=== PATIENT | female | born 1960 | race Caucasian/White ===

== ENCOUNTER 2019-01-21 06:00 | Outpatient (RCR) | payer OTHER, MEDICARE, SELFPAY | END 2019-02-20 00:01 | LOC: SPT 06:00 | PROVIDERS: Family Provider Family Medicine; Visit Provider General Practice | DX: G89.4 Chronic pain syndrome (principal); M54.5 Low back pain; R26.9 Unspecified abnormalities of gait and mobility; M79.18 Myalgia, other site; Z79.899 Other long term (current) drug therapy | CPT/HCPCS: 97110 ×4 ==

== ENCOUNTER 2019-02-21 13:16 | Outpatient (RCR) | payer OTHER, MEDICARE, SELFPAY | END 2019-03-23 23:59 | disposition home or self-care (01) | LOC: SPT 13:16 | PROVIDERS: Family Provider Family Medicine; PCP Family Medicine; Visit Provider General Practice | DX: G89.4 Chronic pain syndrome (principal); R26.9 Unspecified abnormalities of gait and mobility; M54.5 Low back pain; M79.18 Myalgia, other site | CPT/HCPCS: 97110 ==

== ENCOUNTER 2019-12-19 12:49 | Outpatient (CLI) | payer MEDICARE, SELFPAY ==
--- NOTE | 2019-12-19 13:08 | MM_ITS ---
WS: [id number] BILATERAL SCREENING DIGITAL MAMMOGRAM WITH CAD HISTORY: Screening exam. COMPARISON: 10/06/2018, 09/15/2018, 05/04/2017. Bilateral CC and MLO views submitted. Computer aided detection analyzed. Breast composition: There are scattered areas of fibroglandular density. No suspicious masses, microc alcifications or architectural distortion. Benign calcifications RIGHT breast. Anterior LEFT breast a symmetry is stable. MM/[id number] IMPRESSION: BI-RADS: 2-Benign FOLLOW UP: 1 Year Follow-up
== END 2019-12-19 12:50 | disposition home or self-care (01) ==
LOC: RADSHAW 12:58
PROVIDERS: PCP Family Medicine; Visit Provider Family Medicine
DX: Z12.31 Encounter for screening mammogram for malignant neoplasm of breast (principal)
CPT/HCPCS: 77067

== ENCOUNTER → 2020-12-14 14:48 | Outpatient (BNVA) | payer MEDICARE, SELFPAY | PROVIDERS: PCP Family Medicine; Visit Provider Nurse Practitioner | DX: Z20.822 Contact with and (suspected) exposure to COVID-19 (principal) | CPT/HCPCS: 87426 ==

== ENCOUNTER 2021-05-07 13:45 | Outpatient (CLI) | payer MEDICARE, SELFPAY ==
--- NOTE | 2021-05-07 13:52 | MM_ITS ---
WS: [id number] BILATERAL 3D TOMOSYNTHESIS DIGITAL SCREENING MAMMOGRAPHY WITH CAD CLINICAL INFORMATION: SCREENING HISTORY: Screening mammogram. No current complaints. COMPARISON: December 19, 2019 TECHNIQUE: Bilateral CC and MLO views. FINDINGS: Scattered fibroglandular densities bilaterally. Stable intramammary lymph nodes LEFT breast. A few in cidental punctate calcifications RIGHT breast. Stable clustered calcifications RIGHT breast. No suspi cious focal mass, asymmetry, calcifications, or architectural distortion. No evidence of malignancy. MM/[id number] IMPRESSION: BI-RADS: 2-Benign FOLLOW UP: 1 Year Follow-up Recommend return to annual screening mammography.
== END 2021-05-07 13:46 | disposition home or self-care (01) ==
LOC: RADSHAW 13:50
PROVIDERS: PCP Family Medicine; Visit Provider Family Medicine
DX: Z12.31 Encounter for screening mammogram for malignant neoplasm of breast (principal)
CPT/HCPCS: 77063; 77067

== ENCOUNTER 2021-11-26 13:12 | Outpatient (CLI) | payer MEDICARE, SELFPAY ==
--- NOTE | 2021-11-26 13:27 | XR_ITS ---
WS: [id number] DEXA (DUAL ENERGY X-RAY ABSORPTIOMETRY) Bone mineral density was performed using a Twist machine. HISTORY: POSTMENOPAUSAL COMPARISON: None available. Lumbar spine BMD (L1-L4): 1.353 g/cm2 T score: 1.4 Z score: 2.8 Total hip BMD: Left: 0.931 g/cm2. T score: -0.6 Z score: 0.4 Right: 0.903 g/cm2. T score: -0.8 Z score: 0.2 10 year probability of a major osteoporotic fracture is 10.6%. XR/XR DEXA axial skeleton* [id number] IMPRESSION: NORMAL BONE MINERAL DENSITY based upon the WHO classification for females.
== END 2021-11-26 13:13 | disposition home or self-care (01) ==
LOC: RAD 13:16
PROVIDERS: PCP Family Medicine; Visit Provider Nurse Practitioner Family
DX: Z78.0 Asymptomatic menopausal state (principal)
CPT/HCPCS: 77080

== ENCOUNTER 2022-04-12 15:21 | Outpatient (CLI) | payer MEDICARE, SELFPAY ==
--- NOTE | 2022-04-12 | MR_ITS ---
WS: [id number] MRI LUMBAR SPINE NONCONTRAST HISTORY: LUMBOSACRAL SPONDYLOSIS COMPARISON: 08/12/2016 TECHNIQUE: Sagittal and axial multisequence imaging is submitted. Thoracolumbar scoliosis. Cervical stenosis at C5-6. No central cord compression. Mild progression of the L3 anterolisthesis since the prior study. L3 anterolisthesis by 6.3 mm. Unroo fing of the L3-4 disc. Moderate to severe disc space narrowing at L3-4, L4-5 and L5-S1. No acute frac tures or marrow edema. Conus terminates normally at L1. L1-L2: Mild annular disc bulging and facet disease. No significant stenosis. Mild progression of face t disease. L2-L3: Mild annular disc bulging with ligamentum flavum hypertrophy and facet disease, LEFT greater t estevez RIGHT. Very mild central, bilateral subarticular recess and foraminal stenosis. Similar to the pr ior study. L3-L4: Severe ligamentum flavum and facet disease encroaching into the central canal. Unroofing of th e disc and facet disease. These findings are resulting in severe central, bilateral subarticular rece ss and moderate RIGHT foraminal stenosis. Mild LEFT foraminal stenosis. Stenosis has increased since the prior study. L4-L5: Diffuse asymmetric disc bulging with a central disc protrusion. Marked ligamentum flavum and f acet arthritis. Disc encroaches into the subarticular recesses with significant contact on the riley sing L5 nerve roots. Difficult progression since the prior study. Severe central, bilateral subarticu lar recess and moderate foraminal stenosis. L5-S1: Diffuse annular disc bulging with facet and ligamentum flavum hypertrophy. Central disc protru marina has decreased in size but overall the disc has progressed. Severe central, bilateral subarticula r recess and foraminal stenosis with mild progression. MR/MR lumbar spine wo con* [id number] IMPRESSION: 1. Overall significant progression of degenerative disc disease and spondyliti c changes throughout the lumbar spine since 2017. 2. Severe central, bilateral subarticular recess and moderate RIGHT foraminal stenosis at L3-4. 3. Severe central, bilateral subarticular recess and moderate foraminal stenos is at L4-5. Significant contact on the traversing L5 nerve roots secondary to a central disc protrusion. 4. Severe central, bilateral subarticular recess and foraminal stenosis at L5- S1. Mild progression since the prior study. The central disc protrusion has res olved. 5. Mild central, bilateral subarticular recess and foraminal stenosis at L2-3. 6. Progression of L3 anterolisthesis now measuring 6.3 mm.
== END 2022-04-12 15:22 | disposition home or self-care (01) ==
PROVIDERS: PCP Family Medicine; Visit Provider Physician Assistant
DX: M47.817 Spondylosis without myelopathy or radiculopathy, lumbosacral region (principal); M48.061 Spinal stenosis, lumbar region without neurogenic claudication; M48.07 Spinal stenosis, lumbosacral region; M51.36 Other intervertebral disc degeneration, lumbar region
CPT/HCPCS: 72148

== ENCOUNTER 2022-04-25 15:09 | Emergency (ER) | payer MEDICARE, SELFPAY ==
[2022-04-25 15:26] VITALS: BP 116/76; PULSE 93; RESP 14; TEMP 36.9; O2SAT 100; BMI 28.3
--- NOTE | 2022-04-25 15:45 | ED_ITS ---
HPI - Extremity Problem General: Chief complaint: Extremity Problem,Nontraumatic Stated complaint: back/left hip/right knee pain Time Seen by Provider: 04/25/22 15:38 Source: patient Mode of arrival: ambulatory Limitations: no limitations History of Present Illness: 61-year-old female presents to the ER today for low back pain and right knee pain. Patient reports this is a chronic issue. She recently had an MRI of the low back and was told that it appears worse than it did several years ago. Patient has been referred to a specialist in [place]. Patient reports the pain in her low back radiates down into both buttocks and hips. Patient takes Celebrex and Tylenol for the pain with minimal improvement. Patient reports she has trouble sleeping at night due to being in pain. Patient reports she also has right knee pain. In the past she has had steroid injections and was told that she could keep getting those until she needs a knee replacement. Patient would like to hold off on that as long as possible. She denies any known injury however just reports it feels achy and she has pain with ambulation. Patient reports occasional swelling in it also. Denies that it is worse right now than in the past however is just constantly noticeable anymore. Patient denies any loss of bowel or bladder control. Denies any neurological deficits at this time. Review of Systems General: Reports: 10 or more systems reviewed and unremarkable except in HPI and below PFSH ED PFSH: Medical History BOOP (bronchiolitis obliterans with organizing pneumonia) Depression Dyslipidemia Fibromyalgia GERD (gastroesophageal reflux disease) Hypersomnia Hypothyroidism JAMES (obstructive sleep apnea) Osteoarthritis RLS (restless legs syndrome) Surgical History H/O knee surgery Right - lap. H/O: hysterectomy Partial Family History Other CAD (coronary artery disease) Diabetes Social History Smoking and tobacco status: current every day smoker cigarettes Packs smoked per day: 0.25 [ Other cigarette details: vapes as well ] Alcohol intake: current Alcohol intake frequency: holidays/special occasions only Physical Exam Const: COMMON NORMALS: no acute distress, average body habitus, patient oriented x3, no limitations, healthy appearing, alert and well nourished Resp: COMMON NORMALS: normal respiratory effort and No retractions EFFORT & INSPECTION: Yes able to speak in complete sentences Cardio: COMMON NORMALS: regular rate and regular rhythm RATE: regular rate RHYTHM: regular rhythm Back/Pelvis: OTHER: Patient has tenderness in bilateral SI joints. No midline tenderness is noted in the L-spine. No obvious deformities. No obvious muscle spasms noted. Extremity: NARRATIVE EXTREMITY EXAM: Patient has minimal swelling noted in the right knee. Patient's gait is normal. No obvious deformities of extremities noted. Right knee appears stable on exam. Neuro: COMMON NORMALS: patient oriented x3 SENSORIUM/ORIENTATION: Yes alert Psych: COMMON NORMALS: mental status grossly normal, Normal thought process present and cooperative THOUGHT PROCESS: Normal thought process present Skin: COMMON NORMALS: no rashes or lesions noted and no wounds GENERAL SKIN EXAM: no rashes or lesions noted Course ED course: Patient presents the ER today for back pain and right knee pain that have continued to worsen. Patient has seen her PCP at [facility] and recently had an MRI. The MRI did show changes and she has been referred to [place]. Patient here today because she is having difficulty sleeping due to the constant pain at night. Patient is only taking Tylenol and Celebrex at this time. Patient denies any new neurological deficits or loss of bowel or bladder control. Vital Signs: Vital signs: Vital Signs Temperature 98.4 F 04/25/22 15:26 Pulse Rate 93 04/25/22 15:26 Respiratory Rate 14 04/25/22 15:26 Blood Pressure 116/76 04/25/22 15:26 Pulse Oximetry 100 04/25/22 15:26 Oxygen Delivery Me thod 04/25/22 15:26 MDM - Extremity (Nontraumatic) Medical Decision Making Nothing has changed as far as patient's symptoms go since last imaging was done. We are unable to do a steroid shot in the knee in the ER today but we will try an oral steroid which may help with the low back and the knee. I will send patient home with cyclobenzaprine that she can take at night and as needed throughout the day up to 3 times daily for the back pain. This might allow her to rest some at night. Patient should continue all other medications at home as previously prescribed. I recommend she follow-up with her PCP in several days for an ER follow-up. I also recommended she contact an orthopedic doctor regarding the right knee pain to discuss possible injections in the knee. For any new or worsening symptoms return to the ER. Patient verbalized understand ing and was in agreement with the treatment plan. Critical Care Time Critical Care Time: Critical Care Time: No Discharge Plan Discharge Patient Disposition: Home Clinical Impression: Chronic back pain Qualifiers: Back pain location: low back pain Back pain laterality: bilateral Sciatica presence: with sciatica Sciatica laterality: bilateral sciatica Qualified Code(s): M54.42 - Lumbago with sciatica, left side Osteoarthritis of right knee Qualifiers: Osteoarthritis type: unspecified Qualified Code(s): M17.11 - Unilateral primary osteoarthritis, right knee Condition: Stable Prescriptions: New Medrol (Louie) 4 mg tablets,dose pack See Rx Instructions .ROUTE .COMPLEX Qty: 21 0RF Rx Instructions: orally per package directions cyclobenzaprine 10 mg tablet 10 mg PO TID PRN (Reason: muscle spasm) Qty: 20 0RF No Action gabapentin 300 mg capsule 300 mg PO QID levothyroxine 25 mcg tablet 25 mcg PO .Q AM amitriptyline 50 mg tablet 50 mg PO DAILY topiramate [Topamax] 200 mg tablet 200 mg PO BID celecoxib [Celebrex] 200 mg capsule 200 mg PO DAILY potassium chloride 20 mEq tablet extended release 20 meq PO DAILY modafinil 200 mg tablet 200 mg PO QAM atorvastatin 40 mg tablet 40 mg PO DAILY omeprazole 40 mg capsule,delayed release(DR/EC) 40 mg PO DAILY montelukast [Singulair] 10 mg tablet 10 mg PO DAILY escitalopram oxalate 20 mg tablet 20 mg PO DAILY trazodone 150 mg tablet 150 mg PO DAILY ropinirole 2 mg tablet 2 mg PO DAILY ondansetron HCl [Zofran] 4 mg tablet 4 mg PO Q6H PRN mecobalamin (vitamin B12) 5,000 mcg lozenge 5,000 mcg PO DAILY Rx Instructions: allow to dissolve in mouth OR may chew lightly before swallowing cholecalciferol (vitamin D3) 50 mcg (2,000 unit) capsule 50 mcg PO DAILY glucosamine HCl 1,500 mg tablet 1,500 mg PO DAILY Rx Instructions: administer with a meal omega-3 acid ethyl esters PO Discharge Orders: Discharge ED (Routine); Ordered 04/25/22 Ordered By: Lennie Wilson Referrals: Kaden Plasencia MD [Primary Care Provider] - Discharge Diet: Usual diet Discharge Activity: Increase activity as tolerated Patient Instructions: Opioid Safety, Pain Management Activity Restrictions/Additional Instructions: Take Medrol Dosepak and cyclobenzaprine as prescribed. Continue all other home medications at this time. Warm, moist heat recommended on the low back. Topical muscle rub also recommended such as Bengay or IcyHot. May also try Voltaren [id number]. Recommended glucosamine/chondroitin vitamin. Follow-up with PCP in 3 to 5 days. Return to the ER with new or worsening symptoms. Coding Level of Care Code ED Supplier Quality Engineer for Elroy Yanez
== END 2022-04-25 16:06 | disposition home or self-care (01) ==
PROVIDERS: Emergency Provider Physician Assistant; PCP Family Medicine
DX: M54.42 Lumbago with sciatica, left side (principal); M17.11 Unilateral primary osteoarthritis, right knee
CPT/HCPCS: 99283

== ENCOUNTER → 2022-04-29 09:46 | Outpatient (BNVA) | payer MEDICARE, SELFPAY | PROVIDERS: PCP Family Medicine; Referring Provider Dermatology; Visit Provider Physician Assistant | DX: M54.41 Lumbago with sciatica, right side (principal); M54.42 Lumbago with sciatica, left side; G89.29 Other chronic pain; M17.11 Unilateral primary osteoarthritis, right knee; F17.219 Nicotine dependence, cigarettes, with unspecified nicotine-induced disorders; M48.061 Spinal stenosis, lumbar region without neurogenic claudication | CPT/HCPCS: 72100; 73560; 73565; 99205 ==

== ENCOUNTER → 2022-05-26 10:56 | Outpatient (BNVA) | payer MEDICARE, SELFPAY | PROVIDERS: PCP Family Medicine; Referring Provider Physician Assistant; Visit Provider Anesthesiology Pain Medicine | DX: M48.061 Spinal stenosis, lumbar region without neurogenic claudication (principal); M43.16 Spondylolisthesis, lumbar region; M47.816 Spondylosis without myelopathy or radiculopathy, lumbar region | CPT/HCPCS: 99204 ==

== ENCOUNTER 2022-06-15 15:27 | Outpatient (CLI) | payer MEDICARE, SELFPAY ==
--- NOTE | 2022-06-15 16:15 | MM_ITS ---
WS: [id number] BILATERAL SCREENING DIGITAL TOMOSYNTHESIS MAMMOGRAM WITH CAD HISTORY: SCREEN COMPARISON: 05/07/2021 and 12/19/2019 Bilateral CC and MLO views with tomosynthesis and synthetic mammography submitted. Computer aided det ection analyzed. Breast composition: There are scattered areas of fibroglandular density. No suspicious masses, microc alcifications or architectural distortion. Scattered bilateral calcifications. Benign lymph node uppe r outer quadrant LEFT breast. MM/[id number] IMPRESSION: BI-RADS: 2-Benign FOLLOW UP: 1 Year Follow-up
== END 2022-06-15 15:28 | disposition home or self-care (01) ==
LOC: RAD 15:33
PROVIDERS: PCP Family Medicine; Visit Provider Family Medicine
DX: Z12.31 Encounter for screening mammogram for malignant neoplasm of breast (principal)
CPT/HCPCS: 77063; 77067

== ENCOUNTER → 2022-07-06 15:55 | Outpatient (BNVA) | payer MEDICARE, SELFPAY | PROVIDERS: PCP Family Medicine; Visit Provider Physician Assistant | DX: M43.16 Spondylolisthesis, lumbar region (principal); M48.061 Spinal stenosis, lumbar region without neurogenic claudication; M47.816 Spondylosis without myelopathy or radiculopathy, lumbar region | CPT/HCPCS: 99214 ==

== ENCOUNTER → 2022-10-19 09:14 | Outpatient (BNVA) | payer MEDICARE, SELFPAY | PROVIDERS: PCP Family Medicine; Visit Provider Anesthesiology Pain Medicine | DX: M48.061 Spinal stenosis, lumbar region without neurogenic claudication; M43.16 Spondylolisthesis, lumbar region; M47.816 Spondylosis without myelopathy or radiculopathy, lumbar region | CPT/HCPCS: 99214 ==

== ENCOUNTER 2023-04-08 21:08 | Emergency (ER) | payer MEDICARE, SELFPAY ==
[2023-04-08 21:09] VITALS: BP 150/65; PULSE 103; RESP 16; TEMP 36.6; O2SAT 98
[2023-04-08] MEDS: oxyCODONE-APAP 5-325 mg Tablet 1 TAB PO (22:37)
[2023-04-08] MEDS: tizanidine 4 mg Tablet PO (22:37)
[2023-04-08] MEDS: ketorolac 60 mg/2 mL INJ IM (22:37)
[2023-04-08] MEDS: dexamethasone 10 mg/mL INJ IM (22:37)
--- NOTE | 2023-04-08 23:32 | W.ED.EXTPRO ---
HPI - Extremity Problem General: Chief complaint: Extremity Problem,Nontraumatic Stated complaint: back and bilateral hip pain Time Seen by Provider: 04/08/23 21:17 Source: patient Mode of arrival: ambulatory Limitations: no limitations History of Present Illness: Patient presents emergency department today for evaluation treatment of bilateral inferior buttock pain with radiation down the legs causing pain and numbness. Chart review shows patient has a long history of chronic issues with lumbar radicular symptoms having seen both orthopedics and pain management in the past. Patient has also had various imaging including an MRI which does show chronic degenerative changes, facet arthropathy and ligamentous issues. Patient had done physical therapy which she stated helped some but, due to cost and recurrence of visits, was unable to continue. It does appear that her last pain management visit in September of last year they had discussed injections but, patient states that she had several people tell her they turned out badly for them and she was worried-so she did not get them done. Patient has used steroids, muscle relaxers, gabapentin in the past. Patient states she still has a prescription for gabapentin but often times does not take it. She is denying bowel or bladder dysfunction. She denies any recent injuries or falls. She admits to taking a [place] today without improvement of her pain. Review of Systems General: Reports: 10 or more systems reviewed and unremarkable except in HPI and below PFSH ED PFSH: Medical History JAMES (obstructive sleep apnea) Hypersomnia Hypothyroidism Osteoarthritis Dyslipidemia Depression RLS (restless legs syndrome) GERD (gastroesophageal reflux disease) BOOP (bronchiolitis obliterans with organizing pneumonia) Fibromyalgia Surgical History H/O knee surgery Right - lap. H/O: hysterectomy Partial Family History Other CAD (coronary artery disease) Diabetes Social History Smoking and tobacco/nicotine status: current every day tobacco/nicotine user cigarettes Packs smoked per day: 0.25 [ Other cigarette details: vapes as well ] Alcohol intake: current Alcohol intake frequency: holidays/special occasions only Substance/Drug Use: never Physical Exam Const: COMMON NORMALS: no acute distress, patient oriented x3 and alert HENMT: COMMON NORMALS: normocephalic, atraumatic and hearing grossly normal bilaterally HEAD & SCALP: normocephalic and atraumatic Eye: COMMON NORMALS: Equal, round and reactive pupils present, EOMs intact bilaterally and conjunctivae normal CONJUNCTIVA: Yes conjunctivae normal PUPIL: Yes Equal, round and reactive pupils present Neck/C-Spine: COMMON NORMALS: full ROM and no JVD Lymph: LYMPHATIC: no lymphadenopathy noted Resp: COMMON NORMALS: normal respiratory effort, No retractions and No use of accessory muscles Cardio: COMMON NORMALS: no JVD and regular rate RATE: regular rate Back/Pelvis: OTHER: Patient demonstrates flexion extension capabilities of the back. She has no specific tenderness along the lumbar vertebrae at this time. Extremity: OTHER: Patient is independently ambulatory and weightbearing here in the emergency department. She is able to rise and sit unassisted. Full flexion extension capabilities of the hips bilaterally and knees noted. Patient with reproducible tenderness on palpation of the inferior portion of the buttocks at the adjoining upper, posterior thigh region. EXTREMITY IMAGE (BACK): 1. 2. Neuro: COMMON NORMALS: patient oriented x3 SENSORIUM/ORIENTATION: Yes alert Psych: COMMON NORMALS: mental status grossly normal, Normal thought process present, cooperative and normal affect THOUGHT PROCESS: Normal thought process present Skin: COMMON NORMALS: no rashes or lesions noted and turgor normal GENERAL SKIN EXAM: no rashes or lesions noted and turgor normal Course Vital Signs: Vital signs: Vital Signs Temperature 97.9 F 04/08/23 21:09 Pulse Rate 103 H 04/08/23 21:09 Respiratory Rate 16 04/08/23 21:09 Blood Pressure 150/65 04/08/23 21:09 Pulse Oximetry 98 04/08/23 21:09 Oxygen Delivery Me thod Room Air 04/08/23 21:09 MDM - Extremity (Nontraumatic) Medical Decision Making Patient's physical examination reveals no signs of any acute neurological deficit as she is fully weightbearing and ambulatory. No signs or reports of cauda equina. Patient has well-documented, chronic back pain with imaging to support chronic degenerative changes and radicular symptoms in the past. She has been seen and evaluated by orthopedics, primary care, and pain management in the past. She does not currently see pain management or orthopedics at this time. We discussed getting back in with pain management or orthopedics to discuss as I do think this is still a progression of her chronic lumbar radicular issues. We treated acutely with a one-time dose of narcotic pain medication and prescriptions for muscle relaxer, anti-inflammatory medications. She was given return precautions for neurological including inability to stand or walk, saddle paresthesia, or loss of bowel or bladder function. Patient verbalized understanding and agreement to treatment plan. Differential Diagnosis Unlikely herpes zoster, gout, cellulitis, superficial thrombophlebitis, lower extremity edema or deep vein thrombosis of lower extremity No radiology studies performed this visit Discharge Plan Discharge Patient Disposition: Home Clinical Impression: Facet arthritis, degenerative, lumbar spine, Chronic lumbar radiculopathy Condition: Stable Prescriptions: New tizanidine 4 mg tablet 4 mg PO Q8H Qty: 21 0RF methylprednisolone 4 mg tablets,dose pack See Rx Instructions PO .COMPLEX Qty: 21 0RF Rx Instructions: orally per package directions No Action gabapentin 300 mg capsule 300 mg PO QID levothyroxine 25 mcg tablet 25 mcg PO .Q AM amitriptyline 50 mg tablet 50 mg PO DAILY topiramate [Topamax] 200 mg tablet 200 mg PO BID celecoxib [Celebrex] 200 mg capsule 200 mg PO DAILY potassium chloride 20 mEq tablet extended release 20 meq PO DAILY modafinil 200 mg tablet 200 mg PO QAM atorvastatin 40 mg tablet 40 mg PO DAILY omeprazole 40 mg capsule,delayed release(DR/EC) 40 mg PO DAILY montelukast [Singulair] 10 mg tablet 10 mg PO DAILY escitalopram oxalate 20 mg tablet 20 mg PO DAILY trazodone 150 mg tablet 150 mg PO DAILY ropinirole 2 mg tablet 2 mg PO DAILY ondansetron HCl [Zofran] 4 mg tablet 4 mg PO Q6H PRN mecobalamin (vitamin B12) 5,000 mcg lozenge 5,000 mcg PO DAILY Rx Instructions: allow to dissolve in mouth OR may chew lightly before swallowing cholecalciferol (vitamin D3) 50 mcg (2,000 unit) capsule 50 mcg PO DAILY glucosamine HCl 1,500 mg tablet 1,500 mg PO DAILY Rx Instructions: administer with a meal omega-3 acid ethyl esters PO tramadol 50 mg tablet 50 mg PO .q4-6hrs PRN (Reason: pain) 7 Days Qty: 40 0RF cyclobenzaprine 10 mg tablet 10 mg PO TID PRN (Reason: muscle spasm) Qty: 20 0RF Discharge Orders: Discharge ED (Routine); Ordered 04/08/23 Ordered By: Yanet Lopez Referrals: Kaden Plasencia MD [Primary Care Provider] - Discharge Diet: Usual diet Discharge Activity: Increase activity as tolerated Patient Instructions: Lumbar Radiculopathy (ED) Activity Restrictions/Additional Instructions: Based on the location and description of your pain I do think this is a continued progression of your low back issues including chronic degenerative changes around the nerve roots causing nerve root impingement. I highly encourage you to begin taking your gabapentin again. We are also going to provide you medication to take over the next week to see if we can help improve your overall pain and discomfort. I think is a good idea to get back in with either Dr. Hayes or pain management to discuss better control of your pain. It may be worth getting back into physical therapy or, to discuss the next step in treatment-as they had previously discussed injections. If you are unable to control your bowel or bladder or have complete numbness in your upper inner thighs you need to be seen and reevaluated back here in the emergency department. Coding Level of Care Code ED Cutting Machine Offbearer for Elroy Yanez
== END 2023-04-08 22:46 | disposition home or self-care (01) ==
PROVIDERS: Emergency Provider Physician Assistant; PCP Family Medicine
DX: M47.26 Other spondylosis with radiculopathy, lumbar region (principal); F17.210 Nicotine dependence, cigarettes, uncomplicated; E78.5 Hyperlipidemia, unspecified
CPT/HCPCS: 96372; 99284; J1100; J1885

== ENCOUNTER → 2023-04-15 14:21 | Outpatient (BNVA) | payer MEDICARE, SELFPAY | PROVIDERS: PCP Family Medicine; Visit Provider Orthopaedic Surgery | DX: M48.062 Spinal stenosis, lumbar region with neurogenic claudication | CPT/HCPCS: 72100; 99214 ==

== ENCOUNTER → 2023-04-21 10:53 | Outpatient (BNVA) | payer MEDICARE, SELFPAY | PROVIDERS: PCP Family Medicine; Visit Provider Anesthesiology Pain Medicine | DX: M48.062 Spinal stenosis, lumbar region with neurogenic claudication (principal); M48.061 Spinal stenosis, lumbar region without neurogenic claudication; M43.16 Spondylolisthesis, lumbar region; M47.816 Spondylosis without myelopathy or radiculopathy, lumbar region; Z12.11 Encounter for screening for malignant neoplasm of colon; K21.9 Gastro-esophageal reflux disease without esophagitis | CPT/HCPCS: 99204; 99214 ==

== ENCOUNTER → 2023-05-11 13:51 | Outpatient (BNVA) | payer MEDICARE, SELFPAY | PROVIDERS: PCP Family Medicine; Visit Provider Anesthesiology Pain Medicine | DX: M54.16 Radiculopathy, lumbar region (principal); M48.062 Spinal stenosis, lumbar region with neurogenic claudication | CPT/HCPCS: 64483; 64484; J1100; J3490 ==

== ENCOUNTER 2023-06-01 09:53 | Day surgery (SDC) | payer MEDICARE, SELFPAY ==
[2023-06-01 10:07] VITALS: BP 118/78; PULSE 105; RESP 18; TEMP 36.3; O2SAT 98; BMI 28.3
[2023-06-01] MEDS: sodium chloride 0.9% 1,000 ML 30 ML IV (10:25)
--- NOTE | 2023-06-01 11:13 | ANES.PREANE2 ---
Pre-Anesthetic Assessment Height/Weight: Height 1.55 m Weight 68.039 kg Temp Pulse Resp BP Pulse Ox O2 Del Method 97.4 F L 105 H 18 118/78 98 Room Air 06/01/23 10:07 06/01/23 10:07 06/01/23 10:07 06/01/23 10:07 06/01/23 10:07 06/01/23 10:07 Preop Diagnosis: GERD, screening Operation Date: 06/01/23 11:00 Proposed Procedures p [id number] egd [id number] screen colon a risk K21.9,Z12.11(Not Applicable) - Sina Solomon DO s Colonoscopy(Not Applicable) - Sina Solomon DO Familial anesthetic complications: none Was Beta Marquise taken within 24 hours: N/A Was Clonidine taken within 24 hours: N/A Last intake: Intake Last Liquid Date 06/01/23 Last Liquid Time 08:00 Last Solid Date 05/30/23 Last Solid Time 22:00 Social Tobacco (vapes) and No alcohol Exam alert, oriented x 3 and regular rate & rhythm Airway Submandibular: within normal limits Mallampati: Class III Dentition: false History/ROS No significant history except as noted Pulmonary Exertional Dyspnea and Sleep Apnea (does not wear CPAP- wears o2 2L at night) CV/HEM None reported None reported Hepatic None reported GI Gastroesophageal Reflux Disease Metabolic Hyperlipidemia and Thyroid Disease Musc/skel Lower Back Pain Neuropsych None reported Anesthetic Plan ASA status: 3 Anesthesia: Anesthesia Evaluation and MAC Risk of > 500 ml blood loss (7ml/kg in children): No Medications/Allergies Home Medications Medication Instructions Recorded Confirmed Last Taken Type amitriptyline 50 mg tablet 50 mg PO DAILY 06/17/20 06/01/23 06/01/23 History atorvastatin 40 mg tablet 40 mg PO DAILY 06/17/20 06/01/23 05/31/23 History celecoxib 200 mg capsule (Celebrex) 200 mg PO DAILY 06/17/20 06/01/23 06/01/23 History escitalopram oxalate 20 mg tablet 20 mg PO DAILY 06/17/20 06/01/23 06/01/23 History gabapentin 300 mg capsule 300 mg PO QID 06/17/20 06/01/23 06/01/23 History levothyroxine 25 mcg tablet 25 mcg PO .Q AM 06/17/20 06/01/23 06/01/23 History modafinil 200 mg tablet (Provigil) 200 mg PO QAM 06/17/20 06/01/23 06/01/23 History montelukast 10 mg tablet 10 mg PO DAILY 06/17/20 06/01/23 1 Month Ago History (Singulair) ~05/01/23 omega-3 acid ethyl esters 1 tab PO DAILY 06/17/20 06/01/23 06/01/23 History potassium chloride 20 mEq 20 meq PO DAILY 06/17/20 05/31/23 06/01/23 History tablet,extended release ropinirole 2 mg tablet 2 mg PO DAILY 06/17/20 06/01/23 05/31/23 History topiramate 200 mg tablet (Topamax) 200 mg PO BID 06/17/20 05/31/23 06/01/23 History trazodone 150 mg tablet 150 mg PO DAILY 06/17/20 06/01/23 1 Month Ago History ~05/01/23 cyclobenzaprine 10 mg tablet 10 mg PO TID PRN muscle spasm #20 04/25/22 06/01/23 1 Week Ago Rx tabs ~05/25/23 pantoprazole 40 mg tablet,delayed 40 mg PO BID 6 weeks #84 tabs 04/21/23 06/01/23 06/01/23 Rx release (Protonix) Allergies Allergy/AdvReac Type Severity Reaction Status Date / Time morphine Allergy Mild ADR-Itching Verified 06/01/23 10:12 Current Medications Generic Name Dose Route Start Last Admin Trade Name Freq PRN Reason Stop Dose Admin Sodium Chloride 1,000 mls @ 30 mls/hr 06/01/23 10:15 06/01/23 10:25 Sodium Chloride 0.9% IV 06/02/23 10:14 30 mls/hr .Q24H MOOSE Administration PFSH Anesthesia Medical History JAMES (obstructive sleep apnea) Hypersomnia Hypothyroidism Osteoarthritis Dyslipidemia Depression RLS (restless legs syndrome) GERD (gastroesophageal reflux disease) BOOP (bronchiolitis obliterans with organizing pneumonia) Fibromyalgia Surgical History H/O knee surgery Right - lap. H/O: hysterectomy Partial Family History Other CAD (coronary artery disease) Diabetes Social History Smoking and tobacco/nicotine status: current every day tobacco/nicotine user cigarettes Packs smoked per day: 0.25 [ Other cigarette details: vapes as well ] Alcohol intake: current Alcohol intake frequency: holidays/special occasions only Substance/Drug Use: never Data Anesthesia Cardiac Studies: No Data to Display
--- NOTE | 2023-06-01 11:50 | PM.HP ---
Providers/Chief Complaint Primary Care Provider: Kaden Plasencia MD Chief Complaint: K21.9, Z12.11 History of Present Illness Edna Shukla is a 62 year old female Review of Systems General: Reports: 10 or more systems reviewed and unremarkable except in HPI and below Medications/Allergies Home Medications Medication Instructions Recorded Confirmed Last Taken Type amitriptyline 50 mg tablet 50 mg PO DAILY 06/17/20 06/01/23 06/01/23 History atorvastatin 40 mg tablet 40 mg PO DAILY 06/17/20 06/01/23 05/31/23 History celecoxib 200 mg capsule (Celebrex) 200 mg PO DAILY 06/17/20 06/01/23 06/01/23 History escitalopram oxalate 20 mg tablet 20 mg PO DAILY 06/17/20 06/01/23 06/01/23 History gabapentin 300 mg capsule 300 mg PO QID 06/17/20 06/01/23 06/01/23 History levothyroxine 25 mcg tablet 25 mcg PO .Q AM 06/17/20 06/01/23 06/01/23 History modafinil 200 mg tablet (Provigil) 200 mg PO QAM 06/17/20 06/01/23 06/01/23 History montelukast 10 mg tablet 10 mg PO DAILY 06/17/20 06/01/23 1 Month Ago History (Singulair) ~05/01/23 omega-3 acid ethyl esters 1 tab PO DAILY 06/17/20 06/01/23 06/01/23 History potassium chloride 20 mEq 20 meq PO DAILY 06/17/20 05/31/23 06/01/23 History tablet,extended release ropinirole 2 mg tablet 2 mg PO DAILY 06/17/20 06/01/23 05/31/23 History topiramate 200 mg tablet (Topamax) 200 mg PO BID 06/17/20 05/31/23 06/01/23 History trazodone 150 mg tablet 150 mg PO DAILY 06/17/20 06/01/23 1 Month Ago History ~05/01/23 cyclobenzaprine 10 mg tablet 10 mg PO TID PRN muscle spasm #20 04/25/22 06/01/23 1 Week Ago Rx tabs ~05/25/23 pantoprazole 40 mg tablet,delayed 40 mg PO BID 6 weeks #84 tabs 04/21/23 06/01/23 06/01/23 Rx release (Protonix) Allergies Allergy/AdvReac Type Severity Reaction Status Date / Time morphine Allergy Mild ADR-Itching Verified 06/01/23 10:12 PFSH Acute PFSH: Medical History JAMES (obstructive sleep apnea) Hypersomnia Hypothyroidism Osteoarthritis Dyslipidemia Depression RLS (restless legs syndrome) GERD (gastroesophageal reflux disease) BOOP (bronchiolitis obliterans with organizing pneumonia) Fibromyalgia Surgical History H/O knee surgery Right - lap. H/O: hysterectomy Partial Family History Other CAD (coronary artery disease) Diabetes Social History Smoking and tobacco/nicotine status: current every day tobacco/nicotine user cigarettes Packs smoked per day: 0.25 [ Other cigarette details: vapes as well ] Alcohol intake: current Alcohol intake frequency: holidays/special occasions only Substance/Drug Use: never Vitals/I&O/Wt Last Vital Signs Temp 97.4 F L 06/01/23 10:07 Pulse 105 H 06/01/23 10:07 Resp 18 06/01/23 10:07 BP 118/78 06/01/23 10:07 Pulse Ox 98 06/01/23 10:07 O2 Del Method Room Air 06/01/23 10:07 Weight last 48 hrs Weight 150 lb A&P Assessment and plan (1) GERD (gastroesophageal reflux disease): (2) Colon cancer screening: Plan EGD and colonoscopy Attestations Medical Necessity Statement*: Home Coding Level of Care Code Acute Code for Chg Fwd Diagnoses GERD (gastroesophageal reflux disease) K21.9 Colon cancer screening Z12.11
[2023-06-01] MEDS: EPINEPHrine 1 mg/mL INJ XX (12:18)
[2023-06-01 12:43] VITALS: BP 107/62; PULSE 102; RESP 16; TEMP 36.1; O2SAT 98
[2023-06-01 13:02] VITALS: BP 129/72; PULSE 100; RESP 18; O2SAT 100
--- NOTE | 2023-06-01 15:28 | ANE.PACU2 ---
Inpatient post-anesthesia follow up: Airway intact: Yes Vital signs: Temperature 97 F Pulse Rate 100 Respiratory Rate 18 Blood Pressure 129/72 Pulse Oximetry 100 Oxygen Delivery Me thod Room Air Oxygen Flow Rate Fraction of Inspir ed Oxygen Hydration adequate: Yes Nausea and vomiting: No Pain level: 2 Mental status: Baseline
== END 2023-06-01 13:17 | disposition home or self-care (01) ==
PROVIDERS: PCP Family Medicine; Visit Provider Surgery
PROC: 0DJ08ZZ Inspection of Upper Intestinal Tract, Via Natural or Artificial Opening Endoscopic (ICD-10-PCS; CPT 43235; principal; 2023-06-01 11:00)
PROC: 0DJD8ZZ Inspection of Lower Intestinal Tract, Via Natural or Artificial Opening Endoscopic (ICD-10-PCS; CPT 45378; 2023-06-01 11:00)
DX: Z12.11 Encounter for screening for malignant neoplasm of colon (principal); K44.9 Diaphragmatic hernia without obstruction or gangrene; K20.90 Esophagitis, unspecified without bleeding; D12.2 Benign neoplasm of ascending colon; K21.9 Gastro-esophageal reflux disease without esophagitis; G47.33 Obstructive sleep apnea (adult) (pediatric); E03.9 Hypothyroidism, unspecified; M19.90 Unspecified osteoarthritis, unspecified site; E78.5 Hyperlipidemia, unspecified; F32.A Depression, unspecified; M79.7 Fibromyalgia; F17.210 Nicotine dependence, cigarettes, uncomplicated
CPT/HCPCS: 43239; 45385; 88305; 88342; J0171; J2704; J7030

== ENCOUNTER → 2023-06-06 08:58 | Outpatient (BNVA) | payer MEDICARE, SELFPAY | PROVIDERS: PCP Family Medicine; Visit Provider Anesthesiology Pain Medicine | DX: M48.062 Spinal stenosis, lumbar region with neurogenic claudication (principal); M47.816 Spondylosis without myelopathy or radiculopathy, lumbar region; M43.16 Spondylolisthesis, lumbar region; M48.061 Spinal stenosis, lumbar region without neurogenic claudication | CPT/HCPCS: 99214 ==

== ENCOUNTER → 2023-06-16 15:07 | Outpatient (BNVA) | payer MEDICARE, SELFPAY | PROVIDERS: PCP Family Medicine; Visit Provider Surgery | DX: Z09 Encounter for follow-up examination after completed treatment for conditions other than malignant neoplasm (principal); K21.00 Gastro-esophageal reflux disease with esophagitis, without bleeding; D37.4 Neoplasm of uncertain behavior of colon | CPT/HCPCS: 99214 ==

== ENCOUNTER 2023-06-28 11:50 | Outpatient (CLI) | payer MEDICARE, SELFPAY ==
--- NOTE | 2023-06-28 11:57 | CT_ITS ---
WS: [id number] CT LUMBAR SPINE, noncontrast. HISTORY: SPONDYLOSIS W/O MYELOPATHY OR RADICULOPATHY TECHNIQUE: Contiguous 2.0 mm axial imaging are performed. Sagittal and coronal reformats are submitte d and reviewed. All CT scans at [facility] use at least one of these dose optimization techni ques: automated exposure control; mA and/or kV adjustment per patient size (includes targeted exams w here dose is matched to clinical indication); or iterative reconstruction. IV contrast: None DLP: 466.33 mGy.cm COMPARISON: Radiograph 06/28/2023 L3 anterolisthesis by 6.1 mm. Vacuum disc phenomenon and moderate narrowing of the disc at L3-4, L4-5 and L5-S1. Endplate cystic changes at L3, L4 and L5 with osteophytes. No fracture. L1-2: Mild disc bulging and mild bilateral foraminal narrowing. L2-3: Diffuse annular disc bulging with ligamentum flavum and facet arthritis. Disc encroachment upon the ventral thecal sac and subarticular recesses. Moderate central and bilateral subarticular recess stenosis and mild foraminal stenosis. Disc contacts the traversing L3 nerve roots. L3-4: Diffuse annular disc bulging with osteophytic ridging. Significant narrowing of the subarticula r recesses and encroachment upon the traversing L4 nerve roots. Ligamentum flavum and marked facet ar thritis. Moderate central with subarticular recess and foraminal stenosis. L4-5: Diffuse annular disc bulging with osteophytic ridging, ligamentum flavum and facet arthritis. M oderate to severe central, bilateral subarticular recess and moderate foraminal stenosis. L5-S1: Mild annular disc bulging with osteophytic ridging. Marked ligamentum flavum and facet arthrit is. Moderate to severe central, bilateral subarticular recess and foraminal stenosis. Significant con tact upon the L5 and S1 nerve roots. Heavy calcification abdominal aorta. Air in the SI joints. CT/CT lumbar spine wo con* [id number] IMPRESSION: 1. L3 anterolisthesis by 6.1 mm. 2. Multilevel lumbar spine stenosis due to combination of disc, osteophytosis, ligamentum flavum and facet arthritis. 3. L5-S1: Moderate to severe central, bilateral subarticular recess and forami nal stenosis. 4. L4-5: Moderate to severe central with bilateral subarticular recess and mod erate foraminal stenosis. 5. L3-4: Moderate central with subarticular recess and foraminal stenosis. 6. L2-3: Moderate central with bilateral subarticular recess and mild foramina l stenosis.
--- NOTE | 2023-06-28 11:57 | XRR_ITS ---
PROCEDURE INFORMATION: Exam: XR Lumbosacral Spine Exam date and time: 06/28/2023 12:18 PM Age: 62 years old Clinical indication: Condition or disease; Spondylosis, lumbosacral; Lumbar region; Without myelopathy or radiculopathy; Additional info: Spondylosis w/o myelopathy or radiculopathy TECHNIQUE: Imaging protocol: Radiologic exam of the lumbosacral spine. Views: 2 or 3 views. COMPARISON: CT lumbar spine wo con* [id number] 06/28/2023 12:10 PM FINDINGS: Bones/joints: Neutral lateral flexion and lateral flexion/extension views of the lumbar spine were obtained. There is approximately 8 mm anterolisthesis of L3 on L4. Alignment is otherwise normal with no instability. There is moderate L3-L5 disc space narrowing . Small marginal osteophytes are seen diffusely. Soft tissues: Unremarkable. Vasculature: Aortic calcifications are seen. XR/XR lumbar spine f/e only [id number] IMPRESSION: Spondylolisthesis of L3 on L4. No instability. Degenerative findings.
--- NOTE | 2023-06-28 12:02 | MM_ITS ---
WS: [id number] BILATERAL SCREENING DIGITAL TOMOSYNTHESIS MAMMOGRAM WITH CAD HISTORY: SCREENING COMPARISON: 06/15/2022, 12/19/2019 and 09/15/2018 Bilateral CC and MLO views with tomosynthesis and synthetic mammography submitted. Computer aided det ection analyzed. Breast composition: There are scattered areas of fibroglandular density. No suspicious masses, microc alcifications or architectural distortion. The asymmetries and intramammary lymph nodes in the LEFT b reast are stable. Benign calcifications in each breast. MM/[place] [id number] IMPRESSION: BI-RADS: 2-Benign FOLLOW UP: 1 Year Follow-up
== END 2023-06-28 11:51 | disposition home or self-care (01) ==
PROVIDERS: PCP Family Medicine; Visit Provider Family Medicine
DX: M47.816 Spondylosis without myelopathy or radiculopathy, lumbar region (principal); M48.061 Spinal stenosis, lumbar region without neurogenic claudication; Z12.31 Encounter for screening mammogram for malignant neoplasm of breast; R92.323 Mammographic fibroglandular density, bilateral breasts
CPT/HCPCS: 72120; 72131; 77063; 77067

== ENCOUNTER → 2023-06-30 09:51 | Outpatient (BNVA) | payer MEDICARE, SELFPAY | PROVIDERS: PCP Family Medicine; Visit Provider Family Medicine Adult Medicine | DX: F17.219 Nicotine dependence, cigarettes, with unspecified nicotine-induced disorders (principal); E03.9 Hypothyroidism, unspecified; F32.9 Major depressive disorder, single episode, unspecified; E78.5 Hyperlipidemia, unspecified | CPT/HCPCS: 80053; 80061; 84443; 85025 ==

== ENCOUNTER → 2023-07-06 09:55 | Outpatient (BNVA) | payer MEDICARE, SELFPAY | PROVIDERS: PCP Family Medicine; Visit Provider Anesthesiology Pain Medicine | DX: M48.062 Spinal stenosis, lumbar region with neurogenic claudication (principal); M48.061 Spinal stenosis, lumbar region without neurogenic claudication; M43.16 Spondylolisthesis, lumbar region; M47.816 Spondylosis without myelopathy or radiculopathy, lumbar region | CPT/HCPCS: 99214 ==

== ENCOUNTER 2023-07-27 09:02 | Outpatient (CLI) | payer MEDICARE, SELFPAY ==
--- NOTE | 2023-07-27 09:00 | CT_ITS ---
WS: [id number] LDCT LUNG CANCER SCREENING HISTORY: smoker TECHNIQUE: Axial imaging performed from the apices to 1 cm below the costophrenic angles. Coronal and sagittal reformats are submitted with axial MIP series. All CT scans at [facility] use at least one of these dose optimization techniques: automated exposure control; mA and/or kV adjustment per patient size (includes targeted exams where dose is matched to clinical indication); or iterativ e reconstruction. DLP: 71.21 mGy.cm DIvol: Mean CTDIvol: 1.60 (mGy) COMPARISON: 04/29/2007 Diagnostic quality: Satisfactory Lungs: Centrilobular emphysema. RIGHT lower lobe subpleural nodule measures 3 mm. No additional pulmo nary nodule or mass. No pneumonia. Heart: Normal size heart with no pericardial effusion.. Other findings: Mild atherosclerosis aorta. Normal size pulmonary artery. No mediastinal or hilar vipul nopathy. No adrenal mass. Increase in thoracic kyphosis. Benign-appearing soft tissue calcification i n the posterior RIGHT chest wall. CT/CT lung screening [id number] IMPRESSION: LUNG-RADS: 2-Benign Appearance or Behavior FOLLOW UP: 12 Month: Continue annual screening with LDCT OTHER FINDINGS (S MODIFIER): None.
== END 2023-07-27 09:03 | disposition home or self-care (01) ==
LOC: RAD 09:02
PROVIDERS: PCP Family Medicine; Visit Provider Family Medicine Adult Medicine
DX: Z12.2 Encounter for screening for malignant neoplasm of respiratory organs (principal); F17.219 Nicotine dependence, cigarettes, with unspecified nicotine-induced disorders
CPT/HCPCS: 71271

== ENCOUNTER → 2023-08-08 10:20 | Outpatient (BNVA) | payer MEDICARE, SELFPAY | PROVIDERS: PCP Family Medicine; Visit Provider Anesthesiology Pain Medicine | DX: M48.062 Spinal stenosis, lumbar region with neurogenic claudication; M48.061 Spinal stenosis, lumbar region without neurogenic claudication; M43.16 Spondylolisthesis, lumbar region; M47.816 Spondylosis without myelopathy or radiculopathy, lumbar region | CPT/HCPCS: 99214 ==

== ENCOUNTER → 2023-10-10 13:55 | Outpatient (BNVA) | payer MEDICARE, SELFPAY | PROVIDERS: PCP Family Medicine; Visit Provider Surgery | DX: K21.9 Gastro-esophageal reflux disease without esophagitis (principal); K59.04 Chronic idiopathic constipation; R10.11 Right upper quadrant pain; R11.0 Nausea | CPT/HCPCS: 99214 ==

== ENCOUNTER → 2023-10-13 14:15 | Outpatient (BNVA) | payer MEDICARE, SELFPAY | PROVIDERS: PCP Family Medicine; Visit Provider Orthopaedic Surgery | DX: M48.061 Spinal stenosis, lumbar region without neurogenic claudication (principal); M43.16 Spondylolisthesis, lumbar region; Z01.818 Encounter for other preprocedural examination | CPT/HCPCS: 36415; 72110; 80053; 81003; 81015; 85025; 99214 ==

== ENCOUNTER → 2023-11-02 09:53 | Outpatient (BNVA) | payer MEDICARE, SELFPAY | PROVIDERS: PCP Family Medicine; Visit Provider Family Medicine | DX: Z01.818 Encounter for other preprocedural examination (principal) | CPT/HCPCS: 81003; 87086 ==

== ENCOUNTER 2023-11-11 05:53 | Day surgery (SDC) | payer MEDICARE, SELFPAY ==
[2023-11-11] VITALS (11 sets, daily range): BP systolic 108–145; BP diastolic 60–94; PULSE 70–90; RESP 14–20; TEMP 36.3–36.9; O2SAT 96–100; BMI 29.2
--- NOTE | 2023-11-11 06:17 | P.ANESASSM_ITS ---
Pre-Anesthetic Assessment Height/Weight: Height 5 ft 1 in Preop Diagnosis: Lumbar stenosis with neurogenic claudication Operation Date: 11/11/23 07:00 Proposed Procedures p Lumbar Spine Decompression Lumbar Decompression(Not Applicable) - Robin Hayes DO Was Beta Marquise taken within 24 hours: N/A Was Clonidine taken within 24 hours: N/A Social Tobacco and No alcohol Exam alert, oriented x 3 and regular rate & rhythm Decreased breath sounds bilaterally Airway Submandibular: within normal limits Cervical ROM: within normal limits Mallampati: Class IV Dentition: false Anesthetic Plan ASA status: 3 Anesthesia: General Other: No prior issues with anesthesia NPO since midnight History of CKD stage III GERD JAMES, no CPAP Hypothyroidism on Synthroid Chronic pain, fibromyalgia-daily tramadol use Patient denies any cardiac issues Labs reviewed 11/02/2023. UTI noted, patient completed round of antibiotics Plan for GETA Medications/Allergies Home Medications Medication Instructions Recorded Confirmed Last Taken Type amitriptyline 50 mg tablet 50 mg PO DAILY 06/17/20 11/11/23 11/09/23 History modafinil 200 mg tablet (Provigil) 200 mg PO QAM 06/17/20 11/11/23 11/11/23 05:15 History montelukast 10 mg tablet 10 mg PO DAILY 06/17/20 11/11/23 11/11/23 05:15 History (Singulair) ropinirole 2 mg tablet 2 mg PO DAILY 06/17/20 11/11/23 11/09/23 History trazodone 150 mg tablet 150 mg PO DAILY 06/17/20 11/11/23 10/13/23 History atorvastatin 40 mg tablet 40 mg PO .q hs PRN 07/12/23 11/11/23 11/11/23 05:15 Rx cholesterol/fats #90 tabs levothyroxine 25 mcg tablet 25 mcg PO .Q AM thyroid 07/12/23 11/11/23 11/11/23 05:15 Rx replacement #90 tabs bupropion HCl 300 mg 24 hr tablet, 300 mg PO QAM #90 tabs 08/04/23 11/11/23 11/10/23 Rx extended release celecoxib 200 mg capsule (Celebrex) 200 mg PO BID PRN pain #60 caps 08/04/23 11/11/23 11/11/23 05:15 Rx escitalopram oxalate 20 mg tablet See Rx Instructions .Route 08/10/23 11/11/23 11/11/23 05:15 Rx .COMPLEX #90 tabs potassium chloride 20 mEq See Rx Instructions .Route 08/10/23 11/11/23 11/11/23 05:15 Rx tablet,extended release .COMPLEX #90 tabs topiramate 200 mg tablet See Rx Instructions .Route 08/10/23 11/11/23 11/11/23 05:15 Rx .COMPLEX #180 tabs pantoprazole 40 mg tablet,delayed 40 mg PO BID 30 days #60 tabs 10/10/23 11/11/23 11/11/23 05:15 Rx release (Protonix) gabapentin 300 mg capsule 300 mg PO QID nerve pain #360 caps 11/02/23 11/11/23 11/11/23 05:15 Rx omega 9-zwt-njj-fish oil 1,000 mg 1 cap PO DAILY 11/02/23 11/11/23 11/09/23 History (120 mg-180 mg) capsule (Fish Oil) ondansetron 4 mg disintegrating 4 mg PO Q8H PRN nausea and 11/07/23 11/11/23 11/10/23 Rx tablet vomiting #10 tabs polyethylene glycol 3350 17 85 g PO DAILY 5 days #510 grams 11/07/23 11/11/23 11/09/23 Rx gram/dose oral powder (Miralax) Allergies Allergy/AdvReac Type Severity Reaction Status Date / Time morphine Allergy Mild ADR-Itching Verified 11/07/23 16:32 [facility] Anesthesia Medical History GERD with esophagitis CKD stage 3a, GFR 45-59 ml/min Adult BMI 30+ JAMES (obstructive sleep apnea) Hypothyroidism Osteoarthritis Dyslipidemia Depression RLS (restless legs syndrome) Fibromyalgia Surgical History H/O knee surgery Right - lap. H/O: hysterectomy Partial Family History Father Diabetes Stroke Mother Heart disease Other CAD (coronary artery disease) Social History Smoking and tobacco/nicotine status: current every day tobacco/nicotine user cigarettes Packs smoked per day: 0.25 [ Other cigarette details: vapes as well ] Alcohol intake: current Alcohol intake frequency: holidays/special occasions only Substance/Drug Use: never Data Anesthesia Cardiac Studies: No Data to Display
[2023-11-11] MEDS: sodium chloride 0.9% 1,000 ML 30 ML IV (06:28)
--- NOTE | 2023-11-11 06:42 | W.PM.OPSUD ---
Surgery/Procedure H&P Update DATE OF PROCEDURE: November 11, 2023 DATE H&P PERFORMED: 11/02/23 H&P UPDATE INFORMATION: I have reviewed H&P completed within last 30 days, I have examined patient prior to procedure and No changes to prior documentation PREOP DIAGNOSIS: Lumbar stenosis with neurogenic claudication PLANNED PROCEDURE: Operation Date: 11/11/23 07:00 Proposed Procedures p Lumbar Spine Decompression Lumbar Decompression(Not Applicable) - Robin Hayes DO
[2023-11-11] MEDS: ceFAZolin 2,000 mg SDV 2000 MG IVP (07:04)
[2023-11-11] MEDS: lidocaine-epi 1% 20 mL INJ INJECTION (07:43)
--- NOTE | 2023-11-11 08:55 | XR_ITS ---
WS: [id number] Lumbar spine, C-arm fluoroscopy views, 11/11/2023 Clinical Data: OR PICS Comparison: None. Findings: Dr. Hayes performed a lumbar decompression. XR/XR lumbar spine 2-3V* [id number] Impression: Lumbar decompression
--- NOTE | 2023-11-11 09:06 | PM.OP ---
Operative Report Date of procedure: November 11, 2023 Pre-op diagnosis: Lumbar stenosis with neurogenic claudication Post-op diagnosis: same Procedure done: 1. L3-4 laminectomy with partial facetectomy 2. L4-5 laminectomy partial facetectomy 3. L5-S1 laminectomy with partial facetectomy Surgeon: Robin Hayes DO Estimated blood loss (mL): 20 Procedure: 1. L3-4 laminectomy with partial facetectomy 2. L4-5 laminectomy partial facetectomy 3. L5-S1 laminectomy with partial facetectomy Patient is brought to the operative suite. After undergoing anesthesia they are placed in the prone position. All areas of impingement are well padded. Patient is then prepped and draped in the normal sterile fashion. A skin incision is made over the L3/4 level. This is confirmed under c-arm guidance. A series of dilators are passed and the tubular retractor is docked on the L3 lamina. A bovie is used to clear the soft tissue off the lamina and the L 3/4 facet joint. A high speed lizzeth is then used to perform the laminectomy and take down the medial aspect of the L 3/4 facet joint. A kerrison rongeure was then used to take down the remaining lamina and smooth the edge of the laminectomy up to the point where the ligamentum flavum attaches. Attention was then brought to the medial aspect of the facet joint. The remaining medial aspect of the superior and inferior aspect of the facet joint were taken down with the kerrison from the pedicle of L3 to L 4. The facet joint had significant hypertrophy. Attention was then brought to the Ligamentum Flavum. The ligament was taken down from the lamina of L3 to L4 and out medially to the remaining facet joint. The ligament was thick. The dura was then exposed. The dura was in good repair. The L3 nerve was then traced with a curette out the L3/4 foramen and found to be adequately decompressed. The L4 nerve was traced with a curette around the L4 pedicle. The lateral recess was opened with a kerrison helping to further decompress the L4 nerve. Wound is then irrigated copiously with saline and surgiflo is used to stop any bleeding. The tubular retractor is removed A skin incision is made over the L4-5 level. This is confirmed under c-arm guidance. A series of dilators are passed and the tubular retractor is docked on the L4 lamina. A bovie is used to clear the soft tissue off the lamina and the L 4/5 facet joint. A high speed lizzeth is then used to perform the laminectomy and take down the medial aspect of the L 4/5 facet joint. A kerrison rongeure was then used to take down the remaining lamina and smooth the edge of the laminectomy up to the point where the ligamentum flavum attaches. Attention was then brought to the medial aspect of the facet joint. The remaining medial aspect of the superior and inferior aspect of the facet joint were taken down with the kerrison from the pedicle of L4 to L 5. The facet joint had significant hypertrophy. Attention was then brought to the Ligamentum Flavum. The ligament was taken down from the lamina of L4 to L5 and out medially to the remaining facet joint. The ligament was thick. The dura was then exposed. There was an incidental durotomy that occurred while going towards the left L4-5 facet joint distally. It was scar down and small tear occurred. A DuraGen patch and DuraSeal were placed and sealed off leak. The L4 nerve was then traced with a curette out the L4/5 foramen and found to be adequately decompressed. The L4 nerve was traced with a curette around the L4 pedicle. The lateral recess was opened with a kerrison helping to further decompress the L4 nerve. Wound is then irrigated copiously with saline and surgiflo is used to stop any bleeding. The tubular retractor is removed A skin incision is made over the L5/S1 level. This is confirmed under c-arm guidance. A series of dilators are passed and the tubular retractor is docked on the L5 lamina. A bovie is used to clear the soft tissue off the lamina and the L 5/S1 facet joint. A high speed lizzeth is then used to perform the laminectomy and take down the medial aspect of the L 5/S1 facet joint. A kerrison rongeure was then used to take down the remaining lamina and smooth the edge of the laminectomy up to the point where the ligamentum flavum attaches. Attention was then brought to the medial aspect of the facet joint. The remaining medial aspect of the superior and inferior aspect of the facet joint were taken down with the kerrison from the pedicle of L5 to S1. The facet joint had significant hypertrophy. Attention was then brought to the Ligamentum Flavum. The ligament was taken down from the lamina of L5 to s1 and out medially to the remaining facet joint. The ligament was thick. The dura was then exposed. The dura was in good repair. The L5 nerve was then traced with a curette out the L5/S1 foramen and found to be adequately decompressed. The S1 nerve was traced with a curette around the S1 pedicle. The lateral recess was opened with a kerrison helping to further decompress the S1 nerve. Wound is then irrigated copiously with saline and surgiflo is used to stop any bleeding. The tubular retractor is removed and the wound is closed with vicryl and monocryl suture. Glue is then used to protect the wound. A sterile dressing is then placed. Patient was then placed in the supine position and transferred to the PACU in stable condition.
--- NOTE | 2023-11-11 10:25 | ANE.PACU2 ---
Inpatient post-anesthesia follow up: Airway intact: Yes Vital signs: Temperature 97.4 F Pulse Rate 77 Respiratory Rate 18 Blood Pressure 127/69 Pulse Oximetry 97 Oxygen Delivery Me thod Room Air Oxygen Flow Rate 6 Fraction of Inspir ed Oxygen Hydration adequate: Yes Nausea and vomiting: No Pain level: 1 Mental status: Baseline
== END 2023-11-11 10:25 | disposition home or self-care (01) ==
PROVIDERS: PCP Family Medicine Adult Medicine; Visit Provider Orthopaedic Surgery
PROC: (CPT 63005; principal; 2023-11-11 07:00)
DX: M48.062 Spinal stenosis, lumbar region with neurogenic claudication (principal); N18.30 Chronic kidney disease, stage 3 unspecified; K21.9 Gastro-esophageal reflux disease without esophagitis; G47.33 Obstructive sleep apnea (adult) (pediatric); E03.9 Hypothyroidism, unspecified; G89.29 Other chronic pain; M79.7 Fibromyalgia; E78.5 Hyperlipidemia, unspecified; F32.A Depression, unspecified; F17.210 Nicotine dependence, cigarettes, uncomplicated
CPT/HCPCS: 63047; 63048 ×2; 72100; 76000; 86850; 86900; J0690; J1100; J2250; J2371; J2405; J2704; J2710; J3010; J3490; J7030

== ENCOUNTER → 2023-12-06 15:09 | Outpatient (BNVA) | payer MEDICARE, SELFPAY | PROVIDERS: PCP Family Medicine Adult Medicine; Visit Provider Orthopaedic Surgery | DX: M48.061 Spinal stenosis, lumbar region without neurogenic claudication (principal) | CPT/HCPCS: 99214 ==

== ENCOUNTER → 2024-01-12 14:30 | Outpatient (BNVA) | payer MEDICARE, SELFPAY | PROVIDERS: PCP Family Medicine Adult Medicine; Visit Provider Orthopaedic Surgery | DX: Z98.890 Other specified postprocedural states (principal) | CPT/HCPCS: 99024 ==

== ENCOUNTER → 2024-02-28 14:00 | Outpatient (BNVA) | payer MEDICARE, SELFPAY | PROVIDERS: PCP Family Medicine Adult Medicine; Visit Provider Orthopaedic Surgery | DX: Z98.890 Other specified postprocedural states (principal) | CPT/HCPCS: 99024 ==

== ENCOUNTER 2024-07-20 13:51 | Outpatient (CLI) | payer MEDICARE, SELFPAY ==
--- NOTE | 2024-07-20 | MM_ITS ---
WS: [id number] BILATERAL 3D TOMOSYNTHESIS DIGITAL SCREENING MAMMOGRAPHY WITH CAD CLINICAL INFORMATION: ANNUAL SCREENING HISTORY: Screening mammogram. No current complaints. COMPARISON: 2023 TECHNIQUE: Bilateral CC and MLO views. FINDINGS: Scattered fibroglandular densities bilaterally. No suspicious focal mass, asymmetry, calcifications, or architectural distortion. No evidence of malignancy. Stable intramammary lymph nodes LEFT breast. A few incidental punctate calcifications. MM/MM scr BI tomosynthesis [id number] IMPRESSION: DENSITY: There are scattered areas of fibroglandular density. BI-RADS: 2 - Benign. FOLLOW UP: 1 Year Follow-up Recommend return to annual screening mammography.
== END 2024-07-20 13:52 | disposition home or self-care (01) ==
PROVIDERS: PCP Family Medicine; Visit Provider Family Medicine
DX: Z12.31 Encounter for screening mammogram for malignant neoplasm of breast (principal); R92.323 Mammographic fibroglandular density, bilateral breasts; R59.0 Localized enlarged lymph nodes; R92.1 Mammographic calcification found on diagnostic imaging of breast
CPT/HCPCS: 77063; 77067

== ENCOUNTER 2024-09-03 01:49 | Emergency (ER) | payer MEDICARE, SELFPAY ==
--- OUTSIDE RECORDS SUMMARY | 2023-12-17 04:00 | XMS_ITS ---
Author Organization [facility] Address [address] [place] [address] Care Team Providers Care Nuisance Wildlife Specialist Name Role Phone Roman Taylor MD Primary Care Provider Unavailab Nacho Cota Unavailable [phone] Migration, Provider Unavailable Unavailable REASON FOR VISIT [...] ANDRÉS BADILLO VDOB:[birth year] (63 yo F)Acc No.[id number]:12/17/2023 Patient: Melissa WELLS ANDRÉS Louisa :1960 A ge:62 Y S ex:Female Address:[address], [place], [address] * Refills Stop Amitriptyline HCl Tablet, 50 MG, Oral, 1 Every Night Stop Cyclobenzaprine HCl Tablet, 10 MG, Oral, 1 Tablet Once a Day Subjective: * Chief Complaints: * E MR-Maynor * * Date:
--- OUTSIDE RECORDS SUMMARY | 2023-12-18 04:00 | XMS_ITS ---
Author Organization [facility] Address [address] [place] [address] Care Team Providers Care Assembling Fabricator Name Role Phone Roman Taylor MD Primary Care Provider Unavailab Nacho Cota Unavailable [phone] Migration, Provider Unavailable Unavailable Allergies Allergen (clinical [...] for eRX* Active Requip XL *Reorder from [place] dispan for eRx and Interaction Alerts* Active CeleBREX *Pick strength-f orm from Medis[facility] for eRX* Active trazodone *Reorder from [place] dispan for eRx and Interaction Alerts* Active [...] ANDRÉS BADILLO VDOB:[birth year] (63 yo F)Acc No.[id number]:12/18/2023 Patient: ANDRÉS BHATT V :1960 A ge:62 Y S ex:Female Address:[facility] [address], [place], [address] Subjective: * Chief Complaints: * E MR-Maynor [...]
--- OUTSIDE RECORDS SUMMARY | 2024-09-03 01:56 | XMS_ITS | Encounter Summary ---
Author Organization [facility] Address [address] [place] [address] Care Team Providers Care Nitric Acid Plant Operator Name Role Phone Unavailable Primary Care Provider Unavailabl e Encounter Details Date Type Department Care Team (Latest Contact Info) Description 02/04/2006 Outpatient Historical [facility] OBGYN-[address] [place] [phone] Jun Whitehead MD NO ADDRESS ON FILE Follow-Up Examination, Following Unspecified Surgery (Primary Dx); Unspecified Prolapse of Vaginal Ordonez; Endometriosis of Uterus; Excessive Menstruation Social History Tobacco Use Types Packs/Day Years Used Date Smoking Tobacco: Never Assessed Comments Unknown Sex and Gender Information Value Date Recorded Sex Assigned at Not on file Legal Sex 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
--- OUTSIDE RECORDS SUMMARY | 2024-09-03 01:57 | XMS_ITS | Encounter Summary ---
Author Organization [facility] Address [address] [place] [address] Care Team Providers Care Sound Mixer Name Role Phone Unavailable Primary Care Provider Unavailabl e Encounter Details Date Type Department Care Team (Latest Contact Info) Description 12/08/2005 Outpatient Historical [facility] [address] 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
--- OUTSIDE RECORDS SUMMARY | 2024-09-03 01:57 | XMS_ITS | Patient Health Record ---
Author Organization [facility] Address [address] [place] [address] Care Team Providers Care Wood Miller Name Role Phone Roman Taylor MD Primary Care Provider Unavailab Nacho Cota Unavailable [phone] Migration, Provider Unavailable Unavailable Allergies Allergen (clinical drug ingredient) Drug/Non Drug Allergy documented on EMR Reaction Allergy Type Onset Date Status morphine Morphine rash Drug Allergy Active Reason For Referral No Information Medications Medication SIG (Take, Route, Frequency, Duration) Notes Start Date End Date Status Gabapentin *Pick strength-f orm from [facility] for eRX* Active rOPINIRole HCl 2 MG Tablet Oral; Duration: 90 Active Synthroid *Pick strength-f orm from [facility] for eRX* Active Requip XL *Reorder from [facility] for eRx and Interaction Alerts* Active Fluticasone Propionate 50 MCG/ACT Suspension Nasal; Duration: 30 Active Ultram 50 MG Tablet 1 tab Orally q 4 hours prn severe pain; Duration: 30 days 07/07/2021 Active Singulair *Pick strength-f orm from [facility] for eRX* Active tiZANidine HCl 4 MG Capsule 1 cap Orally Three times a day prn muscle spasms; Duration: 30 days Active LORazepam 0.5 MG Tablet 1/2 to 1 tab Orally twice a day prn anxiety; Duration: 30 days 07/07/2021 Active Atorvastatin Calcium 40 MG Tablet Oral; Duration: 90 Active Potassium Chloride Opal ER 20 MEQ Tablet Extended Release Oral; Duration: 90 Activ e Escitalopram Oxalate 20 MG Tablet Oral; Duration: 90 Active PriLOSEC *Pick strength-f orm from [facility] for eRX* Active CeleBREX *Pick strength-f orm from [facility] for eRX* Active Cymbalta *Pick strength-f orm from [facility] for eRX* Active trazodone *Reorder from [facility] for eRx and Interaction Alerts* Active Gabapentin 300 MG Capsule Oral; Duration: 30 Active Levothyroxine Sodium 25 MCG Tablet Oral; Duration: 30 Active Montelukast Sodium 10 MG Tablet Oral; Duration: 30 Active Omeprazole 40 MG Capsule Delayed Release Oral; Duration: 30 Active Topiramate 200 MG Tablet Oral; Duration: 30 Active hydrOXYzine HCl 25 MG Tablet Oral; Duration: 30 Active Modafinil 200 MG Tablet Oral; Duration: 30 Active Amitriptyline HCl 50 MG Tablet Oral; Duration: 30 Active Celecoxib 200 MG Capsule Oral; Duration: 30 Active Lipitor *Pick strength-f orm from [facility] for eRX* Active Topamax *Pick strength-f orm from [facility] for eRX* Active Social History Tobacco Use: Social History Observation Description Date Details (start date - stop date) Current Smoker NA - NA Social History Depression Screening Social Info Question Answer Notes PHQ-9 Little interest or p clay in doing things Nearly every day Feeling down, depressed, or hopeless Nearly ever y day Trouble falling or staying a sleep, or sleeping too much Nearly every day Feeling tired or having little energy Nearly zoe ry day Poor appetite or overeating Nearly every day Feeling bad about yourself, or that you are a failure, or have let yourself or your family down Nearly every day Trouble concentrating on thi ngs, such as reading the newspaper or watching television Nearly every day Moving or speaking so slowly that other people could have noticed. Or the opposite ? being so fidgety or restless that you have been moving around a lot more than usual Nearly every day Thoughts that you would be b victorino off , or of hurting yourself in some way Nearly every day (Consider Suicide Assessment Risk) Total Score 27 Interpretation Severe Depression Drugs/Alcohol: Social Info Question Answer Notes Drugs Have you used drugs other than those for medical reasons in the past 12 months? No Tobacco Use: Social Info Question Answer Notes xTobacco Use/Smoking Are you a current smoker How often do you smoke cigarettes? every day How many cigarettes a day do you smoke? 5 or less Additional Details Category Social Info Options Details Drugs/Alcohol: Do you drink alcohol? Yes, wine occassionally Migrated Social History Migrated Social History Alcoholic beverages? - No, Currently on disability? - Yes, Drug or substance abuse? - No, exposure to toxins/poisonous substances at work - No, Involved in any legal proceedings or lawsuits? - No, Marital Status - , Nonprescription drug use? - No, Participation in detoxification or rehabilitation - No, Smoking - 02/24 PPD, Smoking status (MU) - Current every day smoker, Working currently? - No Section Notes: Patient filled out form on entered in chart on 07/16 Patient filled out form on entered in chart on 07/16 Problems Problem Type SNOMED Code ICD Code Onset Dates Problem Status W/U Status Risk Notes Problem Anxiety (20462994) Anxiety (F41.9) Active confi rmed Problem Facet arthropath y, lumbosacral (M46.97) Active confirmed Problem Acquired spondylolisthesis (320100089) Spondylolisthesis at L3-L4 level (M43.16) Active confirmed Vital Signs Heart Rate 95 /min 09/06/2023 Temperature 96.4 degrees Fahrenheit 09/06/2023 Respiratory Rate 19 /min 09/06/2023 Height-cm 154.94 cm 09/06/2023 Oximetry 97 % 09/06/2023 Blood pressure diastolic 78 mm Hg 09/06/2023 Weight-kg 71.21 kg 09/06/2023 Height 61 in 09/06/2023 Blood pressure systolic 132 mm Hg 09/06/2023 Weight 157 lbs 09/06/2023 BMI 29.66 kg/m2 09/06/2023 Encounters Encounter Location Date Provider Diagnosis Migrated_Facility 0 0 12/17/2023 Provider Migration Migrated_Facility 0 0 12/18/2023 Provider Migration [facility] [place] [address] [place] [address] 09/06/2023 Nacho Zendejas Lumbar radiculopathy M54.16 ; Lumbar stenosis M48.061 ; Spondylolisthesis at L3-L4 level M43.16 and Facet arthropathy, lumbosacral M46.97 Assessments Encounter Date Diagnosis (ICD Code) Assessment Notes Treatment Notes Treatment Clinical Notes Section Notes 09/06/2023 Lumbar radiculopathy (ICD-10 - M54.16) 09/06/2023 Lumbar stenosis (ICD-10 - M48.061) 09/06/2023 Spondylolisthesis at L3-L4 level (ICD-10 - M43.16) 09/06/2023 Facet arthropathy, lumbosacral (ICD-10 - M46.97) 09/06/2023 Other The patient's symptoms and clinical findings were reviewed. The lumbar CT imaging was reviewed and discussed with the patient. The patient has a spondylolisthesis at L3-4, stenosis and arthropathy at the same level, there is arthritis and disc degeneration at L4-5 and L5-S1. She has tried and failed both physical therapy and a lumbar epidural steroid injection. We discussed surgery of an L3-S1 TLIF. The surgery procedure was described to the patient and the recovery expectations were discussed. Questions were asked and answered to the patient's satisfaction. SHe states her understanding and wishes to pursue the surgery, however she needs a couple of months to take care of some things at home. I will send her in a Medrol dosepak to help with inflammation. She will call and return for another visit when she is ready to schedule surgery. The patient is in agreement. ROS reviewed I Oliva Del Real LPN am scribing for, and in the presence of Nacho Zendejas MD. I, Nacho Zendejas, personally performed the services described in this documentation, as scribed by Oliva Del Real LPN in my presence, and it is both accurate and complete. Plan Of Treatment Pending Test Test Name Order Date XR Outside CD 04/15/2023 XR Outside CD 06/28/2023 zzzCT Outside CD 06/28/2023 Insurance Providers Payer Name Payer Address Payer Phone Subscriber Number Group Number Insured Name Patient Relationship to Insured Coverage Start Date Coverage End Date [employer] [place] [address] [place] [address] [id number] JUSTINO ANDRÉS Self - patient is the insured [place] [address] [place] [address] [phone] [id number] JUSTINO ANDRÉS Self - patient is the insured Medications Administered Medication Instructions Date of Administration Dosage Notes DEPO-Medrol 07/07/2021 40 mg [address]-80 Patient tolerated well, advised to wait 20 min at clinic dexAMETHasone 07/07/2021 4 mg 18992-470-41 Patient tolerated well, advised to wait 20 min at clinic Medical (General) History Medical History History ICD Code Pneumonia Back Trouble measles mumps chicken pox Surgical History Surgery Date(Month/Year) hysterectomy knee meniscus Knee Scope Lung biopsy Hospitalization History Reason Date(Month/Year) childbirth 1981 pneumonia 2007
--- OUTSIDE RECORDS SUMMARY | 2024-09-03 01:57 | XMS_ITS | Encounter Summary ---
Author Organization [facility] Address [address] [place] [address] Care Team Providers Care Washhouse Hand Name Role Phone Unavailable Primary Care Provider Unavailabl e Encounter Details Date Type Department Care Team (Latest Contact Info) Description 12/08/2005 Outpatient Historical [facility] OBGYN-[address] [place] [phone] Jun Whitehead MD NO ADDRESS ON FILE Excessive Menstruation (Primary Dx); Irregular Menstruation; Examination or Test, Negative Result Social History Tobacco Use Types Packs/Day Years Used Date Smoking Tobacco: Never Assessed Comments Unknown Sex and Gender Information Value Date Recorded Sex Assigned at Not on file 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
--- OUTSIDE RECORDS SUMMARY | 2024-09-03 01:57 | XMS_ITS | Clinical Summary ---
Author Organization [facility] Address [address] [place] [address] Phone Care Team Providers Care Agriculture Teacher Name Role Phone Unavailable Primary Care Provider Unavailabl e Allergies Active Allergy Reactions Criticality Noted Date Comments Morphine Itching Low 06/15/2018 Medications topiramate (TROKENDI XR) 200 mg Extended Release 24 hour capsule Take 200 mg by mouth daily. 30 Capsule 6 06/26/2018 6:15 PM CDT 02/27/2018 Active montelukast (SINGULAIR) 10 mg tablet Take 1 Tablet (10 mg) by mouth daily. 30 Tablet 3 06/26/2018 6:15 PM CDT 04/25/2018 Active omeprazole (PriLOSEC) 40 mg Capsule, Delayed Release(E.C.) Take 1 Capsule (40 mg) by mouth daily. 30 Capsule 11 09/29/2017 Active gabapentin (NEURONTIN) 300 mg capsule Take 300 mg by mouth 3 times daily. Active traZODone (DESYREL) 150 mg tablet Take 150 mg by mouth daily at bedtime. 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 Active atorvastatin (LIPITOR) 40 mg tablet Take 40 mg by mouth daily with supper. Active potassium (POTASSIMIN ORAL) Take by mouth. Active rOPINIRole (REQUIP) 2 mg Tablet Take 2 mg by mouth. Active vortioxetine (Trintellix) 10 mg tablet Take 5 mg by mouth daily. Active Active Problems Problem Noted Date Diagnosed Date Arthritis of right knee 04/03/2019 Social History Tobacco Use Types Packs/Day Years Used Date Smoking Tobacco: Every Day Cigarettes Smokeless Tobacco: Never Comments No Sex and Gender Information Value Date Recorded Sex Assigned at Not on file Legal Sex Female 6:06 AM READING ASSISTANT Gender Identity Not on file Sexual Orientation Not on file Last Filed Vital Signs Vital Sign Reading Time Taken Comments Blood Pressure 124/72 04/03/2019 8:13 AM READING ASSISTANT Pulse 101 04/03/2019 8:13 AM READING ASSISTANT Temperature 36.8 C (98.3 F) 06/15/2018 1:05 PM CDT Respiratory Rate 17 06/15/2018 2:22 PM CDT Oxygen Saturation 100% 06/15/2018 2:22 PM CDT Inhaled Oxygen Concentration - - Weight 76.2 kg (168 lb) 04/03/2019 8:13 AM READING ASSISTANT Height 154.9 cm (5' 1 ) 04/03/2019 8:13 AM READING ASSISTANT Body Mass Index 31.74 04/03/2019 8:13 AM READING ASSISTANT Plan of Treatment Health Maintenance Due Date Last Done Comments DTAP/TDAP/TD VACCINES (1 - Tdap) 1977 PNEUMOCOCCAL VACCINE 50+ YEARS (1 of 2 - PCV) 12/31/18 78 BREAST CANCER SCREENING 1998 COLORECTAL SCREENING 01/01/2004 Colorectal Cancer Screening 01/01/2004 FIT-DNA Q 3 years 01/01/2004 FIT/FOBT Q 1 year 01/01/2004 Flex Sig/CT Colonography Q 5 years 01/01/2004 ZOSTER VACCINE (1 of 2) 2008 OSTEOPOROSIS SCREENING 01/01/2024 INFLUENZA VACCINE (#1) 2024 RSV VACCINE (60+ or ) (1 - 1-dose 75+ series) 2033 Insurance [facility] RX [facility] [employer] (INTERNAL) [facility]
--- OUTSIDE RECORDS SUMMARY | 2024-09-03 01:57 | XMS_ITS | Encounter Summary ---
Author Organization [facility] Address [address] [place] [address] Care Team Providers Care Waiter/Waitress Bar Name Role Phone Unavailable Primary Care Provider Unavailabl e Encounter Details Date Type Department Care Team (Latest Contact Info) Description 2005 Outpatient Historical [facility] [address] [place] [id number] Jnu Whitehead MD NO ADDRESS ON FILE Other Specified Pre-Operative Examination (Primary Dx) Social History Tobacco Use Types Packs/Day Years Used Date Smoking Tobacco: Never Assessed Comments Unknown Sex and Gender Information Value Date Recorded Sex Assigned at Not on file Legal Sex Female 6:06 AM WEAVER TIRE CORD Gender Identity Not on file Sexual Orientation Not on file documented as of this encounter Plan of Treatment Not on file documented as of this encounter Procedures Procedure Name Priority Date/Time Associated Diagnosis Comments CBC WITH DIFFERENTIAL Routine 2005 2:05 PM WEAVER TIRE CORD HCG QUANTITATIVE, BLOOD Routine 2005 2:05 PM WEAVER TIRE CORD documented in this encounter Results * HCG QUANTITATIVE, BLOOD (2005 2:05 PM WEAVER TIRE CORD) CHORIONIC GONADOTROPIN, TOTAL <2.0 0.0 - 10.0 mlU/ML INTERFACE SYSTEM Comment: As of 04 at 12:00 p.m. [facility] has changed the methodology for ThCG, and with this change the reference range has changed from 0-5.0 mIU/ml to 0-10.0 mIU/ml. ----- ----- Total HCG levels between 10 mIU/mL and 25 mIU/mL may be indicative of early but need to be correlated with other clinical findings. HCG ranges during normal , as reported by the pedicurist, are summarized as follows: Gestational Age Expected hCG Values(mIU/ml) 0.2-1 Weeks 5 - 50 1-2 Weeks 50 - 500 2-3 Weeks 100 - 5,000 3-4 Weeks 1,000 - 50,000 5-6 Weeks 10,000 - 100,000 6-8 Weeks 15,000 - 200,000 2-3 Months 10,000 - 100,000 2005 2:05 PM WEAVER TIRE CORD W Michelet Whitehead MD CHEMISTRY ORDERABLES Final R esult INTERFACE SYSTEM Refer to clinic/hospital department * CBC WITH DIFFERENTIAL (2005 2:05 PM WEAVER TIRE CORD) WBC 8.9 4.5 - 11.0 K/ul INTERFACE SYSTEM RBC 4.56 4.20 - 5.40 Mil/ul INTERFACE SYSTEM HEMOGLOBIN 14.0 12.0 - 16.0 g/dL INTERFACE SYSTEM HEMATOCRIT 43.2 36.0 - 46.0 % INTERFACE SYSTEM MCV 94.7 84.0 - 103.0 Fl INTERFACE SYSTEM MCH 30.7 27.0 - 34.0 pg INTERFACE SYSTEM MCHC 32.4 30.0 - 35.0 g/dL INTERFACE SYSTEM RDW 13.1 11.0 - 14.5 % INTERFACE SYSTEM PLATELETS 332 140 - 440 K/ul INTERFACE SYSTEM MPV 10.7 8.9 - 12.8 Fl INTERFACE SYSTEM NEUTROPHILS 56.9 42.2 - 75.2 % INTERFACE SYSTEM LYMPHOCYTES 33.3 24.0 - 44.0 % INTERFACE SYSTEM MONOCYTES 7.2 2.0 - 10.0 % INTERFACE SYSTEM EOSINOPHILS 1.9 0.0 - 7.0 % INTERFACE SYSTEM BASOPHILS 0.7 0.0 - 1.0 % INTERFACE SYSTEM NEUTROPHIL ABSOLUTE 5.1 2.0 - 8.0 K/uL INTERFACE SYSTEM LYMPHOCYTE ABSOLUTE 3.0 1.2 - 4.0 K/ul INTERFACE SYSTEM MONOCYTE ABSOLUTE 0.6 0.1 - 0.6 K/ul INTERFACE SYSTEM EOSINOPHIL ABSOLUTE 0.2 0.0 - 0.7 K/ul INTERFACE SYSTEM BASOPHILS ABSOLUTE 0.1 0.0 - 0.2 K/ul INTERFACE SYSTEM 2005 2:05 PM WEAVER TIRE CORD W Michelet Whitehead MD HEMATOLOGY ORDERABLES Final Result INTERFACE SYSTEM Refer to clinic/hospital department documented in this encounter Visit Diagnoses Diagnosis Other specified pre-operative examination- Primary documented in this encounter
--- OUTSIDE RECORDS SUMMARY | 2024-09-03 01:57 | XMS_ITS | Encounter Summary ---
Author Organization [facility] Address [address] [place] [address] Care Team Providers Care Bag End Sewer Name Role Phone Unavailable Primary Care Provider Unavailabl e Encounter Details Date Type Department Care Team (Late st Contact Info) Description 01/04/2006 Inpatient Historical [facility] IN BED Jun Whitehead MD NO ADDRESS ON FILE Uterovaginal Prolapse, Complete (Primary Dx) Social History Tobacco Use Types Packs/Day Years Used Date Smoking Tobacco: Never Assessed Comments Unknown Sex and Gender Information Value Date Recorded Sex Assigned at Not on file Legal Sex Female 6:06 AM RAISIN 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 Gender Identity Not on file Sexual Orientation Not on file documented as of this encounter Plan of Treatment Not on file documented as of this encounter Procedures Procedure Name Priority Date/Time Associated Diagnosis Comments CBC WITHOUT DIFFERENTIAL Routine 01/05/2006 6:30 AM RAISIN 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 documented in this encounter Results * (ABNORMAL) CBC WITHOUT DIFFERENTIAL (01/05/2006 6:30 AM RAISIN 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) WBC 21.2(H) 4.5 - 11.0 K/ul INTERFACE SYSTEM RBC 4.13(L) 4.20 - 5.40 Mil/ul INTERFACE SYSTEM HEMOGLOBIN 12.6 12.0 - 16.0 g/dL INTERFACE SYSTEM HEMATOCRIT 39.2 36.0 - 46.0 % INTERFACE SYSTEM MCV 94.9 84.0 - 103.0 Fl INTERFACE SYSTEM MCH 30.5 27.0 - 34.0 pg INTERFACE SYSTEM MCHC 32.1 30.0 - 35.0 g/dL INTERFACE SYSTEM RDW 13.1 11.0 - 14.5 % INTERFACE SYSTEM PLATELETS 276 140 - 440 K/ul INTERFACE SYSTEM MPV 10.9 8.9 - 12.8 Fl INTERFACE SYSTEM NEUTROPHILS 75.0 42.2 - 75.2 % INTERFACE SYSTEM LYMPHOCYTES 17.2(L) 24.0 - 44.0 % INTERFACE SYSTEM MONOCYTES 7.6 2.0 - 10.0 % INTERFACE SYSTEM EOSINOPHILS 0.1 0.0 - 7.0 % INTERFACE SYSTEM BASOPHILS 0.1 0.0 - 1.0 % INTERFACE SYSTEM NEUTROPHIL ABSOLUTE 15.9(H) 2.0 - 8.0 K/uL INTERFACE SYSTEM LYMPHOCYTE ABSOLUTE 3.6 1.2 - 4.0 K/ul INTERFACE SYSTEM MONOCYTE ABSOLUTE 1.6(H) 0.1 - 0.6 K/ul INTERFACE SYSTEM EOSINOPHIL ABSOLUTE 0.0 0.0 - 0.7 K/ul INTERFACE SYSTEM BASOPHILS ABSOLUTE 0.0 0.0 - 0.2 K/ul INTERFACE SYSTEM 01/05/2006 6:30 AM RAISIN 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 W Michelet Whitehead MD HEMATOLOGY ORDERABLES Final Result INTERFACE SYSTEM Refer to clinic/hospital department documented in this encounter Visit Diagnoses Diagnosis Uterovaginal prolapse, complete- Primary documented in this encounter
--- OUTSIDE RECORDS SUMMARY | 2024-09-03 01:57 | XMS_ITS | Encounter Summary ---
Author Organization [facility] Address [address] [place] [address] Care Team Providers Care Box Tender Name Role Phone Unavailable Primary Care Provider Unavailabl e Encounter Details Date Type Department Care Team (Latest Contact Info) Description 03/08/[address] [facility] [place] [phone] Michael Gutierrez, DDS NO ADDRESS ON FILE UNSPEC DENTAL CARIES (Primary Dx) Social History Tobacco Use Types Packs/Day Years Used Date Smoking Tobacco: Never Assessed Comments Unknown Sex and Gender Information Value Date Recorded Sex Assigned at Not on file Legal Sex Female 6:06 AM PERSONNEL ARBITRATOR Gender Identity Not on file Sexual Orientation Not on file documented as of this encounter Plan of Treatment Not on file documented as of this encounter Visit Diagnoses Diagnosis Unspecified dental caries- Primary documented in this encounter
--- OUTSIDE RECORDS SUMMARY | 2024-09-03 01:58 | XMS_ITS | Data Portability ---
Author Organization [facility] Nikolai Setphens [facility], [facility], [facility] Address [address] [address] [place] [address] Care Team Providers Care Panel Maker Name Role Phone YAHAIRA BLISS Primary Care Provider [phone] Assessment Encounter Date Assessment Date Assessment LastModified by Organization Details LastModified Time 05/01/2024 05/01/2024 Patient scheduled f/u appt with PCP for her chronic knee pain. [email or web address] Not available 05/01/2024 18:34:42 Plan of Treatment Reminders Order Date Submit Date Provider Last Modified By Organization Details Last Modified Time Details Appointments None recorded. Lab None recorded. Referral None recorded. Procedures None recorded. Surgeries None recorded. Imaging XR, knee 2024 025 [email or web address] 2 [facility] ([facility]), [address] [place], [address], 11:23:57 Medication Orders ropinirole 3 mg tablet 2024 025 [facility] [address], [address], 18:51:00 hydrocodone 5 mg-acetamin ophen 325 mg tablet 2024 025 [facility] [address], [address], 18:57:45 buspirone 10 mg tablet 2024 025 [facility] [place], [facility] [place], [address], 18:41:19 ondansetron 4 mg disintegrat ing tablet 2024 [address] [address] [place], [address], 07:32:19 diclofenac 1 % topical gel [address] [address] [place], [address], 18:49:38 Patient TargetsNo targets recorded. Patient Instructions Encounter Date Encounter Id Patient Instructions Last Modified By Organization Details Last Modified Time 08/20/2024 [id number] smoking cessatio n counseling, greater than 3 minutes up to 10 minutes [email or web address] Not available 08/22/2024 10:32:12 Reason for Referral None Reported. Results Created Date Observation Date Name Description Value Unit Range Abnormal Flag Note LastModifiedBy Organization Detail LastModifiedTime 03/26/1903/26/2024 polys omnog spenser No observ ation record ed. [facility] [address] [facility] [address], [place], [address], 03/27/2024 12:05:42 05/11/19 25 05/09/2024 XR, knee No observ ation record ed. [facility] [address] [place], [address], 05/11/2024 09:21:34 07/21/1907/20/2024 MAMMO , scree nisreen, digit al, bilat eral No observ ation record ed. [facility] [address] [place], [address], 07/23/2024 12:20:37 Result Notes None recorded. Problems Name Problem SNOMED Code Status Onset Date Resolution Date Notes Provider Name and Address Organization Details Recorded Time Hypothyr oidism 62772950 Active [address] [facility] 17:34:38 Nausea 088246618 Completed 202205/08/[address] [facility] 17:35:24 Hypergly cemia 50829490 Active [address] [facility] 17:34:16 Pain of left shoulder joint 65351763933 350227 Completed 202205/08/[address] [facility] 17:35:53 Neuropat hy 055699647 Active [address] [facility] 5 17:35:33 Obstruct arina sleep apnea syndrome 94428888 Active [address] [facility] 17:35:39 Iliotibi al band friction syndrome of right knee 32446429597 9104 Active [address] [facility] 17:35:05 Acute gastroen teritis 08939269 Completed 202407/02/[address] [facility] 14:31:28 Degenera tive rupture of medial meniscus of right knee 13673876169 729142 Active [address] [facility] 14:31:43 Derangem ent of medial meniscus 545284662 Active [address] [facility] 14:31:51 Arthriti s of right knee 92796238421 10130 Active 2024 Yahaira Bliss MD [address] [place] [address], [phone], [facility] 16:44:04 Moderate major depressi on 314754 Active 2024 Yahaira Blsis MD [address] [place] [address], [address] [place] [address] 5, [facility] 16:44:20 Anemia 698926355 Active 2024 Yahaira Bliss MD [address] [place] [address], [address] [place] [address] 5, [facility], [facility] 10:30:12 Restless legs 94186912 Active 2024 Yahaira Bliss MD [address] [place] [address], [phone], [facility] 10:31:05 Nicotine dependen ce 97520803 Active 2024 Yahaira Bliss MD [address] [place] [address], [phone], [facility] 10:31:21 Heartbur n 22337538 Active [address] [facility] 5 17:34:10 Hyperlip idemia 96682156 Active [address] [facility] 17:34:26 Insomnia 879447754 Active [address] [facility] 17:35:14 Spinal stenosis 96389798 Active [address] [facility] 17:36:26 Anxiety 40589014 Active 2022 Yahaira Bliss MD [address] [place] [address], [phone], [facility] 5 16:45:07 Sleep pattern disturba mie 46785562 Completed 202205/08/2024 Removal Reason: duplicat e Yahaira gee, [facility] 5 17:36:20 Depressi ve disorder 18790659 Active [address] [facility] 17:33:28 Fibromya lgia 314091852 Active [address] [facility] 5 17:33:51 Hypokale yun 49245540 Completed 202205/08/2024 Yahaira gee, [facility] 17:34:52 Problem Notes None recorded. Procedures Surgical History Date Name Laterality Status Provider Name and Address Organization Details Recorded Time 01/30 Joint Inj Kenalog- Shoulder, Hip, Knee completed Kaden Plasencia MD [address] [place] [address], [phone], [facility] 4 12:49:01 11/10 Back Surgery completed MATEO JEFFERSON [facility] 4 11:35:24 05/31 Colonoscopy completed ALEXANDRIA NELSON [facility] 4 18:28:17 05/31 esophagogastroduodenosco py completed ALEXANDRIA NELSON [facility] 4 18:29:50 01/03 Joint Inj Kenalog- Shoulder, Hip, Knee completed Kaden Plasencia MD [address] [place] [address], [phone], [facility] 3 16:02:36 06/15 Most Recent Mammogram completed ALEXANDRIA NELSON [facility] 3 13:35:08 arthroscopy of right knee joint completed Adelso Diegoell [facility] 5 17:19:08 Imaging Results None recorded. Procedure Notes None recorded. Medical Equipment None Reported. Allergies Allergen ID Allergen Name Allergen Category Reaction Reaction Severity Criticality Documentation Date Start Date Code Code System Note Provider Name and Address Organization Details Recorded Time 1162 morphine medicatio n itching Not available Not available 05/28/[address] [facility] 3 17:33:03 [address] propoxyph ivan hydrochlo ride medicatio n nausea Not available Not available 09/18/2022 69233 RxNorm React ion: Nause a, Vomit ing; Comme nt: Recor ded 04/16 12:05 PM by Scotty Epstein , Offic e Visit ; Promo gabby; Signi ficbrenton ce: *; ; Not Available [facility] 3 02:28:20 59649 morphine sulfate medicatio n rash Not available Not available 09/18/2022 50789 RxNorm React ion: Pruri tus, Rash; Comme nt: Recor ded 04/16 12:05 PM by Scotty Epstein , Offic e Visit ; Promo gabby; Signi ficbrenton ce: *; ; Not Available [facility] 3 02:28:21 Medications Name Sig Start Date Stop Date Status Note LastModified by Organization Details LastModified Time celecoxib 200 mg capsule take 1 capsule BY MOUTH TWICE DAILY NEEDED FOR PAIN active Not Available Not Available No t Available cyclobenz aprine 10 mg tablet TAKE 1 TABLET BY MOUTH THREE TIMES DAILY NEEDED FOR MUSCLE SPASM 01/28 completed Not Available Not Available Not Available atorvasta tin 40 mg tablet TAKE 1 TABLET BY MOUTH AT BEDTIME NEEDED FOR choleste rol/fats active Not Available Not Available No t Available buspirone 5 mg tablet Take 1 tablet twice a day by oral route for 30 days. 01/30 completed Not Available Not Available Not Available bupropion HCl SR 150 mg tablet,12 hr sustained -release TAKE 1 TABLET BY MOUTH EVERY MORNING FOR DEPRESSI ON 01/30 completed pt taking 300mg Not Available Not Available Not Available promethaz ine-DM 6.25 mg-15 mg/5 mL oral syrup take 5-10ml BY MOUTH EVERY 6 HOURS NEEDED 08/03 completed Not Available Not Available Not Available doxycycli ne hyclate 100 mg capsule Take 1 capsule twice a day by oral route for 10 days. 03/29 completed Not Available Not Available Not Available tizanidin e 4 mg tablet TAKE ONE TABLET BY MOUTH EVERY 8 HOURS 01/30 completed Not Available Not Available Not Available chlorzoxa zone 500 mg tablet take 1/2 tablet BY MOUTH THREE TIMES DAILY NEEDED for 10 days 01/28 completed Not Available Not Available Not Available hydrocodo ne 5 mg-acetam inophen 325 mg tablet TAKE 1 TABLET BY MOUTH EVERY TWELVE HOURS NEEDED active Not Available Not Available No t Available meloxicam 15 mg tablet TAKE 1 TABLET BY MOUTH EVERY DAY 01/03 completed Not Available Not Available Not Available promethaz ine 12.5 mg tablet TAKE ONE TABLET BY MOUTH TWICE DAILY NEEDED * must last 30 DAYS * 06/22 completed Not Available Not Available Not Available prednison e 20 mg tablet TAKE 3 TABLETS BY MOUTH EVERY DAY FOR THREE DAYS, THEN TWO DAILY FOR TWO DAYS, THEN ONE EVERY DAY FOR TWO DAYS 05/01 completed Not Available Not Available Not Available ropinirol e 3 mg tablet TAKE 1 TABLET BY MOUTH EVERY DAY AT BEDTIME active Not Available Not Available No t Available potassium chloride ER 10 mEq tablet,ex tended release 1 po QD 01/03 completed Not Available Not Available Not Available ciproflox acin 500 mg tablet TAKE 1 TABLET BY MOUTH TWICE DAILY FOR FOUR DAYS 03/19 completed Not Available Not Available Not Available sulfameth oxazole 800 mg-trimet hoprim 160 mg tablet TAKE 1 TABLET BY MOUTH TWICE DAILY for 5 days 01/30 completed Not Available Not Available Not Available omeprazol e 40 mg capsule,d elayed release 1 PO QD 05/15 completed med change Not Available Not Available Not Available tramadol 50 mg tablet TAKE 1 TABLET BY MOUTH TWICE DAILY NEEDED FOR PAIN 01/30 completed Not Available Not Available Not Available amitripty line 50 mg tablet TAKE 1 TABLET BY MOUTH AT BEDTIME 03/19 completed Not Available Not Available Not Available levothyro xine 25 mcg tablet TAKE 1 TABLET BY MOUTH EVERY MORNING FOR thyroid replacem ent active Not Available Not Available No t Available Zofran 4 mg tablet Q 6 hours prn 01/03 completed vo JR/tn; 173; Recorded 04/09/19 22 1:30PM by Kay Molina LPN (Authori marco a through Kaden Plasencia MD), Office Visit; Refill Quantity : 0; Not Available Not Available Not Available modafinil 200 mg tablet TAKE 1 TABLET BY MOUTH EVERY DAY active Not Available Not Available No t Available lorazepam 0.5 mg tablet TAKE 1/2 TO 1 TABLET BY MOUTH TWICE DAILY NEEDED FOR ANXIETY FOR 30 DAYS 01/03 completed Not Available Not Available Not Available ropinirol e 2 mg tablet TAKE 1 TABLET BY MOUTH EVERY DAY AT BEDTIME 08/20 completed Not Available Not Available Not Available pantopraz ole 40 mg tablet,de layed release TAKE 1 TABLET BY MOUTH TWICE DAILY active Not Available Not Available No t Available trazodone 150 mg tablet TAKE 1 TABLET DAILY AT BEDTIME 01/30 completed Not Available Not Available Not Available buspirone 10 mg tablet TAKE 1 TABLET BY MOUTH TWICE DAILY NEEDED active Not Available Not Available No t Available promethaz ine 25 mg tablet TAKE ONE TABLET BY MOUTH EVERY 6 HOURS as needed for nausea or vomiting active Not Available Not Available No t Available gabapenti n 300 mg capsule TAKE 3 CAPSULES BY MOUTH THREE TIMES DAILY active Not Available Not Available No t Available triamcino lone acetonide 0.5 % topical ointment QD prn to affected fingers. 06/22 completed Not Available Not Available Not Available monteluka st 10 mg tablet TAKE 1 TABLET BY MOUTH EVERY DAY NEEDED active Not Available Not Available No t Available hydroxyzi ne HCl 25 mg tablet TAKE 1 TABLET 3 TIMES DAILYAS NEEDED active Not Available Not Available No t Available topiramat e 200 mg tablet TAKE ONE TABLET BY MOUTH TWICE DAILY active Not Available Not Available No t Available diclofena c sodium 50 mg tablet,de layed release TAKE 1 TABLET BY MOUTH TWICE DAILY NEEDED active Not Available Not Available No t Available methylpre dnisolone 4 mg tablets in a dose pack Take as directed on package for 6 days 01/30 completed Not Available Not Available Not Available albuterol sulfate HFA 90 mcg/actua tion aerosol inhaler INHALE TWO PUFFS EVERY 4 HOURS NEEDED 01/30 completed Not Available Not Available Not Available ondansetr on 4 mg disintegr ating tablet place ONE tablet ON TONGUE EVERY 6 HOURS NEEDED active Not Available Not Available No t Available dexametha sone sodium phosphate 10 mg/mL injection solution Take 1 mL by injectio n route. 01/30 completed Not Available Not Available Not Available fluticaso ne propionat e 50 mcg/actua tion nasal spray,miley pension USE 1 SPRAY NASALLY TWICE DAILY NEEDED active Not Available Not Available No t Available amoxicill in 875 mg-potass ium clavulana te 125 mg tablet TAKE 1 TABLET BY MOUTH EVERY TWELVE HOURS for 10 days 08/03 completed Not Available Not Available Not Available Antacid with Simethico ne 200 mg-200 mg-20 mg/5 mL oral suspensio n QD 01/28 completed Recorded 02/25/19 23 8:11AM by Kaden Plasencia MD, Refill Request; Refill Quantity : 30; Tablet; Not Available Not Available Not Available escitalop spenser 20 mg tablet TAKE 1 TABLET BY MOUTH EVERY DAY active Not Available Not Available No t Available cyclobenz aprine 5 mg tablet TAKE 1 TABLET BY MOUTH EVERY 8 HOURS NEEDED 08/03 completed Not Available Not Available Not Available Klor-Con M20 mEq tablet,ex tended release TAKE 1 TABLET DAILY active Not Available Not Available No t Available bupropion HCl XL 300 mg 24 hr tablet, extended release TAKE 1 TABLET BY MOUTH EVERY MORNING active Not Available Not Available No t Available Constulos e 10 gram/15 mL oral solution TAKE 15ML (10G) BY MOUTH TWICE DAILY NEEDED FOR CONSTIPA TION active Not Available Not Available No t Available [place]-3 01/30 completed Not Available Not Available Not Available Mobic QD 01/03 completed Recorded 04/04/19 23 2:55PM by Tahir Epstein, Office Visit; Refill Quantity : 0; Not Available Not Available Not Available diclofena c 1 % topical gel apply TWO grams topicall y FOUR TIMES DAILY NEEDED active Not Available Not Available No t Available ClearLax 17 gram/dose oral powder TAKE 85 GRAMS BY MOUTH EVERY DAY for 5 days active Not Available Not Available No t Available potassium chloride ER 20 mEq tablet,ex tended release TAKE 1 TABLET BY MOUTH EVERY DAY active Not Available Not Available No t Available oxygen QSH active at night only Not Available Not Available Not Available Glucosami ne Chondroit in BID 01/30 completed Not Available Not Available Not Available Paxlovid 300 mg (150 mg x 2)-100 mg tablets in a dose pack take all 3 morning tabs (yellow side) by mouth at the same time & all 3 evening tabs (blue side) at the same time for 5 days as directed 06/22 completed Not Available Not Available Not Available Vitals Date Recorded Body height Body mass index (BMI) Body weight Oxygen saturation Oxygen saturation in Arterial blood by Pulse oximetry Heart rate Body temperature Systolic And Diastolic Provider Name and Address Organization Details Last Updated DateTime 5 154.94 cm 30.2 kg/m2 70215.7 8 g 99 % 99 % 82 /min 98.4 [degF] 132/74 mm[Hg] Felicita [facility], [facility] 5 19:00:02 Date Recorded Body height Body mass index (BMI) Body weight Oxygen saturation Oxygen saturation in Arterial blood by Pulse oximetry Heart rate Body temperature Systolic And Diastolic Provider Name and Address Organization Details Last Updated DateTime 5 154.94 cm 30.4 kg/m2 81059.0 7 g 98 % 98 % 66 /min 98.6 [degF] 126/64 mm[Hg] Felicita Kline [facility] 5 18:26:29 Date Recorded Body height Body mass index (BMI) Body weight Body temperature Respiratory rate Heart rate Oxygen saturation Oxygen saturation in Arterial blood by Pulse oximetry Systolic And Diastolic Provider Name and Address Organization Details Last Updated DateTime 5 154.94 cm 29.9 kg/m2 15225.5 9 g 97 [degF] 18 /min 76 /min 97 % 97 % 114/72 mm[Hg] Adelso Cannon [facility] 5 17:18:50 Date Recorded Body height Body mass index (BMI) Body weight Oxygen saturation Oxygen saturation in Arterial blood by Pulse oximetry Heart rate Respiratory rate Body temperature Systolic And Diastolic Provider Name and Address Organization Details Last Updated DateTime 5 154.94 cm 29.9 kg/m2 69277.5 9 g 98 % 98 % 96 /min 18 /min 97.2 [degF] 122/82 mm[Hg] Yahaira Baca [facility] 5 16:26:42 Date Recorded Body height Body mass index (BMI) Body weight Body temperature Heart rate Oxygen saturation Oxygen saturation in Arterial blood by Pulse oximetry Systolic And Diastolic Provider Name and Address Organization Details Last Updated DateTime 5 154.94 cm 31 kg/m2 07485.1 5 g 98.8 [degF] 86 /min 97 % 97 % 160/86 mm[Hg] Yuliana Escobar [facility] 5 17:16:45 Social History Question Answer Notes LastModified by Organizat ion Details LastModified Time Tobacco Smoking Status Current Every Day Smoker pt also andree gee [facility] 05/16/2023 11:49:39 Are You Blind Or Do You Have Difficulty Seeing? No Information not available 08/03/2022 What Is Your Level Of Caffeine Consumption? Moderate [email or web address] Information not available 05/09/2024 Are You Deaf Or Do You Have Serious Difficulty Hearing? No Information not available 08/03/2022 Which Illicit Or Recreational Drugs Have You Used? THC Gummy Information not available 08/20/2024 What Was The Date Of Your Most Recent Tobacco Screening? 08/20/2024 [email or web address] Information not available 08/20/2024 What Is Your Current Pack Years? 30ormorepack years [email or web address] Information not available 03/19/2024 What Is Your Relationship Status? Information not available 08/03/2022 At What Age Did You Start Smoking Tobacco? 16 Information not available 08/03/2022 Sex: Unknown Functional Status Question Answer Note LastModified by Organizat ion Details LastModified Time Do you use any illicit or recreational drugs? Yes Information not available 08/20/2024 What is your level of alcohol consumption? Occasional Information not available 01/31/2024 Are you able to care for yourself? Yes Information n ot available 08/03/2022 Mental Status None recorded. Family History Nothing Reported Notes:Diabetes Mellitus, Mot her; In good health: Denied, Father; In good health: Denied Mother: Completed Stroke, Hypertension Medical History Condition Response Coronary Artery Disease N Other N Gout N Kidney Stones N Blood Diseases N Hyperthyroidism N Breast Cancer N Blood Transfusion N Depression N Hypothyroidism N Lung Disease N COPD N Developmental or Behavioral Disorders N Defects or Inherited Disease N Breast Problem N Difficulty Swallowing N Anesthesia Complications N Anxiety Disorder N Meniere's disease N Muscle, Joint, or Bone Problems N Vision or Eye Problems N Arthritis N Infertility N Polyps N Cancer N Stroke N Varicosities N Endometriosis N Bladder or Kidney Problems N High Cholesterol Y Liver Disease N Fibromyalgia Y Headaches N Kidney Disease N Allergies/Hayfever Y Heart Problems N Ear or Hearing Problems N Hospitalizations N Thyroid Problems N GI Problems N ADD/ADHD N Skin Problems N Eating Disorder N Anemia N Constipation N Mental Illness N Ovarian Cancer N Diabetes N Bedwetting N Seizures/Epilepsy N Tuberculosis N Eczema N Diverticulitis N Abuse/Domestic Violence N Asthma N Reflux/GERD N Hepatitis N Heart Disease N Pulmonary Embolism N Pre-Eclampsia N Hypertension N Chronic Ear Infections N Osteoporosis N Chicken Pox N Autism Spectrum Disorder (ASD) N Thrombophilias N Gynecological History Statement/Question Response Most Recent Mammogram 06/15/2022 Obstetrics History GPAL:G 0 P 0 0 0 0 Immunizations Vaccine Type Date Status Note Provider Nam e and Address Organization Details Recorded Time pneumococcal, unspecified formulation 3 [facility] 02/02/2023 15:53:06 Influenza, split virus, trivalent, preservative [address] [facility] 02/02/2023 15:53:06 Influenza, split virus, trivalent, preservative [address] [facility] 02/02/2023 15:53:06 pneumococcal polysaccharide PPV23 8 [facility] 02/02/2023 15:53:06 Influenza, split virus, trivalent, preservative [address] [facility] 02/02/2023 15:53:06 Influenza, split virus, trivalent, preservative [address] [facility] 02/02/2023 15:53:06 Influenza, split virus, trivalent, preservative [address] [facility] 02/02/2023 15:53:06 Influenza, split virus, trivalent, preservative [address] [facility] 02/02/2023 15:53:06 Influenza, split virus, trivalent, preservative [address] [facility] 02/02/2023 15:53:06 COVID-19, mRNA, LNP-S, PF, 50 mcg/0.5 mL 3 completed EMELY PERRIN, [address], [address], [facility] 01/28/2023 14:52:30 RSV, recombinant, protein subunit RSVpreF, adjuvant reconstituted, 0.5 mL, PF 3 [facility] 02/02/2023 15:53:06 Influenza, high-dose, trivalent, PF 4 completed Not Available [facility] 08/20/2024 17:11:48 Influenza, split virus, quadrivalent, PF 3 completed EMELY PERRIN, [address], [address], [facility] 02/03/2023 14:14:02 COVID-19, mRNA, LNP-S, PF, 100 mcg/0.5mL dose or 50 mcg/0.25mL dose 1 completed EMELY PERRIN, [address], [address], [facility] 01/28/2023 14:52:30 COVID-19, mRNA, LNP-S, PF, 100 mcg/0.5mL dose or 50 mcg/0.25mL dose 1 completed EMELY PERRIN, [address], [address], [facility] 01/28/2023 14:52:30 COVID-19, mRNA, LNP-S, PF, 100 mcg/0.5mL dose or 50 mcg/0.25mL dose 2 completed EMELY PERRIN, [address], [address], [facility] 01/28/2023 14:52:30 COVID-19, mRNA, LNP-S, PF, 100 mcg/0.5mL dose or 50 mcg/0.25mL dose 1 completed EMELY PERRIN, [address], [address], [facility] 01/28/2023 14:52:30 COVID-19, mRNA, LNP-S, bivalent, PF, 50 mcg/0.5 mL or 25mcg/0.25 mL dose 2 completed EMELY PERRIN, [address], [address] [place] [address], [facility] 01/28/2023 14:52:30 Tdap 3 completed EMELY PERRIN, [address], [address] [place] [address], [facility] 01/28/2023 14:52:30 Influenza, split virus, quadrivalent, PF 1 completed EMELY PERRIN, [address], [address], [facility] 01/28/2023 14:52:30 Influenza, split virus, quadrivalent, PF 2 completed EMELY PERRIN, [address], [address] [place] [address], [facility] 01/28/2023 14:52:30 Past Encounters Encounter ID Performer Location Encounter Start Date Encounter Closed Date Diagnosis/Indication Diagnosis SNOMED-CT Code Diagnosis ICD10 Code Diagnosis Note [id number] SRUTHI PEREIRA PA-C [facility] ([facility]) [address] [place] [address] 05/28/2022 17:00:25 05/28/2022 18:32:08 Cough 08542704 R05.9 covid negative. Likely viral or allergy in nature. [id number] PUSHPA KLEIN [facility] ([facility]) [address] [place] [address] [id number] 5 06/02/2022 17:09:16 06/14/2022 08:41:17 Acute bacterial sinusitis [id number] J01.90 Acute bron chitis with bronchospasm 94806015 J20.9 [id number] PUSHPA KLEIN [facility] ([facility]) [address] [place] [address] [id number] 5 06/08/2022 16:43:09 06/14/2022 10:38:41 Acute bronchitis with bronchospasm 25804314 J20.9 significan tly improving. Congestion of nasal sinus 53137245 R09.81 [id number] PUSHPA KLEIN [facility] ([facility]) [address] [place] [address] [id number] 5 07/05/2022 19:29:37 07/18/2022 08:22:51 Not up to date with immunizations [id number] Z28.39 Will go to [facility] for booster this week. Cat bite - wound 7647017 04 W55.01XA Infection of skin and/or subcutaneous tissue 57653958 L08.9 [id number] Kaden Plasencia MD [facility] ([facility]) [address] [place] [address] [id number] 5 08/03/2022 13:52:58 08/11/2022 09:14:26 Fibromyalgia 705197509 M79.7 Adult heal th examination 471278036 Z00.01 Screening for cardiovascular system disease 741470219 Z13.6 Screening for malignant neoplasm of colon 057180496 Z12.11 We discussed. She wants to consider it next appt. Screening for osteoporosis 682372864 Z13.820 Screening mammography 24 565444 Z12.31 Acute bron chitis with bronchospasm 29103533 J20.9 Depressive disorder 3548 9007 F32.A Chronic low back pain 27 6332670 M54.50 Hypothyroidism 62531034 E03.9 Hyperlipidemia 12855666 E78.5 Nicotine-f illed electronic cigarette user 004804773 Z72.89 [id number] ANGELY MARTINEZ [facility] ([facility]) [address] [place] [address] [id number] 5 08/19/2022 17:18:44 08/19/2022 18:07:27 Chronic back pain 725581898 G89.29 Patient had an appointmen t with a surgeon and was unable to follow through with surgery due to surgeon being in [place]. Patient would like to be referred to [facility] in [place] for re-evaluat ed. Will send ortho referral today. Pain of ri ght knee joint 9718040695 14465 M25.561 Discussed with patient that the knee pain is chronic. Patient has seen ortho in the past who recommende d a knee replacemen t. At the time, patient was not interested in surgery. Reports she would like to be re-evaluat ed by ortho to re-discuss surgery options. Will send a referral to ortho. Recommend ice and continuing exercises. Continue to take Celebrex as needed for pain. Will call with ortho appointmen t. [id number] PUSHPA KLEIN [facility] ([facility]) [address] [place] [address] [id number] 5 08/27/2022 15:59:50 09/07/2022 16:26:28 Pain of right knee joint 9976415186 17362 M25.561 Osteoarthr itis of right knee joint 2134276828 01238 M17.11 Low back p ain co-occurrent with neuralgia of right sciatic nerve 2946965076 28516 M54.41 Patient had an appointmen t with Dr. Hayes and Dr. Nash at [facility]. Was supposed to have injections , but cancelled appt. Will call and reschedule injection. [id number] Kaden Plasencia MD [facility] ([facility]) [address] [place] [address] [id number] 5 01/03/2023 14:40:36 01/03/2023 19:34:05 Hypothyroidism 53601664 E03.9 Hyperglycemia 91829242 R 73.9 Depressive disorder 7638 9007 F32.A Pain of le ft shoulder joint 0173305026 8374248 M25.512 Immunizati on education 551001789 Z71.85 [id number] PUSHPA MUNOZ [facility] ([facility]) [address] [place] [address] [id number] 5 01/28/2023 14:02:23 01/31/2023 14:10:11 Adult health examination 833671132 Z00.00 Screening for malignant neoplasm of colon 018634487 Z12.11 Depressive disorder 3548 9007 F32.A Administra tion of influenza vaccine 09912131 Z23 [id number] Kaden Plasencia MD [facility] ([facility]) [address] [place] [address] [id number] 5 02/02/2023 15:04:00 02/02/2023 17:56:25 Burning sensation of skin 640181816 R20.8 Chronic low back pain 27 1152097 M54.50 [id number] EMELY PERRIN [employer] [facility] ([facility]) [address] [place] [address] [id number] 5 02/22/2023 18:23:51 03/08/2023 10:54:24 Pain of right hip joint 1239954131 03900 M25.679 [id number] RYAN CONTEH [employer] [facility] ([facility]) [address] [place] [address] [id number] 5 04/22/2023 16:48:22 04/22/2023 18:00:10 COVID-19 [id number] U07.1 Positive covid today. Discussed quarantine next 5 days, use of paxlovid, tylenol for fever control, rest, and push oral fluids. Stop the atorvastat in while on the paxlovid.I f you develop sob or are feeling worse, return for re-eval. [id number] ANGELY MARTINEZ [facility] ([facility]) [address] [place] [address] [id number] 5 05/02/2023 17:13:48 05/02/2023 18:04:32 Exposure to SARS-CoV-2 352039283 Z20.822 COVID negative. Dyspnea 397565385 R06.00 Will start albuterol MDI today PRN. Encouraged patient to continue Sudafed or Mucinex as needed. Recommend a 2 week follow up with PCP for re-check. If any chest pain or severe SOB occurs, should go to ED. Patient verbalizes understand ing. [id number] Kaden Plasencia MD [facility] ([facility]) [address] [place] [address] [id number] 5 05/16/2023 11:02:37 05/16/2023 17:32:50 Fibromyalgia 289665634 M79.7 Depressive disorder 3548 9007 F33.2 Hypothyroidism 97700054 E03.9 Hyperlipidemia 02609580 E78.5 Anxiety 34598362 F41.9 Low back pain 973582689 M54.50 Malaise and fatigue 2717 64219 R53.83 [id number] SRUTHI PEREIRA PA-C [facility] ([facility]) [address] [place] [address] [id number] 5 06/23/2023 18:25:16 06/24/2023 22:57:32 Neurogenic claudication 827515210 M48.062 Pt is stable today. no evidence of neuro compromise today. She has appt in <[address] and with neurosurge on next week. I reassured her we are on the right track and nothing different can be done today for her interminta nt numbness that she has had >1 yr. [id number] PUSHPA CARLIN [facility] ([facility]) [address] [place] [address] [id number] 5 08/17/2023 18:20:50 08/17/2023 18:56:57 Acute back pain with sciatica 824220385 M54.40 Apply a heating pad for 10 minutes every 2 hours while awake. Perform slow stretches 2 times a day.F/u with PCP in 4-5 days if symptoms persist or worsen. [id number] Kaden Plasencia MD [facility] ([facility]) [address] [place] [address] [id number] 5 01/31/2024 10:59:32 01/31/2024 12:49:05 Fibromyalgia 288742327 M79.7 Heartburn 04722169 R12 Hypothyroidism 43690619 E03.9 Hyperlipidemia 97873975 E78.5 Anxiety 42996655 F41.9 Hyperglycemia 52503266 R 73.9 Depressive disorder 3548 9007 F33.2 Restless legs 11712788 G 25.81 Pain of ri ght knee joint 2351012334 07108 M25.561 Pain of le ft shoulder joint 2670871577 0998953 M25.292 [id number] Yahaira Bliss MD [facility] ([facility]) [address] [place] [address] [id number] 5 03/19/2024 15:07:45 03/19/2024 16:30:27 Neuropathy 732701191 G62.9 Discussed neuropathy and the potential concerns for mets. This is most likely diagnosis for the patient's symptoms. Obstructiv e sleep apnea syndrome 31189933 G47.33 Patient does have sleep apnea but of unknown severity. We will likely need to cut a copy of her sleep study or do another to attempt to get her approved for inspire device. The patient has tried and failed CPAP with multiple masks and she is over the 16 and depending on the severity of her sleep apnea she most likely will meet the criteria for the inspire device. The patient would like to proceed with that if possible. Anxiety 49336999 F41.9 Depressive disorder 3548 9007 F33.2 Fibromyalgia 151544034 M 79.7 Hyperlipidemia 75852385 E78.5 Hypothyroidism 54192558 E03.9 Insomnia 676407785 G47.0 0 Acute maxi llary sinusitis 46183942 J01.00 Likely bacterial sinusitis based on exam and history. discussed supportive care including OTC meds and sinus rinses. we will start abx. [id number] Yahaira Bliss MD [facility] ([facility]) [address] [place] [address] [phone] 5 03/29/2024 18:53:46 04/04/2024 06:48:32 Iliotibial band friction syndrome of right knee 9412028920 11332 M76.31 Started at the patient does have a IT band syndrome. Discussed stretches and exercises with the patient and handout was provided. Will use diclofenac gel to help with discomfort . [id number] PUSHPA CARLIN [facility] ([facility]) [address] [place] [address] [id number] 5 05/01/2024 18:18:11 05/02/2024 08:17:37 [id number] Yahaira Bliss MD [facility] ([facility]) [address] [place] [address] [id number] 5 05/09/2024 17:01:01 05/09/2024 18:01:26 Acute gastroenteritis 91699679 K52.9 Will provide Zofran to control her nausea. This will likely continue to improve without further interventi on. Degenerati ve rupture of medial meniscus of right knee 0296742379 8848122 M23.303 The patient had been doing home exercises and the pain up by the hip has improved and now she is having persistent medial knee pain. Concerned about a degenerati ve rupture meniscus. Will obtain x-rays and if no fracture or other findings are noted then we will proceed with MRI. [id number] Yahaira Bliss MD [facility] ([facility]) [address] [place] [address] [id number] 5 07/04/2024 16:15:54 07/04/2024 16:56:00 Arthritis of right knee 8174607386 042568 M17.11 Will continue with pain management . Encouraged patient to proceed with surgery. Patient states that she has options to help with transporta tion. Depressive disorder 3548 9007 F33.2 Continue current medication s. Anxiety 65253074 F41.9 We will add buspirone and see how she does with her anxiety with this medication . [id number] Yahaira Bliss MD [facility] ([facility]) [address] [place] [address] [id number] 5 08/20/2024 17:11:17 08/22/2024 11:21:23 Restless legs 60840958 G25.81 Will increase her ropinirole to 3 mg at bedtime. Degenerati ve rupture of medial meniscus of right knee 5950493911 3029754 M23.303 Patient intends to proceed with surgery. Anemia 121631833 D64.9 The patient does have mild anemia and this is a known issue for her and has been chronic in nature. Nicotine dependence 5629 4008 F17.200 Discussed smoking cessation with the patient and advice given. The patient is going to stop cigarettes completely and start weaning herself off of vaping. Health Concerns Section Related Observation LastModified by Organization Detai ls LastModified Time None Recorded Concern Status LastModified by Organization Details LastModified Time None Recorded Advance Directives Directive None Recorded Payers Insurance Date Sequence Insurance Name Policy Number Policy Workman Covered Member ID Workman Member ID Guarantor Name 12/14/2022 1 [place] [id number] Edna V Vazquez [id number] Edna V Vazquez 08/27/2024 1 [place]/A DVANTAGE - PPO) [id number] Edna V Vazquez [id number] Edna V Vazquez Notes Date Note Type Note Provider Name and Address Organization Details Recorded Time 03/29/2024 text/html walk inx 2 weeks worsening pain to right leg around knee area. the patient denies any injury. The patient reports that she has been having some hip pain as well on the same side. Yahaira Bliss MD [address] [place] [address], [phone], [facility] 04/03/2024 17:44:56 05/01/2024 text/html walk inx 1 month ago here for same, reports pain location different PUSHPA CARLIN [address] [place] [address], [phone], [facility] 05/01/2024 18:34:48 05/09/2024 text/html Musculoskeletal PainReported bypatient.Location:[facility] Quality:sharp and throbbing pain Severity:no driving impairment; no change Duration:present for 1-6 months Timing:intermittent; pain at night Alleviating Factors:rest Aggravating factors:twisting ADLs Affected:walking Patient here today for f/up Right knee pain. Patient was seen in the walk-in clinic, and is here for follow-up of that pain. She says that she fell last Tuesday when her knee gave away, and bumped her head in the process. She has been c/o a headache since then. She wants to discuss N&V that she has had since Tuesday night. She ate Setsw[employer], and started throwing up soon after returning home. She says that she has been trying to stay hydrated, but seems like she has been having difficulty controlling her nausea. It has improved some since Tuesday. Yahaira Bliss MD [address] [place] [address], [phone], [facility] 05/13/2024 07:34:57 07/04/2024 text/html This is a 63-yea r-old female who comes in today for follow-up. The patient continues to have significant pain in her right knee. The patient was scheduled to have surgery but was unable to proceed due to the lack of transportation. The patient intends to proceed with this. Patient is requesting pain medication in the meantime until this can be performed. Patient also feels like her anxiety is not well controlled. She reports that she does better with bupropion but still has issues. Yahaira Bliss MD [address] [place] [address], [phone], [facility] 07/08/2024 08:41:57 08/20/2024 text/html Pt states she arenas d labs done on the at [facility] for pre-op, she states several labs are abnormal. The doctor told her to check with her PCP about these labs. She does not recall specifically what the labs were but 1 was about anemia.The patient wanted to discuss smoking sensation. Dr. Greer had asked her to quit smoking. The patient states that she only smokes approximately 2 cigarettes a day and has been doing vaping instead.The patient also reports that she has been having increasing issues with restless leg. Yahaira Bliss MD [address] [place] [address], [phone], [facility] 08/23/2024 08:55:05 OBGyn Episode No OBEpisode recorded.
--- OUTSIDE RECORDS SUMMARY | 2024-09-03 01:58 | XMS_ITS | Clinical Summary ---
[facility] Organization [facility] Address [address] Attn: Epic Prelude ADT [place] [address] Care Team Providers Care Contract Analyst Name Role Phone Unavailable Primary Care Provider Unavailabl e Allergies Active Allergy Reactions Criticality Noted Date Comments Morphine Itching Low 06/15/2018 Medications topiramate (TROKENDI XR) 200 mg Extended Release 24 hour capsule Take 200 mg by mouth daily. 30 Capsule 6 9 Active Additional Information Patient not taking.Reported on 08/09/2024 omeprazole (PriLOSEC) 40 mg Capsule, Delayed Release(E.C.) Take 1 Capsule (40 mg) by mouth daily. 30 Capsule 11 8 Active Additional Information Patient not taking.Reported on 08/09/2024 montelukast (SINGULAIR) 10 mg tablet Take 1 Tablet (10 mg) by mouth daily. 30 Tablet 3 9 Active traZODone (DESYREL) 150 mg tablet Take 150 mg by mouth daily at bedtime. 0 Active Additional Information Patient taking differently:150 mg OralNIGHTLY PRN, Reported on 08/09/2024 potassium (POTASSIMIN ORAL) Take by mouth. 0 Active Additional Information Patient taking differently: 20 mEqOralDAILY, Reported on 08/09/2024 rOPINIRole (REQUIP) 2 mg Tablet Take 2 mg by mouth. 0 Active Additional Information Patient taking differently:2 mg OralDAILY AT BEDTIME, Reported on 08/09/2024 atorvastatin (LIPITOR) 40 mg tablet Take 40 mg by mouth daily with supper. 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 0 Active amitriptyline (ELAVIL) 50 mg tablet Take 50 mg by mouth daily at bedtime. Active escitalopram oxalate (LEXAPRO) 20 mg tablet Take 20 mg by mouth daily. Active potassium chloride (KLOR-CON) 20 mEq Extended Release tablet Take 20 mEq by mouth daily. Active celecoxib (CeleBREX) 200 mg capsule Take 200 mg by mouth 2 times daily. Active buPROPion HCL (WELLBUTRIN XL) 300 mg Extended Release 24 hour tablet Take 300 mg by mouth daily in the morning. Active hydrOXYzine HCL (ATARAX) 25 mg tablet 3 times daily as needed. Active pantoprazole (PROTONIX) 40 mg Tablet, Delayed Release (E.C.) Take 1 Tablet by mouth 2 times daily. Active modafiniL (PROVIGIL) 200 mg Tablet Take 1 Tablet by mouth daily. Active diclofenac sodium (VOLTAREN) 1 % gel Apply to affected area 4 times daily as needed. Active fluticasone propionate (FLONASE) 50 mcg/spray Continental, Suspension nasal inhaler Administer 2 Sprays in each nostril 1 time daily as needed. Active lactulose (Constulose) 10 gram/15 mL oral solution 10 Grams 2 times daily as needed for Constipation. Active HYDROcodone-bryan taminophen (NORCO) 5-325 mg tablet Take 1 Tablet by mouth every 12 hours as needed. Active ondansetron (ZOFRAN ODT) 4 mg Tablet, Rapid Dissolve Place 4 mg under tongue every 6 hours as needed. Active Active Problems Problem Noted Date Diagnosed Date Current smoker 08/09/2024 Primary osteoarthritis of right knee 06/04/2024 Preoperative general physical examination 2024 Obstructive sleep apnea 06/04/2024 Stage 3a chronic kidney disease 06/04/2024 Anemia 06/04/2024 Dyslipidemia 06/04/2024 GERD without esophagitis 06/04/2024 Acquired hypothyroidism 06/04/2024 Bronchiolitis obliterans organizing pneumonia History of tobacco use 06/04/2024 Anxiety and depression 06/04/2024 Restless leg syndrome 06/04/2024 Encounters Date Type Department Care Team Description 08/27/2024 Orders Only [facility] [address] [place] [address] Shantanu Strickland MD Tobacco use (Primary Dx) 08/21/2024 External Device Data ST[facility] ABSTRACTION Provider, Abstract 08/14/2024 External Device Data [facility] ABSTRACTION Provider, Abstract 08/14/2024 Telephone [facility] [address] [place] [address] Shantanu Strickland MD General 08/09/2024 1:04 PM CDT - 08/09/2024 11:59 PM CDT Hospital Encounter [facility] Pre Admission [facility] Orthopedic [facility] [address] [place] [address] Shantanu Strickland MD Discharge Disposition: Home or Self Care 08/09/2024 Travel 08/09/2024 External Device Data Initial Department [address] [place] [address] Dr JARRELL: [place] [address] Yves Gasca Md 08/07/2024 External Device Data ST[facility] ABSTRACTION Provider, Abstract 07/26/2024 Orders Only [facility] [address] [place] [address] Shantanu Strickland MD 07/25/2024 Telephone [facility] [address] [place] [address] Shantanu Strickland MD Question 06/25/2024 Travel 06/18/2024 Orders Only [facility] [id number] [place] [address] Danie Malik MD Preoperative general physical examination (Primary Dx) 06/11/2024 External Device Data Initial Department [address] [place] [address] Dr JARRELL: [place] [address] Yves Gasca Md 06/05/2024 External Device Data STL ABSTRACTION Provider, Abstract 06/05/2024 External Device Data ST[facility] ABSTRACTION Provider, Abstract 06/05/2024 External Device Data STL ABSTRACTION Provider, Abstract from Last 3 Months Social History Tobacco Use Types Packs/Day Years Used Date Smoking Tobacco: Every Day Cigarettes 0.5 48.5 Started: 1978 Smokeless Tobacco: Never Tobacco Cessation:Ready to Q uit: Not Asked; Counseling Given: Not Answered Comments:Down to 2 or 3 cigs per day as of 06/25/24 Alcohol Use Standard Drinks/Week Comments Not Currently 0 (1 standard drink = 0.6 oz pur e alcohol) not weekly Feeling Safe Answer Date Recorded Are you in a relationship wi th someone who hurts you emotionally and/or physically? 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 Gender Identity Not on file Sexual Orientation Not on file Last Filed Vital Signs Vital Sign Reading Time Taken Comments Blood Pressure 150/74 08/09/2024 1:44 PM CDT Pulse 103 08/09/2024 1:44 PM CDT Temperature 36.7 C (98.1 F) 08/09/2024 1:44 PM CDT Respiratory Rate 17 06/15/2018 2:22 PM CDT Oxygen Saturation 97% 08/09/2024 1:44 PM CDT Inhaled Oxygen Concentration - - Weight 72.6 kg (160 lb) 08/09/2024 1:44 PM CDT Height 154.9 cm (5' 1 ) 08/09/2024 1:44 PM CDT Body Mass Index 30.23 08/09/2024 1:44 PM CDT Plan of Treatment Health Maintenance Due Date Last Done Comments BREAST CANCER SCREENING 1998 FIT-DNA Q 3 years 01/01/2004 FIT/FOBT Q 1 year 01/01/2004 Flex Sig/CT Colonography Q 5 years 01/01/2004 Lung Cancer Screening 2008 ZOSTER VACCINE (1 of 2) 2008 RSV VACCINE (60+ or ) (1 - Risk 60-74 years 1-dose series) 2018 PNEUMOCOCCAL VACCINE 50+ YEA RS (2 of 2 - PCV) 04/16/2023 04/16/2022, 12/21/2007 COVID-19 Vaccine (7 - 4-2 5 season) 2023 12/14/2022, 01/19/2022, 08/04/2021, Additional history exists OSTEOPOROSIS SCREENING 01/01/2024 Medicare Advantage ([place]) Preventative Visit/Annual Wellness Visit 02/22/2024 INFLUENZA VACCINE (#1) 2024 , 01/28/2023, 04/16/2022, Additional history exists Pre-Diabetes and Diabetes Screening 06/02/2027 06/01/2024 DTAP/TDAP/TD VACCINES (2 - T d or Tdap) 07/06/2032 07/06/2022 COLORECTAL SCREENING 05/31/2033 06/01/2023 Colorectal Cancer Screening 05/31/2033 Procedures Procedure Name Priority Date/Time Associated Diagnosis Comments COMPREHENSIVE METABOLIC PANEL Routine 08/09/2024 2:27 PM CDT CBC WITH DIFFERENTIAL Routine 08/09/2024 2:27 PM CDT HEMOGLOBIN A1C Routine 06/01/2024 2:28 PM CDT from Last 3 Months or Most Recently Relevant to Health Maintenance Results * (ABNORMAL) CBC WITH DIFFERENTIAL (08/09/2024 2:27 PM CDT) Pathologist [facility] WBC 8.0 4.8 - 10.8 K/uL 08/09/2024 2:36 PM CDT [facility] RBC 3.54(L) 4.20 - 5.40 M/uL 08/09/2024 2:36 PM CDT [facility] HEMOGLOBIN 10.7(L) 12.0 - 16.0 g/dL 08/09/2024 2:36 PM CDT [facility] HEMATOCRIT 33.5(L) 36.0 - 46.0 % 08/09/2024 2:36 PM CDT [facility] MCV 94.6 84.0 - 103.0 fL 08/09/2024 2:36 PM CDT [facility] MCH 30.2(L) 31.0 - 37.0 pg 08/09/2024 2:36 PM CDT [facility] MCHC 31.9 30.0 - 35.0 g/dL 08/09/2024 2:36 PM CDT [facility] RDW 14.1 11.0 - 14.5 % 08/09/2024 2:36 PM CDT [facility] RDW-STDEV 49.0 37.0 - 54.0 fL 08/09/2024 2:36 PM CDT [facility] PLATELETS 281 140 - 440 K/uL 08/09/2024 2:36 PM CDT [facility] MPV 10.3 8.9 - 12.8 fL 08/09/2024 2:36 PM CDT [facility] NEUTROPHILS 60 42 - 75 % 08/09/2024 2:36 PM CDT [facility] LYMPHOCYTES 31 24 - 44 % 08/09/2024 2:36 PM CDT [facility] MONOCYTES 7 2 - 10 % 08/09/2024 2:36 PM CDT [facility] EOSINOPHILS 1 0 - 7 % 08/09/2024 2:36 PM CDT [facility] BASOPHILS 1 0 - 1 % 08/09/2024 2:36 PM CDT [facility] IMMATURE GRANULOCYTES 0 0 - 2 % 08/09/2024 2:36 PM CDT [facility] NEUTROPHIL ABSOLUTE 4.78 2.00 - 8.00 K/uL 08/09/2024 2:36 PM CDT [facility] LYMPHOCYTE ABSOLUTE 2.49 1.20 - 4.00 K/uL 08/09/2024 2:36 PM CDT [facility] MONOCYTE ABSOLUTE 0.59 0.10 - 0.60 K/uL 08/09/2024 2:36 PM CDT [facility] EOSINOPHIL ABSOLUTE 0.10 0.00 - 0.70 K/uL 08/09/2024 2:36 PM CDT [facility] BASOPHILS ABSOLUTE 0.07 0.00 - 0.20 K/uL 08/09/2024 2:36 PM CDT [facility] IMMATURE GRANULOCYTES ABSOLUTE 0.01 0.00 - 0.10 K/uL 08/09/2024 2:36 PM CDT [facility] Blood Venipuncture / Unknown 08/09/2024 2:27 PM CDT 08/09/2024 2:31 PM CDT us Danie Malik MD HEMATOLOGY ORDERABLES Final Res ult [facility] CLIA #[id number] [address] [place] [address] * (ABNORMAL) COMPREHENSIVE METABOLIC PANEL (08/09/2024 2:27 PM CDT) SODIUM 136 136 - 145 mmol/L 08/09/2024 2:58 PM CDT [facility] POTASSIUM 4.5 3.4 - 4.5 mmol/L 08/09/2024 2:58 PM CDT [facility] CHLORIDE 103 98 - 107 mmol/L 08/09/2024 2:58 PM CDT [facility] CO2 21(L) 22 - 29 mmol/L 08/09/2024 2:58 PM CDT [facility] CALCIUM 8.8 8.6 - 10.0 mg/dL 08/09/2024 2:58 PM CDT [facility] BUN 9 8 - 23 mg/dL 08/09/2024 2:58 PM CDT [facility] CREATININE 1.00(H) 0.51 - 0.95 mg/dL 08/09/2024 2:58 PM CDT [facility] GLUCOSE 141(H) 74 - 99 mg/dL 08/09/2024 2:58 PM [facility] Comment:Reference range appl ies to fasting patients only. TOTAL PROTEIN 6.7 6.6 - 8.7 g/dL 08/09/2024 2:58 PM T [facility] ALBUMIN 4.1 4.0 - 4.9 g/dL 08/09/2024 2:58 PM [facility] BILIRUBIN TOTAL <0.2 0.0 - 1.0 mg/dL 08/09/2024 2:58 PM [facility] ALKALINE PHOSPHATASE 86 35 - 104 U/L 08/09/2024 2:58 PM [facility] AST 21 5 - 32 U/L 08/09/2024 2:58 PM [facility] ALT 12 5 - 33 U/L 08/09/2024 2:58 PM [facility] GFR >60 >=60 mL/min/1.7 3 sq meter 08/09/2024 2:58 PM T [facility] Comment:eGFR calculated with 2020 CKD-EPI equation. Vegetarian diet, extremely high or low muscle mass, and may affect results. Cystatin C with Glomerular Filtration Rate is a suitable alternative for these patients. ANION GAP 12 9 - 20 mmol/L 08/09/2024 2:58 PM T [facility] Blood Venipuncture / Unknown 08/09/2024 2:27 PM CDT 08/09/2024 2:31 PM CDT us Danie Malik MD CHEMISTRY ORDERABLES Final Resu lt [facility] CLIA #[id number] [address] [place] [address] * HEMOGLOBIN A1C (06/01/2024 2:28 PM CDT) HEMOGLOBIN A1C 4.8 <=5.6 % 06/01/2024 2:59 PM CDT [facility] EST. AVG GLUCOSE, A1C 91 mg/dL 06/01/2024 2:59 PM CDT [facility] Blood Venipuncture / Unknown 06/01/2024 2:28 PM CDT 06/01/2024 2:30 PM CDT Narrative [facility] - 06/01/2024 2:59 PM CDT HGB A1C INTERPRETATION NORMAL: <5.7% PRE-DIABETES: 5.7 - 6.4% DIABETES: 6.5% OR GREATER us Danie Malik MD CHEMISTRY ORDERABLES Final Resu lt [facility] CLIA #[id number] [address] [place] [address] from Last 3 Months or Most Recently Relevant to Health Maintenance Insurance [facility] MEDICARE HMO * Guarantor: EDNA BADILLO V Account Type Relation to Patient Date of Phone Billing Address Personal/Family [id number] [address] [address] [facility] [employer] (INTERNAL) [facility]
--- OUTSIDE RECORDS SUMMARY | 2024-09-03 01:58 | XMS_ITS | Encounter Summary ---
Author Organization [facility] Address 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 Unavailable Primary Care Provider Unavailabl e Encounter Details Date Type Department Care Team (Late st Contact Info) Description 08/27/2024 Orders Only [facility] Orthopedics - Orthopedic [facility] [address] [place] [phone] Shantanu Strickland MD [address] [place] [address] Tobacco use (Primary Dx) Social History Tobacco Use Types Packs/Day Years Used Date Smoking Tobacco: Every Day Cigarettes 0.5 48.5 Started: 1978 Smokeless Tobacco: Never Comments:Down to 2 or 3 cigs per [...] on file 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
[2024-09-03 02:12] VITALS: BP 190/92; PULSE 89; RESP 18; TEMP 36.9; O2SAT 99; BMI 30.2
[2024-09-03 02:37] VITALS: BP 167/108; PULSE 80; O2SAT 99
--- NOTE | 2024-09-03 02:51 | XRR_ITS ---
PROCEDURE INFORMATION: Exam: XR Right Knee Exam date and time: 09/03/2024 3:17 AM Age: 63 years old Clinical indication: Injury or trauma; Blunt trauma; Right; Patient sustained a fall striking knee directly onto concrete. Diffuse contusion to anterior aspect of knee. ; Additional info: Fall knee pain TECHNIQUE: Imaging protocol: Radiologic exam of the right knee. Views: 3 views. COMPARISON: CR XR knee RT 3V* [id number] 05/09/2024 4:46 PM FINDINGS: Bones/joints: Acute transverse mildly distracted fracture through the mid patella. Moderate tricompartmental marginal osteophyte formation. Joint is normally aligned. Small to moderate joint effusion. Soft tissues: Anterior soft tissue swelling. XR/XR knee RT 3V* [id number] IMPRESSION: 1. Acute transverse mildly distracted fracture through the mid patella. 2. Moderate tricompartmental osteoarthritis.
[2024-09-03] MEDS: HYDROmorphone 0.5 MG/0.5 ML INJ 1 MG IM (03:17)
--- NOTE | 2024-09-03 03:36 | W.ED.EXTPRO ---
HPI - Extremity Problem General: Chief complaint: Extremity Injury, Lower Stated complaint: Rt Knee Pain Time Seen by Provider: 09/03/24 02:46 History of Present Illness: 63-year-old female who was at the [employer] earlier. She slipped and fell directly onto her right knee, injuring it. She is unable to bear weight. She says she is unable to straighten it. She is having pain and swelling with bruising to that anterior knee. She states that it is arthritic and she is supposed to get it replaced soon . Related Data Home Medications ?Medication ?Instructions ?Recorded ?Confirmed modafinil 200 mg tablet (Provigil) 200 mg PO QAM 06/17/20 02/28/24 montelukast 10 mg tablet 10 mg PO DAILY 06/17/20 02/28/24 (Singulair) ropinirole 2 mg tablet 2 mg PO DAILY 06/17/20 02/28/24 trazodone 150 mg tablet 150 mg PO DAILY 06/17/20 02/28/24 omega 3-ljt-mjy-fish oil 1,000 mg 1 cap PO DAILY 11/02/23 02/28/24 (120 mg-180 mg) capsule (Fish Oil) Previous Rx's ?Medication ?Instructions ?Recorded atorvastatin 40 mg tablet 40 mg PO .q hs PRN 07/12/23 cholesterol/fats #90 tabs levothyroxine 25 mcg tablet 25 mcg PO .Q AM thyroid 07/12/23 replacement #90 tabs celecoxib 200 mg capsule (Celebrex) 200 mg PO BID PRN pain #60 caps 08/04/23 potassium chloride 20 mEq See Rx Instructions .Route 08/10/23 tablet,extended release .COMPLEX #90 tabs topiramate 200 mg tablet See Rx Instructions .Route 08/10/23 .COMPLEX #180 tabs pantoprazole 40 mg tablet,delayed 40 mg PO BID 30 days #60 tabs 10/10/23 release (Protonix) polyethylene glycol 3350 17 85 g PO DAILY 5 days #510 grams 11/07/23 gram/dose oral powder (Miralax) amitriptyline 50 mg tablet 50 mg PO DAILY #14 tabs 12/19/23 promethazine 25 mg tablet 25 mg PO Q6H PRN nausea and 12/19/23 vomiting #30 tabs gabapentin 300 mg capsule 300 mg PO QID nerve pain #360 caps 01/03/24 bupropion HCl 300 mg 24 hr tablet, 300 mg PO QAM #90 tabs 01/27/24 extended release escitalopram oxalate 20 mg tablet See Rx Instructions .Route 03/08/24 .COMPLEX #60 tabs hydrocodone 5 mg-acetaminophen 325 1 - 2 tab PO .Q4-6H PRN pain 7 09/03/24 mg tablet days #10 tabs Allergies Allergy/AdvReac Type Severity Reaction Status Date / Time morphine Allergy Mild ADR-Itching Verified 01/16/24 18:51 PFSH ED PFSH: Medical History GERD with esophagitis CKD stage 3a, GFR 45-59 ml/min Adult BMI 30+ JAMES (obstructive sleep apnea) Hypothyroidism Osteoarthritis Dyslipidemia Depression RLS (restless legs syndrome) Fibromyalgia Surgical History (Updated 01/12/24 @ 15:25 by Robin Hayes DO) H/O knee surgery Right - lap. H/O: hysterectomy Partial Family History Father Diabetes Stroke Mother Heart disease Other CAD (coronary artery disease) Social History Smoking and tobacco/nicotine status: unknown if used tobacco/nicotine Alcohol intake: current Alcohol intake frequency: holidays/special occasions only Substance/Drug Use: never Physical Exam Const: COMMON NORMALS: no acute distress and alert GENERAL APPEARANCE: cooperative; not ill appearing ORIENTATION/CONSCIOUSNESS: Yes oriented to person and Yes oriented to time HENMT: COMMON NORMALS: normocephalic and atraumatic HEAD & SCALP: normocephalic and atraumatic Eye: COMMON NORMALS: Equal, round and reactive pupils present and EOMs intact bilaterally PUPIL: Yes Equal, round and reactive pupils present Resp: COMMON NORMALS: normal respiratory effort, No use of accessory muscles and clear to auscultation bilaterally AUSCULTATION: clear to auscultation bilaterally Extremity: NARRATIVE EXTREMITY EXAM: And examination of the right lower extremity reveals tenderness to the anterior knee along the patella and inferior to the patella. There is ecchymosis present. There are some swelling present. There is knee effusion present. Minimal joint line tenderness. Range of motion is guarded. Pulses and sensation are intact distally. Neuro: SENSORIUM/ORIENTATION: Yes alert, Yes oriented to person and Yes oriented to time Course Vital Signs: Vital signs: Vital Signs Temperature 98.4 F 09/03/24 02:12 Pulse Rate 80 09/03/24 02:37 Respiratory Rate 18 09/03/24 02:12 Blood Pressure 167/108 09/03/24 02:37 Pulse Oximetry 99 09/03/24 02:37 Oxygen Delivery Me thod Room Air 09/03/24 02:12 MDM - Extremity (Nontraumatic) Medical Decision Making X-ray shows patellar fracture with associated suprapatellar joint effusion and soft tissue swelling. She is placed in a knee immobilizer. She is given crutches. Orthopedic follow-up. Lab Data Radiology Impressions Knee X-Ray 09/03/24 02:51 IMPRESSION: 1. Acute transverse mildly distracted fracture through the mid patella. 2. Moderate tricompartmental osteoarthritis. All radiology interpretation(s) finalized by discharge Discharge Plan Discharge Patient Disposition: Home Clinical Impression: Closed fracture of right patella Qualifiers: Encounter type: initial encounter Fracture morphology: transverse Fracture alignment: nondisplaced Qualified Code(s): S82.034A - Nondisplaced transverse fracture of right patella, initial encounter for closed fracture Condition: Stable Prescriptions: Continued hydrocodone-acetaminophen 5-325 mg tablet 1 - 2 tab PO .Q4-6H PRN (Reason: pain) 7 Days Qty: 10 0RF No Action modafinil [Provigil] 200 mg tablet 200 mg PO QAM montelukast [Singulair] 10 mg tablet 10 mg PO DAILY trazodone 150 mg tablet 150 mg PO DAILY ropinirole 2 mg tablet 2 mg PO DAILY celecoxib [Celebrex] 200 mg capsule 200 mg PO BID PRN (Reason: pain) Qty: 60 5RF pantoprazole [Protonix] 40 mg tablet,delayed release (DR/EC) 40 mg PO BID 30 Days Qty: 60 11RF polyethylene glycol 3350 [Miralax] 17 gram/dose powder 85 g PO DAILY 5 Days Qty: 510 1RF promethazine 25 mg tablet 25 mg PO Q6H PRN (Reason: nausea and vomiting) Qty: 30 0RF amitriptyline 50 mg tablet 50 mg PO DAILY Qty: 14 0RF omega 9-hhp-huo-fish oil [Fish Oil] 1,000 mg (120 mg-180 mg) capsule 1 cap PO DAILY atorvastatin 40 mg tablet 40 mg PO .q hs PRN (Reason: cholesterol/fats) Qty: 90 3RF levothyroxine 25 mcg tablet 25 mcg PO .Q AM Qty: 90 3RF topiramate 200 mg tablet See Rx Instructions .ROUTE .COMPLEX Qty: 180 1RF Dose Instruction: TAKE ONE TABLET BY MOUTH TWICE DAILY Rx Instructions: TAKE ONE TABLET BY MOUTH TWICE DAILY potassium chloride 20 mEq tablet extended release See Rx Instructions .ROUTE .COMPLEX Qty: 90 1RF Dose Instruction: TAKE 1 TABLET BY MOUTH EVERY DAY Rx Instructions: TAKE 1 TABLET BY MOUTH EVERY DAY gabapentin 300 mg capsule 300 mg PO QID Qty: 360 0RF bupropion HCl 300 mg tablet extended release 24 hr 300 mg PO QAM Qty: 90 1RF escitalopram oxalate 20 mg tablet See Rx Instructions .ROUTE .COMPLEX Qty: 60 0RF Dose Instruction: TAKE 1 TABLET BY MOUTH EVERY DAY Rx Instructions: TAKE 1 TABLET BY MOUTH EVERY DAY Discharge Orders: Discharge ED (Routine); Ordered 09/03/24 Ordered By: Elliott White Referrals: Robin Hayes DO [Physician, Orthopedics] - 4-7 days Imtiaz Bliss MD [Primary Care Provider, Family Practice] Patient Instructions: Patellar Fracture (ED), Opioid Safety, Pain Management, Patient Portal & Yoko Instructions Activity Restrictions/Additional Instructions: Stay in your knee immobilizer. Use crutches for toe-touch weightbearing. Ice for pain and swelling. You may use pain medication for significant pain. Call the orthopedic clinic later this morning for a follow-up appointment within the next week. Return for problems. Print Language: Kiswahili Coding Level of Care Code ED Exploration Driller for Elroy Yanez
[2024-09-03] MEDS: oxyCODONE-APAP 5-325 mg Tablet 2 TAB PO (03:54)
[2024-09-03 04:59] VITALS: BP 144/71; PULSE 80; O2SAT 99
== END 2024-09-03 04:30 | disposition home or self-care (01) ==
PROVIDERS: Emergency Provider Emergency Medicine; PCP Family Medicine
DX: S82.034A Nondisplaced transverse fracture of right patella, initial encounter for closed fracture (principal); W01.0XXA Fall on same level from slipping, tripping and stumbling without subsequent striking against object, initial encounter; E78.5 Hyperlipidemia, unspecified; N18.31 Chronic kidney disease, stage 3a
CPT/HCPCS: 73562; 96372; 99284; J1171; J9999; L1830; Q0162

== ENCOUNTER → 2024-09-06 09:06 | Outpatient (BNVA) | payer MEDICARE, SELFPAY | PROVIDERS: PCP Family Medicine; Visit Provider Orthopaedic Surgery | DX: S82.031A Displaced transverse fracture of right patella, initial encounter for closed fracture (principal); X58.XXXA Exposure to other specified factors, initial encounter | CPT/HCPCS: 73562; 99204 ==

== ENCOUNTER 2024-09-06 09:39 | Outpatient (CLI) | payer MEDICARE, SELFPAY ==
[2024-09-06 12:19] LABS: Hematocrit 32.8 % (36-47); Hemoglobin 10.70 g/dL (11.27-16.99); Mean Corpuscular HGB Conc 32.6 g/dL (30-55); Mean Corpuscular Hemoglobin 29.9 pg (27-33); Mean Corpuscular Volume 91.6 fl (85-98); Nucleated Red Blood Cells % 0 %; Platelet Count 293 10^3/cmm (157-399); Red Blood Count 3.58 10^6/uL (3.85-5.65); White Blood Count 12.08 10^3/uL (3.29-11.43)
[2024-09-06 12:20] LABS: Glucose Urine UA Negative (Normal); Nitrate Urine Positive (Negative); Specific Gravity, Urine 1.015 (1.005-1.030)
[2024-09-06 12:25] LABS: Add Urine Microscopic? YES
[2024-09-06 12:27] LABS: UA Slide Review UA Slide Review Perf
[2024-09-06 12:40] LABS: Alanine Aminotransferase 18 U/L (0-33); Albumin Level 4.1 g/dL (3.5-5.2); Alkaline Phosphatase 90 U/L (35-105); Anion Gap 16.7 (5-19); Aspartate Amino Transferase 25 U/L (0-32); Blood Urea Nitrogen 8 mg/dL (8-23); Calcium 9.0 mg/dL (8.5-10.5); Carbon Dioxide 24 mmol/L (22-29); Chloride 90 mmol/L (98-107); Globulin 3.4 g/dL (1.3-4.6); Glucose 100 mg/dL (65-115); Osmolality Calculated 262 mOsm/kg (285-295); Potassium 3.7 mmol/L (3.5-5.1); Sodium 127 mmol/L (136-145); Total Protein 7.5 g/dL (6.6-8.7)
== END 2024-09-06 09:40 | disposition home or self-care (01) ==
LOC: RAD 09:40
PROVIDERS: PCP Family Medicine; Visit Provider Orthopaedic Surgery
DX: Z01.818 Encounter for other preprocedural examination (principal)
CPT/HCPCS: 36415; 80053; 81001; 85025; 87086

== ENCOUNTER → 2024-09-10 11:57 | Day surgery (SDC) | payer MEDICARE, SELFPAY ==
[2024-09-10 12:20] VITALS: BP 142/68; PULSE 92; RESP 17; TEMP 36.4; O2SAT 95
[2024-09-10 12:21] VITALS: BMI 30.2
--- NOTE | 2024-09-10 13:51 | SUR.PREOP ---
Patient and family are both worried about needing someone to take care of patient after surgery at her home. Dr Hayes was not aware patient wanted to go to SNF after surgery for rehab. Dr Monteiro was notified of patient concern prior to administering a nerve block. Waiting on Dr Hayes to come out of surgery to talk with patient.
[2024-09-10 14:11] VITALS: RESP 17; O2SAT 95
[2024-09-10] MEDS: fentaNYL 50 mcg/mL INJ 2mL IVP (14:11)
--- NOTE | 2024-09-10 15:22 | SUR.PREOP ---
Due to patient not haviing help at home after surgery, procedure was postponed until later in the week to allow after care to be arranged.
[2024-09-10] MEDS: HYDROcodone-acetaminophen 5-325 mg Tablet 1 TAB PO (15:31)
== END ==
PROVIDERS: PCP Family Medicine; Visit Provider Orthopaedic Surgery
PROC: (CPT 27524; principal; 2024-09-10 13:25)
DX: Z53.8 Procedure and treatment not carried out for other reasons (principal)
CPT/HCPCS: J1100; J2795; J3010; J7030; J9999

== ENCOUNTER 2024-09-12 08:56 | Day surgery (SDC) | payer MEDICARE, SELFPAY ==
[2024-09-12] VITALS (17 sets, daily range): BP systolic 105–184; BP diastolic 50–112; PULSE 78–107; RESP 16–18; TEMP 36.2–36.6; O2SAT 92–100; BMI 30.2
--- NOTE | 2024-09-12 | XR_ITS ---
WS: [id number] Right knee, C-arm fluoroscopy views, 09/12 Clinical Data: SURGERY Comparison: Right knee, 09/06/2024 Findings: Dr. Hayes repaired the transverse patellar fracture with orthopedic screws. XR/XR knee RT 3V* [id number] Impression: Internal fixation of right patellar fracture.
--- NOTE | 2024-09-12 09:43 | PC.NURSE ---
Shirley injected Ropivacaine 30mls and Decadron 4 mg into the Right never abdcutor block. Pt tolerated well.
[2024-09-12] MEDS: ondansetron 2 mg/ML SDV 2 mL 4 MG IVP ×3 (09:46→12:45)
--- NOTE | 2024-09-12 09:46 | ANES.PREANE2 ---
Pre-Anesthetic Assessment Height/Weight: Height 1.55 m Weight 72.575 kg Temp Pulse Resp BP Pulse Ox O2 Del Method 97.5 F L 88 18 140/78 100 Room Air 09/12/24 09:08 09/12/24 09:08 09/12/24 09:08 09/12/24 09:08 09/12/24 09:08 09/12/24 09:08 Preop Diagnosis: Right patella fracture Operation Date: 09/12/24 10:35 Proposed Procedures p ORIF Patella(Right) - Robin Hayes, DO Familial anesthetic complications: None Was Beta Marquise taken within 24 hours: N/A Was Clonidine taken within 24 hours: N/A Last intake: Intake Last Liquid Date 09/11/24 Last Liquid Time 16:00 Last Solid Date 09/11/24 Last Solid Time 16:00 Social Tobacco and No alcohol Exam alert, oriented x 3, clear to auscultation bilaterally and regular rate & rhythm Airway Mallampati: Class II Pulmonary Sleep Apnea Chronic Renal Insufficiency GI Gastroesophageal Reflux Disease Metabolic Hyperlipidemia Anesthetic Plan ASA status: 3 Anesthesia: General and Regional (specify below) Risk of > 500 ml blood loss (7ml/kg in children): No Medications/Allergies Home Medications ?Medication ?Instructions ?Recorded ?Confirmed ?Last Taken ?Type modafinil 200 mg tablet (Provigil) 200 mg PO QAM 06/17/20 09/12/24 09/11/24 10:00 History montelukast 10 mg tablet 10 mg PO DAILY 06/17/20 09/12/24 09/11/24 10:00 History (Singulair) ropinirole 2 mg tablet 2 mg PO DAILY 06/17/20 09/12/24 09/11/24 10:00 History trazodone 150 mg tablet 150 mg PO DAILY PRN Insomnia 06/17/20 09/12/24 10/13/23 History celecoxib 200 mg capsule (Celebrex) 200 mg PO BID PRN pain #60 caps 08/04/23 09/12/24 09/07/24 Rx pantoprazole 40 mg tablet,delayed 40 mg PO BID 30 days #60 tabs 10/10/23 09/12/24 09/11/24 10:00 Rx release (Protonix) promethazine 25 mg tablet 25 mg PO Q6H PRN nausea and 12/19/23 09/12/24 Unknown Rx vomiting #30 tabs gabapentin 300 mg capsule 300 mg PO QID nerve pain #360 caps 01/03/24 09/12/24 09/07/24 Rx atorvastatin 40 mg tablet 40 mg PO DAILY 09/07/24 09/12/24 09/11/24 10:00 History bupropion HCl 300 mg 24 hr tablet, 300 mg PO QAM 09/07/24 09/12/24 09/07/24 History extended release (Wellbutrin XL) escitalopram oxalate 20 mg tablet 20 mg PO DAILY 09/07/24 09/12/24 09/07/24 History (Lexapro) levothyroxine 25 mcg tablet 25 mcg PO DAILY thyroid replacement 09/07/24 09/12/24 09/07/24 History polyethylene glycol 3350 17 85 g PO DAILY PRN Constipation 09/07/24 09/12/24 Unknown History gram/dose oral powder (Miralax) potassium chloride 20 mEq 20 meq PO DAILY 09/07/24 09/12/24 09/11/24 10:00 History tablet,extended release hydrocodone 5 mg-acetaminophen 325 1 - 2 tab PO .Q4-6H PRN pain 7 09/10/24 09/12/24 Unknown Rx mg tablet days #40 tabs Allergies Allergy/AdvReac Type Severity Reaction Status Date / Time morphine Allergy Mild ADR-Itching Verified 09/12/24 09:21 Current Medications Generic Name Dose Route Start Last Admin Trade Name Freq PRN Reason Stop Dose Admin Sodium Chloride 1,000 mls @ 30 mls/hr 09/12/24 09:00 09/12/24 09:29 Sodium Chloride 0.9% IV 09/13/24 08:59 30 mls/hr .Q24H MOOSE Administration PFSH Anesthesia Medical History (Updated 09/11/24 @ 00:00 by SHYLA Villalba) GERD with esophagitis CKD stage 3a, GFR 45-59 ml/min Adult BMI 30+ JAMES (obstructive sleep apnea) Hypothyroidism Osteoarthritis Dyslipidemia Depression RLS (restless legs syndrome) Fibromyalgia Surgical History (Updated 01/12/24 @ 15:25 by Robin Hayes DO) H/O knee surgery Right - lap. H/O: hysterectomy Partial Family History Father Diabetes Stroke Mother Heart disease Other CAD (coronary artery disease) Social History Smoking and tobacco/nicotine status: former use of tobacco/nicotine Alcohol intake: current Alcohol intake frequency: holidays/special occasions only Substance/Drug Use: never Anesthesia Procedures Nerve Block Nerve Block 1: Main Anesthesia: general anesthesia Time Out Performed: Yes Consent: requested by attending/covering physician, from patient, from other, risks and benefits reviewed and patient agrees to proceed Nerve block location: adductor canal (R) Anesthesia monitors applied: pulse oximetry, EKG, BP cuff and oxygen Nerve block position: supine Anesthetic Used: ropivicaine 0.5% (30 ml) and with decadron (4 mg) Ultrasound used to: recognize landmarks and visualize and ID femerol nerve Interscalene/Femoral BLK: 4 stimuplex 21 g needle used for position and inplane approach, visualize local anesthetic spread and no vascular puncture identified Injection: neg aspiration of heme Patient Tolerated Procedure: well Complications: none
[2024-09-12] MEDS: fentaNYL 50 mcg/mL INJ 2mL IVP ×3 (09:47→13:01)
--- NOTE | 2024-09-12 10:19 | W.PM.OPSUD ---
Surgery/Procedure H&P Update DATE OF PROCEDURE: September 12, 2024 DATE H&P PERFORMED: 09/06/24 H&P UPDATE INFORMATION: I have reviewed H&P completed within last 30 days, I have examined patient prior to procedure and No changes to prior documentation PREOP DIAGNOSIS: Right patella fracture PLANNED PROCEDURE: Operation Date: 09/12/24 10:35 Proposed Procedures p ORIF Patella(Right) - Robin Hayes DO
[2024-09-12] MEDS: ceFAZolin 2,000 mg SDV 2000 MG IVP (11:03)
[2024-09-12] MEDS: lidocaine-epi 1% 20 mL INJ INJECTION (11:34)
--- NOTE | 2024-09-12 12:39 | P.OP_ITS ---
Operative Report Date of procedure: September 12, 2024 Pre-op diagnosis: Right patella fracture Post-op diagnosis: same Procedure done: Open reduction internal fixation of the right patella fracture Surgeon: Robin Hayes DO Estimated blood loss (mL): 5 Findings: I did take cultures during the case patient had a history of a urinary tract infection and the question of some tissue Procedure: Open reduction internal fixation of right patella fracture Patient is brought to the operative suite after undergoing anesthesia was placed in the supine position. All areas of impingement were well-padded. Patient's prepped and draped in a sterile fashion. Skin incisions made over the midline of the patella. The fracture was identified and cleaned. Using curved curettes to find the edges of the fracture. Once fracture identified it was reduced with [id number] clamps. A 2 wires were passed from inferior to superior. The wires were measured for the cannulated screws. The wires were then overdrilled cannulated screws were passed. And then FiberWire tape was passed through the screws. And tied into a tension band technique. Once the hardware was placed the C arm confirmed that fracture and hardware in good position. Wounds i rrigated and then closed in a layered fashion with #1 Vicryl 2-0 Vicryl and nylon suture. Sterile dressings were applied and patient was transferred to the PACU in stable condition.
[2024-09-12] MEDS: HYDROcodone-acetaminophen 5-325 mg Tablet 1 TAB PO (13:48)
--- NOTE | 2024-09-12 14:10 | ANE.PACU2 ---
Inpatient post-anesthesia follow up: Airway intact: Yes Vital signs: Temperature 97.2 F Pulse Rate 85 Respiratory Rate 18 Blood Pressure 144/74 Pulse Oximetry 100 Oxygen Delivery Me thod Room Air Oxygen Flow Rate 1 Fraction of Inspir ed Oxygen Hydration adequate: Yes Nausea and vomiting: No Pain level: 3 Mental status: Baseline
--- NOTE | 2024-09-20 12:25 | PC.SOCIAL ---
Faxed [facility] Pt called & said she has not received HH. She said she had a patella surgery with Dr Hayes on 09/12. She said she had called [facility] & they do not have availability. She said she called Dr Hayes office & he said to call CM. Pt said she does not have a HH preference. [employer] faxed pt's referral to [facility] & called & notified Lisbeth. She said she will let CM know if they can accept.
== END 2024-09-12 14:10 | disposition home or self-care (01) ==
PROVIDERS: PCP Family Medicine; Visit Provider Orthopaedic Surgery
PROC: (CPT 27524; principal; 2024-09-12 10:25)
DX: S82.001A Unspecified fracture of right patella, initial encounter for closed fracture (principal); X58.XXXA Exposure to other specified factors, initial encounter; G47.33 Obstructive sleep apnea (adult) (pediatric); N18.31 Chronic kidney disease, stage 3a; E03.9 Hypothyroidism, unspecified; E78.5 Hyperlipidemia, unspecified; F32.A Depression, unspecified; M79.7 Fibromyalgia; K21.00 Gastro-esophageal reflux disease with esophagitis, without bleeding; Z87.891 Personal history of nicotine dependence
CPT/HCPCS: 27524; 73562; 76000; 87070; 87075; 87205; C1713; J0690; J1100; J2250; J2405; J2704; J2795; J3010; J3373; J3490; J7030; J9999

== ENCOUNTER → 2024-09-25 13:45 | Outpatient (BNVA) | payer MEDICARE, SELFPAY | PROVIDERS: PCP Family Medicine; Visit Provider Orthopaedic Surgery | DX: Z98.890 Other specified postprocedural states (principal) | CPT/HCPCS: 73562; 99024 ==

== ENCOUNTER 2024-09-29 05:44 | Emergency (ER) | payer MEDICARE, SELFPAY ==
--- OUTSIDE RECORDS SUMMARY | 2023-12-17 04:00 | XMS_ITS ---
Author Organization [facility] Address [address] [place] [address] Care Team Providers Care Compounder Sterile Products Name Role Phone Roman Taylor MD Primary Care Provider Unavailab Nacho Cota Unavailable [phone] Migration, Provider Unavailable Unavailable REASON FOR VISIT [...] ANDRÉS BADILLO VDOB:[birth year] (63 yo F)Acc No.[id number]:12/17/2023 Patient: Melissa WELLS ANDRÉS Louisa :1960 A ge:62 Y S ex:Female Address:[address], [place], [address] * Refills Stop Amitriptyline HCl Tablet, 50 MG, Oral, 1 Every Night Stop Cyclobenzaprine HCl Tablet, 10 MG, Oral, 1 Tablet Once a Day Subjective: * Chief Complaints: * E MR-Maynor * * Date:
--- OUTSIDE RECORDS SUMMARY | 2023-12-18 04:00 | XMS_ITS ---
Author Organization [facility] Address [address] [place] [address] Care Team Providers Care Trauma Program Manager Name Role Phone Roman Taylor MD Primary Care Provider Unavailab Nacho Cota Unavailable [phone] Migration, Provider Unavailable Unavailable Allergies Allergen (clinical [...] for eRX* Active Requip XL *Reorder from Al dispan for eRx and Interaction Alerts* Active CeleBREX *Pick strength-f orm from Medis[facility] for eRX* Active trazodone *Reorder from Al dispan for eRx and Interaction Alerts* Active [...] ANDRÉS BADILLO VDOB:[birth year] (63 yo F)Acc No.[id number]:12/18/2023 Patient: ANDRÉS BHATT V :1960 A ge:62 Y S ex:Female Address:[facility] [address], [place], [address] Subjective: * Chief Complaints: * E MR-Maynor [...]
[2024-09-29 05:45] VITALS: BP 116/65; PULSE 64; RESP 16; TEMP 36.4; O2SAT 100; BMI 30.2
--- OUTSIDE RECORDS SUMMARY | 2024-09-29 05:50 | XMS_ITS | Encounter Summary ---
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 Gender Identity Not on file Sexual Orientation Not on file documented as of this encounter Plan of Treatment Not on file documented as of this encounter Procedures Procedure Name Priority Date/Time Associated Diagnosis Comments CBC WITHOUT DIFFERENTIAL Routine 01/05/2006 6:30 AM GRAFFITI CLEANER documented in this encounter Results * (ABNORMAL) CBC WITHOUT DIFFERENTIAL (01/05/2006 6:30 AM GRAFFITI CLEANER) WBC 21.2(H) 4.5 - 11.0 K/ul INTERFACE [...] 0.2 K/ul INTERFACE SYSTEM 01/05/2006 6:30 AM GRAFFITI CLEANER W Michelet Whitehead MD HEMATOLOGY ORDERABLES Final Result INTERFACE SYSTEM Refer to clinic/hospital department documented in this encounter Visit Diagnoses Diagnosis Uterovaginal prolapse, complete- Primary documented in this encounter
--- OUTSIDE RECORDS SUMMARY | 2024-09-29 05:50 | XMS_ITS | Encounter Summary ---
Author Organization [facility] Address [address] [place] [address] Care Team Providers Care Trains Service Conductor Name Role Phone Unavailable Primary Care Provider Unavailabl e Encounter Details Date Type Department Care Team (Latest Contact Info) Description 03/08/2003 Outpatient Historical [facility] [place] [phone] Michael Gutierrez, DDS NO ADDRESS ON FILE UNSPEC DENTAL CARIES (Primary Dx) Social History Tobacco Use Types Packs/Day Years Used Date Smoking Tobacco: Never Assessed Comments Unknown Sex and Gender Information Value Date Recorded Sex Assigned at Not on file 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
--- OUTSIDE RECORDS SUMMARY | 2024-09-29 05:50 | XMS_ITS | Encounter Summary ---
Author Organization [facility] Address [address] [place] [address] Care Team Providers Care Senior Administrative Associate Name Role Phone Unavailable Primary Care Provider Unavailabl e Encounter Details Date Type Department Care Team (Latest Contact Info) Description 02/04/2006 Outpatient Historical [facility] OBGYN-[address] [place] [phone] Jun Whitehead MD NO ADDRESS ON FILE Follow-Up Examination, Following Unspecified Surgery (Primary Dx); Unspecified Prolapse of Vaginal Ordonez; Endometriosis of Uterus; Excessive Menstruation Social History Tobacco Use Types Packs/Day Years Used Date Smoking Tobacco: Never Assessed Comments Unknown Sex and Gender Information Value Date Recorded Sex Assigned at Not on file 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
--- OUTSIDE RECORDS SUMMARY | 2024-09-29 05:50 | XMS_ITS | Clinical Summary ---
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 Gender Identity Not on file Sexual Orientation Not on file Last Filed Vital Signs Vital Sign Reading Time Taken Comments Blood Pressure 124/72 04/03/2019 8:13 AM NUMERICAL CONTROL PROGRAMMER Pulse 101 04/03/2019 8:13 AM NUMERICAL CONTROL PROGRAMMER Temperature 36.8 C (98.3 F) 06/15/2018 1:05 PM CDT Respiratory Rate 17 06/15/2018 2:22 PM CDT Oxygen Saturation 100% 06/15/2018 2:22 PM CDT Inhaled Oxygen Concentration - - Weight 76.2 kg (168 lb) 04/03/2019 8:13 AM NUMERICAL CONTROL PROGRAMMER Height 154.9 cm (5' 1 ) 04/03/2019 8:13 AM NUMERICAL CONTROL PROGRAMMER Body Mass Index 31.74 04/03/2019 8:13 AM NUMERICAL 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
--- OUTSIDE RECORDS SUMMARY | 2024-09-29 05:50 | XMS_ITS | Patient Health Record ---
Author Organization [facility] Address [address] [place] [address] Care Team Providers Care Stripper Shovel Operator Name Role Phone Roman Taylor MD Primary Care Provider Unavailab Nacho Cota Unavailable [phone] Migration, Provider Unavailable Unavailable Allergies Allergen (clinical drug ingredient) Drug/Non Drug Allergy documented on EMR Reaction Allergy Type Onset Date Status morphine Morphine rash Drug Allergy Active Reason For Referral No Information Medications Medication SIG (Take, Route, Frequency, Duration) Notes Start Date End Date Status Gabapentin *Pick strength-f orm from [facility] for eRX* Active rOPINIRole HCl 2 MG Tablet Oral; Duration: 90 Active Synthroid *Pick strength-f orm from [facility] for eRX* Active Requip XL *Reorder from [facility] for eRx and Interaction Alerts* Active Fluticasone Propionate 50 MCG/ACT Suspension Nasal; Duration: 30 Active Ultram 50 MG Tablet 1 tab Orally q 4 hours prn severe pain; Duration: 30 days 07/07/2021 Active Singulair *Pick strength-f orm from [facility] for eRX* Active tiZANidine HCl 4 MG [...] 90 Active PriLOSEC *Pick strength-f orm from [facility] for eRX* Active CeleBREX *Pick strength-f orm from [facility] for eRX* Active Cymbalta *Pick strength-f orm from [facility] for eRX* Active trazodone *Reorder from [facility] for eRx and Interaction Alerts* Active Gabapentin [...] 30 Active Lipitor *Pick strength-f orm from [facility] for eRX* Active Topamax *Pick strength-f orm from [facility] for eRX* Active Social History Tobacco Use: [...] Status W/U Status Risk Notes Problem Anxiety (08051575) Anxiety (F41.9) Active confi rmed Problem Facet arthropath y, lumbosacral (M46.97) Active confirmed Problem Acquired spondylolisthesis (243741731) Spondylolisthesis at L3-L4 level (M43.16) Active confirmed Encounters Encounter Location Date Provider Diagnosis Migrated_Facility 0 0 12/18/2023 Provider Migration Migrated_Facility 0 0 12/17/2023 Provider Migration Plan Of Treatment Pending Test Test Name Order Date XR Outside CD 04/15/2023 XR Outside CD 06/28/2023 zzzCT Outside CD 06/28/2023 Insurance Providers Payer Name Payer Address Payer Phone Subscriber Number Group Number Insured Name Patient Relationship to Insured Coverage Start Date Coverage End Date [employer] [place] [address] [place] [address] [id number] JUSTINOAKTHIANDRÉS Self - patient is the insured [place] [address] [place] [address] [phone] [id number] JUSTINOKATHIANDRÉS Self - patient is the insured Medications Administered Medication Instructions Date of Administration Dosage Notes DEPO-Medrol 07/07/2021 40 mg [address]-12 Patient tolerated well, advised to wait 20 min at clinic dexAMETHasone 07/07/2021 4 mg 91466-357-39 Patient tolerated well, advised to wait 20 min at clinic Medical (General) History Medical History History ICD Code Pneumonia Back Trouble measles mumps chicken pox Surgical History Surgery Date(Month/Year) hysterectomy knee meniscus Knee Scope Lung biopsy Hospitalization History Reason Date(Month/Year) childbirth 1982 pneumonia 2008
--- OUTSIDE RECORDS SUMMARY | 2024-09-29 05:50 | XMS_ITS | Encounter Summary ---
Author Organization [facility] Address [address] [place] [address] Care Team Providers Care Clinical Support Specialist Name Role Phone Unavailable Primary Care Provider Unavailabl e Encounter Details Date Type Department Care Team (Latest Contact Info) Description 2005 Outpatient Historical [facility] [address] [place] [phone] Jun Whitehead MD NO ADDRESS ON FILE Other Specified Pre-Operative Examination (Primary Dx) Social History Tobacco Use Types Packs/Day Years Used Date Smoking Tobacco: Never Assessed Comments Unknown Sex and Gender Information Value Date Recorded Sex Assigned at Not on file Legal Sex Female 6:06 AM 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 [facility] has changed the methodology for ThCG, and with this change the reference range has changed from 0-5.0 mIU/ml to 0-10.0 mIU/ml. ----- ----- Total HCG levels between 10 mIU/mL and 25 mIU/mL may be indicative of early but need to be correlated with other clinical findings. HCG ranges during normal , as reported by the corporate general manager, are summarized as follows: Gestational Age Expected hCG Values(mIU/ml) 0.2-1 Weeks 5 - 50 1-2 Weeks 50 - 500 2-3 Weeks 100 - 5,000 3-4 Weeks 1,000 - 50,000 5-6 Weeks 10,000 - 100,000 6-8 Weeks 15,000 - 200,000 2-3 Months 10,000 - 100,000 2005 2:05 PM SPORTS MEDICINE TRAINER W Michelet Whitehead MD CHEMISTRY ORDERABLES Final R esult INTERFACE SYSTEM Refer to clinic/hospital department * CBC WITH DIFFERENTIAL (2005 2:05 PM SPORTS MEDICINE TRAINER) WBC 8.9 4.5 - 11.0 K/ul INTERFACE [...] 0.2 K/ul INTERFACE SYSTEM 2005 2:05 PM SPORTS MEDICINE TRAINER W Michelet Whitehead MD HEMATOLOGY ORDERABLES Final Result INTERFACE SYSTEM Refer to clinic/hospital department documented in this encounter Visit Diagnoses Diagnosis Other specified pre-operative examination- Primary documented in this encounter
--- OUTSIDE RECORDS SUMMARY | 2024-09-29 05:50 | XMS_ITS | Encounter Summary ---
Author Organization [facility] Address [address] [place] [address] Care Team Providers Care Fitness Coordinator Name Role Phone Unavailable Primary Care Provider Unavailabl e Encounter Details Date Type Department Care Team (Latest Contact Info) Description 12/08/2005 Outpatient Historical [facility] OBGYN-[address] [place] [phone] Jun Whitehead MD NO ADDRESS ON FILE Excessive Menstruation (Primary Dx); Irregular Menstruation; Examination or Test, Negative Result Social History Tobacco Use Types Packs/Day Years Used Date Smoking Tobacco: Never Assessed Comments Unknown Sex and Gender Information Value Date Recorded Sex Assigned at Not on file Legal Sex Female 6:06 AM MIXER 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
--- OUTSIDE RECORDS SUMMARY | 2024-09-29 05:50 | XMS_ITS | Encounter Summary ---
Author Organization [facility] Address [address] [place] [address] Care Team Providers Care Kitchen Work Supervisor Name Role Phone Unavailable Primary Care Provider Unavailabl e Encounter Details Date Type Department Care Team (Latest Contact Info) Description 12/08/2005 Outpatient Historical [facility] [address] [place] [phone] Jun Whitehead MD NO ADDRESS ON FILE Excessive or Frequent Menstruation (Primary Dx) Social History Tobacco Use Types Packs/Day Years Used Date Smoking Tobacco: Never Assessed Comments Unknown Sex and Gender Information Value Date Recorded Sex Assigned at Not on file Legal Sex Female 6:06 AM DIRECTOR MICROBIOLOGY Gender Identity Not on file Sexual Orientation Not on file documented as of this encounter Plan of Treatment Not on file documented as of this encounter Visit Diagnoses Diagnosis Excessive or frequent menstruation- Primary documented in this encounter
--- OUTSIDE RECORDS SUMMARY | 2024-09-29 05:51 | XMS_ITS | Clinical Summary ---
Author Organization [facility] Address [address] [facility] Attn: Epic Prelude ADT [place] [address] Care Team Providers Care Service Now Developer Name Role Phone Unavailable Primary Care Provider [...] tablet Take 25 mcg by mouth daily biosolids management technician. 0 Active gabapentin (NEURONTIN) 300 mg capsule [...] needed. Active fluticasone propionate (FLONASE) 50 mcg/spray Cherry, Suspension nasal inhaler Administer 2 Sprays in [...] tongue every 6 hours as needed. Active oxyCODONE-aceta minophen (PERCOCET) 5-325 mg tabletIndicatio ns:Postoperativ e pain of right knee Take 1-2 Tablets by mouth every 6 hours as needed for Pain, Moderate. Max Daily Amount: 8 Tablets 40 Tablet 5 Active tiZANidine (ZANAFLEX) 2 mg Tablet Take 1 Tablet (2 mg) by mouth every 8 hours as needed for Spasm. 30 Tablet 5 Active cephALEXin (KEFLEX) 500 mg capsuleIndicati ons:Postoperati ve pain of right knee Take 1 Capsule (500 mg) by mouth 4 times daily for 10 days. 40 Capsule 07/09/26/19 Active Problems Problem Noted Date Diagnosed Date Postoperative pain of right knee 09/15/2024 Current smoker 08/09/2024 Primary osteoarthritis of right knee 06/04/2024 Preoperative general physical examination 2024 Obstructive sleep apnea 06/04/2024 Stage 3a chronic kidney disease 06/04/2024 Anemia 06/04/2024 Dyslipidemia 06/04/2024 GERD without esophagitis 06/04/2024 Acquired hypothyroidism 06/04/2024 Bronchiolitis obliterans organizing pneumonia History of tobacco use 06/04/2024 Anxiety and depression 06/04/2024 Restless leg syndrome 06/04/2024 Encounters Date Type Department Care Team Description 09/18/2024 External Device Data [facility] Provider, Abstract 09/18/2024 External Device Data [facility] Provider, Abstract 09/18/2024 External Device Data [facility] Provider, Abstract 09/18/2024 [place] [id number] [phone] Lj Woodruff MD Medication Review (Pharmacist Nadya called to make us aware of recent med fills thru various pharmacies. Pt was seen on 08/15/24 and received med for 30 Admire, 09/07/24 10 Admire, 09/11/24 40 Admire , 09/14/24 30 Admire and 09/15/24 40 percocets at various places. Went to ED on 09/16 and received one oxycodone there only. Nadya made us aware , spoke with Dr Woodruff here and made aware. Please be aware of RHEOLOGIST and list of meds as per pharmacist. Thank you! ) 09/16/2024 10:55 PM CDT - 09/17/2024 12:24 AM CDT Emergency [facility] Emergency Department [address] [place] [phone] Dahlia Chan MD Muscle strain (Primary Dx); Right arm pain Discharge Disposition: Home or Self Care 09/16/2024 10:15 AM CDT - 09/16/2024 11:59 PM CDT Hospital Encounter [facility] [place] [address] [place] [address] Ambulance, [facility] Discharge Disposition: Home or Self Care 09/16/2024 Travel 09/15/2024 6:42 PM CDT - 09/15/2024 11:59 PM CDT Hospital Encounter [facility] [address] [place] [address] Lj Woodruff MD Discharge Disposition: Home or Self Care 09/06/2024 Telephone [facility] [address] [place] [address] Shantanu Strickland MD General 09/05/2024 External Device Data [facility] Provider, Abstract 09/05/2024 External Device Data [facility] Provider, Abstract 09/05/2024 External Device Data [facility] Provider, Abstract 09/04/2024 External Device Data [facility] Provider, Abstract 08/27/2024 Orders Only [place] [address] [place] [place] [address] Shantanu Strickland MD Tobacco use (Primary Dx) 08/21/2024 External Device Data [facility] Provider, Abstract 08/14/2024 External Device Data [facility] Provider, Abstract 08/14/2024 Telephone [place] [address] [place] [address] Shantanu Strickland MD General 08/09/2024 1:04 PM CDT - 08/09/2024 11:59 PM CDT Hospital Encounter [facility] Pre Admission [facility] [address] [place] [address] Shantanu Strickland MD Discharge Disposition: Home or Self Care 08/09/2024 Travel 08/09/2024 External Device Data Initial Department [address] [place] [address] Dr JARRELL: [place] [address] Yves Gasca Md 08/07/2024 External Device Data [facility] Provider, Abstract 07/26/2024 Orders Only [place] [id number] [place] [phone] Shantanu Strickland MD 07/25/2024 Telephone [facility] [address] [phone] Shantanu Strickland MD Question from Last 3 Months Social History Tobacco Use Types Packs/Day Years Used Date Smoking Tobacco: Every Day Cigarettes 0.5 48.6 Started: 1978 Smokeless Tobacco: Never Tobacco Cessation:Ready to Q uit: Not Asked; Counseling Given: Not Answered Comments:Down to 2 or 3 cigs per day as of 06/25/24 Alcohol Use Standard Drinks/Week Comments Not Currently 0 (1 standard drink = 0.6 oz pur e alcohol) not weekly Comments No Sex and Gender Information Value Date Recorded Sex Assigned at Not on file Legal 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:55 AM [employer]ALKER Gender Identity Not on file Sexual Orientation Not on file Last Filed Vital Signs Vital Sign Reading Time Taken Comments Blood Pressure 156/60 09/16/2024 9:55 PM CDT Pulse 86 09/16/2024 9:55 PM CDT Temperature 37.6 C (99.7 F) 09/16/2024 9:55 PM CDT Respiratory Rate 19 09/16/2024 9:55 PM CDT Oxygen Saturation 93% 09/16/2024 9:55 PM CDT Inhaled Oxygen Concentration - - Weight 68 kg (150 lb) 09/16/2024 9:55 PM CDT Height 154.9 cm (5' 1 ) 09/16/2024 9:55 PM CDT Body Mass Index 28.34 09/16/2024 9:55 PM CDT Plan of Treatment Health Maintenance [...] - PCV) 04/16/2023 04/16/2022, 12/21/2007 COVID-19 Vaccine (2023-2 5 season) 2023 12/14/2022, 01/19/2022, 08/04/2021, Additional history exists OSTEOPOROSIS SCREENING 01/01/2024 Medicare Advantage (DC) Preventative Visit/Annual Wellness Visit 02/22/2024 INFLUENZA VACCINE (#1) 2024 , 01/28/2023, 04/16/2022, Additional history exists Pre-Diabetes and Diabetes Screening 06/02/2027 06/01/2024 DTAP/TDAP/TD VACCINES (2 - T d or Tdap) 07/06/2032 07/06/2022 COLORECTAL SCREENING 05/31/2033 06/01/2023 Colorectal Cancer Screening 05/31/2033 Procedures Procedure Name Priority Date/Time Associated Diagnosis Comments XR SHOULDER 2+ VW RIGHT Stat 09/16/2024 11:15 PM CDT COMPREHENSIVE METABOLIC PANEL Routine 08/09/2024 2:27 PM CDT CBC WITH DIFFERENTIAL Routine 08/09/2024 2:27 PM CDT HEMOGLOBIN A1C Routine 06/01/2024 2:28 PM CDT from Last 3 Months or Most Recently Relevant to Health Maintenance Results * XR SHOULDER 2+ VW RIGHT (09/16/2024 11:15 PM CDT) Anatomical Region Laterality Modality Upper Extremity Computed Radiogr aphy 09/16/2024 11:1 5 PM CDT Impressions 09/17/2024 11:14 AM CDT IMPRESSION: Please see below. Exam: XR SHOULDER 2+ VW RIGHT Date/Time of Exam: 09/16/2024 11:15 PM Reason For Exam: Injury. Diagnosis: See Reason for Exam. Comparison: None Findings: No acute fracture or dislocation. Mild degenerative changes at the acromioclavicular joint. The glenohumeral joint space is well-maintained. IMPRESSION:. Nothing acute. Narrative Procedure Note Be Hurst MD - 09/17/2024 IMPRESSION: Please see below. Exam: XR SHOULDER 2+ VW RIGHT Date/Time of Exam: 09/16/2024 11:15 PM Reason For Exam: Injury. Diagnosis: See Reason for Exam. Comparison: None Findings: No acute fracture or dislocation. Mild degenerative changes at the acromioclavicular joint. The glenohumeral joint space is well-maintained. IMPRESSION:. Nothing acute. Linda Verma NP DIAGNOSTIC IMAGING ORDERABLES Final Result * (ABNORMAL) CBC WITH DIFFERENTIAL (08/09/2024 2:27 PM CDT) WBC 8.0 4.8 - 10.8 K/uL 08/09/2024 2:36 PM CDT [facility] RBC 3.54(L) 4.20 - 5.40 M/uL 08/09/2024 2:36 PM CDT [facility] HEMOGLOBIN 10.7(L) 12.0 - 16.0 g/dL 08/09/2024 2:36 PM CDT [facility] HEMATOCRIT 33.5(L) 36.0 - 46.0 % 08/09/2024 2:36 PM CDT [facility] MCV 94.6 84.0 - 103.0 fL 08/09/2024 2:36 PM CDT [facility] MCH 30.2(L) 31.0 - 37.0 pg 08/09/2024 2:36 PM CDT [facility] MCHC 31.9 30.0 - 35.0 g/dL 08/09/2024 2:36 PM CDT [facility] RDW 14.1 11.0 - 14.5 % 08/09/2024 2:36 PM CDT [facility] RDW-STDEV 49.0 37.0 - 54.0 fL 08/09/2024 2:36 PM CDT [facility] PLATELETS 281 140 - 440 K/uL 08/09/2024 2:36 PM CDT [facility] MPV 10.3 8.9 - 12.8 fL 08/09/2024 2:36 PM CDT [facility] NEUTROPHILS 60 42 - 75 % 08/09/2024 2:36 PM CDT [facility] LYMPHOCYTES 31 24 - 44 % 08/09/2024 2:36 PM CDT [facility] MONOCYTES 7 2 - 10 % 08/09/2024 2:36 PM CDT [facility] EOSINOPHILS 1 0 - 7 % 08/09/2024 2:36 PM CDT [facility] BASOPHILS 1 0 - 1 % 08/09/2024 2:36 PM CDT [facility] IMMATURE GRANULOCYTES 0 0 - 2 % 08/09/2024 2:36 PM CDT [facility] NEUTROPHIL ABSOLUTE 4.78 2.00 - 8.00 K/uL 08/09/2024 2:36 PM CDT [facility] LYMPHOCYTE ABSOLUTE 2.49 1.20 - 4.00 K/uL 08/09/2024 2:36 PM CDT [facility] MONOCYTE ABSOLUTE 0.59 0.10 - 0.60 K/uL 08/09/2024 2:36 PM CDT [facility] EOSINOPHIL ABSOLUTE 0.10 0.00 - 0.70 K/uL 08/09/2024 2:36 PM CDT [facility] BASOPHILS ABSOLUTE 0.07 0.00 - 0.20 K/uL 08/09/2024 2:36 PM CDT [facility] IMMATURE GRANULOCYTES ABSOLUTE 0.01 0.00 - 0.10 K/uL 08/09/2024 2:36 PM CDT [facility] Blood Venipuncture / Unknown 08/09/2024 2:27 PM CDT 08/09/2024 2:31 PM CDT us Danie Malik MD HEMATOLOGY ORDERABLES Final Res ult [facility] CLIA #[id number] [address] [place] [address] * (ABNORMAL) COMPREHENSIVE METABOLIC PANEL (08/09/2024 2:27 PM CDT) SODIUM 136 136 - 145 mmol/L 08/09/2024 2:58 PM CDT [facility] POTASSIUM 4.5 3.4 - 4.5 mmol/L 08/09/2024 2:58 PM CDT [facility] CHLORIDE 103 98 - 107 mmol/L 08/09/2024 2:58 PM T [facility] CO2 21(L) 22 - 29 mmol/L 08/09/2024 2:58 PM T [facility] CALCIUM 8.8 8.6 - 10.0 mg/dL 08/09/2024 2:58 PM [facility] BUN 9 8 - 23 mg/dL 08/09/2024 2:58 PM T [facility] CREATININE 1.00(H) 0.51 - 0.95 mg/dL 08/09/2024 2:58 PM [facility] GLUCOSE 141(H) 74 - 99 mg/dL 08/09/2024 2:58 PM [facility] Comment:Reference range appl ies to fasting patients only. TOTAL PROTEIN 6.7 6.6 - 8.7 g/dL 08/09/2024 2:58 PM T [facility] ALBUMIN 4.1 4.0 - 4.9 g/dL 08/09/2024 2:58 PM [facility] BILIRUBIN TOTAL <0.2 0.0 - 1.0 mg/dL 08/09/2024 2:58 PM [facility] ALKALINE PHOSPHATASE 86 35 - 104 U/L 08/09/2024 2:58 PM [facility] AST 21 5 - 32 U/L 08/09/2024 2:58 PM T [facility] ALT 12 5 - 33 U/L 08/09/2024 2:58 PM CDT [facility] GFR >60 >=60 mL/min/1.7 3 sq meter 08/09/2024 2:58 PM CDT [facility] Comment:eGFR calculated with 2020 CKD-EPI equation. Vegetarian diet, extremely high or low muscle mass, and may affect results. Cystatin C with Glomerular Filtration Rate is a suitable alternative for these patients. ANION GAP 12 9 - 20 mmol/L 08/09/2024 2:58 PM CDT [facility] Blood Venipuncture / Unknown 08/09/2024 2:27 PM CDT 08/09/2024 2:31 PM CDT Danie Malik MD CHEMISTRY ORDERABLES Final Resu lt Performing Organization Address [facility] Co de Phone Number [facility] CLIA #[id number] [address] [place] [address] * HEMOGLOBIN A1C (06/01/2024 2:28 PM CDT) HEMOGLOBIN A1C 4.8 <=5.6 % 06/01/2024 2:59 PM CDT [facility] EST. AVG GLUCOSE, A1C 91 mg/dL 06/01/2024 2:59 PM CDT [facility] Blood Venipuncture / Unknown 06/01/2024 2:28 PM CDT 06/01/2024 2:30 PM CDT Narrative [facility] - 06/01/2024 2:59 PM CDT HGB A1C INTERPRETATION NORMAL: <5.7% PRE-DIABETES: 5.7 - 6.4% DIABETES: 6.5% OR GREATER Danie Malik MD CHEMISTRY ORDERABLES Final Resu lt Performing Organization Address City/[facility]/ZIP Co de Phone Number [facility] CLIA #[id number] [address] [place] [address] from Last 3 Months or Most Recently Relevant to Health Maintenance Insurance [facility] MEDICARE HMO * Guarantor: EDNA BADILLO V Account Type Relation to Patient Date of Phone Billing Address Personal/Family [phone] [id number] [address] [facility] [employer] ([employer]) [facility]
[2024-09-29 06:30] VITALS: RESP 22; O2SAT 99
[2024-09-29] MEDS: oxyCODONE-APAP 5-325 mg Tablet 1 TAB PO (06:30)
[2024-09-29 06:34] VITALS: BP 101/58; PULSE 69; O2SAT 100
[2024-09-29 06:45] LABS: Hematocrit 29.5 % (36-47); Hemoglobin 9.60 g/dL (11.27-16.99); Mean Corpuscular HGB Conc 32.5 g/dL (30-55); Mean Corpuscular Hemoglobin 30.0 pg (27-33); Mean Corpuscular Volume 92.2 fl (85-98); Nucleated Red Blood Cells % 0 %; Platelet Count 301 10^3/cmm (157-399); Red Blood Count 3.20 10^6/uL (3.85-5.65); White Blood Count 7.03 10^3/uL (3.29-11.43)
[2024-09-29 07:03] LABS: Anion Gap 15.5 (5-19); Blood Urea Nitrogen 11 mg/dL (8-23); Calcium 8.6 mg/dL (8.5-10.5); Carbon Dioxide 25 mmol/L (22-29); Chloride 94 mmol/L (98-107); Creatinine Clr Calc Pharmacy 63.8717; Glucose 86 mg/dL (65-115); Osmolality Calculated 269 mOsm/kg (285-295); Potassium 4.5 mmol/L (3.5-5.1); Sodium 130 mmol/L (136-145)
--- NOTE | 2024-09-29 07:18 | W.ED.EXTPRO ---
HPI - Extremity Problem General: Chief complaint: Extremity Injury, Lower Stated complaint: KNEE PAIN Time Seen by Provider: 09/29/24 06:18 History of Present Illness: HPI: Patient postop knee surgery after patellar fracture. States that the knee has been tender. Has not taken her home medications because they make her dizzy. She is requesting pain relief. No fevers, sweats, chills. Patient states that the pain has been persistent since surgery with no marked increase. Presents today because she cannot give any relief. No numbness or tingling. Tenderness is in the anterior portion of the joint at the posterior or lateral/medial aspects. REVIEW OF SYSTEMS: 10 systems reviewed and otherwise unremarkable except for those noted in HPI. PHYSCIAL EXAM: Triage vital signs reviewed Gen: A&O NAD HEENT: NCAT, EOMI, not icteric. External ears normal. No rhinorrhea. Moist mucous membranes. Neck: Supple, full range of motion, no observable masses, No meningeal sign. Lungs: No Respiratory distress. CV: RRR, no edema. Abdomen: Soft, nondistended, No rebound tenderness. MSK: No joint swelling, no redness. Postoperative changes to right knee. Patient has intact dressing and is wearing a brace and appropriate placement. Patient has intact dorsiflexion, plantarflexion, and great toe flexion. Sensation intact L4-S1. No swelling of the calf, tenderness of the calf, or palpable cords. Skin: No rashes, petechiae, lesions. Normal color per patient. Neuro: Normal Gait, Grossly intact. Psych: Appropriate for situation. PROCEDURES: N/A Related Data Home Medications ?Medication ?Instructions ?Recorded ?Confirmed modafinil 200 mg tablet (Provigil) 200 mg PO QAM 06/17/20 09/25/24 montelukast 10 mg tablet 10 mg PO DAILY 06/17/20 09/25/24 (Singulair) ropinirole 2 mg tablet 2 mg PO DAILY 06/17/20 09/25/24 trazodone 150 mg tablet 150 mg PO DAILY PRN Insomnia 06/17/20 09/25/24 atorvastatin 40 mg tablet 40 mg PO DAILY 09/07/24 09/25/24 bupropion HCl 300 mg 24 hr tablet, 300 mg PO QAM 09/07/24 09/25/24 extended release (Wellbutrin XL) escitalopram oxalate 20 mg tablet 20 mg PO DAILY 09/07/24 09/25/24 (Lexapro) polyethylene glycol 3350 17 85 g PO DAILY PRN Constipation 09/07/24 09/25/24 gram/dose oral powder (Miralax) potassium chloride 20 mEq 20 meq PO DAILY 09/07/24 09/25/24 tablet,extended release Previous Rx's ?Medication ?Instructions ?Recorded celecoxib 200 mg capsule (Celebrex) 200 mg PO BID PRN pain #60 caps 08/04/23 pantoprazole 40 mg tablet,delayed 40 mg PO BID 30 days #60 tabs 10/10/23 release (Protonix) promethazine 25 mg tablet 25 mg PO Q6H PRN nausea and 12/19/23 vomiting #30 tabs gabapentin 300 mg capsule 300 mg PO QID nerve pain #360 caps 01/03/24 hydrocodone 5 mg-acetaminophen 325 1 - 2 tab PO .Q4-6H PRN pain 7 09/10/24 mg tablet days #40 tabs aspirin 81 mg tablet 81 mg PO DAILY 30 days #30 tabs 09/12/24 levothyroxine 25 mcg tablet 25 mcg PO DAILY thyroid 09/14/24 replacement #90 tabs Knee Immobilizer #1 ea 09/20/24 sulfamethoxazole 800 1 tab PO BID 7 days #14 tabs 09/20/24 mg-trimethoprim 160 mg tablet (Bactrim DS) hydrocodone 10 mg-acetaminophen 1 tab PO Q8H pain 10 days #30 tabs 09/21/24 325 mg tablet Allergies Allergy/AdvReac Type Severity Reaction Status Date / Time morphine Allergy Mild ADR-Itching Verified 09/12/24 09:21 [facility] PFS: Medical History (Updated 09/29/24 @ 07:17 by Benjamin Benoit MD) GERD with esophagitis CKD stage 3a, GFR 45-59 ml/min Adult BMI 30+ JAMES (obstructive sleep apnea) Hypothyroidism Osteoarthritis Dyslipidemia Depression RLS (restless legs syndrome) Fibromyalgia Surgical History (Updated 01/12/24 @ 15:25 by Robin Hayes DO) H/O knee surgery Right - lap. H/O: hysterectomy Partial Family History Father Diabetes Stroke Mother Heart disease Other CAD (coronary artery disease) Social History (Reviewed 09/03/24 @ 03:54 by ROM Parekh Smoking and tobacco/nicotine status: former use of tobacco/nicotine Alcohol intake: current Alcohol intake frequency: holidays/special occasions only Substance/Drug Use: never Course Vital Signs: Vital signs: Vital Signs Temperature 97.6 F 09/29/24 05:45 Pulse Rate 69 09/29/24 06:34 Respiratory Rate 22 H 09/29/24 06:30 Blood Pressure 101/58 09/29/24 06:34 Pulse Oximetry 100 09/29/24 06:34 Oxygen Delivery Me thod Room Air 09/29/24 05:45 MDM - Extremity (Nontraumatic) Medical Decision Making MEDICAL DECISION MAKING: Differential diagnoses considered but not limited to: Postoperative infection, septic arthritis, postoperative pain, neurovascular injury, DVT, skin or soft tissue infection. Vitals nonactionable. Given history, examination, and pretest risk factors, feel most consistent postoperative pain without complication at this time. Patient's labs nonemergent nonactionable. Physical examination not suggesting acute infection. Patient provided pain control in the emergency department intramuscular and oral pain medications. Advise follow-up with PCM and continue to take [id number] pain medications. DISPO: KANCHAN Benoit MD Staff physician, [facility] [phone] Lab Data 09/29/24 06:39 09/29/24 06:39 Laboratory Results WBC 7.03 10^3/uL (3.29-11.43) 09/29/24 06:39 RBC 3.20 10^6/uL (3.85-5.65) L 09/29/24 06:39 Hgb 9.60 g/dL (11.27-16.99) L 09/29/24 06:39 Hct 29.5 % (36-47) L 09/29/24 06:39 MCV 92.2 fl (85-98) 09/29/24 06:39 MCH 30.0 pg (27-33) 09/29/24 06:39 MCHC 32.5 g/dL (30-55) 09/29/24 06:39 RDW 15.1 % (12.1-15.1) 09/29/24 06:39 Plt Count 301 10^3/cmm (157-399) 09/29/24 06:39 MPV 9.5 fL (7.4-10.4) 09/29/24 06:39 Neut % (Auto) 50.7 % 09/29/24 06:39 Lymph % (Auto) 36.0 % 09/29/24 06:39 [place] % (Auto) 9.4 % 09/29/24 06:39 Eos % (Auto) 2.6 % 09/29/24 06:39 Baso % (Auto) 1.0 % 09/29/24 06:39 Neut # (Auto) 3.57 10^3/uL (1.8-7.7) 09/29/24 06:39 Lymph # (Auto) 2.5 10^3/uL (0.8-4.8) 09/29/24 06:39 [place] # (Auto) 0.7 10^3/uL (0.2-0.9) 09/29/24 06:39 Eos # (Auto) 0.2 10^3/uL (0.0-0.8) 09/29/24 06:39 Baso # (Auto) 0.1 10^3/uL (0.0-0.1) 09/29/24 06:39 Nucleated RBC % (auto) 0 % 09/29/24 06:39 Nucleated RBCs # 0.0 /100WBC 09/29/24 06:39 Sodium 130 mmol/L (136-145) L 09/29/24 06:39 Potassium 4.5 mmol/L (3.5-5.1) 09/29/24 06:39 Chloride 94 mmol/L (98-107) L 09/29/24 06:39 Carbon Dioxide 25 mmol/L (22-29) 09/29/24 06:39 Anion Gap 15.5 (5-19) 09/29/24 06:39 BUN 11 mg/dL (8-23) 09/29/24 06:39 Creatinine 0.8 mg/dL (0.5-0.9) 09/29/24 06:39 GFR Calculation 72.0 mL/min (90-130) L 09/29/24 06:39 Glucose 86 mg/dL (65-115) 09/29/24 06:39 Calculated Osmolality 269 mOsm/kg (285-295) L 09/29/24 06:39 Calcium 8.6 mg/dL (8.5-10.5) 09/29/24 06:39 C-Reactive Protein 3.0 mg/L (0.0-4.9) 09/29/24 06:39 No radiology studies performed this visit Discharge Plan Discharge Patient Disposition: Home Clinical Impression: Knee pain Qualifiers: Chronicity: acute Laterality: right Qualified Code(s): M25.561 - Pain in right knee Condition: Stable Prescriptions: No Action modafinil [Provigil] 200 mg tablet 200 mg PO QAM montelukast [Singulair] 10 mg tablet 10 mg PO DAILY trazodone 150 mg tablet 150 mg PO DAILY PRN (Reason: Insomnia) ropinirole 2 mg tablet 2 mg PO DAILY celecoxib [Celebrex] 200 mg capsule 200 mg PO BID PRN (Reason: pain) Qty: 60 5RF pantoprazole [Protonix] 40 mg tablet,delayed release (DR/EC) 40 mg PO BID 30 Days Qty: 60 11RF promethazine 25 mg tablet 25 mg PO Q6H PRN (Reason: nausea and vomiting) Qty: 30 0RF hydrocodone-acetaminophen 5-325 mg tablet 1 - 2 tab PO .Q4-6H PRN (Reason: pain) 7 Days Qty: 40 0RF sulfamethoxazole-trimethoprim [Bactrim DS] 800-160 mg tablet 1 tab PO BID 7 Days Qty: 14 0RF (DME) Knee Immobilizer See Rx Instructions .Route .MEDSUPPLY Qty: 1 0RF Rx Instructions: As directed gabapentin 300 mg capsule 300 mg PO QID Qty: 360 0RF levothyroxine 25 mcg tablet 25 mcg PO DAILY Qty: 90 0RF hydrocodone-acetaminophen 10-325 mg tablet 1 tab PO Q8H 10 Days Qty: 30 0RF atorvastatin 40 mg tablet 40 mg PO DAILY Rx Instructions: TAKE 1 TABLET BY MOUTH AT BEDTIME NEEDED FOR cholesterol/fats polyethylene glycol 3350 [Miralax] 17 gram/dose powder 85 g PO DAILY PRN (Reason: Constipation) escitalopram oxalate [Lexapro] 20 mg tablet 20 mg PO DAILY Rx Instructions: TAKE 1 TABLET BY MOUTH EVERY DAY bupropion HCl [Wellbutrin XL] 300 mg tablet extended release 24 hr 300 mg PO QAM potassium chloride 20 mEq tablet extended release 20 meq PO DAILY Rx Instructions: TAKE 1 TABLET BY MOUTH EVERY DAY aspirin 81 mg tablet 81 mg PO DAILY 30 Days Qty: 30 0RF Discharge Orders: Discharge ED (Routine); Ordered 09/29/24 Ordered By: Benjamin Benoit Referrals: Imtiaz Bliss MD [Primary Care Provider, [facility]] Discharge Diet: Usual diet Discharge Activity: Resume usual activity Patient Instructions: Opioid Safety, Pain Management, Patient Portal & Yoko Instructions Activity Restrictions/Additional Instructions: It has been a pleasure caring for you in the emergency department. Please ensure that you follow-up with your primary care physician for review of all data obtained during this encounter including any incidental findings and laboratory values. Keep in mind that if your condition worsens in any way, I strongly recommend that you return to the emergency department for repeat evaluation immediately. Take 1000 mg of Tylenol and 400 mg of Motrin at breakfast lunch and dinner. Print Language: German Coding Level of Care Code ED Retail Solar Advisor for Elroy Yanez
[2024-09-29 07:24] VITALS: BP 101/58; PULSE 65; RESP 20; TEMP 36.6; O2SAT 99
== END 2024-09-29 08:13 | disposition home or self-care (01) ==
PROVIDERS: Emergency Provider General Practice; PCP Family Medicine
DX: M25.561 Pain in right knee (principal); Z79.82 Long term (current) use of aspirin; Z87.891 Personal history of nicotine dependence; E78.5 Hyperlipidemia, unspecified; N18.31 Chronic kidney disease, stage 3a; Z98.890 Other specified postprocedural states
CPT/HCPCS: 80048; 85025; 85651; 86140; 96372; 99284; J1885; J9999

== ENCOUNTER → 2024-10-04 13:52 | Outpatient (BNVA) | payer MEDICARE, SELFPAY | PROVIDERS: PCP Family Medicine; Visit Provider Orthopaedic Surgery | DX: Z98.890 Other specified postprocedural states (principal) | CPT/HCPCS: 73562; 99024 ==

== ENCOUNTER → 2024-10-23 13:44 | Outpatient (BNVA) | payer MEDICARE, SELFPAY | PROVIDERS: PCP Family Medicine; Visit Provider Orthopaedic Surgery | DX: Z98.890 Other specified postprocedural states (principal) | CPT/HCPCS: 73562; 99024 ==

== ENCOUNTER → 2024-11-08 15:27 | Outpatient (BNVA) | payer MEDICARE, SELFPAY | PROVIDERS: PCP Family Medicine; Visit Provider Orthopaedic Surgery | DX: S82.031D Displaced transverse fracture of right patella, subsequent encounter for closed fracture with routine healing (principal); X58.XXXD Exposure to other specified factors, subsequent encounter | CPT/HCPCS: 73562; 99024 ==

== ENCOUNTER 2024-11-13 09:57 | Outpatient (CLI) | payer MEDICARE, SELFPAY ==
--- NOTE | 2024-11-13 10:00 | CT_ITS ---
WS: [id number] CT RIGHT KNEE, NONCONTRAST HISTORY: ORIF patella FX Technique: All CT scans at [facility] use at least one of these dose optimization techniques: automated exposure control; mA and/or kV adjustment per patient size (includes targeted exams where dose is matched to clinical indication); or iterative reconstruction. DLP: 429.93 mGy.cm COMPARISON: Radiograph 11/08/2024 Patient has a known comminuted patellar fracture. Prior screw fixation. Patient is status post screw fixation patellar fracture noted on 09/03/2024. There is no callus formation across the fracture line. Increased separation between the fracture segments since the screw fixation. Fracture by 15 mm. There is mild lucency surrounding the screws. The amount of separation of the fracture as progressed since 09/25/2024. Moderate size suprapatellar joint effusion. Mild soft tissue edema surrounding the patella. Lateral patellar screw has retracted 4.8 mm. Severe medial compartment joint space narrowing. Large marginal osteophytes. No additional fractures. CT/CT knee RT wo con* [id number] IMPRESSION: 1. Progression of separation of the mid patellar fracture since 09/25/2024. No c allus formation or healing. 2. Patellar screw fixation hardware is identified. There is mild lucency surro unding the screws. The lateral most screw has retracted.
[2024-11-13 11:38] LABS: Glucose Urine UA Negative (Normal); Nitrate Urine Negative (Negative); Specific Gravity, Urine 1.015 (1.005-1.030)
[2024-11-13 11:38] LABS: Hematocrit 34.0 % (36-47); Hemoglobin 10.80 g/dL (11.27-16.99); Mean Corpuscular HGB Conc 31.8 g/dL (30-55); Mean Corpuscular Hemoglobin 29.9 pg (27-33); Mean Corpuscular Volume 94.2 fl (85-98); Nucleated Red Blood Cells % 0 %; Platelet Count 306 10^3/cmm (157-399); Red Blood Count 3.61 10^6/uL (3.85-5.65); White Blood Count 7.45 10^3/uL (3.29-11.43)
[2024-11-13 11:43] LABS: Add Urine Microscopic? YES
[2024-11-13 12:05] LABS: Alanine Aminotransferase 13 U/L (0-33); Albumin Level 3.9 g/dL (3.5-5.2); Alkaline Phosphatase 108 U/L (35-105); Anion Gap 13.7 (5-19); Aspartate Amino Transferase 24 U/L (0-32); Blood Urea Nitrogen 12 mg/dL (8-23); Calcium 8.8 mg/dL (8.5-10.5); Carbon Dioxide 27 mmol/L (22-29); Chloride 99 mmol/L (98-107); Globulin 2.8 g/dL (1.3-4.6); Glucose 116 mg/dL (65-115); Osmolality Calculated 281 mOsm/kg (285-295); Potassium 4.7 mmol/L (3.5-5.1); Sodium 135 mmol/L (136-145); Total Protein 6.7 g/dL (6.6-8.7)
== END 2024-11-13 09:58 | disposition home or self-care (01) ==
PROVIDERS: PCP Family Medicine; Visit Provider Orthopaedic Surgery
DX: S82.031D Displaced transverse fracture of right patella, subsequent encounter for closed fracture with routine healing (principal); Z01.818 Encounter for other preprocedural examination; X58.XXXD Exposure to other specified factors, subsequent encounter
CPT/HCPCS: 36415; 73700; 80053; 81001; 85025

== ENCOUNTER 2024-11-14 18:05 | Observation (INO) | payer MEDICARE, SELFPAY ==
--- OUTSIDE RECORDS SUMMARY | 2023-12-17 04:00 | XMS_ITS ---
Author Organization [facility] Address [address] [place] [address] Care Team Providers Care Enterprise Data Architect Name Role Phone Roman Taylor MD Primary Care Provider Unavailab Nacho Cota Unavailable [phone] Migration, Provider Unavailable Unavailable REASON FOR VISIT [...] Progress Notes * ANDRÉS BADILLO VDOB:[birth year] (63 yo F)Acc No.[id number]:12/17/2023 Patient: Melissa WELLS ANDRÉS Louisa :1960 A ge:62 Y S ex:Female Address:[address], [place], [address] * Refills Stop Amitriptyline HCl Tablet, 50 MG, Oral, 1 Every Night Stop Cyclobenzaprine HCl Tablet, 10 MG, Oral, 1 Tablet Once a Day Subjective: * Chief Complaints: * E MR-Maynor * * Date:
--- OUTSIDE RECORDS SUMMARY | 2023-12-18 04:00 | XMS_ITS ---
Author Organization [facility] Address [address] [place] [address] Care Team Providers Care Planning Technician Name Role Phone Roman Taylor MD Primary Care Provider Unavailab Nacho Cota Unavailable [phone] Migration, Provider Unavailable Unavailable Allergies Allergen (clinical [...] for eRX* Active Requip XL *Reorder from [place] dispan for eRx and Interaction Alerts* Active CeleBREX *Pick strength-f orm from Medis[facility] for eRX* Active trazodone *Reorder from [place] dispan for eRx and Interaction Alerts* Active [...] detoxification or rehabilitation - No, Smoking - 1/4 PPD, Smoking status (MU) - Current every day smoker, Working currently? - No Encounters Encounter Location Date Provider Diagnosis Migrated_Facility 0 0 12/18/2023 Provider Migration Plan Of Treatment No Information Progress Notes * ANDRÉS BADILLO VDOB:[birth year] (63 yo F)Acc No.[id number]:12/18/2023 Patient: ANDRÉS BHATT V :1960 A ge:62 Y S ex:Female Address:[facility] [address], [place], [address] Subjective: * Chief Complaints: * E MR-Maynor [...]
[2024-11-14] VITALS (17 sets, daily range): BP systolic 115–166; BP diastolic 62–95; PULSE 82–103; RESP 15–18; TEMP 36.6–37.3; O2SAT 93–100; BMI 28.3
--- NOTE | 2024-11-14 06:32 | XR_ITS ---
WS: [id number] Exam: XR knee RT 1-2V [id number] Date/Time of Exam: 11/14/2024 6:32 AM Reason For Exam: or pic, patella revision Comparison 11/08/2024. There has been revision of the previously described fracture of the patella. There is now anterior plate and screw fixation of the fracture. Alignment appears to be satisfactory for healing. Postop changes in the soft tissues IMPRESSION1. Revision of the patella fracture with anterior plate and screw fixation.
--- NOTE | 2024-11-14 14:24 | W.PM.OPSUD ---
Surgery/Procedure H&P Update DATE OF PROCEDURE: November 14, 2024 DATE H&P PERFORMED: 11/08/24 H&P UPDATE INFORMATION: I have reviewed H&P completed within last 30 days, I have examined patient prior to procedure and No changes to prior documentation PREOP DIAGNOSIS: Patella fracture on the right PLANNED PROCEDURE: Operation Date: 11/14/24 15:45 Proposed Procedures p ORIF Patella(Right) - Robin Hayes DO
--- NOTE | 2024-11-14 14:39 | SUR.PREOP ---
14:25 RIGHT FEMORAL ADDUCTER NERVE BLOCK PERFORMED BY DOCTOR Saldaña USING 30ML OF ROPIVACAINE AND 4mg OF DECADRON. PT ON CURRICULUM DESIGNER SHOWING NSR. TOLERATED PROCEDURE WELL.
[2024-11-14] MEDS: ondansetron 2 mg/ML SDV 2 mL 4 MG IVP (14:51)
[2024-11-14] MEDS: fentaNYL 50 mcg/mL INJ 2mL IVP ×3 (14:51→17:13)
[2024-11-14] MEDS: ceFAZolin 2,000 mg SDV 2000 MG IVP (15:33)
--- NOTE | 2024-11-14 16:47 | PM.OP ---
Operative Report Date of procedure: November 14, 2024 Pre-op diagnosis: Patella fracture Post-op diagnosis: same Procedure done: Revision ORIF patella fracture Surgeon: Robin Hayes DO Estimated blood loss (mL): 25 Procedure: Revision ORIF patella fracture Patient brought to the op suite after undergoing anesthesia patient was placed in the supine position. Tourniquet was put up. At this point patient was prepped and draped normal sterile fashion. Skin incision made using previous skin incision. The fracture was dissected out as well as the screws. The FiberWire was removed and the screw was removed. Fracture was identified fracture fragments were cleaned with rongeur taken out fibrous tissue. Fracture was then reduced and held with K wires. And then the Arthrex patella plate was placed. 4 screws were placed into the proximal fragment 4 screws in the distal fragment. AP lateral fluoroscopy showed the fracture and hardware in good position. Wounds were irrigated and wounds closed with Vicryl and Monocryl suture. Sterile dressings were applied and patient transferred to the PACU in stable condition.
--- NOTE | 2024-11-14 18:15 | ANE.PACU2 ---
Inpatient post-anesthesia follow up: Airway intact: Yes Vital signs: Temperature 97.8 F Pulse Rate 88 Respiratory Rate 18 Blood Pressure 127/70 Pulse Oximetry 98 Oxygen Delivery Me thod Room Air Oxygen Flow Rate 2 Fraction of Inspir ed Oxygen Hydration adequate: Yes Nausea and vomiting: No Pain level: 1 Mental status: Baseline
[2024-11-14] MEDS: ondansetron hcl ODT 4 mg Tab PO (18:21)
[2024-11-14] MEDS: oxyCODONE-APAP 10-325 mg Tablet PO (18:29)
[2024-11-14] MEDS: HYDROmorphone 0.5 MG/0.5 ML INJ IVP (19:38)
[2024-11-15] VITALS (7 sets, daily range): BP systolic 127–162; BP diastolic 66–72; PULSE 88–92; RESP 14–18; TEMP 36.4–36.8; O2SAT 95–99
[2024-11-15] MEDS: ondansetron hcl ODT 4 mg Tab PO ×2 (00:26→07:40)
[2024-11-15] MEDS: ceFAZolin 2,000 mg SDV 2000 MG IVP ×3 (00:27→11:29)
[2024-11-15] MEDS: oxyCODONE-APAP 10-325 mg Tablet PO ×2 (00:47→07:40)
--- NOTE | 2024-11-15 08:28 | PC.PHAR ---
Med Rec rechecked. Pt no longer takes Ropinirole-removed from chart. Added Buspirone 10mg which was not on her current med list.
--- OUTSIDE RECORDS SUMMARY | 2024-11-15 09:31 | XMS_ITS | Encounter Summary ---
Author Organization [facility] Address [address] [place] [address] Care Team Providers Care Assistant Men'S Soccer Coach Name Role Phone Unavailable Primary Care Provider Unavailabl e Encounter Details Date Type Department Care Team (Latest Contact Info) Description 03/08/2003 Outpatient Historical [facility] Oral and Maxillo Surgery[address] [place] [phone] Michael Gutierrez, DDS NO ADDRESS ON FILE UNSPEC DENTAL CARIES (Primary Dx) Social History Tobacco Use Types Packs/Day Years Used Date Smoking Tobacco: Never Assessed Comments Unknown Sex and Gender Information Value Date Recorded Sex Assigned at Not on file 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
--- OUTSIDE RECORDS SUMMARY | 2024-11-15 09:31 | XMS_ITS | Patient Health Record ---
Author Organization [facility] Address [address] [place] [address] Care Team Providers Care Baseboard Heating Installer Name Role Phone Roman Taylor MD Primary Care Provider Unavailab Nacho Cota Unavailable [phone] Migration, Provider Unavailable Unavailable Allergies Allergen (clinical drug ingredient) Drug/Non Drug Allergy documented on EMR Reaction Allergy Type Onset Date Status morphine Morphine rash Drug Allergy Active Reason For Referral No Information Medications Medication SIG (Take, Route, Frequency, Duration) Notes Start Date End Date Status Gabapentin *Pick strength-f orm from [facility] for eRX* Active rOPINIRole HCl 2 MG Tablet Oral; Duration: 90 Active Synthroid *Pick strength-f orm from [facility] for eRX* Active Requip XL *Reorder from [facility] for eRx and Interaction Alerts* Active Fluticasone Propionate 50 MCG/ACT Suspension Nasal; Duration: 30 Active Ultram 50 MG Tablet 1 tab Orally q 4 hours prn severe pain; Duration: 30 days 07/07/2021 Active Singulair *Pick strength-f orm from [facility] for eRX* Active tiZANidine HCl 4 MG [...] 90 Active PriLOSEC *Pick strength-f orm from [facility] for eRX* Active CeleBREX *Pick strength-f orm from [facility] for eRX* Active Cymbalta *Pick strength-f orm from [facility] for eRX* Active trazodone *Reorder from [facility] for eRx and Interaction Alerts* Active Gabapentin [...] 30 Active Lipitor *Pick strength-f orm from [facility] for eRX* Active Topamax *Pick strength-f orm from [facility] for eRX* Active Social History Tobacco Use: [...] Status W/U Status Risk Notes Problem Anxiety (86850955) Anxiety (F41.9) Active confi rmed Problem Facet arthropath y, lumbosacral (M46.97) Active confirmed Problem Acquired spondylolisthesis (470884791) Spondylolisthesis at L3-L4 level (M43.16) Active confirmed Encounters Encounter Location Date Provider Diagnosis Migrated_Facility 0 0 12/17/2023 Provider Migration Migrated_Facility 0 0 12/18/2023 Provider Migration Plan Of Treatment Pending Test Test Name Order Date XR Outside CD 04/15/2023 XR Outside CD 06/28/2023 zzzCT Outside CD 06/28/2023 Insurance Providers Payer Name Payer Address Payer Phone Subscriber Number Group Number Insured Name Patient Relationship to Insured Coverage Start Date Coverage End Date [employer] [place] [address] [place] [address] [phone] [id number] 4 JUSTINOKATHIANDRÉS Self - patient is the insured [place] [address] [place] [address] [id number] 4 JUSTINOKATHIANDRÉS Self - patient is the insured Medications Administered Medication Instructions Date of Administration Dosage Notes DEPO-Medrol 07/07/2021 40 mg [address]-09 Patient tolerated well, advised to wait 20 min at clinic dexAMETHasone 07/07/2021 4 mg [id number] Patient tolerated well, advised to wait 20 min at clinic Medical (General) History Medical History History ICD Code Pneumonia Back Trouble measles mumps chicken pox Surgical History Surgery Date(Month/Year) hysterectomy knee meniscus Knee Scope Lung biopsy Hospitalization History Reason Date(Month/Year) childbirth 1982 pneumonia 2008
--- OUTSIDE RECORDS SUMMARY | 2024-11-15 09:31 | XMS_ITS | Encounter Summary ---
Author Organization [facility] Address [address] [place] [address] Care Team Providers Care Beeswax Bleacher Name Role Phone Unavailable Primary Care Provider Unavailabl e Encounter Details Date Type Department Care Team (Latest Contact Info) Description 12/08/2005 Outpatient Historical [facility] OBGYN-[address] [place] [phone] Jun Whitehead MD NO ADDRESS ON FILE Excessive Menstruation (Primary Dx); Irregular Menstruation; Examination or Test, Negative Result Social History Tobacco Use Types Packs/Day Years Used Date Smoking Tobacco: Never Assessed Comments Unknown Sex and Gender Information Value Date Recorded Sex Assigned at Not on file 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
--- OUTSIDE RECORDS SUMMARY | 2024-11-15 09:31 | XMS_ITS | Encounter Summary ---
Author Organization [facility] Address [address] [place] [address] Care Team Providers Care Ticket Agent Name Role Phone Unavailable Primary Care Provider Unavailabl e Encounter Details Date Type Department Care Team (Late st Contact Info) Description 11/13/2024 External Device Data [facility] ABSTRACTION Provider, Abstract NO ADDRESS ON FILE Social History Tobacco Use Types Packs/Day Years Used Date Smoking Tobacco: Every Day Cigarettes 0.5 48.7 Started: 1978 Smokeless Tobacco: Never Comments:Down to 2 or 3 cigs per day as of 06/25/24 Alcohol Use Standard Drinks/Week Comments Not Currently 0 (1 standard drink = 0.6 oz pur e alcohol) not weekly Feeling Safe Answer Date Recorded Are you in a relationship wi th someone who hurts you emotionally and/or physically? No 09/16/2024 Food Insecurity Answer Date Recorded Patient needs follow up regardin 06/13/2024 Transportation Needs Answer Date Record ed Patient needs follow up regardin 06/13/2024 Housing Stability Answer Date Recorded Social/Environmental Concerns No concerns Utility Needs Answer Date Recorded Patient needs follow up regardin 06/13/2024 Comments No Sex and Gender Information Value Date Recorded Sex Assigned at Not on file Legal 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:55 AM MANAGER PORT Gender Identity Not on file Sexual Orientation Not on file documented as of this encounter Plan of Treatment Not on file documented as of this encounter Visit Diagnoses Not on filedocumented in this encounter
--- OUTSIDE RECORDS SUMMARY | 2024-11-15 09:31 | XMS_ITS | Encounter Summary ---
Author Organization [facility] Address [address] [place] [address] Care Team Providers Care Nuclear Weapons Custodian Name Role Phone Unavailable Primary Care Provider Unavailabl e Encounter Details Date Type Department Care Team (Latest Contact Info) Description 02/04/[address] [facility] OBGYN-[address] [place] [phone] Jun Whitehead MD NO ADDRESS ON FILE Follow-Up Examination, Following Unspecified Surgery (Primary Dx); Unspecified Prolapse of Vaginal Ordonez; Endometriosis of Uterus; Excessive Menstruation Social History Tobacco Use Types Packs/Day Years Used Date Smoking Tobacco: Never Assessed Comments Unknown Sex and Gender Information Value Date Recorded Sex Assigned at Not on file Legal Sex Female 6:06 AM MYCOLOGIST Gender Identity Not on file Sexual Orientation Not on file documented as of this encounter Plan of Treatment Not on file documented as of this encounter Visit Diagnoses Diagnosis Follow-up examination, following unspecified surgery- Primary Unspecified prolapse of vaginal ordonez Endometriosis of uterus Excessive menstruation Excessive or frequent menstruation documented in this encounter
--- OUTSIDE RECORDS SUMMARY | 2024-11-15 09:31 | XMS_ITS | Encounter Summary ---
Author Organization [facility] Address [address] [place] [address] Care Team Providers Care Sign Shop Supervisor Name Role Phone Unavailable Primary Care Provider Unavailabl e Encounter Details Date Type Department Care Team (Latest Contact Info) Description 12/08/2005 Outpatient Historical [facility] [address] 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
--- OUTSIDE RECORDS SUMMARY | 2024-11-15 09:31 | XMS_ITS | Encounter Summary ---
Author Organization [facility] Address 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
--- OUTSIDE RECORDS SUMMARY | 2024-11-15 09:31 | XMS_ITS | Clinical Summary ---
Author Organization [facility] Address [address] [place] [address] Phone Care Team Providers Care Lubricator Granulator Name Role Phone Unavailable Primary Care Provider [...] tablet Take 25 mcg by mouth daily sisal picker. Active atorvastatin (LIPITOR) 40 mg tablet Take [...] on file Legal Sex Female 6:06 AM HOME DESIGNER Gender Identity Not on file Sexual Orientation Not on file Last Filed Vital Signs Vital Sign Reading Time Taken Comments Blood Pressure 124/72 04/03/2019 8:13 AM HOME DESIGNER Pulse 101 04/03/2019 8:13 AM HOME DESIGNER Temperature 36.8 C (98.3 F) 06/15/2018 1:05 PM CDT Respiratory Rate 17 06/15/2018 2:22 PM CDT Oxygen Saturation 100% 06/15/2018 2:22 PM CDT Inhaled Oxygen Concentration - - Weight 76.2 kg (168 lb) 04/03/2019 8:13 AM HOME DESIGNER Height 154.9 cm (5' 1 ) 04/03/2019 8:13 AM HOME DESIGNER Body Mass Index 31.74 04/03/2019 8:13 AM HOME DESIGNER Plan of Treatment Health Maintenance Due Date [...] - 1-dose 75+ series) 2033 Insurance [facility] RX [facility] [employer]
--- OUTSIDE RECORDS SUMMARY | 2024-11-15 09:31 | XMS_ITS | Encounter Summary ---
Author Organization [facility] Address [address] [place] [address] Care Team Providers Care Tie Hacker Name Role Phone Unavailable Primary Care Provider Unavailabl e Encounter Details Date Type Department Care Team (Latest Contact Info) Description 2005 Outpatient Historical [facility] PreAdmission [facility] [address] [place] [address] [place] [phone] Jun Whitehead MD NO ADDRESS ON FILE Other Specified Pre-Operative Examination (Primary Dx) Social History Tobacco Use Types Packs/Day Years Used Date Smoking Tobacco: Never Assessed Comments Unknown Sex and Gender Information Value Date Recorded Sex Assigned at Not on file Legal Sex Female 6:06 AM MAKE UP EDITOR Gender Identity Not on file Sexual Orientation Not on file documented as of this encounter Plan of Treatment Not on file documented as of this encounter Procedures Procedure Name Priority Date/Time Associated Diagnosis Comments CBC WITH DIFFERENTIAL Routine 2005 2:05 PM MAKE UP EDITOR HCG QUANTITATIVE, BLOOD Routine 2005 2:05 PM MAKE UP EDITOR documented in this encounter Results * HCG QUANTITATIVE, BLOOD (2005 2:05 PM MAKE UP EDITOR) CHORIONIC GONADOTROPIN, TOTAL <2.0 0.0 - 10.0 mlU/ML INTERFACE SYSTEM Comment: As of 04 at 12:00 p.m. [facility] Lab has changed the methodology for ThCG, and with this change the reference range has changed from 0-5.0 mIU/ml to 0-10.0 mIU/ml. ----- ----- Total HCG levels between 10 mIU/mL and 25 mIU/mL may be indicative of early but need to be correlated with other clinical findings. HCG ranges during normal , as reported by the special loan officer, are summarized as follows: Gestational Age Expected hCG Values(mIU/ml) 0.2-1 Weeks 5 - 50 1-2 Weeks 50 - 500 2-3 Weeks 100 - 5,000 3-4 Weeks 1,000 - 50,000 5-6 Weeks 10,000 - 100,000 6-8 Weeks 15,000 - 200,000 2-3 Months 10,000 - 100,000 2005 2:05 PM MAKE UP EDITOR W Michelet Whitehead MD CHEMISTRY ORDERABLES Final R esult INTERFACE SYSTEM Refer to clinic/hospital department * CBC WITH DIFFERENTIAL (2005 2:05 PM MAKE UP EDITOR) WBC 8.9 4.5 - 11.0 K/ul INTERFACE [...] 0.2 K/ul INTERFACE SYSTEM 2005 2:05 PM MAKE UP EDITOR W Michelet Whitehead MD HEMATOLOGY ORDERABLES Final Result INTERFACE SYSTEM Refer to clinic/hospital department documented in this encounter Visit Diagnoses Diagnosis Other specified pre-operative examination- Primary documented in this encounter
--- OUTSIDE RECORDS SUMMARY | 2024-11-15 09:31 | XMS_ITS | Encounter Summary ---
Author Organization [facility] Address [address] [place] [address] Care Team Providers Care Lay Out Drafter Name Role Phone Unavailable Primary Care Provider [...] on file Legal Sex Female 6:06 AM WATCHER LOOKOUT TOWER Gender Identity Not on file Sexual Orientation Not on file documented as of this encounter Plan of Treatment Not on file documented as of this encounter Procedures Procedure Name Priority Date/Time Associated Diagnosis Comments CBC WITHOUT DIFFERENTIAL Routine 01/05/2006 6:30 AM WATCHER LOOKOUT TOWER documented in this encounter Results * (ABNORMAL) CBC WITHOUT DIFFERENTIAL (01/05/2006 6:30 AM WATCHER LOOKOUT TOWER) WBC 21.2(H) 4.5 - 11.0 K/ul INTERFACE [...] 0.2 K/ul INTERFACE SYSTEM 01/05/2006 6:30 AM WATCHER LOOKOUT TOWER W Michelet Whitehead MD HEMATOLOGY ORDERABLES Final Result INTERFACE SYSTEM Refer to clinic/hospital department documented in this encounter Visit Diagnoses Diagnosis Uterovaginal prolapse, complete- Primary documented in this encounter
--- OUTSIDE RECORDS SUMMARY | 2024-11-15 09:32 | XMS_ITS | Clinical Summary ---
Author Organization [facility] Address [address] Attn: Epic Prelude ADT [place] [address] Care Team Providers Care Black Top Machine Operator Name Role Phone Unavailable Primary Care [...] tablet Take 25 mcg by mouth daily branch office administrator. 0 Active gabapentin (NEURONTIN) 300 mg capsule [...] needed. Active fluticasone propionate (FLONASE) 50 mcg/spray [place], Suspension nasal inhaler Administer 2 Sprays in [...] needed for Spasm. 30 Tablet 5 Active Active Problems Problem Noted Date Diagnosed [...] Encounters Date Type Department Care Team Description 11/13/2024 External Device Data ST[facility] ABSTRACTION Provider, Abstract 11/13/2024 External Device Data [facility] ABSTRACTION Provider, Abstract 11/06/2024 External Device Data [facility] ABSTRACTION Provider, Abstract 10/17/2024 External Device Data [facility] ABSTRACTION Provider, Abstract 10/16/2024 External Device Data [facility] ABSTRACTION Provider, Abstract 10/16/2024 External Device Data [facility] ABSTRACTION Provider, Abstract 09/18/2024 External Device Data [facility] ABSTRACTION Provider, Abstract 09/18/2024 External Device Data [facility] ABSTRACTION Provider, Abstract 09/18/2024 External Device Data [facility] ABSTRACTION Provider, Abstract 09/18/2024 [facility] Outpatient [place] [id number] [facility] [address] [place] [phone] Lj Woodruff MD Medication Review (Pharmacist Nadya called to make us aware of recent med fills thru various pharmacies. Pt was seen on 08/15/24 and received med for 30 Pioneer, 09/07/24 10 Pioneer, 09/11/24 40 Pioneer , 09/14/24 30 Pioneer and 09/15/24 40 percocets at various places. Went to ED on 09/16 and received one oxycodone there only. Nadya made us aware , spoke with Dr Woodruff here and made aware. Please be aware of GROCERY CLERK STOCKING and list of meds as per pharmacist. Thank you! ) 09/16/2024 10:55 PM CDT - 09/17/2024 12:[address] [facility] Emergency Department [address] [place] [address] Dahlia Chan MD Muscle strain (Primary Dx); Right arm pain Discharge Disposition: Home or Self Care 09/16/2024 10:15 AM CDT - 09/16/2024 11:59 PM CDT Hospital Encounter [facility] [place] [address] [place] [address] Ambulance, [facility] Discharge Disposition: [facility] 09/16/2024 Travel 09/15/2024 6:42 PM CDT - 09/15/2024 11:59 PM CDT Hospital Encounter [facility] [address] [address] [place] [address] Lj Woodruff MD Discharge Disposition: Home or Self Care 09/06/2024 Telephone [facility] [address] [place] [address] Shantanu Strickland MD General 09/05/2024 External Device Data [facility] ABSTRACTION Provider, Abstract 09/05/2024 External Device Data [facility] ABSTRACTION Provider, Abstract 09/05/2024 External Device Data [facility] ABSTRACTION Provider, Abstract 09/04/2024 External Device Data [facility] ABSTRACTION Provider, Abstract 08/27/2024 Orders Only [place] [address] [place] [address] Shantanu Strickland MD Tobacco use (Primary Dx) 08/21/2024 External Device Data ST[facility] ABSTRACTION Provider, Abstract from Last 3 Months Social History Tobacco Use Types Packs/Day Years Used Date Smoking Tobacco: Every Day Cigarettes 0.5 48.7 Started: 1978 Smokeless Tobacco: Never Tobacco Cessation:Ready [...] on file Legal 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:55 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 Gender Identity Not on file Sexual [...] of 2 - PCV) 04/16/2023 04/16/2022, 12/21/2007 OSTEOPOROSIS SCREENING 01/01/2024 INFLUENZA VACCINE (#1) 2024 , 01/28/2023, 04/16/2022, Additional history exists COVID-19 Vaccine (7 - 2024-2 6 season) 2024 12/14/2022, 01/19/2022, 08/04/2021, Additional history exists Pre-Diabetes and Diabetes Screening 06/02/2027 06/01/2024 DTAP/TDAP/TD VACCINES (2 - T d or Tdap) 07/06/2032 07/06/2022 COLORECTAL SCREENING 05/31/2033 06/01/2023 Colorectal Cancer Screening 05/31/2033 Procedures Procedure Name Priority Date/Time Associated Diagnosis Comments XR SHOULDER 2+ VW RIGHT Stat 09/16/2024 11:15 PM CDT HEMOGLOBIN A1C Routine 06/01/2024 2:28 [...] NP DIAGNOSTIC IMAGING ORDERABLES Final Result * HEMOGLOBIN A1C (06/01/2024 2:28 PM CDT) HEMOGLOBIN A1C 4.8 <=5.6 % 06/01/2024 2:59 PM CDT [facility] EST. AVG GLUCOSE, A1C 91 mg/dL 06/01/2024 2:59 PM CDT [facility] Blood Venipuncture / Unknown 06/01/2024 2:28 PM CDT 06/01/2024 2:30 PM CDT Narrative [facility] - 06/01/2024 2:59 PM CDT HGB A1C INTERPRETATION NORMAL: <5.7% PRE-DIABETES: 5.7 - 6.4% DIABETES: 6.5% OR GREATER Danie Malik MD CHEMISTRY ORDERABLES Final Resu lt [facility] CLIA #[id number] [address] [place] [address] from Last 3 Months or Most Recently Relevant to Health Maintenance Insurance [facility] MEDICARE HMO [facility] * Guarantor: EDNA BADILLO V Account Type Relation to Patient Date of Phone Billing Address Personal/Family [id number] [address] RX [facility] [employer]
--- NOTE | 2024-11-15 10:44 | PM.DCS ---
Discharge Providers Date of Admission: 11/14/24 18:05 Date of Discharge: November 15, 2024 Attending Provider at Admission: Robin Hayes DO Attending Provider at Discharge: Robin Hayes DO Primary Care Provider: Imtiaz Bliss MD Reason for Visit Reason for Visit: s82.031D Physical Exam Narrative: Patient resting in chair pain controlled. Discharge Data Studies Completed and Pending Completed Studies During Hospitalization Category Date Time Status XR knee RT 1-2V [id number] Routine Exams 11/14/24 06:32 Completed Pending at discharge Category Date Time Status C-arm Fluoroscopy [id number] Routine Exams 11/14/24 13:40 Taken Vitals Last Vital Signs Temp 97.8 F 11/15/24 08:05 Pulse 88 11/15/24 08:05 Resp 18 11/15/24 08:05 BP 127/70 11/15/24 08:05 Pulse Ox 98 11/15/24 08:05 O2 Del Method Room Air 11/15/24 00:00 O2 Flow Rate 2 11/14/24 20:00 Discharge Plan Discharge Patient Disposition: Home Health Service Condition: Stable Prescriptions: New hydrocodone-acetaminophen 10-325 mg tablet 1 tab PO Q4H PRN (Reason: pain) 7 Days Qty: 42 0RF Continued modafinil [Provigil] 200 mg tablet 200 mg PO QAM montelukast [Singulair] 10 mg tablet 10 mg PO DAILY trazodone 150 mg tablet 150 mg PO DAILY PRN (Reason: Insomnia) pantoprazole [Protonix] 40 mg tablet,delayed release (DR/EC) 40 mg PO BID 30 Days Qty: 60 11RF (DME) Knee Immobilizer See Rx Instructions .Route .MEDSUPPLY Qty: 1 0RF Rx Instructions: As directed gabapentin 300 mg capsule 300 mg PO QID Qty: 360 0RF levothyroxine 25 mcg tablet 25 mcg PO DAILY Qty: 90 0RF ondansetron 4 mg tablet,disintegrating 4 mg PO Q8H 5 Days Qty: 15 0RF (DME) Bone Growth Stimulator See Rx Instructions .Route .MEDSUPPLY Qty: 1 0RF Rx Instructions: As directed atorvastatin 40 mg tablet 40 mg PO DAILY Rx Instructions: TAKE 1 TABLET BY MOUTH AT BEDTIME NEEDED FOR cholesterol/fats polyethylene glycol 3350 [Miralax] 17 gram/dose powder 85 g PO DAILY PRN (Reason: Constipation) escitalopram oxalate [Lexapro] 20 mg tablet 20 mg PO DAILY Rx Instructions: TAKE 1 TABLET BY MOUTH EVERY DAY bupropion HCl [Wellbutrin XL] 300 mg tablet extended release 24 hr 300 mg PO QAM potassium chloride 20 mEq tablet extended release 20 meq PO DAILY Rx Instructions: TAKE 1 TABLET BY MOUTH EVERY DAY buspirone 10 mg tablet 10 mg PO BID PRN (Reason: Anxiety) Discontinued celecoxib [Celebrex] 200 mg capsule 200 mg PO BID PRN (Reason: pain) Qty: 60 5RF hydrocodone-acetaminophen 10-325 mg tablet 1 tab PO Q6H PRN (Reason: pain) 7 Days Qty: 28 0RF Patient Instructions: Acute Wound Care (DC), Opioid Safety, Post Anesthesia Care, Patient Portal & Yoko Instructions Discharge Attestations Time Spent in Discharge Care*: less than 30 min Quality Metrics Clinical Quality Measures [ No reported AMI, CVA or VTE this stay] Coding Level of Care Code Acute Code for Elroy Yanez
--- NOTE | 2024-11-15 11:04 | PC.NURSE ---
Pt cannot discharge until last dose of Cefazolin given. Pharmacy gave the ok for pt to receive Cefazolin at 1200 instead of 1530. This nurse retimed medication in APR.
--- NOTE | 2024-11-15 11:35 | PC.NURSE ---
Discharge pending ride home.
== END 2024-11-15 13:13 | disposition home health service (06) ==
LOC: MEDSURG 19:16
PROVIDERS: Admitting Provider Orthopaedic Surgery; PCP Family Medicine; Visit Provider Orthopaedic Surgery
PROC: (CPT 27524; principal; 2024-11-14 15:35)
DX: S82.031D Displaced transverse fracture of right patella, subsequent encounter for closed fracture with routine healing (principal); X58.XXXD Exposure to other specified factors, subsequent encounter; K21.9 Gastro-esophageal reflux disease without esophagitis; N18.31 Chronic kidney disease, stage 3a; G47.33 Obstructive sleep apnea (adult) (pediatric); E03.9 Hypothyroidism, unspecified; E78.5 Hyperlipidemia, unspecified; M79.7 Fibromyalgia; F32.A Depression, unspecified; Z87.891 Personal history of nicotine dependence
CPT/HCPCS: 27524; 36415; 73560; 73700; 76000; 80053; 81001; 85025; 97116; 97161; 97167; A9281; C1713 ×2; G0378; J0690; J1100; J1171; J2250; J2405; J2704; J2795; J3010; J3373; J3535; J7030; J9999; Q0162

== ENCOUNTER → 2024-11-20 08:49 | Outpatient (BNVA) | payer MEDICARE, SELFPAY | PROVIDERS: PCP Family Medicine; Visit Provider Orthopaedic Surgery | DX: Z98.890 Other specified postprocedural states (principal) | CPT/HCPCS: 73562; 99024 ==

== ENCOUNTER → 2024-11-23 18:21 | Outpatient (BNVA) | payer MEDICARE, SELFPAY | PROVIDERS: PCP Family Medicine; Visit Provider Emergency Medicine | DX: R52 Pain, unspecified (principal) | CPT/HCPCS: 73562 ==

== ENCOUNTER → 2024-11-27 12:56 | Outpatient (BNVA) | payer MEDICARE, SELFPAY | PROVIDERS: PCP Family Medicine; Visit Provider Orthopaedic Surgery | DX: Z98.890 Other specified postprocedural states (principal) | CPT/HCPCS: 73562; 99024 ==

== ENCOUNTER → 2025-01-03 15:42 | Outpatient (BNVA) | payer MEDICARE, SELFPAY | PROVIDERS: PCP Family Medicine; Visit Provider Orthopaedic Surgery | DX: Z98.890 Other specified postprocedural states (principal) | CPT/HCPCS: 73562; 99024 ==

== ENCOUNTER 2025-01-11 13:43 | Emergency (ER) | payer MEDICARE, SELFPAY ==
--- OUTSIDE RECORDS SUMMARY | 2023-12-17 03:00 | XMS_ITS ---
Author Organization [facility] Address [address] [place] [address] Care Team Providers Care Armor Reconnaissance Vehicle Driver Name Role Phone Roman Taylor MD Primary Care Provider Unavailab Nacho Cota Unavailable [phone] Migration, Provider Unavailable Unavailable REASON FOR VISIT EMR-Maynor Encounters Encounter Location Date Provider Diagnosis Migrated_Facility 0 0 12/17/2023 Provider Migration Plan Of Treatment Medication Medication Name Sig Start Date Stop Date Notes Cyclobenzaprine HCl 10 MG Tablet 1 Tablet Once a Day Oral 03/15/2019 05/14/2019 Amitriptyline HCl 50 MG Tablet 1 Every Night Oral 03/15/19 20 05/14/2019 Progress Notes * ANDRÉS BADILLO VDOB:[birth year] (64 yo F)Acc No.[id number]:12/17/2023 Patient: Melissa WELLS ANDRÉS Louisa :1960 A ge:62 Y S ex:Female Address:[address], [place], [address] * Refills Stop Amitriptyline HCl Tablet, 50 MG, Oral, 1 Every Night Stop Cyclobenzaprine HCl Tablet, 10 MG, Oral, 1 Tablet Once a Day Subjective: * Chief Complaints: * E MR-Maynor * * Date:
--- OUTSIDE RECORDS SUMMARY | 2023-12-18 03:00 | XMS_ITS ---
Author Organization [facility] Address [address] [place] [address] Care Team Providers Care Inbound Customer Service Agent Name Role Phone Roman Taylor MD Primary Care Provider Unavailab Nacho Cota Unavailable [phone] Migration, Provider Unavailable Unavailable Allergies Allergen (clinical drug ingredient) Drug/Non Drug Allergy documented on EMR Reaction Allergy Type Onset Date Status morphine Morphine rash Drug Allergy Active REASON FOR VISIT EMR-Maynor Medications Medication SIG (Take, Route, Frequency, Duration) Notes Start Date End Date Status Lipitor *Pick strength-f orm from Medis[facility] for eRX* Active Gabapentin *Pick strength-f orm from [facility] for eRX* Active Synthroid *Pick strength-f orm from [facility] for eRX* Active Requip XL *Reorder from [place] dispan for eRx and Interaction Alerts* Active CeleBREX *Pick strength-f orm from [facility] for eRX* Active trazodone *Reorder from [place] dispan for eRx and Interaction Alerts* Active PriLOSEC *Pick strength-f orm from [facility] for eRX* Active Singulair *Pick strength-f orm from [facility] for eRX* Active Topamax *Pick strength-f orm from [facility] for eRX* Active Cymbalta *Pick strength-f orm from [facility] for eRX* Active Social History Social History Additional Details Category Social Info Options Details Migrated Social History Migrated Social History Alcoholic beverages? - No, Currently on disability? - Yes, Drug or substance abuse? - No, exposure to toxins/poisonous substances at work - No, Involved in any legal proceedings or lawsuits? - No, Marital Status - , Nonprescription drug use? - No, Participation in detoxification or rehabilitation - No, Smoking - 1/ PPD, Smoking status (MU) - Current every day smoker, Working currently? - No Encounters Encounter Location Date Provider Diagnosis Migrated_Facility 0 0 12/18/2023 Provider Migration Plan Of Treatment No Information Progress Notes * ANDRÉS BADILLO VDOB:[birth year] (64 yo F)Acc No.[id number]:12/18/2023 Patient: ANDRÉS BHATT V :1960 A ge:62 Y S ex:Female Address:[facility] [address], [place], [address] Subjective: * Chief Complaints: * E MR-Maynor * Medical History: Arthritis, D epression, * Surgical History: Hysterectomy Knee Scope Lung biopsy * Family History: M igrated Family History: : Diabetes, H eart disease. * Social History: M igrated Social History: M igrated Social History: Alcoholic beverages? - No, C urrently on disability? - Yes, D rug or substance abuse? - No, e xposure to toxins/poisonous substances at work - No, I nvolved in any legal proceedings or lawsuits? - No, M arital Status - , N onprescription drug use? - No, P articipation in detoxification or rehabilitation - No, S moking - 02/24 PPD, S moking status (MU) - Current every day smoker, W orking currently? - No. * Medications: T akingtrazodone , Notes to Pharmacist: *Reorder from Medispan for eRx and Interaction Alerts*CeleBREX , Notes to Pharmacist: *Pick strength-form from Medis[facility] for eRX*PriLOSEC , Notes to Pharmacist: *Pick strength-form from [facility] for eRX*Cymbalta , Notes to Pharmacist: *Pick strength-form from [facility] for eRX*Lipitor , Notes to Pharmacist: *Pick strength-form from [facility] for eRX*Synthroid , Notes to Pharmacist: *Pick strength-form from [facility] for eRX*Gabapentin , Notes to Pharmacist: *Pick strength-form from [facility] for eRX*Singulair , Notes to Pharmacist: *Pick strength-form from [facility] for eRX*Requip XL , Notes to Pharmacist: *Reorder from [facility] for eRx and Interaction Alerts*Topamax , Notes to Pharmacist: *Pick strength-form from [facility] for eRX*Taking trazodone , Notes to Pharmacist: *Reorder from [facility] for eRx and Interaction Alerts*Taking CeleBREX , Notes to Pharmacist: *Pick strength-form from [facility] for eRX*Taking PriLOSEC , Notes to Pharmacist: *Pick strength-form from [facility] for eRX*Taking Cymbalta , Notes to Pharmacist: *Pick strength-form from [facility] for eRX*Taking Lipitor , Notes to Pharmacist: *Pick strength-form from [facility] for eRX*Taking Synthroid , Notes to Pharmacist: *Pick strength-form from [facility] for eRX*Taking Gabapentin , Notes to Pharmacist: *Pick strength-form from [facility] for eRX*Taking Singulair , Notes to Pharmacist: *Pick strength-form from [facility] for eRX*Taking Requip XL , Notes to Pharmacist: *Reorder from [facility] for eRx and Interaction Alerts*Taking Topamax , Notes to Pharmacist: *Pick strength-form from [facility] for eRX* * Allergies: M orphine: rash - Allergy * * Date:
[2025-01-11 13:48] VITALS: BP 108/72; PULSE 88; RESP 18; TEMP 36.8; O2SAT 100
--- OUTSIDE RECORDS SUMMARY | 2025-01-11 13:48 | XMS_ITS | Encounter Summary ---
Author Organization [facility] Address [address] [place] [address] Care Team Providers Care Computer Game Designer Name Role Phone Unavailable Primary Care Provider Unavailabl e Encounter Details Date Type Department Care Team (Latest Contact Info) Description 03/08/2003 Outpatient Historical [facility] Oral and Maxillo Surgery[address] [place] [phone] Michael Gutierrez, DDS NO ADDRESS ON FILE UNSPEC DENTAL CARIES (Primary Dx) Social History Tobacco Use Types Packs/Day Years Used Date Smoking Tobacco: Never Assessed Comments Unknown Sex and Gender Information Value Date Recorded Sex Assigned at Not on file Legal Sex Female 6: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
--- OUTSIDE RECORDS SUMMARY | 2025-01-11 13:48 | XMS_ITS | Encounter Summary ---
Author Organization [facility] Address [address] [place] [address] Care Team Providers Care Feed Elevator Worker Name Role Phone Unavailable Primary Care Provider Unavailabl e Encounter Details Date Type Department Care Team (Latest Contact Info) Description 12/08/2005 Outpatient Historical [facility] OBGYN-[address] [place] [phone] Jun Whitehead MD NO ADDRESS ON FILE Excessive Menstruation (Primary Dx); Irregular Menstruation; Examination or Test, Negative Result Social History Tobacco Use Types Packs/Day Years Used Date Smoking Tobacco: Never Assessed Comments Unknown Sex and Gender Information Value Date Recorded Sex Assigned at Not on file Legal Sex Female 6:06 AM LPN RN HOSPICE Gender Identity Not on file Sexual Orientation Not on file documented as of this encounter Plan of Treatment Not on file documented as of this encounter Visit Diagnoses Diagnosis Excessive menstruation- Primary Excessive or frequent menstruation Irregular menstruation Irregular menstrual cycle examination or test, negative result documented in this encounter
--- OUTSIDE RECORDS SUMMARY | 2025-01-11 13:48 | XMS_ITS | Encounter Summary ---
Author Organization [facility] Address [address] [place] [address] Care Team Providers Care Telephone Information Supervisor Name Role Phone Unavailable Primary Care [...] on file Legal Sex Female 6:[address] Gender Identity Not on file Sexual Orientation Not on file documented as of this encounter Plan of Treatment Not on file documented as of this encounter Procedures Procedure Name Priority Date/Time Associated Diagnosis Comments CBC WITHOUT DIFFERENTIAL Routine 01/05/2006 6:[address] JUSTICE documented in this encounter Results * (ABNORMAL) CBC WITHOUT DIFFERENTIAL (01/05/2006 6:[address] JUSTICE) WBC 21.2(H) 4.5 - 11.0 K/ul INTERFACE [...] 0.2 K/ul INTERFACE SYSTEM 01/05/2006 6:[address] JUSTICE W Michelet Whitehead MD HEMATOLOGY ORDERABLES Final Result INTERFACE SYSTEM Refer to clinic/hospital department documented in this encounter Visit Diagnoses Diagnosis Uterovaginal prolapse, complete- Primary documented in this encounter
--- OUTSIDE RECORDS SUMMARY | 2025-01-11 13:48 | XMS_ITS | Encounter Summary ---
Author Organization [facility] Address [address] [place] [address] Care Team Providers Care Enrichment Assistant Name Role Phone Unavailable Primary Care Provider Unavailabl e Encounter Details Date Type Department Care Team (Latest Contact Info) Description 02/04/2006 Outpatient Historical [facility] OBGYN-[address] [place] [phone] Jun Whitehead MD NO ADDRESS ON FILE Follow-Up Examination, Following Unspecified Surgery (Primary Dx); Unspecified Prolapse of Vaginal Ordonez; Endometriosis of Uterus; Excessive Menstruation Social History Tobacco Use Types Packs/Day Years Used Date Smoking Tobacco: Never Assessed Comments Unknown Sex and Gender Information Value Date Recorded Sex Assigned at Not on file Legal 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
--- OUTSIDE RECORDS SUMMARY | 2025-01-11 13:48 | XMS_ITS | Encounter Summary ---
Author Organization [facility] Address [address] [place] [address] Care Team Providers Care Sweep Molder Name Role Phone Unavailable Primary Care Provider Unavailabl e Encounter Details Date Type Department Care Team (Latest Contact Info) Description 2005 Outpatient Historical [facility] [address] [place] [address] [place] [phone] Jun Whitehead MD NO ADDRESS ON FILE Other Specified Pre-Operative Examination (Primary Dx) Social History Tobacco Use Types Packs/Day Years Used Date Smoking Tobacco: Never Assessed Comments Unknown Sex and Gender Information Value Date Recorded Sex Assigned at Not on file Legal Sex Female 6:06 AM GROUTMAN Gender Identity Not on file Sexual Orientation Not on file documented as of this encounter Plan of Treatment Not on file documented as of this encounter Procedures Procedure Name Priority Date/Time Associated Diagnosis Comments CBC WITH DIFFERENTIAL Routine 2005 2:05 PM GROUTMAN HCG QUANTITATIVE, BLOOD Routine 2005 2:05 PM GROUTMAN documented in this encounter Results * HCG QUANTITATIVE, BLOOD (2005 2:05 PM GROUTMAN) CHORIONIC GONADOTROPIN, TOTAL <2.0 0.0 - 10.0 mlU/ML INTERFACE SYSTEM Comment: As of 04 at 12:00 p.m. [facility] Lab has changed the methodology for ThCG, and with this change the reference range has changed from 0-5.0 mIU/ml to 0-10.0 mIU/ml. ----- ----- Total HCG levels between 10 mIU/mL and 25 mIU/mL may be indicative of early but need to be correlated with other clinical findings. HCG ranges during normal , as reported by the marketing intern, are summarized as follows: Gestational Age Expected hCG Values(mIU/ml) 0.2-1 Weeks 5 - 50 1-2 Weeks 50 - 500 2-3 Weeks 100 - 5,000 3-4 Weeks 1,000 - 50,000 5-6 Weeks 10,000 - 100,000 6-8 Weeks 15,000 - 200,000 2-3 Months 10,000 - 100,000 2005 2:05 PM GROUTMAN W Michelet Whitehead MD CHEMISTRY ORDERABLES Final R esult INTERFACE SYSTEM Refer to clinic/hospital department * CBC WITH DIFFERENTIAL (2005 2:05 PM GROUTMAN) WBC 8.9 4.5 - 11.0 K/ul INTERFACE [...] 0.2 K/ul INTERFACE SYSTEM 2005 2:05 PM GROUTMAN W Michelet Whitehead MD HEMATOLOGY ORDERABLES Final Result INTERFACE SYSTEM Refer to clinic/hospital department documented in this encounter Visit Diagnoses Diagnosis Other specified pre-operative examination- Primary documented in this encounter
--- OUTSIDE RECORDS SUMMARY | 2025-01-11 13:48 | XMS_ITS | Clinical Summary ---
Author Organization [facility] Address [address] [place] [address] Phone Care Team Providers Care Flat Bed Knitter Name Role Phone Unavailable Primary Care Provider [...] tablet Take 25 mcg by mouth daily health education coordinator. Active atorvastatin (LIPITOR) 40 mg tablet Take [...] on file Legal Sex Female 6:06 AM SORT MANAGER Gender Identity Not on file Sexual Orientation Not on file Last Filed Vital Signs Vital Sign Reading Time Taken Comments Blood Pressure 124/72 04/03/2019 8:13 AM SORT MANAGER Pulse 101 04/03/2019 8:13 AM SORT MANAGER Temperature 36.8 C (98.3 F) 06/15/2018 1:05 PM CDT Respiratory Rate 17 06/15/2018 2:22 PM CDT Oxygen Saturation 100% 06/15/2018 2:22 PM CDT Inhaled Oxygen Concentration - - Weight 76.2 kg (168 lb) 04/03/2019 8:13 AM SORT MANAGER Height 154.9 cm (5' 1 ) 04/03/2019 8:13 AM SORT MANAGER Body Mass Index 31.74 04/03/2019 8:13 AM SORT MANAGER Plan of Treatment Health Maintenance Due Date [...] (1 - 1-dose 75+ series) 2033 Insurance [facility] RX [facility] [employer]
--- OUTSIDE RECORDS SUMMARY | 2025-01-11 13:48 | XMS_ITS | Encounter Summary ---
Author Organization [facility] Address [address] [place] [address] Care Team Providers Care Field Hauler Name Role Phone Unavailable Primary Care Provider Unavailabl e Encounter Details Date Type Department Care Team (Latest Contact Info) Description 12/08/2005 Outpatient Historical [facility] [address] [address] 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
--- OUTSIDE RECORDS SUMMARY | 2025-01-11 13:49 | XMS_ITS | Clinical Summary ---
Author Organization [facility] Address [address] Reynagan: Epic Prelude ADT [place] [address] Care Team Providers Care Industrial Cleaning Technician Name Role Phone Unavailable Primary Care [...] tablet Take 25 mcg by mouth daily director fixed income. 0 Active gabapentin (NEURONTIN) 300 mg capsule [...] needed. Active fluticasone propionate (FLONASE) 50 mcg/spray [place], Suspension nasal inhaler Administer 2 Sprays in [...] Encounters Date Type Department Care Team Description 12/25/2024 External Device Data ST[facility] ABSTRACTION Provider, Abstract 12/12/2024 External Device Data [facility] ABSTRACTION Provider, Abstract 11/27/2024 External Device Data [facility] ABSTRACTION Provider, Abstract [...] Date Smoking Tobacco: Every Day Cigarettes 0.5 48.9 Started: 1978 Smokeless Tobacco: Never Tobacco Cessation:Ready [...] on file Legal 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:55 AM SERVICE TECH Gender Identity Not on file Sexual Orientation [...] 5 years 01/01/2004 Lung Cancer Screening 2008 RSV VACCINE (60+ or ) (1 - Risk 50-74 years 1-dose series) 2008 ZOSTER VACCINE (1 of 2) 2008 PNEUMOCOCCAL VACCINE 50+ YEA RS (2 of 2 - PCV) 04/16/2023 04/16/2022, 12/21/2007 OSTEOPOROSIS SCREENING 01/01/2024 INFLUENZA VACCINE (#1) 2024 , 01/28/2023, 04/16/2022, Additional history exists COVID-19 Vaccine ( - 2024-2 6 season) 2024 12/14/2022, 01/19/2022, 08/04/2021, Additional history exists Pre-Diabetes and Diabetes Screening 06/02/2027 06/01/2024 DTAP/TDAP/TD VACCINES (2 - T d or Tdap) 07/06/2032 07/06/2022 COLORECTAL SCREENING 05/31/2033 06/01/2023 Colorectal Cancer Screening 05/31/2033 Procedures Procedure Name Priority Date/Time Associated Diagnosis Comments HEMOGLOBIN A1C Routine 06/01/2024 2:28 PM CDT from Last 3 Months or Most Recently Relevant to Health Maintenance Results * HEMOGLOBIN A1C (06/01/2024 2:28 PM CDT) HEMOGLOBIN A1C 4.8 <=5.6 % 06/01/2024 2:59 PM CDT [facility] EST. AVG GLUCOSE, A1C 91 mg/dL 06/01/2024 2:59 PM CDT [facility] Blood Venipuncture / Unknown 06/01/2024 2:28 PM CDT 06/01/2024 2:30 PM CDT Narrative [facility] - 06/01/2024 2:59 PM CDT HGB A1C INTERPRETATION NORMAL: <5.7% PRE-DIABETES: 5.7 - 6.4% DIABETES: 6.5% OR GREATER Danie Malik MD CHEMISTRY ORDERABLES Final Resu lt [facility] CLIA #[id number] [address] [place] [address] from Last 3 Months or Most Recently Relevant to Health Maintenance Insurance [facility] MEDICARE HMO [facility] SUPP * Guarantor: EDNA BADILLO V Account Type Relation to Patient Date of Phone Billing Address Personal/Family [id number] [address] RX [facility] [employer]
--- OUTSIDE RECORDS SUMMARY | 2025-01-11 13:49 | XMS_ITS | Continuity of Care Document ---
Author Organization [facility] - Nikolai Stephens [facility], LIsraelL[facility], [facility] ([facility]) Address [address] [place] [address] Care Team Providers Care Osteopathy Doctor Name Role Phone YAHAIRA BLISS Primary Care Provider [phone] Assessment Encounter Date Assessment Date Assessment LastModified by Organization Details LastModified Time 12/17/2024 12/17/2024 63-year-old female with a history of knee surgery presenting with postoperative nausea and pain. The nausea onset correlates with postoperative pain medication use and is not relieved by Zofran. Preoperative medication usage suggests that her symptoms may be related to changes in surgery or medication formulations post-surgery. [email or web address] Not available 12/17/2024 17:12:05 Plan of Treatment Reminders Order Date Submit Date Provider Last Modified By Organization Details Last Modified Time Details Appointments None recorded. Lab None recorded. Referral None recorded. Procedures None recorded. Surgeries None recorded. Imaging None recorded. Medication Orders ondansetron 4 mg disintegrat ing tablet 2024 025 [facility] [place], [address] [place], [address], 17:39:20 Patient TargetsNo targets recorded. Patient Instructions Encounter Date Encounter Id Patient Instructions Last Modified By Organization Details Last Modified Time 12/17/2024 [id number] - Continue takin g Zofran if needed for nausea, but monitor effectiveness. - Use pain medications with caution and only as directed. - Participate in physical therapy as recommended. - Notify me if nausea worsens or if there is any additional weight loss. - Stay hydrated and try small meals to alleviate nausea. [email or web address] Not available 12/17/2024 17:12:08 I discussed with the patient the potential relation of her persistent nausea to postoperative pain medications. We considered alternative ways to manage her symptoms, given her history of intolerance to current medications. I emphasized the importance of physical therapy in her recovery process for pain management. We also reviewed her medication regimen to identify suitable alternatives that might mitigate these side effects. [email or web address] Not available 12/17/2024 17:12:08 Reason for Referral None Reported. Problems Name Problem SNOMED Code Status Onset Date Resolution Date Notes Provider Name and Address Organization Details Recorded Time Heartbur n 42410806 Active 2022 Yahaira gee [facility] L.[facility]CIsrael 17:34:10 Hyperlip idemia 89542929 Active 2022 Yahaira gee [facility], Marcelino.L.CIsrael 17:34:26 Insomnia 688356833 Active 2022 Yahaira gee [facility] 17:35:14 Spinal stenosis 28164157 Active 2022 Yahaira gee [facility] 17:36:26 Anxiety 99372184 Active 2022 Yahaira Bliss MD [address] [place] [address], [phone] , [facility], Marcelino.L.CIsrael 16:45:07 Sleep pattern disturba hie 21122233 Completed 202205/08/2024 Removal Reason: duplicat e Yahaira gee [facility] L.L.CIsrael 17:36:20 Depressi ve disorder 68110506 Active 2022 Yahaira gee [facility] L.[facility].CIsrael 17:33:28 Fibromya lgia 145677639 Active 2022 Yahaira gee [facility] 17:33:51 Hypokale yun 47795012 Completed 202205/08/2024 Yahaira Keven marlen, [facility] 5 17:34:52 Hypothyr oidism 07314866 Active 2022 Yahaira Baca marlen [facility], L.L.CIsrael 17:34:38 Nausea 281140492 Completed 202205/08/2024 Yahaira Bliss MD [address] [place] [address], [address], [facility], Joseph.CIsrael 17:37:57 Hypergly cemia 17176406 Active 2022 Yahaira gee [facility] 17:34:16 Pain of left shoulder joint 03911997544 978950 Completed 202205/08/2024 Yahaira gee [facility], Marcelino.L.C. 17:35:53 Neuropat hy 508056151 Active 2024 Yahaira Baca marlen [facility] 17:35:33 Obstruct arina sleep apnea syndrome 00931526 Active 2024 Yahaira gee [facility] 17:35:39 Iliotibi al band friction syndrome of right knee 10698140057 9104 Active 2024 Yahaira gee [facility] 17:35:05 Acute gastroen teritis 05466206 Completed 202407/02/2024 Yahaira gee [facility]CIsrael 14:31:28 Degenera tive rupture of medial meniscus of right knee 57714835444 652097 Active 2024 Yahaira gee [facility] 14:31:43 Derangem ent of medial meniscus 624088430 Active 2024 Yahairadavey Baca marlen [facility].CIsrael 14:31:51 Arthriti s of right knee joint 26368504247 11445 Active 2024 Yahaira Bliss MD [address] [place] [address], [phone], [facility] 16:44:04 Moderate major depressi on Active 2024 Yahaira Bliss MD [address] [place] [address], [phone], [facility] 16:44:20 Anemia 725610426 Active 2024 Yahaira Bliss MD [address] [place] [address], [phone], [facility] 10:30:12 Restless legs syndrome 23871467 Active 2024 Yahaira Bliss MD [address] [place] [address], [phone], [facility] 10:31:05 Nicotine dependen ce 37780074 Active 2024 Yahaira Bliss MD [address] [place] [address], [address], [facility] 5 10:31:21 Fatigue 58155883 Active 2024 Yahaira Bliss MD [address] [place] [phone], [facility] 11/11/202 5 17:35:14 Nausea 152057983 Active 2024 Yahaira Bliss MD [address] [place] [address], [address], [facility] 5 17:37:57 Impingem ent syndrome of right shoulder region 66580639413 9102 Active 2024 Yahaira Bliss MD [address] [place] [address], [phone], [facility] 5 09:52:30 Problem Notes None recorded. Procedures Surgical History Date Name Laterality Status Provider Name and Address Organization Details Recorded Time 01/30 Joint Inj Kenalog- Shoulder, Hip, Knee completed Kaden Plasencia MD [address] [place] [address], [phone], [facility], L.L.C[facility] 4 12:49:01 11/10 Back Surgery completed MATEO JEFFERSON [facility], L.L.C[facility] 4 11:35:24 05/31 Colonoscopy completed [facility] [facility], L.L.CIsrael 4 18:28:17 05/31 esophagogastroduodenosco py completed [facility], L.L.CIsrael 4 18:29:50 01/03 Joint Inj Kenalog- Shoulder, Hip, Knee completed Kaden Plasencia MD [address] [place] [address], [phone], [facility] L.L.C[facility] 3 16:02:36 06/15 Most Recent Mammogram completed ALEXANDRIA NELSON [facility], L.LIsraelCIsrael 3 13:35:08 arthroscopy of right knee joint completed Adelso Cannon [facility].C[facility] 5 17:19:08 Knee Surgery completed Yahairadavey Baca [facility], LIsraelLYajaira 5 16:45:27 Imaging Results None recorded. Procedure Notes None recorded. Medical Equipment None Reported. Allergies Allergen ID Allergen Name Allergen Category Reaction Reaction Severity Criticality Documentation Date Start Date Code Code System Note Provider Name and Address Organization Details Recorded Time 1162 morphine medicatio n itching Not available Not available 05/28/2022 7052 RxNorm TAHIR gee [facility], Nick 3 17:33:03 33856 propoxyph ivan hydrochlo ride medicatio n nausea Not available Not available 09/18/2022 72774 RxNorm React ion: Nause a, Vomit ing; Comme nt: Recor ded 04/16 12:05 PM by Scotty Epstein , Offic e Visit ; Promo gabby; Signi blaise ce: *; ; Not Available [facility] 3 02:28:20 32091 morphine sulfate medicatio n rash Not available Not available 09/18/2022 86557 RxNorm React ion: Pruri tus, Rash; Comme nt: Recor ded 04/16 12:05 PM by Scotty Epstein , Offic e Visit ; Promo gabby; Luis welsh ce: *; ; Not Available [facility] 3 02:28:21 Medications Name Sig Start Date [...] mg-acetam inophen 325 mg tablet TAKE 1 TO 2 TABLETS BY MOUTH EVERY 4 TO 6 HOURS NEEDED FOR PAIN for 7 days 12/17 completed Not Available Not Available Not Available meloxicam 15 mg tablet TAKE 1 [...] 800 mg-trimet hoprim 160 mg tablet TAKE ONE TABLET BY MOUTH TWICE DAILY for SEVEN DAYS 12/17 completed Not Available Not Available Not Available hydrocodo ne 10 mg-acetam inophen 325 mg tablet TAKE 1 TABLET BY MOUTH EVERY 4 HOURS NEEDED FOR PAIN FOR SEVEN DAYS active Not Available Not Available No t Available omeprazol e 40 mg capsule,d elayed release 1 PO QD 05/15 completed med change Not Available Not Available Not Available aspirin 81 mg tablet,de layed release TAKE ONE TABLET BY MOUTH DAILY for 30 DAYS 12/17 completed Not Available Not Available Not Available tramadol 50 mg tablet TAKE 1 TABLET BY MOUTH TWICE DAILY NEEDED FOR PAIN 01/30 completed Not Available Not Available Not Available amitripty line 50 mg tablet TAKE 1 TABLET BY MOUTH AT BEDTIME 03/19 completed Not Available Not Available Not Available levothyro xine 25 mcg tablet TAKE ONE TABLET BY MOUTH DAILY for thyriod replacem ent active Not Available Not Available No t Available Zofran 4 mg tablet Q 6 hours prn 01/03 completed vo JR/tn; 173; Recorded 04/09/19 22 1:30PM by Kay Molina LPN (Authori zed through Kaden Plasencia MD), Office Visit; Refill Quantity : 0; Not Available Not Available Not Available modafinil 200 mg tablet TAKE 1 TABLET BY MOUTH EVERY DAY 2024 active Not Available Not Available Not Avai lable lorazepam 0.5 mg tablet TAKE 1/2 TO [...] Not Available buspirone 10 mg tablet TAKE ONE TABLET BY MOUTH TWICE DAILY NEEDED active Not Available Not Available No t Available promethaz ine 25 mg tablet TAKE ONE TABLET BY MOUTH EVERY 6 HOURS as needed for nausea or vomiting active Not Available Not Available No t Available gabapenti n 300 mg capsule TAKE THREE CAPSULES BY MOUTH THREE TIMES DAILY active Not Available Not Available No t Available triamcino lone acetonide 0.5 % topical ointment QD prn to affected fingers. 06/22 completed Not Available Not Available Not Available monteluka st 10 mg tablet TAKE 1 TABLET BY MOUTH EVERY DAY NEEDED 2024 active Not Available Not Available Not Avai lable hydroxyzi ne HCl 25 mg tablet TAKE 1 TABLET 3 TIMES DAILYAS NEEDED active Not Available Not Available No t Available topiramat e 200 mg tablet TAKE ONE TABLET BY MOUTH TWICE DAILY active Not Available Not Available No t Available diclofena c sodium 50 mg tablet,de layed release TAKE 1 TABLET BY MOUTH TWICE DAILY NEEDED 01/01 completed Not Available Not Available Not Available oxycodone -acetamin ophen 7.5 mg-325 mg tablet TAKE 1 TABLET BY MOUTH EVERY 6 HOURS NEEDED FOR PAIN FOR 7 DAYS active Not Available Not Available No t Available scopolami ne 1 mg over 3 days transderm al patch APPLY ONE PATCH TOPICALL Y every 72 hours active Not Available Not Available No t Available methylpre dnisolone 4 mg tablets in a dose pack Take as directed on package for 6 days 01/30 completed Not Available Not Available Not Available albuterol sulfate HFA 90 mcg/actua tion aerosol inhaler INHALE TWO PUFFS EVERY 4 HOURS NEEDED 01/30 completed Not Available Not Available Not Available ondansetr on 4 mg disintegr ating tablet PLACE ONE TABLET ON TONGUE EVERY 6 HOURS NEEDED active Not Available Not Available No t Available dexametha sone sodium phosphate 10 mg/mL injection solution Take 1 mL by injectio n route. 01/30 completed Not Available Not Available Not Available fluticaso ne propionat e 50 mcg/actua tion nasal spray,miley pension USE 1 SPRAY NASALLY TWICE DAILY NEEDED active Not Available Not Available No t Available metoclopr amide 10 mg tablet TAKE 1 TABLET BY MOUTH EVERY 8 HOURS NEEDED FOR NAUSEA AND VOMITING active Not Available Not Available No t [...] Not Available Not Available No t Available [place]-3 01/30 completed Not Available Not Available Not Available Mobic QD 01/03 completed Recorded 04/04/19 23 2:55PM by Tahir Epstein, Office Visit; Refill Quantity : 0; Not Available Not Available Not Available diclofena c 1 % topical gel apply TWO grams topicall y FOUR TIMES DAILY NEEDED 01/01 completed Not Available Not Available Not Available ClearLax 17 gram/dose oral powder TAKE FOUR GRAMS EVERY DAY NEEDED FOR LAXATIVE EFFECT active Not Available Not Available No t [...] Not Available Vitals Date Recorded Body height Oxygen saturation Respiratory rate Body temperature Heart rate Systolic And Diastolic Provider Name and Address Organization Details Last Updated DateTime 5 154.94 cm 96 % 20 /min 97.5 [degF] 92 /min 136/86 mm[Hg] Yahaira Baca [facility] 5 17:03:04 Social History Question Answer Notes LastModified by Organizat ion Details LastModified Time Tobacco Smoking Status Current Every Day Smoker pt also vapes MATEO JEFFERSON [facility], [facility] 05/16/2023 11:49:39 Are You Blind Or Do You Have Difficulty Seeing? No Information not available 08/03/2022 What Is Your Level Of Caffeine Consumption? Moderate [email or web address] Information not available 05/09/2024 Are You Deaf Or Do You Have Serious Difficulty Hearing? No Information not available 08/03/2022 Which Illicit Or Recreational Drugs Have You Used? THC Gummy [email or web address] Information not available 08/20/2024 What Was The Date Of Your Most Recent Tobacco Screening? 01/01/2025 [email or web address] Information not available 01/01/2025 What Is Your Current Pack Years? 30ormorepack years [email or web address] Information not available 03/19/2024 What Is Your [...] 01/31/2024 Are you able to care for yourself independently? Yes Information not available 08/03/2022 Mental Status None recorded. Family History Nothing Reported Notes:Diabetes Mellitus, Mot her; In good health: Denied, Father; In good health: Denied Mother: Completed Stroke, Hypertension Medical History Condition Response Coronary Artery Disease N Other N Gout N Kidney Stones N Blood Diseases N Hyperthyroidism N Breast Cancer N Blood Transfusion N Depression N COPD N Lung Disease N Hypothyroidism N Developmental or Behavioral Disorders N Defects or Inherited Disease N Breast Problem N Difficulty Swallowing N Anesthesia Complications N Meniere's disease N Anxiety Disorder N Muscle, Joint, or Bone Problems N Vision or Eye Problems N Arthritis N Polyps N Infertility N Cancer N Varicosities N Stroke N Endometriosis N Bladder or Kidney Problems N High Cholesterol Y Liver Disease N Headaches N Fibromyalgia Y Kidney Disease N Allergies/Hayfever Y Heart Problems [...] Recorded Time pneumococcal, unspecified formulation 3 [facility] 15:53:06 Influenza, split virus, trivalent, preservative 2 completed [facility] 02/02/2023 15:53:06 Influenza, split virus, trivalent, preservative 8 completed ALEXANDRIA NELSON [facility] 02/02/2023 15:53:06 pneumococcal polysaccharide PPV23 8 completed ALEXANDRIA NELSON [facility] 02/02/2023 15:53:06 Influenza, split virus, trivalent, preservative 6 [facility] 02/02/2023 15:53:06 Influenza, split virus, trivalent, preservative 3 completed ALEXANDRIA NELSON [facility] 02/02/2023 15:53:06 Influenza, split virus, trivalent, preservative 5 completed [facility] 02/02/2023 15:53:06 Influenza, split virus, trivalent, preservative 4 completed ALEXANDRIA gee, [facility] 02/02/2023 15:53:06 Influenza, split virus, trivalent, preservative 3 completed ALEXANDRIA gee, [facility] 02/02/2023 15:53:06 COVID-19, mRNA, LNP-S, PF, 50 mcg/0.5 mL 3 completed EMELY PERRIN, [facility] [address] [place], [address], [facility] 01/28/2023 14:52:30 RSV, recombinant, protein subunit RSVpreF, adjuvant reconstituted, 0.5 mL, PF 3 completed [facility] 02/02/2023 15:53:06 Influenza, high-dose, trivalent, PF 4 completed Not Available [facility] 01/01/2025 16:54:35 Influenza, split virus, quadrivalent, PF 3 completed EMELY PERRIN, [facility] [address] [place] [address], [phone], [facility] 02/03/2023 14:14:02 COVID-19, mRNA, LNP-S, PF, 100 mcg/0.5mL dose or 50 mcg/0.25mL dose 1 completed EMELY PERRIN, [facility] [address] [place] [address], [phone], [facility] 01/28/2023 14:52:30 COVID-19, mRNA, LNP-S, PF, 100 mcg/0.5mL dose or 50 mcg/0.25mL dose 1 completed EMELY PERRIN [facility] [address] [place] [address], [phone], [facility] 01/28/2023 14:52:30 COVID-19, mRNA, LNP-S, PF, 100 mcg/0.5mL dose or 50 mcg/0.25mL dose 2 completed EMELY PERRIN, [facility] [address] [place], [address], [facility] 01/28/2023 14:52:30 COVID-19, mRNA, LNP-S, PF, 100 mcg/0.5mL dose or 50 mcg/0.25mL dose 1 completed EMELY PERRIN, [address], [phone], [facility] 01/28/2023 14:52:30 COVID-19, mRNA, LNP-S, bivalent, PF, 50 mcg/0.5 mL or 25mcg/0.25 mL dose 2 completed EMELY PERRIN, [address], [address], [facility] 01/28/2023 14:52:30 Tdap 3 completed EMELY PERRIN, [address], [phone], [facility] 01/28/2023 14:52:30 Influenza, split virus, quadrivalent, PF 1 completed EMELY PERRIN, [facility] [address] [place] [address], [phone], [facility] 01/28/2023 14:52:30 Influenza, split virus, quadrivalent, PF 2 completed EMELY PERRIN, [facility] [address] [place] [address], [phone], [facility] 01/28/2023 14:52:30 Past Encounters Encounter ID Performer Location Encounter Start Date Encounter Closed Date Diagnosis/Indication Diagnosis SNOMED-CT Code Diagnosis ICD10 Code Diagnosis IMO Codes Diagnosis Note [id number] Yahaira Bliss MD [facility] ([facility]) [address] [place] [address] 12/17/2024 16:32:25 12/18/2024 10:05:51 Nausea 134235718 R11.0 - Discontinu e ineffectiv e antiemetic and consider alternativ es. - Monitor for medication correlatio n to guide future interventi ons. Postoperative pain 68421 9007 G89.18 - Evaluate pain medication options with preference for non-opioid management . - Support ongoing physical therapy to alleviate post-surgi dolores pain. Health Concerns Section Related Observation LastModified by Organization Detai ls LastModified Time None Recorded Concern Status LastModified by Organization Details LastModified Time None Recorded Payers Encounter Date Sequence Insurance Name Policy Number Policy Workman Covered Member ID Workman Member ID Guarantor Name 12/17/2024 1 [id number]A [place]ANT[place] - PPO) [id number] Edna V Vazquez [id number] Edna V Vazquez Notes Date Note Type Note Provider Name and Address Organization Details Recorded Time 12/17/2024 text/html The patient is a 63-year-old female presenting with nausea and postoperative pain management issues after recent knee surgery. She experiences nausea and vomiting, primarily after taking pain medications like hydrocodone and oxycodone. The nausea began approximately a month ago, shortly after her last surgery. She reports no significant nausea issues with hydrocodone prior to her surgeries. Variations in medication brands have occasionally affected her tolerance. Her symptoms are exacerbated by movement, and her appetite has declined. Yahaira Bliss MD [address] [place] [address], [phone], [facility] [place] Menchaca Pinal [facility], LIsraelLIsraelCIsrael 12/18/2024 09:53:35 OBGyn Episode No OBEpisode recorded.
--- OUTSIDE RECORDS SUMMARY | 2025-01-11 13:49 | XMS_ITS | Continuity of Care Document ---
Author Organization VENKATESH Stephens [facility] Sandra, Nick, [facility] ([facility]) Address [address] [place] [address] Care Team Providers Care Hiv/Aids Care Nurse Name Role Phone YAHAIRA BLISS Primary Care Provider Assessment Encounter Date Assessment Date Assessment LastModified by Organization Details LastModified Time 01/01/2025 01/01/2025 64-year-old female with history of possible anemia and prior knee surgery, presenting with fatigue and nausea as well as right shoulder pain. Right Shoulder Pain: Vaccination: - Discuss the deferment of COVID and shingles vaccines due to current complaints. - Implement home health assistance for potential physical therapy for shoulder care. [email or web address] Not available 01/02/2025 09:52:36 Plan of Treatment Reminders Order Date Submit Date Provider Last Modified By Organization Details Last Modified Time Details Appointments None recorded. Lab CMP, serum or plasma 2024 025 [facility], [address] [place] [address], [address], 18:02:14 CBC 2024 025 Formerly [facility], [facility], [address], [address], 17:53:17 TSH, serum or plasma 2024 025 beverly [facility] ([facility]), [address] [place], [address], 17:49:18 vitamin B12, serum 2024 [employer] [facility], [address] [facility] [address] [place], [address], 05:49:18 Referral home health referral 2024 [facility], [address] [place], [address], 16:35:12 Procedures None recorded. Surgeries None recorded. Imaging None recorded. Medication Orders scopolamine 1 mg over 3 days transdermal patch 2024 [facility] [place], [address] [place], [address], 18:04:57 Patient TargetsNo targets recorded. Patient Instructions Encounter Date Encounter Id Patient Instructions Last Modified By Organization Details Last Modified Time 01/01/2025 [id number] - Get the flu vaccination today. - Begin using scopolamine patches as directed for nausea relief. - Maintain a high-protein diet including chicken and eggs. - Observe and report any increase in shoulder or knee pain. - Await contact for physical therapy setup at home. - Return if symptoms such as fatigue, nausea, or shoulder pain worsen. [email or web address] Not available 01/01/2025 17:41:09 I discussed with the patient the potential causes and contributors to her fatigue and nausea, with focus placed on evaluating anemia and reviewing her current medications for possible side effects. We reviewed the benefits and limitations of shoulder injections versus physical therapy and agreed to initiate physical rehabilitation. Vaccination recommendations were revisited, emphasizing the benefits of a flu shot, and the patient consented to receive it today. Concerns regarding nausea were addressed with the alternative of using scopolamine patches, which she understood and accepted. The patient was instructed on the importance of dietary modifications, particularly increasing protein intake with examples provided. Discomfort with her current knee support was noted, and she was advised to follow up with orthotics for adjustments. [email or web address] Not available 01/01/2025 17:41:09 Reason for Referral Home Health Referral for Imp ingement syndrome of right shoulder region PT eval and treat Referring Physician: Yahaira Bliss, Family Medicine, Encounter Date: 01/01/2025 Results Created Date Observation Date Name Description Value Unit Range Abnormal Flag Note LastModifiedBy Organization Detail LastModifiedTime 01/02/2001/01/2025 CBC WBC 10.6 x10 4.0-10 .5 high Not Available [facility] [address], [place], [address], 01/01/2025 17:53:16 01/02/2001/01/2025 CBC RBC 3.56 x10 3.50-5 .50 Not Available [facility] [address], [place], [address], 01/01/2025 17:53:16 01/02/20 25 01/01/2025 CBC HGB 11.0 g/dL 12.0-1 6.0 low Not Available [facility] [address] [place] [address], [place], [address], 01/01/2025 17:53:16 01/02/20 25 01/01/2025 CBC HCT 34.2 % 37.0-4 7.0 low Not Available [facility] [address] [place] [address], [place], [address], 01/01/2025 17:53:16 01/02/20 25 01/01/2025 CBC MCV 96.1 fL 80.0-9 9.9 Not Available [facility] [address] [place] [address], [place], [address], 01/01/2025 17:53:16 01/02/20 25 01/01/2025 CBC MCH 31.0 pg 27.0-3 2.0 Not Available [facility] [address] [place] [address], [place], [address], 01/01/2025 17:53:16 01/02/20 25 01/01/2025 CBC MCHC 32.3 g/dL 32.0-3 6.0 Not Available [facility] [address] [facility], [place], [address], 01/01/2025 17:53:16 01/02/20 25 01/01/2025 CBC RDW 14.1 % 11.5-1 4.5 Not Available [facility] [address] [facility] [facility] [address], [place], [address], 01/01/2025 17:53:16 01/02/20 25 01/01/2025 CBC plt 444.4 x10 140.0- 451.0 Not Available [facility] [address] [facility] [address], [place], [address], 01/01/2025 17:53:16 01/02/20 25 01/01/2025 CBC lymphocytes % 27.1 % 20.0-5 0.0 Not Available [facility] [address] [place] [facility], [place], [address], 01/01/2025 17:53:16 01/02/20 25 01/01/2025 CBC granulcytes % 63.3 % 30.0-7 0.0 Not Available [facility] [address] [place] [address] [facility] 1, [place], [address], 01/01/2025 17:53:16 01/02/20 25 01/01/2025 CBC monocytes % 8.2 % 2.0-16 .0 Not Available [facility] [address] [place] [address] [facility] 1, [place], [address], 01/01/2025 17:53:16 01/02/20 25 01/01/2025 CBC granulcytes# 6.7 x10 Not Camila ilable [facility] [address] [facility] 1, [place], [address], 01/01/2025 17:53:16 01/02/20 25 01/01/2025 CBC lymphocytes # 2.9 x10 Not Available [facility] [address] [facility] 1, [place], [address], 01/01/2025 17:53:16 01/02/20 25 01/01/2025 CBC monocytes # 0.9 x10 Not [facility] [address] [place] [facility], [place], [address], 01/01/2025 17:53:16 01/02/20 25 01/01/2025 CMP (FEMA LE) glucose 92.0 mg/dL 60.0-9 9.0 Not Available [facility] [address] [place] [facility], [place], [address], 01/01/2025 18:02:14 01/02/20 25 01/01/2025 CMP (FEMA LE) BUN (blood urea nitrogen) 12.0 mg/dL 10.0-2 6.0 Not Available [facility] [address] [place] [facility], [place], [address], 01/01/2025 18:02:14 01/02/20 25 01/01/2025 CMP (FEMA LE) creatinine (serum) 0.9 mg/dL 0.4-1. 5 Not Available [facility] [address] [place] [facility], [place], [address], 01/01/2025 18:02:14 01/02/20 25 01/01/2025 CMP (FEMA LE) BUN/creatini ne ratio 13.33 ratio Not Available [facility] [address] [place] [facility], [place], [address], 01/01/2025 18:02:14 01/02/20 01/01/2025 CMP (FEMA LE) eGFR calculated 66.6 Not Available [facility] [address] [facility] 1, [place], [address], 01/01/2025 18:02:14 01/02/2001/01/2025 CMP (FEMA LE) total protein 7.3 g/dL 6.0-8. 5 Not Available [facility] [address] [place] [facility], [place], [address], 01/01/2025 18:02:14 01/02/2001/01/2025 CMP (FEMA LE) total bilirubin 0.4 mg/dL 0.2-1. 3 Not Available [facility] [address] [place] [facility], [place], [address], 01/01/2025 18:02:14 01/02/20 25 01/01/2025 CMP (FEMA LE) albumin 3.9 g/dL 3.5-5. 5 Not Available [facility] [address] [place] [facility], [place], [address], 01/01/2025 18:02:14 01/02/20 25 01/01/2025 CMP (FEMA LE) globulin 3.4 calc Not Available [facility] [address] [facility], [place], [address], 01/01/2025 18:02:14 01/02/20 25 01/01/2025 CMP (FEMA LE) AST (SGOT) 40.0 U/L 0.0-46 .0 Not Available [facility] [address] [place] Michelle [facility] 1, [place], [address], 01/01/2025 18:02:14 01/02/20 25 01/01/2025 CMP (FEMA LE) altv (SGPT) 13.0 U/L 13.0-6 9.0 normal Not Available [facility] [address] [facility] 1, [place], [address], 01/01/2025 18:02:14 01/02/20 25 01/01/2025 CMP (FEMA LE) A/G ratio 1.1 ratio Not Available [facility] [address] [place] [facility], [place], [address], 01/01/2025 18:02:14 01/02/20 25 01/01/2025 CMP (FEMA LE) ALP phos 118.0 U/L 30.0-1 40.0 normal Not Available [facility] [address] [place] [facility], [place], [address], 01/01/2025 18:02:14 01/02/20 25 01/01/2025 CMP (FEMA LE) calcium 8.7 mg/dL 8.4-10 .5 Not Available [facility] [address] [place] [facility], [place], [address], 01/01/2025 18:02:14 01/02/20 25 01/01/2025 CMP (FEMA LE) sodium 129.0 mmol/ L 136.0- 145.0 low Not Available [facility] [address] [facility] 1, [place], [address], 01/01/2025 18:02:14 01/02/20 25 01/01/2025 CMP (FEMA LE) potassium 4.4 mmol/ L 3.5-5. 1 Not Available [facility] [address] [place] [facility], [place], [address], 01/01/2025 18:02:14 01/02/20 25 01/01/2025 CMP (FEMA LE) chloride 92.0 mmol/ L 98.0-1 10.0 abnormal Not Available [facility] [address] [facility], [place], [address], 01/01/2025 18:02:14 01/02/20 25 01/01/2025 CMP (FEMA LE) C02 30.0 mmol/ L 22.0-3 1.0 Not Available [facility] [address] [place] [address], [place], [address], 01/01/2025 18:02:14 01/02/20 25 01/01/2025 CMP (FEMA LE) anion gap 7.0 calc Not Available [facility] [address] [facility] [address], [place], [address], 01/01/2025 18:02:14 01/02/2001/01/2025 CMP (FEMA LE) osmolality 266.6 calc Not Available [facility] [address] [facility] [address], [place], [address], 01/01/2025 18:02:14 01/02/2001/01/2025 TSH TSH 2.02 uIU/m L 0.49-3 .82 Not Available [facility] [address] [facility] [address], [place], [address], 01/01/2025 18:06:39 01/02/20 25 01/03/2025 VITAM IN B12 vitamin B12 303 pg/mL 200-11 00 normal Pleas e Note: Altho ugh the refer ence range for vitam in B12 is 200-1 100 pg/mL , it has been repor gabby that betwe en 5 and 10% of patie nts with value s betwe en 200 and 400 pg/mL may exper ience neuro psych iatri c and hemat ologi c abnor malit ies due to occul t B12 defic iency ; less than 1% of patie nts with value s above 400 pg/mL will have sympt oms. Not Available [employer] [facility] [address], [place], [address], 01/03/2025 05:49:18 Result Notes None recorded. Problems Name Problem SNOMED Code Status Onset Date Resolution Date Notes Provider Name and Address Organization Details Recorded Time Heartbur n 40088405 Active 2022 Yahaira gee [facility] 17:34:10 Hyperlip idemia 34948168 Active 2022 Yahaira gee [facility] 17:34:26 Insomnia 599109684 Active 2022 Yahaira gee [facility] 17:35:14 Spinal stenosis 73783941 Active 2022 Yahaira gee [facility], [facility] 17:36:26 Anxiety 72030138 Active 2022 Yahaira Bliss MD [address] [place] [address], [address] , [facility] 16:45:07 Sleep pattern disturba nce 28445666 Completed 202205/08/2024 Removal Reason: duplicat e Yahaira gee [facility] 17:36:20 Depressi ve disorder 24949218 Active 2022 Yahaira gee [facility] 17:33:28 Fibromya lgia 783574859 Active 2022 Yahaira gee [facility] 17:33:51 Hypokale yun 44274850 Completed 202205/08/2024 Yahaira gee [facility] 17:34:52 Hypothyr oidism 39280815 Active 2022 Yahaira gee [facility] 17:34:38 Nausea 886211473 Completed 202205/08/2024 Yahaira Bliss MD [address] [place], [address], [facility] 17:37:57 Hypergly cemia 33308252 [facility] 17:34:16 Pain of left shoulder joint 43497354487 485807 Completed 202205/08/2024 Yahaira gee [facility] Marcelino[facility] 17:35:53 Neuropat hy 717335762 Active 2024 [facility] 17:35:33 Obstruct arina sleep apnea syndrome 55833957 Active 2024 [facility] 17:35:39 Iliotibi al band friction syndrome of right knee 83443774208 9104 Active 2024 [facility] 17:35:05 Acute gastroen teritis 98012037 Completed 202407/02/2024 Yahaira gee [facility] 14:31:28 Degenera tive rupture of medial meniscus of right knee 96245043406 797513 Active 2024 Yahaira gee [facility] 14:31:43 Derangem ent of medial meniscus 944784302 Active 2024 Yahaira gee [facility] 14:31:51 Arthriti s of right knee joint 92309779710 16366 Active 2024 Yahaira Bliss MD [address] [place] [address], [address], [facility] 16:44:04 Moderate major depressi on 870000 Active 2024 Yahaira Bliss MD [address] [place] [address], [address] [place] [address] 5, [facility] 16:44:20 Anemia 394864978 Active 2024 Yahaira Bliss MD [address] [place] [address] 5, [facility] 10:30:12 Restless legs syndrome 48749667 Active 2024 Yahaira Bliss MD [address] [place] [address] 5, [facility] 10:31:05 Nicotine dependen ce 98485061 Active 2024 Yahaira Bliss MD [address] [place] [address] 5, [facility] 10:31:21 Fatigue 96265870 Active 2024 Yahaira Bliss MD [address] [place] [address] 5, [facility] 17:35:14 Nausea 171940688 Active 2024 Yahaira Bliss MD [address] [place] [address], [facility] 17:37:57 Impingem ent syndrome of right shoulder region 72693197598 9102 Active 2024 Yahaira Bliss MD [address] [place], [place] [address], [facility] 5 09:52:30 Problem Notes None recorded. Procedures Surgical History Date Name Laterality Status Provider Name and Address Organization Details Recorded Time 01/30 Joint Inj Kenalog- Shoulder, Hip, Knee completed Kaden Plasencia MD [address] [place], [address], [facility] 4 12:49:01 11/10 Back Surgery completed MATEO JEFFERSON [facility] 4 11:35:24 05/31 Colonoscopy completed ALEXANDRIA [facility] 4 18:28:17 05/31 esophagogastroduodenosco py completed [facility] 18:29:50 01/03 Joint Inj Kenalog- Shoulder, Hip, Knee completed Kaden Plasencia MD [address] [place], [address], [facility] 3 16:02:36 06/15 Most Recent Mammogram completed ALEXANDRIA NELSON [facility] 3 13:35:08 arthroscopy of right knee joint completed Adelso Cannon [facility] 5 17:19:08 Knee Surgery completed Yahaira Baca [facility] 5 16:45:27 Imaging Results None recorded. Procedure Notes None recorded. Medical Equipment None Reported. Allergies Allergen ID Allergen Name Allergen Category Reaction Reaction Severity Criticality Documentation Date Start Date Code Code System Note Provider Name and Address Organization Details Recorded Time 1162 morphine medicatio n itching Not available Not available 05/28/2022 7052 RxNorm VENKATESH Guadarrama [facility], [facility] 3 17:33:03 37324 propoxyph ivan hydrochlo ride medicatio n nausea Not available Not available 09/18/2022 88754 RxNorm React ion: Nause a, Vomit ing; Comme nt: Recor ded 04/16 12:05 PM by Scotty Epstein , Offic e Visit ; Promo gabby; Signi blaise ce: *; ; Not Available [facility] 3 02:28:20 20180 morphine sulfate medicatio n rash Not available Not available 09/18/2022 60396 RxNorm React ion: Pruri tus, Rash; Comme nt: Recor ded 04/16 12:05 PM by Scotty Epstein , Offic e Visit ; Promo gabby; Luis welsh ce: *; ; Not Available [facility] 3 02:28:21 Medications Name Sig Start Date [...] Not Available Not Available No t Available [place]-3 01/30 completed Not Available Not Available Not [...] mass index (BMI) Body weight Body temperature Oxygen saturation Heart rate Systolic And Diastolic Provider Name and Address Organization Details Last Updated DateTime 5 154.94 cm 30.2 kg/m2 72903.7 8 g 97.4 [degF] 98 % 87 /min 120/68 mm[Hg] Yuliana Cody [facility] 5 17:09:58 Social History Question Answer Notes LastModified by Organizat ion Details LastModified Time Tobacco Smoking Status Current Every Day Smoker pt also vapdelroy JEFFERSON [facility] 05/16/2023 11:49:39 Are You Blind Or Do You Have Difficulty Seeing? No Information not available 08/03/2022 What Is Your Level Of Caffeine Consumption? Moderate [email or web address] Information not available 05/09/2024 Are You Deaf Or Do You Have Serious Difficulty Hearing? No Information not available 08/03/2022 Which Illicit Or Recreational Drugs Have You Used? THC Gummy [email or web address] Information not available 08/20/2024 What Was The Date Of Your Most Recent Tobacco Screening? 01/01/2025 Information not available 01/01/2025 What Is Your Current Pack Years? 30ormorepack years [email or web address] Information not available 03/19/2024 What Is Your Relationship Status? Information not available 08/03/2022 At What Age Did You Start Smoking Tobacco? 16 Information not available 08/03/2022 Sex: Unknown Functional Status Question Answer Note LastModified by Organizat ion Details LastModified Time Do you use any illicit or recreational drugs? Yes [email or web address] Information not available 08/20/2024 What is your [...] N Breast Cancer N Blood Transfusion N Hypothyroidism N Depression N COPD N Lung Disease N Defects or Inherited Disease N Developmental or Behavioral Disorders N Breast Problem N Difficulty Swallowing N [...] N Heart Disease N Pulmonary Embolism N Chronic Ear Infections N Pre-Eclampsia N Hypertension N Chicken Pox N Autism Spectrum Disorder (ASD) N Osteoporosis N Thrombophilias N Gynecological History Statement/Question Response Most Recent Mammogram 06/15/2022 Obstetrics History GPAL:G 0 P 0 0 0 0 Immunizations Vaccine Type Date Status Note Provider Nam e and Address Organization Details Recorded Time pneumococcal, unspecified formulation 3 completed ALEXANDRIA HAMBY [facility] 02/02/2023 15:53:06 Influenza, split virus, trivalent, preservative 2 completed ALEXANDRIAQUEENIE NELSON [facility] 02/02/2023 15:53:06 Influenza, split virus, trivalent, preservative 8 completed ALEXANDRIAQUEENIE NELSON [facility] 02/02/2023 15:53:06 pneumococcal polysaccharide PPV23 8 completed ALEXANDRIAQUEENIE NELSON [facility] 02/02/2023 15:53:06 Influenza, split virus, trivalent, preservative 6 completed ALEXANDRIAQUEENIE NELSON [facility] 02/02/2023 15:53:06 Influenza, split virus, trivalent, preservative 3 completed ALEXANDRIAQUEENIE NELSON [facility] 02/02/2023 15:53:06 Influenza, split virus, trivalent, preservative 5 completed ALEXANDRIA HAMBY [facility] 02/02/2023 15:53:06 Influenza, split virus, trivalent, preservative 4 completed ALEXANDRIA NELSON [facility] 02/02/2023 15:53:06 Influenza, split virus, trivalent, preservative 3 completed ALEXANDRIA NELSON [facility] 02/02/2023 15:53:06 COVID-19, mRNA, LNP-S, PF, 50 mcg/0.5 mL 3 completed EMELY PERRIN, [address], [address], [facility] 01/28/2023 14:52:30 RSV, recombinant, protein subunit RSVpreF, adjuvant reconstituted, 0.5 mL, PF 3 completed ALEXANDRIA gee, [facility] 02/02/2023 15:53:06 Influenza, high-dose, trivalent, PF 4 completed Not Available [facility] 01/01/2025 16:54:35 Influenza, split virus, quadrivalent, PF 3 completed EMELY PERRIN, [address], [address], [facility] 02/03/2023 14:14:02 COVID-19, mRNA, LNP-S, PF, 100 mcg/0.5mL dose or 50 mcg/0.25mL dose 1 completed EMELY PERRIN, [address], [address], [facility] 01/28/2023 14:52:30 COVID-19, mRNA, LNP-S, PF, 100 mcg/0.5mL dose or 50 mcg/0.25mL dose 1 completed EMELY PERRIN [address], [address], [facility] 01/28/2023 14:52:30 COVID-19, mRNA, LNP-S, PF, 100 mcg/0.5mL dose or 50 mcg/0.25mL dose 2 completed EMELY PERRIN [address], [address], [facility] 01/28/2023 14:52:30 COVID-19, mRNA, LNP-S, PF, 100 mcg/0.5mL dose or 50 mcg/0.25mL dose 1 completed EMELY PERRIN, [address], [address], [facility] 01/28/2023 14:52:30 COVID-19, mRNA, LNP-S, bivalent, PF, 50 mcg/0.5 mL or 25mcg/0.25 mL dose 2 completed EMELY PERRIN, [address], [address], [facility] 01/28/2023 14:52:30 Tdap 3 completed EMELY PERRIN, [address], [address], [facility] 01/28/2023 14:52:30 Influenza, split virus, quadrivalent, PF 1 completed EMELY PERRIN, [address], [address], [facility] 01/28/2023 14:52:30 Influenza, split virus, quadrivalent, PF 2 completed EMELY PERRIN, [address], [address], [facility] 01/28/2023 14:52:30 Past Encounters Encounter ID Performer Location Encounter Start Date Encounter Closed Date Diagnosis/Indication Diagnosis SNOMED-CT Code Diagnosis ICD10 Code Diagnosis IMO Codes Diagnosis Note [id number] Yahaira Bliss MD [facility] ([facility]) [address] [place] [address] 12/17/2024 16:32:25 12/18/2024 10:05:51 Nausea 955601986 R11.0 - Discontinu e ineffectiv e antiemetic and consider alternativ es. - Monitor for medication correlatio n to guide future interventi ons. Postoperative pain 75761 9007 G89.18 - Evaluate pain medication options with preference for non-opioid management . - Support ongoing physical therapy to alleviate post-surgi dolores pain. [id number] Yahaira Bliss MD [facility] ([facility]) [address] [place] [address] 01/01/2025 16:54:17 01/01/2025 17:57:54 Fatigue 40622430 R53.83 41747020 - Conduct laboratory tests to evaluate anemia or other causes. - [employer] Teacher on dietary modificati ons for increased protein intake. - Review and adjust medication s if they contribute to symptoms. Nausea 227316337 R11.0 06975 - Use scopolamin e patches for symptomati c relief. - Review medication s to assess for contributo rs. - Switch ineffectiv e antiemetic agents as needed. Impingemen t syndrome of right shoulder region [id number] 52718 M75.41 7564077 - Avoid frequent corticoste roid shots unless necessary. - Encourage home exercise guided by health profession als. We will send referral to home health as she is currently home bound. Health Concerns Section Related Observation LastModified by Organization Detai ls LastModified Time None Recorded Concern Status LastModified by Organization Details LastModified Time None Recorded Payers Encounter Date Sequence Insurance Name Policy Number Policy Workman Covered Member ID Workman Member ID Guarantor Name 01/01/2025 1 [id number]A [place]AGE - PPO) [id number] Edna V Vazquez [id number] Edna V Vazquez Notes Date Note Type Note Provider Name and Address Organization Details Recorded Time 01/01/2025 text/html The patient is a 64-year-old female presenting with fatigue and nausea. She reports that nausea is persistent in the mornings, often leading to vomiting. Fatigue is also a significant issue, impacting her ability to perform daily activities, and raising concern for anemia. She also expresses concern about right shoulder pain that is impacting her daily activities, mentioning previous relief from an injection but wanting to explore physical therapy as an option. Additionally, vaccination consideration was discussed. Yahaira Bliss MD [address] [place] [address], [id number], [facility], Nick 01/02/2025 09:54:17 OBGyn Episode No OBEpisode recorded.
--- OUTSIDE RECORDS SUMMARY | 2025-01-11 13:49 | XMS_ITS | Data Portability ---
Author Organization VENKATESH Stephens [facility], [place], [facility] Address [address] [address] [place] [address] Care Team Providers Care Guest Associate Name Role Phone YAHAIRA BLISS Primary Care Provider [phone] Assessment Encounter Date Assessment Date Assessment LastModified [...] formulations post-surgery. [email or web address] Not available 12/17/2024 17:12:05 01/01/2025 01/01/2025 64-year-old female with history of [...] Lab CMP, serum or plasma 2024 025 [facility], [address] [facility], [place], [address], 18:02:14 CBC 2024 025 [facility], [address] [facility], [place] [address], [address], 17:53:17 TSH, serum or plasma 2024 025 [facility] [address] [place], [address], 17:49:18 vitamin B12, serum 2024 025 [employer] [facility], [address] [place] [address], [address] [place], [address], 05:49:18 Referral home health referral 2024 025 [email or web address] 2 [facility], [address] [place], [address], 16:35:12 Procedures None recorded. Surgeries None recorded. Imaging None recorded. Medication Orders scopolamine 1 mg over 3 days transdermal patch 2024 025 [facility], [address] [place] [address], [address], 18:04:57 ondansetron 4 mg disintegrat ing tablet [address], [address], 17:39:20 ropinirole 3 mg tablet [address], [address], 18:51:00 hydrocodone 5 mg-acetamin ophen 325 mg tablet 2024 025 [email or web address] 23 [facility], [address] [place] [address], [address], 16:42:41 buspirone 10 mg tablet 2024 025 [facility] [place], [address] [place], [address], 18:41:19 Patient TargetsNo targets recorded. Patient Instructions Encounter Date Encounter Id Patient Instructions Last Modified By Organization Details Last Modified Time 08/20/2024 [id number] smoking cessatio n counseling, greater than 3 minutes up to 10 minutes [email or web address] Not available 08/22/2024 10:32:12 12/17/2024 [id number] - Continue takin g Zofran if needed [...] side effects. [email or web address] Not available 12/17/2024 17:12:08 01/01/2025 [id number] - Get the flu vaccination today. - [...] for adjustments. [email or web address] Not available 01/01/2025 17:41:09 01/06/2025 [id number] Follow up with P CP regarding chronic issues. [email or web address] Not available 01/06/2025 18:23:54 Reason for Referral Home Health Referral for Imp ingement syndrome of right shoulder region PT eval and treat Referring Physician: Yahaira Bliss, Family Medicine, Encounter Date: 01/01/2025 Results Created Date Observation Date Name Description Value Unit Range Abnormal Flag Note LastModifiedBy Organization Detail LastModifiedTime 01/02/2001/01/2025 CBC WBC 10.6 x10 4.0-10 .5 high Not Available [facility] [address] [facility] [address], [place], [address], 01/01/2025 17:53:16 01/02/2001/01/2025 CBC RBC 3.56 x10 3.50-5 .50 Not Available [facility] [address] [facility] [address], [place], [address], 01/01/2025 17:53:16 01/02/20 25 01/01/2025 CBC HGB 11.0 g/dL 12.0-1 6.0 low Not Available [facility] [address] [facility] [address], [place], [address], 01/01/2025 17:53:16 01/02/20 25 01/01/2025 CBC HCT 34.2 % 37.0-4 7.0 low Not Available [facility] [address] [facility] [address], [place], [address], 01/01/2025 17:53:16 01/02/20 25 01/01/2025 CBC MCV 96.1 fL 80.0-9 9.9 Not Available [facility] [address] [facility] 1, [place], [address], 01/01/2025 17:53:16 01/02/20 25 01/01/2025 CBC MCH 31.0 pg 27.0-3 2.0 Not Available [facility] [address] [facility] 1, [place], [address], 01/01/2025 17:53:16 01/02/20 25 01/01/2025 CBC MCHC 32.3 g/dL 32.0-3 6.0 Not Available [facility] [address] [facility] 1, [place], [address], 01/01/2025 17:53:16 01/02/20 25 01/01/2025 CBC RDW 14.1 % 11.5-1 4.5 Not Available [facility] [address] [facility] 1, [place], [address], 01/01/2025 17:53:16 01/02/20 25 01/01/2025 CBC plt 444.4 x10 140.0- 451.0 Not Available [facility] [address] [facility] 1, [place], [address], 01/01/2025 17:53:16 01/02/20 25 01/01/2025 CBC lymphocytes % 27.1 % 20.0-5 0.0 Not Available [facility] [address] [facility] 1, [place], [address], 01/01/2025 17:53:16 01/02/20 25 01/01/2025 CBC granulcytes % 63.3 % 30.0-7 0.0 Not Available [facility] [address] [facility] 1, [place], [address], 01/01/2025 17:53:16 01/02/20 25 01/01/2025 CBC monocytes % 8.2 % 2.0-16 .0 Not Available [facility] [address] [facility] [address] [address], [place], [address], 01/01/2025 17:53:16 01/02/20 25 01/01/2025 CBC granulcytes# 6.7 x10 Not Camila ilable [facility] [address] [address], [place], [address], 01/01/2025 17:53:16 01/02/20 25 01/01/2025 CBC lymphocytes # 2.9 x10 Not Available [facility] [address] [address], [place], [address], 01/01/2025 17:53:16 01/02/20 25 01/01/2025 CBC monocytes # 0.9 x10 Not Avai lable [facility] [address] [address], [place], [address], 01/01/2025 17:53:16 01/02/20 25 01/01/2025 CMP (FEMA LE) glucose 92.0 mg/dL 60.0-9 9.0 Not Available [facility] [address] [address], [place], [address], 01/01/2025 18:02:14 01/02/20 25 01/01/2025 CMP (FEMA LE) BUN (blood urea nitrogen) 12.0 mg/dL 10.0-2 6.0 Not Available [facility] [address] [address], [place], [address], 01/01/2025 18:02:14 01/02/20 25 01/01/2025 CMP (FEMA LE) creatinine (serum) 0.9 mg/dL 0.4-1. 5 Not Available [facility] [address] [address], [place], [address], 01/01/2025 18:02:14 01/02/20 25 01/01/2025 CMP (FEMA LE) BUN/creatini ne ratio 13.33 ratio Not Available [facility] [address] [facility], [place], [address], 01/01/2025 18:02:14 01/02/20 25 01/01/2025 CMP (FEMA LE) eGFR calculated 66.[address] [facility] [address] [facility], [place], [address], 01/01/2025 18:02:14 01/02/20 25 01/01/2025 CMP (FEMA LE) total protein 7.3 g/dL 6.0-8. 5 Not Available [facility] [address] [facility] 1, [place], [address], 01/01/2025 18:02:14 01/02/20 25 01/01/2025 CMP (FEMA LE) total bilirubin 0.4 mg/dL 0.2-1. 3 Not Available [facility] [address] [facility] 1, [place], [address], 01/01/2025 18:02:14 01/02/20 25 01/01/2025 CMP (FEMA LE) albumin 3.9 g/dL 3.5-5. 5 Not Available [facility] [address] [facility] 1, [place], [address], 01/01/2025 18:02:14 01/02/20 25 01/01/2025 CMP (FEMA LE) globulin 3.4 calc Not Available [facility] [address] [facility] 1, [place], [address], 01/01/2025 18:02:14 01/02/20 25 01/01/2025 CMP (FEMA LE) AST (SGOT) 40.0 U/L 0.0-46 .0 Not Available [facility] [address] [place] [facility], [place], [address], 01/01/2025 18:02:14 01/02/20 25 01/01/2025 CMP (FEMA LE) altv (SGPT) 13.0 U/L 13.0-6 9.0 normal Not Available [facility] [address] [facility] [address], [place], [address], 01/01/2025 18:02:14 01/02/20 25 01/01/2025 CMP (FEMA LE) A/G ratio 1.1 ratio Not Available [facility] [address] [facility] [address], [place], [address], 01/01/2025 18:02:14 01/02/20 25 01/01/2025 CMP (FEMA LE) ALP phos 118.0 U/L 30.0-1 40.0 normal Not Available [facility] [address] [facility] [address], [place], [address], 01/01/2025 18:02:14 01/02/20 25 01/01/2025 CMP (FEMA LE) calcium 8.7 mg/dL 8.4-10 .5 Not Available [facility] [address] [facility] [address], [place], [address], 01/01/2025 18:02:14 01/02/20 25 01/01/2025 CMP (FEMA LE) sodium 129.0 mmol/ L 136.0- 145.0 low Not Available [facility] [address] [facility] [address], [place], [address], 01/01/2025 18:02:14 01/02/20 25 01/01/2025 CMP (FEMA LE) potassium 4.4 mmol/ L 3.5-5. 1 Not Available [facility] [address] [facility], [place], [address], 01/01/2025 18:02:14 01/02/2001/01/2025 CMP (FEMA LE) chloride 92.0 mmol/ L 98.0-1 10.0 abnormal Not Available [facility] [address] [facility] [address], [place], [address], 01/01/2025 18:02:14 01/02/2001/01/2025 CMP (FEMA LE) C02 30.0 mmol/ L 22.0-3 1.0 Not Available [facility] [address] [facility] [address], [place], [address], 01/01/2025 18:02:14 01/02/2001/01/2025 CMP (FEMA LE) anion gap 7.0 calc Not Available [facility] [address] [facility] [address], [place], [address], 01/01/2025 18:02:14 01/02/2001/01/2025 CMP (FEMA LE) osmolality 266.6 calc Not Available [facility] [address] [facility] [address], [place], [address], 01/01/2025 18:02:14 01/02/2001/01/2025 TSH TSH 2.02 uIU/m L 0.49-3 .82 Not Available [facility] [address] [facility], [place], [address], 01/01/2025 18:06:39 01/02/2001/03/2025 VITAM IN B12 vitamin B12 303 pg/mL [...] pg/mL will have sympt oms. Not Available [facility] [address], [place], [address], 01/03/2025 05:49:18 07/21/19 25 07/20/2024 MAMMO , scree nisreen, digit al, bilat eral No observ ation record ed. [facility] [address] [place], [address], 07/23/2024 12:20:37 Result Notes None recorded. Problems Name Problem SNOMED Code Status Onset Date Resolution Date Notes Provider Name and Address Organization Details Recorded Time Heartbur n 10457813 Active 2022 Yahaira gee [facility] 17:34:10 Hyperlip idemia 74641660 Active 2022 Yahaira gee [facility] 17:34:26 Insomnia 505233252 Active 2022 Yahaira gee [facility] 17:35:14 Spinal stenosis 02477936 Active 2022 Yahaira gee [facility] 17:36:26 Anxiety 83798335 Active 2022 Yahaira Bliss MD [address] [place] [address], [address], [facility] 16:45:07 Sleep pattern disturba aze 47508904 Completed 202205/08/2024 Removal Reason: duplicat e Yahaira gee [facility] 17:36:20 Depressi ve disorder 15672653 Active 2022 Yahaira gee [facility] 5 17:33:28 Fibromya lgia 363246272 Active 2022 Yahaira gee, [facility] 5 17:33:51 Hypokale yun 49496282 Completed 202205/08/2024 Yahaira gee, [facility] 5 17:34:52 Hypothyr oidism 71247592 Active 2022 [facility] 17:34:38 Nausea 246935052 Completed 202205/08/2024 Yahaira Bliss MD [address] [place] [address], [address], [facility] 17:37:57 Hypergly cemia 42312387 Active 2022 [facility] 5 17:34:16 Pain of left shoulder joint 73522574401 880816 Completed 202205/08/2024 Yahaira gee [facility] 5 17:35:53 Neuropat hy 730367731 Active 2024 Yahaira gee [facility] 5 17:35:33 Obstruct arina sleep apnea syndrome 99482125 Active 2024 [facility] 17:35:39 Iliotibi al band friction syndrome of right knee 77598377623 9104 Active 2024 Yahaira gee [facility] 5 17:35:05 Acute gastroen teritis 95985169 Completed 202407/02/2024 Yahaira gee [facility] 14:31:28 Degenera tive rupture of medial meniscus of right knee 62285375837 838651 Active 2024 Yahaira gee [facility] 5 14:31:43 Derangem ent of medial meniscus 908087440 Active 2024 Yahaira gee [facility] 14:31:51 Arthriti s of right knee joint 60124563615 01426 Active 2024 Yahaira Bliss MD [address] [place] [address], [address], [facility] 16:44:04 Moderate major depressi on 717717 Active 2024 Yahaira Bliss MD [address] [place] [address], [address], [facility] 16:44:20 Anemia 891041414 Active 2024 Yahaira Bliss MD [address] [place] [address], [address], [facility] 10:30:12 Restless legs syndrome 42051497 Active 2024 Yahaira Bliss MD [address] [place] [address], [address], [facility] 5 10:31:05 Nicotine dependen ce 00254833 Active 2024 Yahaira Bliss MD [address] [place] [address], [address], [facility] 5 10:31:21 Fatigue 00155374 Active 2024 Yahaira Bliss MD [address] [place] [address], [address], [facility] 5 17:35:14 Nausea 330293966 Active 2024 Yaharia Bliss MD [address] [place] [address], [address], [facility] 5 17:37:57 Impingem ent syndrome of right shoulder region 00993276235 9102 Active 2024 Yahaira Bliss MD [address] [place] [address], [address], [facility] 5 09:52:30 Problem Notes None recorded. Procedures Surgical History Date Name Laterality Status Provider Name and Address Organization Details Recorded Time 01/30 Joint Inj Kenalog- Shoulder, Hip, Knee completed Kaden Plasencia MD [address] [place] [address], [address], [facility] 4 12:49:01 11/10 Back Surgery completed MATEO JEFFERSON [facility] 4 11:35:24 05/31 Colonoscopy completed ALEXANDRIA NELSON [facility] 4 18:28:17 05/31 esophagogastroduodenosco py completed ALEXANDRIA NELSON [facility] 4 18:29:50 01/03 Joint Inj Kenalog- Shoulder, Hip, Knee completed Kaden Plasencia MD [address] [place] [address], [address], [facility] 3 16:02:36 06/15 Most Recent Mammogram completed ALEXANDRIA NELSON [facility]a 3 13:35:08 arthroscopy of right knee joint completed Adelso Cannon [facility] L[facility]a 5 17:19:08 Knee Surgery completed Yahaira Baca [facility] 5 16:45:27 Imaging Results None recorded. Procedure Notes None recorded. Medical Equipment None Reported. Allergies Allergen ID Allergen Name Allergen Category Reaction Reaction Severity Criticality Documentation Date Start Date Code Code System Note Provider Name and Address Organization Details Recorded Time 1162 morphine medicatio n itching Not available Not available 05/28/2022 7052 RxNorm TAHIR gee [facility] Nick 3 17:33:03 25628 propoxyph ivan hydrochlo ride medicatio n nausea Not available Not available 09/18/2022 35256 RxNorm React ion: Nause a, Vomit ing; Comme nt: Recor ded 04/16 12:05 PM by Scotty Epstein , Offic e Visit ; Promo gabby; Signi ficbrenton ce: *; ; Not Available [facility] 3 02:28:20 39448 morphine sulfate medicatio n rash Not available Not available 09/18/2022 30478 RxNorm React ion: Pruri tus, Rash; Comme nt: Recor ded 04/16 12:05 PM by Scotty Epstein Offic e Visit ; Promo gabby; Signbhaskar welsh ce: *; ; Not Available [facility] 3 02:28:21 Medications Name Sig Start [...] Not Available Not Available No t Available [place]-3 01/30 completed Not Available Not Available Not [...] mass index (BMI) Body weight Oxygen saturation Heart rate Respiratory rate Body temperature Systolic And Diastolic Provider Name and Address Organization Details Last Updated DateTime 5 154.94 cm 29.9 kg/m2 45257.5 9 g 98 % 96 /min 18 /min 97.2 [degF] 122/82 mm[Hg] [facility] 5 16:26:42 Date Recorded Body height Body mass index (BMI) Body weight Body temperature Heart rate Oxygen saturation Systolic And Diastolic Provider Name and Address Organization Details Last Updated DateTime 5 154.94 cm 31 kg/m2 00601.1 5 g 98.8 [degF] 86 /min 97 % 160/86 mm[Hg] [facility] 5 17:16:45 Date Recorded Body height Oxygen saturation Respiratory rate Body temperature Heart rate Systolic And Diastolic Provider Name and Address Organization Details Last Updated DateTime 5 154.94 cm 96 % 20 /min 97.5 [degF] 92 /min 136/86 mm[Hg] [facility] 5 17:03:04 Date Recorded Body height Body mass index (BMI) Body weight Body temperature Oxygen saturation Heart rate Systolic And Diastolic Provider Name and Address Organization Details Last Updated DateTime 5 154.94 cm 30.2 kg/m2 45248.7 8 g 97.4 [degF] 98 % 87 /min 120/68 mm[Hg] [facility] 5 17:09:58 Date Recorded Body height Body mass index (BMI) Body weight Respiratory rate Heart rate Oxygen saturation Body temperature Systolic And Diastolic Provider Name and Address Organization Details Last Updated DateTime 5 154.94 cm 30.2 kg/m2 51258.7 8 g 19 /min 84 /min 99 % 99.3 [degF] 140/60 mm[Hg] Marilia Cannon [facility] 5 18:14:03 Social History Question Answer Notes LastModified by Organizat ion Details LastModified Time Tobacco Smoking Status Current Every Day Smoker pt also vapes MATEO gee, [facility], [facility] 05/16/2023 11:49:39 Are You Blind Or Do You Have Difficulty Seeing? No Information not available 08/03/2022 What Is Your Level Of Caffeine Consumption? Moderate [email or web address] Information not available 05/09/2024 Are You Deaf Or Do You Have Serious Difficulty Hearing? No Information not available 08/03/2022 Which Illicit Or Recreational Drugs Have You Used? THC Gummy [email or web address] Information not available 08/20/2024 What Was The Date Of Your Most Recent Tobacco Screening? 01/01/2025 [email or web address] Information not available 01/01/2025 What Is Your Current Pack Years? 30ormorepack years Information not available 03/19/2024 What Is Your Relationship Status? Information not available 08/03/2022 At What Age Did You Start Smoking Tobacco? 16 Information not available 08/03/2022 Sex: Unknown Functional Status Question Answer Note LastModified by Organizat ion Details LastModified Time Do you use any illicit or recreational drugs? Yes [email or web address] Information not available 08/20/2024 What is your level of alcohol consumption? Occasional Information not available 01/31/2024 Are you able to care for yourself independently? Yes Information not available 08/03/2022 Mental Status None recorded. Family History Nothing Reported Notes:Diabetes Mellitus, Mot her; In good health: Denied, Father; In good health: Denied Mother: Completed Stroke, Hypertension Medical History Condition Response Coronary Artery Disease N Gout N Other N Blood Diseases N Kidney Stones N Hyperthyroidism N Blood Transfusion N Breast Cancer N COPD N Lung Disease N Hypothyroidism N Depression N Defects or Inherited Disease N Developmental [...] Time pneumococcal, unspecified formulation 3 completed [facility] 02/02/2023 15:53:06 Influenza, split virus, trivalent, preservative 2 completed [facility] 02/02/2023 15:53:06 Influenza, split virus, trivalent, preservative 8 completed [facility] 02/02/2023 15:53:06 pneumococcal polysaccharide PPV23 8 completed [facility] 02/02/2023 15:53:06 Influenza, split virus, trivalent, preservative 6 completed [facility] 02/02/2023 15:53:06 Influenza, split virus, trivalent, preservative 3 completed ALEXANDRIA NELSON [facility] 02/02/2023 15:53:06 Influenza, split virus, trivalent, preservative 5 completed [facility] 02/02/2023 15:53:06 Influenza, split virus, trivalent, preservative 4 completed ALEXANDRIA gee, [facility] 02/02/2023 15:53:06 Influenza, split virus, trivalent, preservative 3 completed ALEXANDRIA gee, [facility] 02/02/2023 15:53:06 COVID-19, mRNA, LNP-S, PF, 50 mcg/0.5 mL 3 completed EMELY PERRIN, [address], [address], [facility] 01/28/2023 14:52:30 RSV, recombinant, protein subunit RSVpreF, adjuvant reconstituted, 0.5 mL, PF 3 completed ALEXANDRIA gee [facility] 02/02/2023 15:53:06 Influenza, high-dose, trivalent, PF 4 completed Not Available [facility] 01/01/2025 16:54:35 Influenza, split virus, quadrivalent, PF 3 completed EMELY PERRIN, [address], [address], [facility] 02/03/2023 14:14:02 COVID-19, mRNA, LNP-S, PF, 100 mcg/0.5mL dose or 50 mcg/0.25mL dose 1 completed EMELY PERRIN, [address], [address], [facility] 01/28/2023 14:52:30 COVID-19, mRNA, LNP-S, PF, 100 mcg/0.5mL dose or 50 mcg/0.25mL dose 1 completed EMELY PERRIN [address], [address], [facility] 01/28/2023 14:52:30 COVID-19, mRNA, LNP-S, PF, 100 mcg/0.5mL dose or 50 mcg/0.25mL dose 2 completed EMELY PERRIN, [address], [address], [facility] 01/28/2023 14:52:30 COVID-19, mRNA, LNP-S, PF, 100 mcg/0.5mL dose or 50 mcg/0.25mL dose 1 completed EMELY PERRIN, [address], [address], [facility] 01/28/2023 14:52:30 COVID-19, mRNA, LNP-S, bivalent, PF, 50 mcg/0.5 mL or 25mcg/0.25 mL dose 2 completed EMELY PERRIN, [address], [address], [facility] 01/28/2023 14:52:30 Tdap 3 completed EMELY PERRIN, [address], [address], [facility] 01/28/2023 14:52:30 Influenza, split virus, quadrivalent, PF 1 completed EMELY PERRIN, [address], [address], [facility] 01/28/2023 14:52:30 Influenza, split virus, quadrivalent, PF 2 completed EMELY PERRIN, [address], [address], [facility] 01/28/2023 14:52:30 Past Encounters Encounter ID Performer Location Encounter Start Date Encounter Closed Date Diagnosis/Indication Diagnosis SNOMED-CT Code Diagnosis ICD10 Code Diagnosis IMO Codes Diagnosis Note [id number] SRUTHI PEREIRA PA-C [facility] ([facility]) [address] [place] [id number] 05/28/2022 17:00:25 05/28/2022 18:32:08 Cough 13293258 R05.9 covid negative. Likely viral or allergy in nature. [id number] PUSHPA KLEIN [facility] ([facility]) [address] [place] [id number] 06/02/2022 17:09:16 06/14/2022 08:41:17 Acute bacterial sinusitis 69972611 J01.90 Acute bron chitis with bronchospasm 72374942 J20.9 [id number] PUSHPA KLEIN [facility] ([facility]) [address] [place] [id number] 06/08/2022 16:43:09 06/14/2022 10:38:41 Acute bronchitis with bronchospasm 82602788 J20.9 significan tly improving. Congestion of nasal sinus 95871527 R09.81 [id number] CLARITA SANDOVAL [employer] WORKER [facility] ([facility]) [address] [place] [id number] 07/05/2022 19:29:37 07/18/2022 08:22:51 Not up to date with immunizations 157566657 Z28.39 Will go to [facility] for booster this week. Cat bite - wound 4361211 04 W55.01XA Infection of skin and/or subcutaneous tissue 55056161 L08.9 [id number] Kaden Plasencia MD [facility] ([facility]) [address] [place] [id number] 08/03/2022 13:52:58 08/11/2022 09:14:26 Fibromyalgia 271967687 M79.7 Adult heal th examination 861114784 Z00.01 Screening for cardiovascular system disease 360702240 Z13.6 Screening for malignant neoplasm of colon 044420183 Z12.11 We discussed. She wants to consider it next appt. Screening for osteoporosis 070255444 Z13.820 Screening mammography 24 884829 Z12.31 Acute bron chitis with bronchospasm 61718205 J20.9 Depressive disorder 3548 9007 F32.A Chronic low back pain 27 9027950 M54.50 Hypothyroidism 29552553 E03.9 Hyperlipidemia 81594227 E78.5 Nicotine-f illed electronic cigarette user 605981957 Z72.89 [id number] PUSHPA MARTINEZ-C [facility] ([facility]) [address] [place] [address] [id number] 5 08/19/2022 17:18:44 08/19/2022 18:07:27 Chronic back pain 008902336 G89.29 Patient had an appointmen t with a surgeon and was unable to follow through with surgery due to surgeon being in [place]. Patient would like to be referred to [facility] in [place] for re-evaluat ed. Will send ortho referral today. Pain of ri ght knee joint 8665829059 18767 M25.561 Discussed with patient that the knee [...] pain. Will call with ortho appointmen t. [id number] PUSHPA KLEIN [facility] ([facility]) [address] [place] [address] [id number] 5 08/27/2022 15:59:50 09/07/2022 16:26:28 Pain of right knee joint 4319851780 67219 M25.561 Osteoarthr itis of right knee joint 0539850937 10806 M17.11 Low back p ain co-occurrent with neuralgia of right sciatic nerve 0862108142 73386 M54.41 Patient had an appointmen t with Dr. Hayes and Dr. Nash at [facility]. Was supposed to have injections , but cancelled appt. Will call and reschedule injection. [id number] Kaden Plasencia MD [facility] ([facility]) [address] [place] [address] [phone] 5 01/03/2023 14:40:36 01/03/2023 19:34:05 Hypothyroidism 57061952 E03.9 Hyperglycemia 22124178 R 73.9 Depressive disorder 3548 9007 F32.A Pain of le ft shoulder joint 6857296877 5096059 M25.512 Education about immunization 449585195 Z71.85 [id number] PUSHPA MUNOZ [facility] ([facility]) [address] [place] [address] [phone] 5 01/28/2023 14:02:23 01/31/2023 14:10:11 Adult health examination 698291957 Z00.00 Screening for malignant neoplasm of colon 705428562 Z12.11 Depressive disorder 3548 9007 F32.A Administra tion of influenza vaccine 57703495 Z23 [id number] Kaden Plasencia MD [facility] ([facility]) [address] [place] [address] [phone] 5 02/02/2023 15:04:00 02/02/2023 17:56:25 Burning sensation of skin 198247063 R20.8 Chronic low back pain 27 5576611 M54.50 [id number] EMELY PERRIN CHILD DAYCARE WORKER [facility] ([facility]) [address] [place] [address] [phone] 5 02/22/2023 18:23:51 03/08/2023 10:54:24 Pain of right hip joint 1780606620 45149 M25.891 [id number] RYAN CONTEH CHILD DAYCARE WORKER [facility] ([facility]) [address] [place] [address] [phone] 5 04/22/2023 16:48:22 04/22/2023 18:00:10 COVID-19 145045172 U07.1 Positive covid today. Discussed quarantine next 5 days, use of paxlovid, tylenol for fever control, rest, and push oral fluids. Stop the atorvastat in while on the paxlovid.I f you develop sob or are feeling worse, return for re-eval. [id number] ANGELY MARTINEZ [facility] ([facility]) [address] [place] [address] [phone] 5 05/02/2023 17:13:48 05/02/2023 18:04:32 Exposure to SARS-CoV-2 406873788 Z20.822 COVID negative. Dyspnea 462605523 R06.00 Will start albuterol MDI today PRN. Encouraged patient to continue Sudafed or Mucinex as needed. Recommend a 2 week follow up with PCP for re-check. If any chest pain or severe SOB occurs, should go to ED. Patient verbalizes understand ing. [id number] Kaden Plasencia MD [facility] ([facility]) [address] [place] [address] [phone] 5 05/16/2023 11:02:37 05/16/2023 17:32:50 Fibromyalgia 215749282 M79.7 Depressive disorder 3548 9007 F33.2 Hypothyroidism 43946560 E03.9 Hyperlipidemia 24537847 E78.5 Anxiety 90008619 F41.9 Low back pain 896880330 M54.50 Malaise and fatigue 2717 28872 R53.83 [id number] SRUTHI PEREIRA PA-C [facility] ([facility]) [address] [place] [address] [phone] 5 06/23/2023 18:25:16 06/24/2023 22:57:32 Neurogenic claudication 172815058 M48.062 Pt is stable today. no evidence of neuro compromise today. She has appt in <[address] and with neurosurge on next week. I reassured her we are on the right track and nothing different can be done today for her interminta nt numbness that she has had >1 yr. [id number] PUSHPA CARLIN [facility] ([facility]) [address] [place] [address] [phone] 5 08/17/2023 18:20:50 08/17/2023 18:56:57 Acute back pain with sciatica 744323323 M54.40 Apply a heating pad for 10 minutes every 2 hours while awake. Perform slow stretches 2 times a day.F/u with PCP in 4-5 days if symptoms persist or worsen. [id number] Kaden Plasencia MD [facility] ([facility]) [address] [place] [address] [phone] 5 01/31/2024 10:59:32 01/31/2024 12:49:05 Fibromyalgia 522945710 M79.7 Heartburn 36321781 R12 Hypothyroidism 31094907 E03.9 Hyperlipidemia 66248524 E78.5 Anxiety 92154802 F41.9 Hyperglycemia 23046720 R 73.9 Depressive disorder 3548 9007 F33.2 Restless l egs syndrome 24806154 G25.81 Pain of ri ght knee joint 2524202292 14091 M25.561 Pain of le ft shoulder joint 5557017230 6171766 M25.257 [id number] Yahaira Bliss MD [facility] ([facility]) [address] [place] [address] [phone] 5 03/19/2024 15:07:45 03/19/2024 16:30:27 Neuropathy 512043759 G62.9 Discussed neuropathy and the potential concerns for mets. This is most likely diagnosis for the patient's symptoms. Obstructiv e sleep apnea syndrome 18061781 G47.33 Patient does have sleep apnea but [...] to proceed with that if possible. Anxiety 20381161 F41.9 Depressive disorder 3548 9007 F33.2 Fibromyalgia 609503309 M 79.7 Hyperlipidemia 81224172 E78.5 Hypothyroidism 01368278 E03.9 Insomnia 243510648 G47.0 0 Acute maxi llary sinusitis 62533345 J01.00 Likely bacterial sinusitis based on exam and history. discussed supportive care including OTC meds and sinus rinses. we will start abx. [id number] Yahaira Bliss MD [facility] ([facility]) [address] [place] [address] [phone] 5 03/29/2024 18:53:46 04/04/2024 06:48:32 Iliotibial band friction syndrome of right knee 4630047242 83010 M76.31 Started at the patient does have a IT band syndrome. Discussed stretches and exercises with the patient and handout was provided. Will use diclofenac gel to help with discomfort . [id number] PUSHPA CARLIN [facility] ([facility]) [address] [place] [address] [phone] 5 05/01/2024 18:18:11 05/02/2024 08:17:37 [id number] Yahaira Bliss MD [facility] ([facility]) [address] [place] [address] [phone] 5 05/09/2024 17:01:01 05/09/2024 18:01:26 Acute gastroenteritis 28158678 K52.9 Will provide Zofran to control her nausea. This will likely continue to improve without further interventi on. Degenerati ve rupture of medial meniscus of right knee 4933261354 1686174 M23.303 The patient had been doing home exercises and the pain up by the hip has improved and now she is having persistent medial knee pain. Concerned about a degenerati ve rupture meniscus. Will obtain x-rays and if no fracture or other findings are noted then we will proceed with MRI. [id number] Yahaira Bliss MD [facility] ([facility]) [address] [place] [address] [phone] 5 07/04/2024 16:15:54 07/04/2024 16:56:00 Arthritis of right knee joint 5072163917 976921 M17.11 [id number] Will continue with pain management . Encouraged patient to proceed with surgery. Patient states that she has options to help with transporta tion. Depressive disorder 3548 9007 F33.2 Continue current medication s. Anxiety 81968029 F41.9 64175 We will add buspirone and see how she does with her anxiety with this medication . [id number] Yahaira Bliss MD [facility] ([facility]) [address] [place] [address] [phone] 5 08/20/2024 17:11:17 08/22/2024 11:21:23 Restless legs syndrome 76936339 G25.81 Will increase her ropinirole to 3 mg at bedtime. Degenerati ve rupture of medial meniscus of right knee 4844388441 7880576 M23.303 Patient intends to proceed with surgery. Anemia 973581145 D64.9 8983660 The patient does have mild anemia and this is a known issue for her and has been chronic in nature. Nicotine dependence 5629 4008 F17.200 153832206 Discussed smoking cessation with the patient and advice given. The patient is going to stop cigarettes completely and start weaning herself off of vaping. [id number] Yahaira Bliss MD [facility] ([facility]) [address] [place] [address] [phone] 5 12/17/2024 16:32:25 12/18/2024 10:05:51 Nausea 931655218 R11.0 - Discontinu e ineffectiv e antiemetic and consider alternativ es. - Monitor for medication correlatio n to guide future interventi ons. Postoperative pain 60418 9007 G89.18 - Evaluate pain medication options with preference for non-opioid management . - Support ongoing physical therapy to alleviate post-surgi dolores pain. [id number] Yahaira Bliss MD [facility] ([facility]) [address] [place] [address] [phone] 5 01/01/2025 16:54:17 01/01/2025 17:57:54 Fatigue 52888134 R53.83 23577218 - Conduct laboratory tests to evaluate anemia or other causes. - Supervisor [employer] on dietary modificati ons for increased protein intake. - Review and adjust medication s if they contribute to symptoms. Nausea 815963255 R11.0 14202 - Use scopolamin e patches for symptomati c relief. - Review medication s to assess for contributo rs. - Switch ineffectiv e antiemetic agents as needed. Impingemen t syndrome of right shoulder region 9892127496 97306 M75.41 [id number] - Avoid frequent corticoste roid shots unless necessary. - Encourage home exercise guided by health profession als. We will send referral to home health as she is currently home bound. [id number] DAVI GOODWIN APRN [facility] ([facility]) [address] [place] [address] [phone] 5 01/06/2025 18:03:19 01/07/2025 17:00:05 Abrasion and/or friction burn of skin 985555379 T14.8XXA [id number] Health Concerns Section Related Observation LastModified by Organization Detai ls LastModified Time None Recorded Concern Status LastModified by Organization Details LastModified Time None Recorded Advance Directives Directive None Recorded Payers Insurance Date Sequence Insurance Name Policy Number Policy Workman Covered Member ID Workman Member ID Guarantor Name 12/14/2022 1 [place] [id number] Edna V Vazquez [id number] Edna V Vazquez 01/03/2025 1 [place]/A DVANTAGE - PPO) [id number] Edna V Vazquez [id number] Edna V Vazquez Notes Date Note Type Note Provider Name and Address Organization Details Recorded Time 07/04/2024 text/html Musculoskeletal PainReported by Patient This is a 63-year-old female who comes in today for follow-up. [...] but still has issues. Yahaira Bliss MD [address] [place] [address], [phone], [facility] 07/08/2024 08:41:57 08/20/2024 text/html Pt states she had labs done on the at [facility] for pre-op, she states several labs are [...] issues with restless leg. Yahaira Bliss MD [address] [place] [address], [phone], [facility] 08/23/2024 08:55:05 12/17/2024 text/html The patient is a 63-year-old [...] her appetite has declined. Yahaira Bliss MD [address] [place] [address], [phone], [facility] 12/18/2024 09:53:35 01/01/2025 text/html The patient is a 64-year-old [...] vaccination consideration was discussed. Yahaira Bliss MD [address] [place] [address], [phone], [facility] 01/02/2025 09:54:17 01/06/2025 text/html Skin LesionRepor gabby by PatientHPIFor location, patient reportsarm. For duration, patient [id number] days. For timing, patient reportsabrupt. For context, patient reportstrauma. For alleviating factors, patient reportsnone. For aggravating factors, patient reportsnone. For associated symptoms, patient reportsno fever,no nausea,no vomiting,no scabbing,no bruising, andno draining. For prior treatments, patient reportsnone.ROS as noted in the HPI Walk In-She was at [facility] last and cut her left forearm on a shelf. Pt. reports no redness, swelling or drainage. PCP-Dr.Crase DAVI GOODWIN, OCCUPATIONAL HEALTH RN [address] [place], [phone], [facility] 01/06/2025 18:24:05 OBGyn Episode No OBEpisode recorded.
--- OUTSIDE RECORDS SUMMARY | 2025-01-11 13:49 | XMS_ITS | Patient Health Record ---
Author Organization [facility] Address [address] [place] [address] Care Team Providers Care Insurance Coder Name Role Phone Roman Taylor MD Primary Care Provider Nacho Andres Unavailable [phone] Allergies Allergen (clinical drug ingredient) Drug/Non Drug Allergy documented on EMR Reaction Allergy Type Onset Date Status morphine Morphine rash Drug Allergy Active Reason For Referral No Information Medications Medication SIG (Take, Route, Frequency, Duration) Notes Start Date End Date Status Gabapentin *Pick strength-f orm from [facility] for eRX* Active rOPINIRole HCl 2 MG Tablet Oral; Duration: 90 Active Synthroid *Pick strength-f orm from [facility] for eRX* Active Requip XL *Reorder from [facility] for eRx and Interaction Alerts* Active Fluticasone Propionate 50 MCG/ACT Suspension Nasal; Duration: 30 Active Ultram 50 MG Tablet 1 tab Orally q 4 hours prn severe pain; Duration: 30 days 07/07/2021 Active Singulair *Pick strength-f orm from [facility] for eRX* Active tiZANidine HCl 4 MG [...] 90 Active PriLOSEC *Pick strength-f orm from [facility] for eRX* Active CeleBREX *Pick strength-f orm from [facility] for eRX* Active Cymbalta *Pick strength-f orm from [facility] for eRX* Active trazodone *Reorder from [facility] for eRx and Interaction Alerts* Active Gabapentin [...] 30 Active Lipitor *Pick strength-f orm from [facility] for eRX* Active Topamax *Pick strength-f orm from [facility] for eRX* Active Social History Tobacco Use: [...] detoxification or rehabilitation - No, Smoking - / PPD, Smoking status (MU) - Current every day smoker, Working currently? - No Section Notes: Patient filled out form on entered in chart on 07/16 Patient filled out form on entered in chart on 07/16 Problems Problem Type SNOMED Code ICD Code Onset Dates Problem Status W/U Status Risk Notes Problem Anxiety (31707994) Anxiety (F41.9) Active confi rmed Problem Facet arthropath y, lumbosacral (M46.97) Active confirmed Problem Acquired spondylolisthesis (975460352) Spondylolisthesis at L3-L4 level (M43.16) Active confirmed Plan Of Treatment No Information Insurance Providers Payer Name Payer Address Payer Phone Subscriber Number Group Number Insured Name Patient Relationship to Insured Coverage Start Date Coverage End Date [employer] [address] [place] [address] [id number] JUSTINO, ANDRÉS Self - patient is the insured [place] [address] [place] [address] [phone] [id number] JUSTINO, ANDRÉS Self - patient is the insured Medications Administered Medication Instructions Date of Administration Dosage Notes DEPO-Medrol 07/07/2021 40 mg [address]-90 Patient tolerated well, advised to wait 20 min at clinic dexAMETHasone 07/07/2021 4 mg 30527-117-64 Patient tolerated well, advised to wait 20 min at clinic Medical (General) History Medical History History ICD Code Pneumonia Back Trouble measles mumps chicken pox Surgical History Surgery Date(Month/Year) hysterectomy knee meniscus Knee Scope Lung biopsy Hospitalization History Reason Date(Month/Year) childbirth 1981 pneumonia 2007
--- OUTSIDE RECORDS SUMMARY | 2025-01-11 13:49 | XMS_ITS | Continuity of Care Document ---
Author Organization [facility] Nikolai Stephens [facility], LAgatha, 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 Plan of Treatment Reminders Order Date Submit Date Provider Last Modified By Organization Details Last Modified Time Details Appointments None record ed. Lab None record ed. Referral None record ed. Procedures None record ed. Surgeries None record ed. Imaging None record ed. Medication Orders None record ed. Patient TargetsNo targets recorded. Patient Instructions Encounter Date Encounter Id Patient Instructions Last Modified By Organization Details Last Modified Time 01/06/2025 [id number] Follow up with PCP regarding chronic issues. [email or web address] Not available 01/06/2025 18:23:54 Reason for Referral None Reported. Results Created Date Observation Date Name Description Value Unit Range Abnormal Flag Note LastModifiedBy Organization Detail LastModifiedTime 01/02/2001/01/2025 CBC WBC 10.6 x10 4.0-10 .5 high Not Available [facility] [address] [facility] Raje Gopal [address], [place], [address], 01/01/2025 17:53:16 01/02/2001/01/2025 CBC RBC 3.56 x10 3.50-5 .50 Not Available [facility] [address] [facility] Anthonye Gopal [address], [place], [address], 01/01/2025 17:53:16 01/02/2001/01/2025 CBC HGB 11.0 g/dL 12.0-1 6.0 low Not Available [facility] [address] [facility] 1, [place], [address], 01/01/2025 17:53:16 01/02/20 25 01/01/2025 CBC HCT 34.2 % 37.0-4 7.0 low Not Available [facility] [address] [facility] 1, [place], [address], 01/01/2025 17:53:16 01/02/20 25 01/01/2025 CBC MCV 96.1 fL 80.0-9 9.9 Not Available [facility] [address] [facility] 1, [place], [address], 01/01/2025 17:53:16 01/02/20 25 01/01/2025 CBC MCH 31.0 pg 27.0-3 2.0 Not Available [facility] [address] [facility] 1, [place], [address], 01/01/2025 17:53:16 01/02/20 25 01/01/2025 CBC MCHC 32.3 g/dL 32.0-3 6.0 Not Available [facility] [address] [facility] 1, [place], [address], 01/01/2025 17:53:16 01/02/20 25 01/01/2025 CBC RDW 14.1 % 11.5-1 4.5 Not Available [facility] [address] [facility] Martinez [facility] 1, [place], [address], 01/01/2025 17:53:16 01/02/20 25 01/01/2025 CBC plt 444.4 x10 140.0- 451.0 Not Available [facility] [address] [facility] 1, [place], [address], 01/01/2025 17:53:16 01/02/20 25 01/01/2025 CBC lymphocytes % 27.1 % 20.0-5 0.0 Not Available [facility] [address] [facility], [place], [address], 01/01/2025 17:53:16 01/02/20 25 01/01/2025 CBC granulcytes % 63.3 % 30.0-7 0.0 Not Available [facility] [address] [facility] 1, [place], [address], 01/01/2025 17:53:16 01/02/20 25 01/01/2025 CBC monocytes % 8.2 % 2.0-16 .0 Not Available [facility] [address] [facility] 1, [place], [address], 01/01/2025 17:53:16 01/02/20 25 01/01/2025 CBC granulcytes# 6.7 x10 Not Camila ilable [facility] [address] [facility] 1, [place], [address], 01/01/2025 17:53:16 01/02/20 25 01/01/2025 CBC lymphocytes # 2.9 x10 Not Available [facility] [address] [facility] 1, [place], [address], 01/01/2025 17:53:16 01/02/20 25 01/01/2025 CBC monocytes # 0.9 x10 Not Avai lable [facility] [address] [facility] 1, [place], [address], 01/01/2025 17:53:16 01/02/20 25 01/01/2025 CMP (FEMA LE) glucose 92.0 mg/dL 60.0-9 9.0 Not Available [facility] [address] [facility], [place], [address], 01/01/2025 18:02:14 01/02/20 25 01/01/2025 CMP (FEMA LE) BUN (blood urea nitrogen) 12.0 mg/dL 10.0-2 6.0 Not Available [facility] [address] [facility] 1, [place], [address], 01/01/2025 18:02:14 01/02/20 25 01/01/2025 CMP (FEMA LE) creatinine (serum) 0.9 mg/dL 0.4-1. 5 Not Available [facility] [address] [facility], [place], [address], 01/01/2025 18:02:14 01/02/20 25 01/01/2025 CMP (FEMA LE) BUN/creatini ne ratio 13.33 ratio Not Available [facility] [address] [facility], [place], [address], 01/01/2025 18:02:14 01/02/2001/01/2025 CMP (FEMA LE) eGFR calculated 66.6 Not Available [facility] [address] [facility] Martinez [facility] 1, [place], [address], 01/01/2025 18:02:14 01/02/20 25 01/01/2025 CMP (FEMA LE) total protein 7.3 g/dL 6.0-8. 5 Not Available [facility] [address] [facility], [place], [address], 01/01/2025 18:02:14 01/02/2001/01/2025 CMP (FEMA LE) total bilirubin 0.4 mg/dL 0.2-1. 3 Not Available [facility] [address] [facility], [place], [address], 01/01/2025 18:02:14 01/02/2001/01/2025 CMP (FEMA LE) albumin 3.9 g/dL 3.5-5. 5 Not Available [facility] [address] [facility] 1, [place], [address], 01/01/2025 18:02:14 01/02/20 25 01/01/2025 CMP (FEMA LE) globulin 3.4 calc Not Available [facility] [address] [facility], [place], [address], 01/01/2025 18:02:14 01/02/20 25 01/01/2025 CMP (FEMA LE) AST (SGOT) 40.0 U/L 0.0-46 .0 Not Available [facility] [address] [facility], [place], [address], 01/01/2025 18:02:14 01/02/20 25 01/01/2025 CMP (FEMA LE) altv (SGPT) 13.0 U/L 13.0-6 9.0 normal Not Available [facility] [address] [facility], [place], [address], 01/01/2025 18:02:14 01/02/20 25 01/01/2025 CMP (FEMA LE) A/G ratio 1.1 ratio Not Available [facility] [address] [facility] 1, [place], [address], 01/01/2025 18:02:14 01/02/20 25 01/01/2025 CMP (FEMA LE) ALP phos 118.0 U/L 30.0-1 40.0 normal Not Available [facility] [address] [facility] 1, [place], [address], 01/01/2025 18:02:14 01/02/20 25 01/01/2025 CMP (FEMA LE) calcium 8.7 mg/dL 8.4-10 .5 Not Available [facility] [address] [facility] 1, [place], [address], 01/01/2025 18:02:14 01/02/2001/01/2025 CMP (FEMA LE) sodium 129.0 mmol/ L 136.0- 145.0 low Not Available [facility] [address] [facility], [place], [address], 01/01/2025 18:02:14 01/02/2001/01/2025 CMP (FEMA LE) potassium 4.4 mmol/ L 3.5-5. 1 Not Available [facility] [address] [facility] 1, [place], [address], 01/01/2025 18:02:14 01/02/2001/01/2025 CMP (FEMA LE) chloride 92.0 mmol/ L 98.0-1 10.0 abnormal Not Available [facility] [address] [facility] 1, [place], [address], 01/01/2025 18:02:14 01/02/2001/01/2025 CMP (FEMA LE) C02 30.0 mmol/ L 22.0-3 1.0 Not Available [facility] [address] [facility], [place], [address], 01/01/2025 18:02:14 01/02/2001/01/2025 CMP (FEMA LE) anion gap 7.0 calc Not Available [facility] [address] [facility] 1, [place], [address], 01/01/2025 18:02:14 01/02/2001/01/2025 CMP (FEMA LE) osmolality 266.6 calc Not Available [facility] [address] [facility] 1, [place], [address], 01/01/2025 18:02:14 01/02/20 25 01/01/2025 TSH TSH 2.02 uIU/m L 0.49-3 .82 Not Available [facility] 805 [facility] 1, [place], [address], 01/01/2025 18:06:39 01/02/20 25 01/03/2025 VITAM IN [...] pg/mL will have sympt oms. Not Available [facility] [address] [place], [address], 01/03/2025 05:49:18 Result Notes None recorded. Problems Name Problem SNOMED Code Status Onset Date Resolution Date Notes Provider Name and Address Organization Details Recorded Time Heartbur n 00724593 Active 2022 Yahaira gee [facility] 17:34:10 Hyperlip idemia 85118484 Active 2022 Yahaira gee [facility] 17:34:26 Insomnia 051945917 Active 2022 Yahaira gee [facility] 17:35:14 Spinal stenosis 23394526 Active 2022 Yahaira gee [facility] 17:36:26 Anxiety 79909032 Active 2022 Yahaira Bliss MD [address] [place], [address], [facility] 5 16:45:07 Sleep pattern disturba ore 40449118 Completed 202205/08/2024 Removal Reason: duplicat e Yahaira gee, [facility] 17:36:20 Depressi ve disorder 74745070 Active 2022 Yahaira Baca null, [facility] 17:33:28 Fibromya lgia 946494237 Active 2022 Yahaira gee, [facility] 17:33:51 Hypokale yun 75666927 Completed 202205/08/2024 Yahaira gee, [facility] 5 17:34:52 Hypothyr oidism 36147953 Active 2022 Yahaira gee, [facility] 5 17:34:38 Nausea 182125947 Completed 202205/08/2024 Yahaira Bliss MD [address] [place], [address], [facility] 5 17:37:57 Hypergly cemia 62469749 Active 2022 Yahaira gee, [facility] 5 17:34:16 Pain of left shoulder joint 45026067510 892271 Completed 202205/08/2024 Yahaira gee, [facility] 5 17:35:53 Neuropat hy 517125046 Active 2024 Yahaira gee [facility] 5 17:35:33 Obstruct arina sleep apnea syndrome 89288968 Active 2024 [facility] 5 17:35:39 Iliotibi al band friction syndrome of right knee 14492616719 9104 Active 2024 Yahaira gee, [facility] 5 17:35:05 Acute gastroen teritis 82307424 Completed 202407/02/2024 Yahaira gee, [facility] 5 14:31:28 Degenera tive rupture of medial meniscus of right knee 98625852485 600912 Active 2024 [facility] 5 14:31:43 Derangem ent of medial meniscus 855597077 Active 2024 Yahaira Keven [facility] 14:31:51 Arthriti s of right knee joint 26465956560 95159 Active 2024 Yahaira Bliss MD [address] [place] [address] , [facility] 16:44:04 Moderate major depressi on 196190 Active 2024 Yahaira Bliss MD [address] [place] [address], [facility] 16:44:20 Anemia 179225751 Active 2024 Yahaira Bliss MD [address] [place] [address], [facility] 10:30:12 Restless legs syndrome 86839075 Active 2024 Yahaira Bliss MD [address] [place] [address], [facility] 5 10:31:05 Nicotine dependen ce 44290787 Active 2024 Yahaira Bliss MD [address] [place] [address], [address], [facility] 5 10:31:21 Fatigue 34883161 Active 2024 Yahaira Bliss MD [address] [place] [address], [address], [facility] 5 17:35:14 Nausea 626137795 Active 2024 Yahaira Bliss MD [address] [place] [address], [address], [facility] 5 17:37:57 Impingem ent syndrome of right shoulder region 20418686828 9102 Active 2024 Yahaira Bliss MD [address] [place] [address], [address], [facility] 09:52:30 Problem Notes None recorded. Procedures Surgical History Date Name Laterality Status Provider Name and Address Organization Details Recorded Time 01/30 Joint Inj Kenalog- Shoulder, Hip, Knee completed Kaden Plasencia MD [address] [place] [address], [address], [facility] 4 12:49:01 11/10 Back Surgery completed MATEO JEFFERSON [facility] 4 11:35:24 05/31 Colonoscopy completed ALEXANDRIA NELSON [facility] 4 18:28:17 05/31 esophagogastroduodenosco py completed ALEXANDRIA NELSON [facility] 4 18:29:50 01/03 Joint Inj Kenalog- Shoulder, Hip, Knee completed Kaden Plasencia MD [address] [place] [address], [address], [facility] 3 16:02:36 06/15 Most Recent Mammogram completed ALEXANDRIA LESLIE [facility] 3 13:35:08 arthroscopy of right knee joint completed Adelso Cannon [facility] 5 17:19:08 Knee Surgery completed Yahaira Baca [facility] 5 16:45:27 Imaging Results None recorded. Procedure Notes None recorded. Medical Equipment None Reported. Allergies Allergen ID Allergen Name Allergen Category Reaction Reaction Severity Criticality Documentation Date Start Date Code Code System Note Provider Name and Address Organization Details Recorded Time 1162 morphine medicatio n itching Not available Not available 05/28/2022 7052 RxNorm TAHIR gee [facility] 3 17:33:03 43800 propoxyph ivan hydrochlo ride medicatio n nausea Not available Not available 09/18/2022 80501 RxNorm React ion: Nause a, Vomit ing; Comme nt: Recor ded 04/16 12:05 PM by Scotty Epstein , Offic e Visit ; Promo gabby; Signi fican ce: *; ; Not Available [facility] 3 02:28:20 66652 morphine sulfate medicatio n rash Not available Not available 09/18/2022 71553 RxNorm React ion: Pruri tus, Rash; Comme nt: Recor ded 04/16 12:05 PM by Scotty Epstein , Offic e Visit ; Promo gabby; Signi fican ce: *; ; Not Available [facility] 3 02:28:21 Medications Name Sig Start Date [...] 22 1:30PM by Kay Molina LPN (Authori idaniad through Kaden Plasencia MD), Office Visit; Refill [...] Not Available Not Available No t Available [place]-3 01/30 completed Not Available Not Available Not [...] Updated DateTime 5 154.94 cm 30.2 kg/m2 25304.7 8 g 19 /min 84 /min 99 % 99.3 [degF] 140/60 mm[Hg] Marilia Cannon [facility] 5 18:14:03 Social History Question Answer Notes LastModified by [employer] Details LastModified Time Tobacco Smoking Status Current Every Day Smoker pt also vapdelroy gee [facility] 05/16/2023 11:49:39 Are You Blind Or Do You Have Difficulty Seeing? No Information not available 08/03/2022 What Is Your Level Of Caffeine Consumption? Moderate Information not available 05/09/2024 Are You Deaf Or Do You Have Serious Difficulty Hearing? No Information not available 08/03/2022 Which Illicit Or Recreational Drugs Have You Used? THC Gummy Information not available 08/20/2024 What Was The Date Of Your Most Recent Tobacco Screening? 01/01/2025 Information not available 01/01/2025 What Is Your Current Pack Years? 30ormorepack years [email or web address] Information not available 03/19/2024 What Is Your Relationship Status? Information not available 08/03/2022 At What Age Did You Start Smoking Tobacco? 16 Information not available 08/03/2022 Sex: Unknown Functional Status Question Answer Note LastModified by Organizat ion Details LastModified Time Do you use any illicit or recreational drugs? Yes [email or web address] Information not available 08/20/2024 What is your level of alcohol consumption? Occasional Information not available 01/31/2024 Are you able to care for yourself independently? Yes [email or web address] Information not available 08/03/2022 Mental Status None recorded. Family History Nothing Reported Notes:Diabetes Mellitus, Mot her; In good health: Denied, Father; In good health: Denied Mother: Completed Stroke, Hypertension Medical History Condition Response Coronary Artery Disease N Gout N Other N Blood Diseases N Kidney Stones N Hyperthyroidism N Blood Transfusion N Breast Cancer N Depression N COPD N Lung Disease [...] Time pneumococcal, unspecified formulation 3 completed ALEXANDRIA gee [facility] 02/02/2023 15:53:06 Influenza, split virus, trivalent, preservative 2 completed ALEXANDRIA gee [facility] LIsraelLIsraelCIsrael 02/02/2023 15:53:06 Influenza, split virus, trivalent, preservative 8 caroline gee [facility] L[facility]LIsraelCIsrael 02/02/2023 15:53:06 pneumococcal polysaccharide PPV23 8 caroline gee [facility] 02/02/2023 15:53:06 Influenza, split virus, trivalent, preservative 6 completed ALEXANDRIAQUEENIE NELSON [facility], [facility] 02/02/2023 15:53:06 Influenza, split virus, trivalent, preservative 3 completed ALEXANDRIA gee, [facility] 02/02/2023 15:53:06 Influenza, split virus, trivalent, preservative 5 completed ALEXANDRIA LESLIE [facility], [facility] 02/02/2023 15:53:06 Influenza, split virus, trivalent, preservative 4 completed [facility] 02/02/2023 15:53:06 Influenza, split virus, trivalent, preservative 3 completed ALEXANDRIA NELSON [facility], [facility] 02/02/2023 15:53:06 COVID-19, mRNA, LNP-S, PF, 50 mcg/0.5 mL 3 completed EMELY PERRIN, [address], [address], [facility] 01/28/2023 14:52:30 RSV, recombinant, protein subunit RSVpreF, adjuvant reconstituted, 0.5 mL, PF 3 completed ALEXANDRIA LESLIE [facility] 02/02/2023 15:53:06 Influenza, high-dose, trivalent, PF 4 completed [facility] Available [facility] 01/01/2025 16:54:35 Influenza, split virus, quadrivalent, PF 3 completed EMELY PERRIN, [facility] [address] [place], [address], [facility] 02/03/2023 14:14:02 COVID-19, mRNA, LNP-S, PF, 100 mcg/0.5mL dose or 50 mcg/0.25mL dose 1 completed EMELY PERRIN, [address], [address], [facility] 01/28/2023 14:52:30 COVID-19, mRNA, LNP-S, PF, 100 mcg/0.5mL dose or 50 mcg/0.25mL dose 1 completed EMELY PERRIN, [address], [address], [facility] 01/28/2023 14:52:30 COVID-19, mRNA, LNP-S, PF, 100 mcg/0.5mL dose or 50 mcg/0.25mL dose 2 completed EMELY PERRIN, [address], [address], [facility] 01/28/2023 14:52:30 COVID-19, mRNA, LNP-S, PF, 100 mcg/0.5mL dose or 50 mcg/0.25mL dose 1 completed EMELY PERRIN [address], [address], [facility] 01/28/2023 14:52:30 COVID-19, mRNA, LNP-S, bivalent, PF, 50 mcg/0.5 mL or 25mcg/0.25 mL dose 2 completed EMELY PERRIN, [address], [address], [facility] 01/28/2023 14:52:30 Tdap 3 completed EMELY PERRIN, CHAINER [address] [place], [address], [facility] 01/28/2023 14:52:30 Influenza, split virus, quadrivalent, PF 1 completed EMELY PERRIN, [facility] [address] [place], [address], [facility] 01/28/2023 14:52:30 Influenza, split virus, quadrivalent, PF 2 completed EMELY MARYCHUY, [facility] [place], [address], [facility] 01/28/2023 14:52:30 Past Encounters Encounter ID Performer Location Encounter Start Date Encounter Closed Date Diagnosis/Indication Diagnosis SNOMED-CT Code Diagnosis ICD10 Code Diagnosis IMO Codes Diagnosis Note [id number] Yahaira Bliss MD [facility] ([facility]) [address] [place] [phone] 12/17/2024 16:32:25 12/18/2024 10:05:51 Nausea 867949178 R11.0 - Discontinu e ineffectiv e antiemetic and consider alternativ es. - Monitor for medication correlatio n to guide future interventi ons. Postoperative pain 41881 9007 G89.18 - Evaluate pain medication options with preference for non-opioid management . - Support ongoing physical therapy to alleviate post-surgi dolores pain. [id number] Yahaira Bliss MD [facility] ([facility]) [address] [place] [address] 01/01/2025 16:54:17 01/01/2025 17:57:54 Fatigue 58592063 R53.83 88033247 - Conduct laboratory tests to evaluate anemia or other causes. 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 - Review and adjust medication s if they contribute to symptoms. Nausea 089802110 R11.0 22008 - Use scopolamin e patches for symptomati c relief. - Review medication s to assess for contributo rs. - Switch ineffectiv e antiemetic agents as needed. Impingemen t syndrome of right shoulder region 2809103736 56246 M75.41 0443136 - Avoid frequent corticoste roid shots unless necessary. - Encourage home exercise guided by health profession als. We will send referral to home health as she is currently home bound. [id number] DAVI GOODWIN APRN [facility] ([facility]) [address] [place] [address] 01/06/2025 18:03:19 01/07/2025 17:00:05 Abrasion and/or friction burn of skin 647963882 T14.8XXA 065960 Health Concerns Section Related Observation LastModified by Organization Detai ls LastModified Time None Recorded Concern Status LastModified by Organization Details LastModified Time None Recorded Payers Encounter Date Sequence Insurance Name Policy Number Policy Workman Covered Member ID Workman Member ID Guarantor Name 01/06/2025 1 [id number]A DVANT[place] - PPO) [id number] Edna V Vazquez [id number] Edna V Vazquez Notes Date Note Type Note Provider Name and Address Organization Details Recorded Time 01/06/2025 text/html Skin LesionRepor gabby by PatientHPIFor location, patient reportsarm. For duration, patient [email or web address] days. For timing, patient reportsabrupt. For context, patient reportstrauma. For alleviating factors, patient reportsnone. For aggravating factors, patient reportsnone. For associated symptoms, patient reportsno fever,no nausea,no vomiting,no scabbing,no bruising, andno draining. For prior treatments, patient reportsnone.ROS as noted in the HPI Walk In-She was at [facility] last and cut her left forearm on a shelf. Pt. reports no redness, swelling or drainage. PCP-Dr.Crase DAVI GOODWIN APRN [address] [place], [address], [place] - Nikolai Hopi [facility], Nick 01/06/2025 18:24:05 OBGyn Episode No OBEpisode recorded.
--- NOTE | 2025-01-11 14:19 | ECG_ITS ---
[facility] Test Date: 2025-01-11 Pat Name: Edna Shukla Department: Room: Gender: Female Orthodontist Assistant: : 1960 Requested By: Shivam Benson Order Number: [id number] Sujata MD: Anna Marquez M.D. Measurements Intervals [place] Rate: 84 P: 46 [place]: 180 QRS: 18 QRSD: 75 T: 42 QT: 354 QTc: 420 Interpretive Statements SINUS RHYTHM No previous ECG available for comparison Electronically Signed On 01-12-2025 13:58:54 EDGER MACHINE OPERATOR by Anna Marquez M.D. [email or web address]
--- NOTE | 2025-01-11 14:19 | XR_ITS ---
WS: [id number] XR chest 1V portable [id number] REASON FOR EXAM: chest pain FINDINGS: The heart and the mediastinum are within normal limits. Calcified granulomatous disease in both hemithoraces. No acute pulmonary parenchymal or pleural abnormality. Blunting of the right costophrenic angle which may be chronic. Probable complete tear of the right rotator cuff tendon. Mild degenerative spondylosis in the thoracic spine. XR/XR chest 1V portable [id number] IMPRESSION: Blunting of the right costophrenic angle as above. Otherwise no significant abn ormality of the chest.
[2025-01-11 14:42] LABS: Hematocrit 30.1 % (36-47); Hemoglobin 9.90 g/dL (11.27-16.99); Mean Corpuscular HGB Conc 32.9 g/dL (30-55); Mean Corpuscular Hemoglobin 31.5 pg (27-33); Mean Corpuscular Volume 95.9 fl (85-98); Nucleated Red Blood Cells % 0 %; Platelet Count 346 10^3/cmm (157-399); Red Blood Count 3.14 10^6/uL (3.85-5.65); White Blood Count 6.24 10^3/uL (3.29-11.43)
--- NOTE | 2025-01-11 14:47 | ED_ITS ---
HPI - Chest Pain 2 General: Chief Complaint: Chest Pain Stated Complaint: chest pain / knee pain Time Seen by Provider: 01/11/25 14:19 History of Present Illness: 64-year-old female presents emergency ro om complaining primarily of knee pain that began last night. 7 weeks ago she had surgery with Dr. Wilkinson wound is healed well she has not had any fever sweats or chills send increasing pain overnight no recent trauma or fall. Also complaining some mild chest congestion and discomfort does not radiate into her neck back or arms she has no history of DVT she is not on any anticoagulants. She is a smoker. She has not noticed any redness erythema or swelling to the knee is just very uncomfortable. No pain in the calf or thigh. Associated symptoms: Deny abdominal pain, dyspnea or fever(s) Related Data Home Medications ?Medication ?Instructions ?Recorded ?Confirmed modafinil 200 mg tablet (Provigil) 200 mg PO QAM 06/1701/11/25 montelukast 10 mg tablet 10 mg PO DAILY 06/17/2012/23 (Singulair) atorvastatin 40 mg tablet 40 mg PO BEDTIME PRN cholest maria l 09/07/24 01/11/25 bupropion HCl 300 mg 24 hr tablet, 300 mg PO QAM 09/0701/11/25 extended release (Wellbutrin XL) potassium chloride 20 mEq 20 meq PO DAILY 09/07/24 tablet,extended release buspirone 10 mg tablet 10 mg PO BID PRN Anxiety 01/11/25 celecoxib 200 mg capsule 200 mg PO BID PRN Pain 01/1101/11/25 ondansetron 4 mg disintegrating 4 mg PO Q8H PRN Pain 1 03/13/24 01/11/25 tablet polyethylene glycol 3350 17 17 g PO DAILY PRN laxative effect 01/11/25 01/11/25 gram/dose oral powder (Miralax) scopolamine base 1 mg over 3 days 1 patch topical .Q72 H PRN Nausea 01/11/25 01/11/25 transdermal patch Previous Rx's ?Medication ?Instructions ?Recorded pantoprazole 40 mg tablet,delayed 40 mg PO BID 30 days #60 tabs 10/10/23 release (Protonix) gabapentin 300 mg capsule 300 mg PO QID nerve pain #36 0 caps 01/03/24 levothyroxine 25 mcg tablet 25 mcg PO DAILY thyroid replacement #90 tabs Knee Immobilizer #1 ea 09/20/24 Bone Growth Stimulator #1 ea 11/13/24 metoclopramide HCl 10 mg tablet 10 mg PO Q8H PRN nause a and 11/27/24 (Reglan) vomiting 30 days #90 tabs oxycodone-acetaminophen 7.5 mg-325 1 tab PO Q6H PRN pa in 7 days #28 01/16/25 mg tablet (Percocet) tabs Allergies Allergy/AdvReac Type Severity Reaction Status Date / Time morphine Allergy Mild ADR-Itching Verified 01/22/25 18:26 Review of Systems 2 Const: Denies: fever(s) or chills Card: Denies: chest pain Resp: Denies: dyspnea GI: Denies: abdominal pain : Denies: dysuria, urinary frequency or urinary urgency Musc: Denies: neck pain or back pain Skin/Breast: Denies: rash PFSH ED 2 PFSH: Medical History GERD with esophagitis CKD stage 3a, GFR 45-59 ml/min Adult BMI 30+ JAMES (obstructive sleep apnea) Hypothyroidism Osteoarthritis Dyslipidemia Depression RLS (restless legs syndrome) Fibromyalgia Surgical History H/O knee surgery Right - lap. H/O: hysterectomy Partial Family History Father Diabetes Stroke Mother Heart disease Other CAD (coronary artery disease) Social History Smoking and tobacco/nicotine status: former use of tobacco/nicotine Alcohol intake: current Alcohol intake frequency: holidays/special occasions only Substance/Drug Use: never Physical Exam 2 Const: GENERAL APPEARANCE: cooperative ORIENTATION/CONSCIOUSNESS: Yes awake, Yes oriented to person, Yes oriented to place and Yes oriented to time HENMT: COMMON NORMALS: normocephalic, atraumatic and hearing grossly normal bilaterally HEAD & SCALP: normocephalic and atraumatic Resp: COMMON NORMALS: normal respiratory effort, No retractions, No use of accessory muscles and clear to auscultation bilaterally AUSCULTATION: clear to auscultation bilaterally Cardio: COMMON NORMALS: regular rate, regular rhythm and No murmurs present (Cardio) RATE: regular rate RHYTHM: regular rhythm GI: COMMON NORMALS: Soft to palpation and No hepatosplenomegaly present A USCULTATION: Yes normoactive bowel sounds PALPATION: Yes Soft to palpation, No Tenderness to palpation present (GI), No Guarding due to palpation present (GI) and Yes No hepatosplenomegaly present Extremity: COMMON NORMALS: capillary refill normal, no clubbing, cyanosis or edema, no calf tenderness and no pedal edema OTHER: Wound is healing well well-healed incision no signs of infection no erythema minimal localized swelling negative Homans no edema no erythema Neuro: SENSORIUM/ORIENTATION: Yes oriented to person, Yes oriented to place and Yes oriented to time Skin: COMMON NORMALS: no rashes or lesions noted GENERAL SKIN EXAM: no rashes or lesions noted Course 2 Vital Signs: Vital signs: Vital Signs Temperature 98.3 F 01/11/25 13:48 Pulse Rate 86 01/11/25 18:12 Respiratory Rate 18 01/11/25 13:48 Blood Pressure 151/89 01/11/25 18:12 Pulse Oximetry 97 01/11/25 18:12 Oxygen Delivery Me thod Room Air 01/11/25 17:30 MDM - Chest Pain Medical Decision Making Medical decision making Social determinants: Some limitations to ADLs due to recovering from knee arthroplasty I reviewed the patient's medical record. I reviewed the patient's current home meds> Alternate historians: None Differential diagnosis: For knee pain: Fracture versus septic joint versus postop pain. Chest pain acute coronary syndrome versus pneumonia versus pulmonary embolism Lab Review: Normal white count. Chemistry elevated alk phos likely due to her recent surgery only minimally elevated. Troponins trended negative. Imaging: Knee x-ray unremarkable chest x-ray small pleural effusion. Assessment of risk Level of risk: Low Hospitalization considerations: Pending evaluation the patient does have signs of acute coronary syndrome may need hospitalization Reexamination: Knee pain improved denies further chest pain Assessment and plan: Patient downplays chest pain is much more concerned about her knee pain. On exam negative Homans' sign there is no significant swelling all of her discomfort is focal to the knee. Discussed with Dr. Hayes. Discharge patient home continue previously prescribed oxycodone from Dr. Hayes and follow-up with Dr. Hayes's office. Return if has further problems or change of symptoms Lab Data 01/11/25 14:36 01/11/25 14:36 Radiology Impressions Chest X-Ray 01/11/25 14:19 IMPRESSION: Blunting of the right costophrenic angle as above. Otherwise no significant abnormality of the chest. Knee X-Ray 01/11/25 14:52 IMPRESSION: Stable postoperative right knee. Laboratory Results WBC 6.24 10^3/uL (3.29-11.43) 01/11/25 14:36 RBC 3.14 10^6/uL (3.85-5.65) L 01/11/25 14:36 Hgb 9.90 g/dL (11.27-16.99) L 01/11/25 14:36 Hct 30.1 % (36-47) L 01/11/25 14:36 MCV 95.9 fl (85-98) 01/11/25 14:36 MCH 31.5 pg (27-33) 01/11/25 14:36 MCHC 32.9 g/dL (30-55) 01/11/25 14:36 RDW 14.8 % (12.1-15.1) 01/11/25 14:36 Plt Count 346 10^3/cmm (157-399) 01/11/25 14:36 MPV 9.5 fL (7.4-10.4) 01/11/25 14:36 Neut % (Auto) 69.4 % 01/11/25 14:36 Lymph % (Auto) 23.1 % 01/11/25 14:36 Starke % (Auto) 5.9 % 01/11/25 14:36 Eos % (Auto) 0.6 % 01/11/25 14:36 Baso % (Auto) 0.8 % 01/11/25 14:36 Neut # (Auto) 4.33 10^3/uL (1.8-7.7) 01/11/25 14:36 Lymph # (Auto) 1.4 10^3/uL (0.8-4.8) 01/11/25 14:36 Starke # (Auto) 0.4 10^3/uL (0.2-0.9) 01/11/25 14:36 Eos # (Auto) 0.0 10^3/uL (0.0-0.8) 01/11/25 14:36 Baso # (Auto) 0.1 10^3/uL (0.0-0.1) 01/11/25 14:36 Nucleated RBC % (auto) 0 % 01/11/25 14:36 Nucleated RBCs # 0.0 /100WBC 01/11/25 14:36 Sodium 131 mmol/L (136-145) L 01/11/25 14:36 Potassium 4.6 mmol/L (3.5-5.1) 01/11/25 14:36 Chloride 94 mmol/L (98-107) L 01/11/25 14:36 Carbon Dioxide 28 mmol/L (22-29) 01/11/25 14:36 Anion Gap 13.6 (5-19) 01/11/25 14:36 BUN 7 mg/dL (8-23) L 01/11/25 14:36 Creatinine 0.7 mg/dL (0.5-0.9) 01/11/25 14:36 GFR Calculation 83.7 mL/min (90-130) L 01/11/25 14:36 Glucose 86 mg/dL (65-115) 01/11/25 14:36 Calculated Osmolality 269 mOsm/kg (285-295) L 01/11/25 14:36 Calcium 9.1 mg/dL (8.5-10.5) 01/11/25 14:36 Total Bilirubin 0.2 mg/dL (0.15-1.2) 01/11/25 14:36 AST 14 U/L (0-32) 01/11/25 14:36 ALT 7 U/L (0-33) 01/11/25 14:36 Alkaline Phosphatase 116 U/L (35-105) H 01/11/25 14:36 Troponin T Baseline 12 ng/L (0-10) H 01/11/25 14:36 Troponin T 120 Minute 9.36 ng/L (0-10) 01/11/25 16:28 Delta Troponin T -2.64 ABS# (0-10) L 01/11/25 16:28 C-Reactive Protein 3.0 mg/L (0.0-4.9) 01/11/25 14:36 Total Protein 6.2 g/dL (6.6-8.7) L 01/11/25 14:36 Albumin 3.9 g/dL (3.5-5.2) 01/11/25 14:36 Globulin 2.3 g/dL (1.3-4.6) 01/11/25 14:36 All radiology interpretation(s) finalized by discharge EKG Data EKG 1: I personally reviewed and interpreted this EKG as follows: Interpretation: EKG sinus rhythm rate of 84 RI interval 180 [address]Tc [address] changes. No EKGs available for comparison EKG 2: Interpretation: EKG 01/11/2025 1626 sinus rhythm rate of 72 RI interval 194 QTc 440 Discharge Plan Discharge Patient Disposition: Home Clinical Impression: Acute knee pain, Atypical chest pain Condition: Stable Prescriptions: No Action modafinil [Provigil] 200 mg tablet 200 mg PO QAM montelukast [Singulair] 10 mg tablet 10 mg PO DAILY pantoprazole [Protonix] 40 mg tablet,delayed release (DR/EC) 40 mg PO BID 30 Days Qty: 60 11RF (DME) Knee Immobilizer See Rx Instructions .Route .MEDSUPPLY Qty: 1 0RF Rx Instructions: As directed metoclopramide HCl [Reglan] 10 mg tablet 10 mg PO Q8H PRN (Reason: nausea and vomiting) 30 Days Qty: 90 0RF gabapentin 300 mg capsule 300 mg PO QID Qty: 360 0RF levothyroxine 25 mcg tablet 25 mcg PO DAILY Qty: 90 0RF (DME) Bone Growth Stimulator See Rx Instructions .Route .MEDSUPPLY Qty: 1 0RF Rx Instructions: As directed oxycodone-acetaminophen [Percocet] 7.5-325 mg tablet 1 tab PO Q6H PRN (Reason: pain) 7 Days Qty: 28 0RF Rx Instructions: DOS 11/14/2024 atorvastatin 40 mg tablet 40 mg PO BEDTIME PRN (Reason: cholesterol) bupropion HCl [Wellbutrin XL] 300 mg tablet extended release 24 hr 300 mg PO QAM potassium chloride 20 mEq tablet extended release 20 meq PO DAILY buspirone 10 mg tablet 10 mg PO BID PRN (Reason: Anxiety) celecoxib 200 mg capsule 200 mg PO BID PRN (Reason: Pain) scopolamine base 1 mg over 3 days patch 3 day 1 patch topical .Q72H PRN (Reason: Nausea) polyethylene glycol 3350 [Miralax] 17 gram/dose powder 17 g PO DAILY PRN (Reason: laxative effect) ondansetron 4 mg tablet,disintegrating 4 mg PO Q8H PRN (Reason: Pain) Discharge Orders: Discharge ED (Routine); Ordered 01/11/25 Ordered By: Shivam Limon Referrals: Imtiaz Bliss MD [Primary Care Provider, Family Practice] Discharge Diet: Usual diet Discharge Activity: Limit activity as instructed Patient Instructions: Opioid Safety, Pain Management, Patient Portal & Yoko Instructions Activity Restrictions/Additional Instructions: Thank you for choosing [facility] for your healthcare needs today. It is very important that you follow up as instructed or that you return to the Emergency Department should you have concerns or if your condition changes or worsens in any way. Emergency department visits are focused on emergent conditions, in some cases you may require further evaluation on an outpatient basis. You were seen in the emergency room with complaints of right knee pain and chest pain. Your cardiac enzymes and EKG are normal is not signs of acute coronary syndrome pulmonary embolism pneumonia or pneumothorax. Your oxygen saturations are normal and your heart rate remained normal. Your white count was normal no signs of infection in the knee. Suspect it is inflammation likely related to your previous surgery. Use your previously prescribed pain medications elevate the knee and apply ice when you are able for 20 minutes at a time. Follow-up with your orthopedist next week. (Please note that included in your discharge packet is information concerning opioid safety and pain management. This information is given to all patients were discharged from the ER regardless of their discharge diagnosis or the medicines they usually take or are prescribed.) Print Language: Serbian Coding Level of Care Code ED [employer] Resource Teacher for Chg Fwd Heart Score HEART Score Components History: Slightly Suspicous EKG: Normal Age: 65 or more yrs Risk Factors: 1 or 2 Risk Factors Troponin: Baseline Trop <16 ng/L HEART Score RESULT HEART Score: 3
--- NOTE | 2025-01-11 14:52 | XR_ITS ---
WS: [id number] XR knee RT 3V* [id number] REASON FOR EXAM: Pain FINDINGS: Complex plate and screw fixation of recent patellar fracture. Surgical appliances are intact and in proper position and alignment unchanged compared to 01/03/2025. Fracture fragment apposition and alignment is unchanged compared to the previous study. The remainder of the examination is unchanged compared to the previous study. There is moderate to significant osteoarthritis in the medial joint space and the patellofemoral joint space. XR/XR knee RT 3V* [id number] IMPRESSION: Stable postoperative right knee.
[2025-01-11 15:07] LABS: Alanine Aminotransferase 7 U/L (0-33); Albumin Level 3.9 g/dL (3.5-5.2); Alkaline Phosphatase 116 U/L (35-105); Anion Gap 13.6 (5-19); Aspartate Amino Transferase 14 U/L (0-32); Blood Urea Nitrogen 7 mg/dL (8-23); Calcium 9.1 mg/dL (8.5-10.5); Carbon Dioxide 28 mmol/L (22-29); Chloride 94 mmol/L (98-107); Globulin 2.3 g/dL (1.3-4.6); Glucose 86 mg/dL (65-115); Osmolality Calculated 269 mOsm/kg (285-295); Potassium 4.6 mmol/L (3.5-5.1); Sodium 131 mmol/L (136-145); Total Protein 6.2 g/dL (6.6-8.7)
[2025-01-11 15:09] LABS: Troponin(5th) Baseline 12 ng/L (0-10)
[2025-01-11 15:52] VITALS: BP 143/78; PULSE 71; O2SAT 96
[2025-01-11 16:00] VITALS: BP 155/76; PULSE 71; O2SAT 98
--- NOTE | 2025-01-11 16:26 | ECG_ITS ---
[facility] Test Date: 2025-01-11 Pat Name: Edna Shukla Department: Room: Gender: Female Endoscopy Registered Nurse: : 1960 Requested By: Shivam Benson Order Number: [id number] Sujata MD: Anna Marquez M.D. Measurements Intervals [place] Rate: 72 P: 41 [place]: 194 QRS: 29 QRSD: 80 T: 46 QT: 402 QTc: 440 Interpretive Statements SINUS RHYTHM Compared to ECG 01/11/2025 13:53:16 No significant changes Electronically Signed On 01-12-2025 14:19:44 DIRECTOR OF MARKETING COMMUNICATIONS by Anna Marquez M.D. [email or web address]
[2025-01-11 16:30] VITALS: BP 154/75; PULSE 77; O2SAT 99
[2025-01-11 16:53] LABS: Troponin 5 2HR 9.36 ng/L (0-10)
[2025-01-11 16:56] LABS: Troponin 5 2HR Delta -2.64 ABS# (0-10)
[2025-01-11 17:30] VITALS: BP 165/88; PULSE 71; O2SAT 99
[2025-01-11] MEDS: fentaNYL 50 mcg/mL INJ 2mL 25 MCG IVP (18:05)
[2025-01-11 18:12] VITALS: BP 151/89; PULSE 86; O2SAT 97
== END 2025-01-11 18:13 | disposition home or self-care (01) ==
PROVIDERS: Emergency Provider Family Medicine; PCP Family Medicine
DX: M25.561 Pain in right knee (principal); R07.89 Other chest pain; Z87.891 Personal history of nicotine dependence; E78.5 Hyperlipidemia, unspecified; N18.31 Chronic kidney disease, stage 3a
CPT/HCPCS: 36415; 71045; 73562; 80053; 84484; 85025; 86140; 93005; 96374; 99284; J3010; J9999

== ENCOUNTER 2025-01-22 18:17 | Emergency (ER) | payer MEDICARE, SELFPAY ==
[2025-01-22 18:18] VITALS: BP 149/78; PULSE 62; RESP 18; TEMP 36.8; O2SAT 98; BMI 30.2
--- OUTSIDE RECORDS SUMMARY | 2025-01-22 18:27 | XMS_ITS | Encounter Summary ---
Author Organization [facility] Address [address] [place] [address] Care Team Providers Care Substation Electrician Name Role Phone Unavailable Primary Care Provider Unavailabl e Encounter Details Date Type Department Care Team (Latest Contact Info) Description 02/04/2006 Outpatient Historical [facility] OBGYN-[address] [place] [id number] Jun Whitehead MD NO ADDRESS ON FILE Follow-Up Examination, Following Unspecified Surgery (Primary Dx); Unspecified Prolapse of Vaginal Ordonez; Endometriosis of Uterus; Excessive Menstruation Social History Tobacco Use Types Packs/Day Years Used Date Smoking Tobacco: Never Assessed Comments Unknown Sex and Gender Information Value Date Recorded Sex Assigned at Not on file 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
--- OUTSIDE RECORDS SUMMARY | 2025-01-22 18:27 | XMS_ITS | Encounter Summary ---
Author Organization [facility] Address [address] [place] [address] Care Team Providers Care Lithopone Charger Name Role Phone Unavailable Primary Care Provider Unavailabl e Encounter Details Date Type Department Care Team (Latest Contact Info) Description 12/08/2005 Outpatient Historical [facility] OBGYN-[address] [place] [phone] Jun Whitehead MD NO ADDRESS ON FILE Excessive Menstruation (Primary Dx); Irregular Menstruation; Examination or Test, Negative Result Social History Tobacco Use Types Packs/Day Years Used Date Smoking Tobacco: Never Assessed Comments Unknown Sex and Gender Information Value Date Recorded Sex Assigned at Not on file 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
--- OUTSIDE RECORDS SUMMARY | 2025-01-22 18:27 | XMS_ITS | Encounter Summary ---
Author Organization [facility] Address [address] [place] [address] Care Team Providers Care Windows Phone Developer Name Role Phone Unavailable Primary Care Provider Unavailabl e Encounter Details Date Type Department Care Team (Latest Contact Info) Description 2005 Outpatient Historical [facility] [address] [place] [phone] Jun Whitehead MD NO ADDRESS ON FILE Other Specified Pre-Operative Examination (Primary Dx) Social History Tobacco Use Types Packs/Day Years Used Date Smoking Tobacco: Never Assessed Comments Unknown Sex and Gender Information Value Date Recorded Sex Assigned at Not on file Legal Sex Female 6:06 AM REIMBURSEMENT LIAISON Gender Identity Not on file Sexual Orientation Not on file documented as of this encounter Plan of Treatment Not on file documented as of this encounter Procedures Procedure Name Priority Date/Time Associated Diagnosis Comments CBC WITH DIFFERENTIAL Routine 2005 2:05 PM REIMBURSEMENT LIAISON HCG QUANTITATIVE, BLOOD Routine 2005 2:05 PM REIMBURSEMENT LIAISON documented in this encounter Results * HCG QUANTITATIVE, BLOOD (2005 2:05 PM REIMBURSEMENT LIAISON) CHORIONIC GONADOTROPIN, TOTAL <2.0 0.0 - 10.0 [...] during normal , as reported by the business management manager, are summarized as follows: Gestational Age Expected hCG Values(mIU/ml) 0.2-1 Weeks 5 - 50 1-2 Weeks 50 - 500 2-3 Weeks 100 - 5,000 3-4 Weeks 1,000 - 50,000 5-6 Weeks 10,000 - 100,000 6-8 Weeks 15,000 - 200,000 2-3 Months 10,000 - 100,000 2005 2:05 PM REIMBURSEMENT LIAISON W Michelet Whitehead MD CHEMISTRY ORDERABLES Final R esult INTERFACE SYSTEM Refer to clinic/hospital department * CBC WITH DIFFERENTIAL (2005 2:05 PM REIMBURSEMENT LIAISON) WBC 8.9 4.5 - 11.0 K/ul INTERFACE [...] 0.2 K/ul INTERFACE SYSTEM 2005 2:05 PM REIMBURSEMENT LIAISON W Michelet Whitehead MD HEMATOLOGY ORDERABLES Final Result INTERFACE SYSTEM Refer to clinic/hospital department documented in this encounter Visit Diagnoses Diagnosis Other specified pre-operative examination- Primary documented in this encounter
--- OUTSIDE RECORDS SUMMARY | 2025-01-22 18:27 | XMS_ITS | Continuity of Care Document ---
Author Organization [facility] Nikolai Stephens [facility], LAgatha, [facility] ([facility]) Address [address] [place] [address] Care Team Providers Care Floor Polisher Name Role Phone YAHAIRA BLISS Primary Care [...] By Organization Details Last Modified Time 01/06/2025 [id number] Follow up with PCP regarding chronic issues. [email or web address] Not available 01/06/2025 18:23:54 Reason for Referral None Reported. Results Created Date Observation Date Name Description Value Unit Range Abnormal Flag Note LastModifiedBy Organization Detail LastModifiedTime 01/02/2001/01/2025 CBC WBC 10.6 x10 4.0-10 .5 high Not Available [facility] [address] [facility] [address], [place], [address], 01/01/2025 17:53:16 01/02/2001/01/2025 CBC RBC 3.56 x10 3.50-5 .50 Not Available [facility] [address] [facility] [address], [place], [address], 01/01/2025 17:53:16 01/02/2001/01/2025 CBC HGB 11.0 g/dL 12.0-1 6.0 low Not Available [facility] [address] [facility] 1, [place], [address], 01/01/2025 17:53:16 01/02/20 25 01/01/2025 CBC HCT 34.2 % 37.0-4 7.0 low Not Available [facility] [address] [facility] 1, [place], [address], 01/01/2025 17:53:16 01/02/20 25 01/01/2025 CBC MCV 96.1 fL 80.0-9 9.[address] [facility] [address] [facility] 1, [place], [address], 01/01/2025 17:53:16 01/02/20 25 01/01/2025 CBC MCH 31.0 pg 27.0-3 2.[address] [facility] [address] [facility] 1, [place], [address], 01/01/2025 17:53:16 01/02/20 25 01/01/2025 CBC MCHC 32.3 g/dL 32.0-3 6.[address] [facility] [address] [facility] 1, [place], [address], 01/01/2025 17:53:16 01/02/20 25 01/01/2025 CBC RDW 14.1 % 11.5-1 4.[address] [facility] [address] [facility] 1, [place], [address], 01/01/2025 17:53:16 01/02/20 25 01/01/2025 CBC plt 444.4 x10 140.0- 451.[address] [facility] [address] [facility] 1, [place], [address], 01/01/2025 17:53:16 01/02/20 25 01/01/2025 CBC lymphocytes % 27.1 % 20.0-5 0.[address] [facility] [address] [facility] 1, [place], [address], 01/01/2025 17:53:16 01/02/20 25 01/01/2025 CBC granulcytes % 63.3 % 30.0-7 0.[address] [facility] [address] [facility] 1, [place], [address], 01/01/2025 17:53:16 01/02/20 25 01/01/2025 CBC monocytes % 8.2 % 2.0-16 .0 Not Available [facility] [address] [facility] 1, [place], [address], 01/01/2025 17:53:16 01/02/20 25 01/01/2025 CBC granulcytes# 6.7 x10 Not Camila ilable [facility] [address] [facility] 1, [place], [address], 01/01/2025 17:53:16 01/02/20 25 01/01/2025 CBC lymphocytes # 2.9 x10 Not Available [facility] [address] [facility] 1, [place], [address], 01/01/2025 17:53:16 01/02/20 25 01/01/2025 CBC monocytes # 0.9 x10 Not Avai lable [facility] [address] [facility] 1, [place], [address], 01/01/2025 17:53:16 01/02/20 25 01/01/2025 CMP (FEMA LE) glucose 92.0 mg/dL 60.0-9 9.0 Not Available [facility] [address] [facility] 1, [place], [address], 01/01/2025 18:02:14 01/02/20 25 01/01/2025 CMP (FEMA LE) BUN (blood urea nitrogen) 12.0 mg/dL 10.0-2 6.0 Not Available [facility] [address] [facility] 1, [place], [address], 01/01/2025 18:02:14 01/02/20 25 01/01/2025 CMP (FEMA LE) creatinine (serum) 0.9 mg/dL 0.4-1. 5 Not Available [facility] [address] [facility], [place], [address], 01/01/2025 18:02:14 01/02/20 25 01/01/2025 CMP (FEMA LE) BUN/creatini ne ratio 13.33 ratio Not Available [facility] [address] [facility], [place], [address], 01/01/2025 18:02:14 01/02/2001/01/2025 CMP (FEMA LE) eGFR calculated 66.6 Not Available [facility] [address] [facility] 1, [place], [address], 01/01/2025 18:02:14 01/02/20 25 01/01/2025 CMP (FEMA LE) total protein 7.3 g/dL 6.0-8. 5 Not Available [facility] [address] [facility], [place], [address], 01/01/2025 18:02:14 01/02/2001/01/2025 CMP (FEMA LE) total bilirubin 0.4 mg/dL 0.2-1. 3 Not Available [facility] [address] [facility] [facility], [place], [address], 01/01/2025 18:02:14 01/02/2001/01/2025 CMP (FEMA LE) albumin 3.9 g/dL 3.5-5. [address] [facility] [address] [facility] Martinez [facility] 1, [place], [address], 01/01/2025 18:02:14 01/02/20 25 01/01/2025 CMP (FEMA LE) globulin 3.4 calc Not Available [facility] [address] [facility], [place], [address], 01/01/2025 18:02:14 01/02/20 25 01/01/2025 CMP (FEMA LE) AST (SGOT) 40.0 U/L 0.0-46 .0 Not Available [facility] [address] [facility], [place], [address], 01/01/2025 18:02:14 01/02/20 25 01/01/2025 CMP (FEMA LE) altv (SGPT) 13.0 U/L 13.0-6 9.0 normal Not Available [facility] [address] [facility], [place], [address], 01/01/2025 18:02:14 01/02/20 25 01/01/2025 CMP (FEMA LE) A/G ratio 1.1 ratio Not Available [facility] [address] [facility] 1, [place], [address], 01/01/2025 18:02:14 01/02/20 25 01/01/2025 CMP (FEMA LE) ALP phos 118.0 U/L 30.0-1 40.0 normal Not Available [facility] [address] [facility] 1, [place], [address], 01/01/2025 18:02:14 01/02/20 25 01/01/2025 CMP (FEMA LE) calcium 8.7 mg/dL 8.4-10 .[address] [facility] [address] [facility] 1, [place], [address], 01/01/2025 18:02:14 01/02/2001/01/2025 CMP (FEMA LE) sodium 129.0 mmol/ L 136.0- 145.0 low Not Available [facility] [address] [facility], [place], [address], 01/01/2025 18:02:14 01/02/2001/01/2025 CMP (FEMA LE) potassium 4.4 mmol/ L 3.5-5. [address] [facility] [address] [facility] 1, [place], [address], 01/01/2025 18:02:14 01/02/2001/01/2025 CMP (FEMA LE) chloride 92.0 mmol/ L 98.0-1 10.0 abnormal Not Available [facility] [address] [facility] 1, [place], [address], 01/01/2025 18:02:14 01/02/2001/01/2025 CMP (FEMA LE) C02 30.0 mmol/ L 22.0-3 1.[address] [facility] [address] [facility], [place], [address], 01/01/2025 18:02:14 01/02/2001/01/2025 CMP (FEMA LE) anion gap 7.0 calc Not Available [facility] [address] [facility] 1, [place], [address], 01/01/2025 18:02:14 01/02/2001/01/2025 CMP (FEMA LE) osmolality 266.6 calc Not Available [facility] [address] [facility] 1, [place], [address], 01/01/2025 18:02:14 01/02/20 25 01/01/2025 TSH TSH 2.02 uIU/m L 0.49-3 .82 Not Available [facility] [address] [facility] 1, [place], [address], 01/01/2025 18:06:39 01/02/20 25 01/03/2025 VITAM IN [...] pg/mL will have sympt oms. Not Available [employer] [facility] [address] [place], [address], 01/03/2025 05:49:18 Result Notes None recorded. Problems Name Problem SNOMED Code Status Onset Date Resolution Date Notes Provider Name and Address Organization Details Recorded Time Heartbur n 28514192 Active 2022 Yahaira gee [facility] 17:34:10 Hyperlip idemia 88027995 Active 2022 Yahaira gee [facility] 17:34:26 Insomnia 339048328 Active 2022 Yahaira gee [facility] 17:35:14 Spinal stenosis 42453338 Active 2022 Yahaira gee [facility] 17:36:26 Anxiety 41099755 Active 2022 Yahaira Bliss MD [address] [place], [address], [facility] 5 16:45:07 Sleep pattern disturba wae 40856204 Completed 202205/08/2024 Removal Reason: duplicat e Yahaira gee, [facility] 17:36:20 Depressi ve disorder 44306937 Active 2022 Yahaira Baca null, [facility] 17:33:28 Fibromya lgia 075374904 Active 2022 Yahaira gee, [facility] 17:33:51 Hypokale yun 31660413 Completed 202205/08/2024 Yahaira gee, [facility] 5 17:34:52 Hypothyr oidism 35648390 Active 2022 Yahaira gee, [facility] 5 17:34:38 Nausea 027438765 Completed 202205/08/2024 Yahaira Bliss MD [address] [place], [address], [facility] 5 17:37:57 Hypergly cemia 18602308 Active 2022 Yahaira gee, [facility] 5 17:34:16 Pain of left shoulder joint 31961801247 100010 Completed 202205/08/2024 Yahaira gee, [facility] 5 17:35:53 Neuropat hy 147324935 Active 2024 Yahaira gee [facility] 5 17:35:33 Obstruct arina sleep apnea syndrome 08550501 [facility] 20[facility] 17:35:39 Iliotibi al band friction syndrome of right knee 80144505066 9104 Active 2024 Yahaira gee, [facility] 5 17:35:05 Acute gastroen teritis 46514538 Completed 202407/02/2024 Yahaira gee, [facility] 5 14:31:28 Degenera tive rupture of medial meniscus of right knee 69540230088 365244 Active 2024 [facility] 14:31:43 Derangem ent of medial meniscus 483754144 Active 2024 [facility]aira [facility]even [facility] 14:31:51 Arthriti s of right knee joint 25828921483 84360 Active 2024 Yahaira Bliss MD [address] [place] [address] , [facility] 16:44:04 Moderate major depressi on 844359 Active 2024 Yahaira Bliss MD [address] [place] [address], [facility] 16:44:20 Anemia 642561747 Active 2024 Yahaira Bliss MD [address] [place] [address], [facility] 10:30:12 Restless legs syndrome 95574565 Active 2024 Yahaira Bliss MD [address] [place] [address], [facility] 5 10:31:05 Nicotine dependen ce 43838461 Active 2024 Yahaira Bliss MD [address] [place] [address], [address], [facility] 5 10:31:21 Fatigue 95183860 Active 2024 Yahaira Bliss MD [address] [place] [address], [address], [facility] 5 17:35:14 Nausea 867931440 Active 2024 Yahaira Bliss MD [address] [place] [address], [address], [facility] 5 17:37:57 Impingem ent syndrome of right shoulder region 90024349892 9102 Active 2024 Yahaira Bliss MD [address] [place] [address], [address], [facility] 09:52:30 Problem Notes None recorded. Procedures Surgical History Date Name Laterality Status Provider Name and Address Organization Details Recorded Time 01/30 Joint Inj Kenalog- Shoulder, Hip, Knee completed Kaden Plasencia MD [address] [place] [address], [phone], [facility] 4 12:49:01 11/10 Back Surgery completed MATEO JEFFERSON [facility] 4 11:35:24 05/31 Colonoscopy completed ALEXANDRIA NELSON [facility] 4 18:28:17 05/31 esophagogastroduodenosco py completed ALEXANDRIA NELSON [facility] 4 18:29:50 01/03 Joint Inj Kenalog- Shoulder, Hip, Knee completed Kaden Plasencia MD [address] [place] [address], [phone], [facility] 3 16:02:36 06/15 Most Recent Mammogram completed ALEXANDRIA LESLIE [facility] 3 13:35:08 arthroscopy of right knee joint completed Adelso Cannon [facility] 5 17:19:08 Knee Surgery completed Yahaira Baca [facility] 5 16:45:27 Imaging Results None recorded. Procedure Notes None recorded. Medical Equipment None Reported. Allergies Allergen ID Allergen Name Allergen Category Reaction Reaction Severity Criticality Documentation Date Start Date Code Code System Note Provider Name and Address Organization Details Recorded Time 1162 morphine medicatio n itching Not available Not available 05/28/2022 7052 RxNorm TAHIR gee [facility] 3 17:33:03 69207 propoxyph ivan hydrochlo ride medicatio n nausea Not available Not available 09/18/2022 31189 RxNorm React ion: Nause a, Vomit ing; Comme nt: Recor ded 04/16 12:05 PM by Scotty Epstein , Offic e Visit ; Promo gabby; Signi fican ce: *; ; Not Available [employer] 3 02:28:20 86309 morphine sulfate medicatio n rash Not available Not available 09/18/2022 17700 RxNorm React ion: Pruri tus, Rash; Comme [...] -acetamin ophen 7.5 mg-325 mg tablet TAKE ONE TABLET BY MOUTH EVERY 6 HOURS NEEDED [...] Not Available Not Available No t Available [place]-3 01/30 completed Not Available Not Available Not [...] Updated DateTime 5 154.94 cm 30.2 kg/m2 21851.7 8 g 19 /min 84 /min 99 % 99.3 [degF] 140/60 mm[Hg] Marilia Cannon [facility] 5 18:14:03 Social History Question Answer Notes LastModified by [employer] Details LastModified Time Tobacco Smoking Status Current Every Day Smoker pt also andree gee [facility] 05/16/2023 11:49:39 Are You Blind Or Do You Have Difficulty Seeing? No Information not available 08/03/2022 What Is Your Level Of Caffeine Consumption? Moderate [email or web address] Information not available 05/09/2024 Are You Deaf Or Do You Have Serious Difficulty Hearing? No Information not available 08/03/2022 Which Illicit Or Recreational Drugs Have You Used? THC Gummy [email or web address] Information not available 08/20/2024 What Was The [...] pneumococcal, unspecified formulation 3 completed ALEXANDRIA gee [facility] 02/02/2023 15:53:06 Influenza, split virus, trivalent, preservative 2 completed ALEXANDRIA gee [facility] 02/02/2023 15:53:06 Influenza, split virus, trivalent, preservative 8 caroline gee [facility] 02/02/2023 15:53:06 pneumococcal polysaccharide PPV23 8 caroline gee [facility] 02/02/2023 15:53:06 Influenza, split virus, trivalent, preservative 6 completed ALEXANDRIA LESLIE [facility] 02/02/2023 15:53:06 Influenza, split virus, trivalent, preservative 3 completed [facility] 02/02/2023 15:53:06 Influenza, split virus, trivalent, preservative 5 completed FITHIAN LESLIE [facility] 02/02/2023 15:53:06 Influenza, split virus, trivalent, preservative 4 completed FITHIAN LESLIE [facility] 02/02/2023 15:53:06 Influenza, split virus, trivalent, preservative 3 completed ALEXANDRIA LESLIE [facility] 02/02/2023 15:53:06 COVID-19, mRNA, LNP-S, PF, 50 mcg/0.5 mL 3 completed EMELY PERRIN, [address], [address], [facility] 01/28/2023 14:52:30 RSV, recombinant, protein subunit RSVpreF, adjuvant reconstituted, 0.5 mL, PF 3 completed [facility] 02/02/2023 15:53:06 Influenza, high-dose, trivalent, PF 4 completed [facility] Available [facility] 01/01/2025 16:54:35 Influenza, split virus, quadrivalent, PF 3 completed EMELY PERRIN, [facility] [address] [place], [address], [facility] 02/03/2023 14:14:02 COVID-19, mRNA, LNP-S, PF, 100 mcg/0.5mL dose or 50 mcg/0.25mL dose 1 completed EMELY PERRIN, [address], [address], [facility] 01/28/2023 14:52:30 COVID-19, mRNA, LNP-S, PF, 100 mcg/0.5mL dose or 50 mcg/0.25mL dose 1 completed EMELY PERRIN, [address], [address], [facility] 01/28/2023 14:52:30 COVID-19, mRNA, LNP-S, PF, 100 mcg/0.5mL dose or 50 mcg/0.25mL dose 2 completed EMELY PERRIN, [address], [address], [facility] 01/28/2023 14:52:30 COVID-19, mRNA, LNP-S, PF, 100 mcg/0.5mL dose or 50 mcg/0.25mL dose 1 completed EMELY PERRIN [address], [address], [facility] 01/28/2023 14:52:30 COVID-19, mRNA, LNP-S, bivalent, PF, 50 mcg/0.5 mL or 25mcg/0.25 mL dose 2 completed [address], [address], [facility] 01/28/2023 14:52:30 Tdap 3 completed EMELY PERRIN, [address] [place], [address], [facility] 01/28/2023 14:52:30 Influenza, split virus, quadrivalent, PF 1 completed EMELY PERRIN, [facility] [address] [place], [address], [facility] 01/28/2023 14:52:30 Influenza, split virus, quadrivalent, PF 2 completed EMELYZack ABRAMSMARYCHUY, [facility] [address] [place], [address], [facility] 01/28/2023 14:52:30 Past Encounters Encounter ID Performer Location Encounter Start Date Encounter Closed Date Diagnosis/Indication Diagnosis SNOMED-CT Code Diagnosis ICD10 Code Diagnosis IMO Codes Diagnosis Note [id number] Yahaira Bliss MD [facility] ([facility]) [address] [place] [phone] 12/17/2024 16:32:25 12/18/2024 10:05:51 Nausea 878654606 R11.0 - Discontinu e ineffectiv e antiemetic and consider alternativ es. - Monitor for medication correlatio n to guide future interventi ons. Postoperative pain 62498 9007 G89.18 - Evaluate pain medication options with preference for non-opioid management . - Support ongoing physical therapy to alleviate post-surgi dolores pain. [id number] Yahaira Bliss MD [facility] ([facility]) [address] [place] [phone] 01/01/2025 16:54:17 01/01/2025 17:57:54 Fatigue 20801962 R53.83 75017461 - Conduct laboratory tests to evaluate anemia or other causes. - [place]man on dietary modificati ons for increased protein intake. - Review and adjust medication s if they contribute to symptoms. Nausea 939727003 R11.0 71035 - Use scopolamin e patches for symptomati c relief. - Review medication s to assess for contributo rs. - Switch ineffectiv e antiemetic agents as needed. Impingemen t syndrome of right shoulder region 2566635768 44334 M75.41 8275849 - Avoid frequent corticoste roid shots unless necessary. - Encourage home exercise guided by health profession als. We will send referral to home health as she is currently home bound. [id number] DAVI GOODWIN APRN [facility] [address] [place] [address] 01/06/2025 18:03:19 01/07/2025 17:00:05 Abrasion and/or friction burn of skin 334781387 T14.8XXA 117433 Health Concerns Section Related Observation LastModified by Organization Detai ls LastModified Time None Recorded Concern Status LastModified by Organization Details LastModified Time None Recorded Payers Encounter Date Sequence Insurance Name Policy Number Policy Workman Covered Member ID Workman Member ID Guarantor Name 01/06/2025 1 [id number]A DVANTAGE - PPO) [id number] Edna V Vazquez [id number] Edna V Vazquez Notes Date Note Type Note Provider Name and Address Organization Details Recorded Time 01/06/2025 text/html Skin LesionRepor gabby by PatientHPIFor location, patient reportsarm. For duration, patient emfziis22 days. For timing, patient reportsabrupt. For context, patient reportstrauma. For alleviating factors, patient reportsnone. For aggravating factors, patient reportsnone. For associated symptoms, patient reportsno fever,no nausea,no vomiting,no scabbing,no bruising, andno draining. For prior treatments, patient reportsnone.ROS as noted in the HPI Walk In-She was at [facility] last and cut her left forearm on a shelf. Pt. reports no redness, swelling or drainage. PCP-Dr.Crase DAVI GOODWIN, ROMELIA [address] [place] [address], [phone], [facility] 01/06/2025 18:24:05 OBGyn Episode No OBEpisode recorded.
--- OUTSIDE RECORDS SUMMARY | 2025-01-22 18:27 | XMS_ITS | Data Portability ---
Author Organization VENKATESH Stephens [facility], [place], [facility] Address [address] [address] [place] [address] Care Team Providers Care Side Laster Staple Name Role Phone YAHAIRA BLISS Primary Care [...] 025 [facility], [address] [place] [facility], [place], [address], 18:02:14 CBC 2024 025 [facility], [address] [facility], [place], [address], 17:53:17 TSH, serum or plasma 2024 025 [email or web address] [facility] ([facility]), [address] [place], [address], 17:49:18 vitamin B12, serum 2024 025 [place], [address] [place] [address], [address] [place], [address], 05:49:18 Referral home health referral 2024 [email or web address] [facility], [address] [place], [address], 16:35:12 Procedures None recorded. Surgeries None recorded. Imaging None recorded. Medication Orders scopolamine 1 mg over 3 days transdermal patch 2024 025 [facility], [address] [place] [address], [address], 18:04:57 ondansetron 4 mg disintegrat ing tablet [address], [address], 17:39:20 ropinirole 3 mg tablet [address], [address], 18:51:00 hydrocodone 5 mg-acetamin ophen 325 mg tablet 2024 025 [email or web address] 23 [facility], [address] [place] [address], [address], 16:42:41 buspirone 10 mg tablet 2024 025 [facility] [place], [address] [place], [address], 18:41:19 Patient TargetsNo targets recorded. Patient Instructions Encounter Date Encounter Id Patient Instructions Last Modified By Organization Details Last Modified Time 08/20/2024 [id number] smoking cessatio n counseling, greater than 3 minutes up to 10 minutes dcrase Not available 08/22/2024 10:32:12 12/17/2024 [id number] - Continue takin g Zofran if needed [...] effects. [email or web address] Not available 12/17/2024 17:12:08 01/01/2025 [id number] - Get the flu vaccination today. - [...] adjustments. [email or web address] Not available 01/01/2025 17:41:09 01/06/2025 [id number] Follow up with P CP regarding chronic [...] x10 4.0-10 .5 high Not Available [facility] [address] [facility] 1, [place], [address], 01/01/2025 17:53:16 01/02/2001/01/2025 CBC RBC 3.56 x10 3.50-5 .50 Not Available [facility] [address] [facility] 1, [place], [address], 01/01/2025 17:53:16 01/02/20 25 01/01/2025 CBC HGB 11.0 g/dL 12.0-1 6.0 low Not Available [facility] [address] [facility] 1, [place], [address], 01/01/2025 17:53:16 01/02/20 25 01/01/2025 CBC HCT 34.2 % 37.0-4 7.0 low Not Available [facility] [address] [facility] 1, [place], [address], 01/01/2025 17:53:16 01/02/20 25 01/01/2025 CBC MCV 96.1 fL 80.0-9 9.9 Not Available [facility] [address] Jay Jay Martinez [facility] 1, [place], [address], 01/01/2025 17:53:16 01/02/20 25 01/01/2025 CBC MCH 31.0 pg 27.0-3 2.0 Not Available [facility] [address] [facility] 1, [place], [address], 01/01/2025 17:53:16 01/02/20 25 01/01/2025 CBC MCHC 32.3 g/dL 32.0-3 6.0 Not Available [facility] [address] [facility] 1, [place], [address], 01/01/2025 17:53:16 01/02/20 25 01/01/2025 CBC RDW 14.1 % 11.5-1 4.5 Not Available [facility] [address] [facility] 1, [place], [address], 01/01/2025 17:53:16 01/02/20 25 01/01/2025 CBC plt 444.4 x10 140.0- 451.0 Not Available [facility] [address] [facility] 1, [place], [address], 01/01/2025 17:53:16 01/02/20 25 01/01/2025 CBC lymphocytes % 27.1 % 20.0-5 0.0 Not Available [facility] [address] [facility] 1, [place], [address], 01/01/2025 17:53:16 01/02/20 25 01/01/2025 CBC granulcytes % 63.3 % 30.0-7 0.0 Not Available [facility] [address] [facility] 1, [place], [address], 01/01/2025 17:53:16 01/02/20 25 01/01/2025 CBC monocytes % 8.2 % 2.0-16 .0 Not Available [facility] [address] [facility] [address] [address], [place], [address], 01/01/2025 17:53:16 01/02/20 25 01/01/2025 CBC granulcytes# 6.7 x10 Not Camila ilable [facility] [address] [address], [place], [address], 01/01/2025 17:53:16 01/02/20 25 01/01/2025 CBC lymphocytes # 2.9 x10 Not Available [facility] [address] [address], [place], [address], 01/01/2025 17:53:16 01/02/20 25 01/01/2025 CBC monocytes # 0.9 x10 Not Avai lable [facility] [address] [address], [place], [address], 01/01/2025 17:53:16 01/02/20 25 01/01/2025 CMP (FEMA LE) glucose 92.0 mg/dL 60.0-9 9.0 Not Available [facility] [address] [address], [place], [address], 01/01/2025 18:02:14 01/02/20 25 01/01/2025 CMP (FEMA LE) BUN (blood urea nitrogen) 12.0 mg/dL 10.0-2 6.0 Not Available [facility] [address] [address], [place], [address], 01/01/2025 18:02:14 01/02/20 25 01/01/2025 CMP (FEMA LE) creatinine (serum) 0.9 mg/dL 0.4-1. 5 Not Available [facility] [address] [address], [place], [address], 01/01/2025 18:02:14 01/02/20 25 01/01/2025 CMP (FEMA LE) BUN/creatini ne ratio 13.33 ratio Not Available [facility] [address] [facility], [place], [address], 01/01/2025 18:02:14 01/02/20 25 01/01/2025 CMP (FEMA LE) eGFR calculated 66.6 Not Available [facility] [address] [facility] 1, [place], [address], 01/01/2025 18:02:14 01/02/20 25 01/01/2025 CMP (FEMA LE) total protein 7.3 g/dL 6.0-8. 5 Not Available [facility] [address] [facility] 1, [place], [address], 01/01/2025 18:02:14 01/02/20 25 01/01/2025 CMP (FEMA LE) total bilirubin 0.4 mg/dL 0.2-1. 3 Not Available [facility] [address] [facility] 1, [place], [address], 01/01/2025 18:02:14 01/02/20 25 01/01/2025 CMP (FEMA LE) albumin 3.9 g/dL 3.5-5. 5 Not Available [facility] [address] [facility] 1, [place], [address], 01/01/2025 18:02:14 01/02/20 25 01/01/2025 CMP (FEMA LE) globulin 3.4 calc Not Available [facility] [address] [facility] 1, [place], [address], 01/01/2025 18:02:14 01/02/20 25 01/01/2025 CMP (FEMA LE) AST (SGOT) 40.0 U/L 0.0-46 .0 Not Available [facility] [address] [place] [facility], [place], [address], 01/01/2025 18:02:14 01/02/20 25 01/01/2025 CMP (FEMA LE) altv (SGPT) 13.0 U/L 13.0-6 9.0 normal Not Available [facility] [address] [facility] 1, [place], [address], 01/01/2025 18:02:14 01/02/20 25 01/01/2025 CMP (FEMA LE) A/G ratio 1.1 ratio Not Available [facility] [address] [facility] 1, [place], [address], 01/01/2025 18:02:14 01/02/20 25 01/01/2025 CMP (FEMA LE) ALP phos 118.0 U/L 30.0-1 40.0 normal Not Available [facility] [address] [facility] 1, [place], [address], 01/01/2025 18:02:14 01/02/20 25 01/01/2025 CMP (FEMA LE) calcium 8.7 mg/dL 8.4-10 .5 Not Available [facility] [address] [facility] 1, [place], [address], 01/01/2025 18:02:14 01/02/20 25 01/01/2025 CMP (FEMA LE) sodium 129.0 mmol/ L 136.0- 145.0 low Not Available [facility] [address] [facility] 1, [place], [address], 01/01/2025 18:02:14 01/02/20 25 01/01/2025 CMP (FEMA LE) potassium 4.4 mmol/ L 3.5-5. 1 Not Available [facility] [address] [place] [facility], [place], [address], 01/01/2025 18:02:14 01/02/2001/01/2025 CMP (FEMA LE) chloride 92.0 mmol/ L 98.0-1 10.0 abnormal Not Available [facility] [address] [facility] 1, [place], [address], 01/01/2025 18:02:14 01/02/2001/01/2025 CMP (FEMA LE) C02 30.0 mmol/ L 22.0-3 1.0 Not Available [facility] [address] [facility] 1, [place], [address], 01/01/2025 18:02:14 01/02/2001/01/2025 CMP (FEMA LE) anion gap 7.0 calc Not Available [facility] [address] [facility] 1, [place], [address], 01/01/2025 18:02:14 01/02/2001/01/2025 CMP (FEMA LE) osmolality 266.6 calc Not Available [facility] [address] [facility] 1, [place], [address], 01/01/2025 18:02:14 01/02/2001/01/2025 TSH TSH 2.02 uIU/m L 0.49-3 .82 Not Available [facility] [address] [place] [facility], [place], [address], 01/01/2025 18:06:39 01/02/2001/03/2025 VITAM IN B12 vitamin [...] pg/mL will have sympt oms. Not Available [facility] [address], [place], [address], 01/03/2025 05:49:18 07/21/19 25 07/20/2024 MAMMO , scree nisreen, digit al, bilat eral No observ ation record ed. [facility] [address] [place], [address], 07/23/2024 12:20:37 Result Notes None recorded. Problems Name Problem SNOMED Code Status Onset Date Resolution Date Notes Provider Name and Address Organization Details Recorded Time Heartbur n 90518279 Active 2022 Yahaira gee [facility] 17:34:10 Hyperlip idemia 66967146 Active 2022 Yahaira gee [facility] 17:34:26 Insomnia 638170863 Active 2022 Yahaira gee [facility] 17:35:14 Spinal stenosis 13513685 Active 2022 Yahaira gee [facility] 17:36:26 Anxiety 03102158 Active 2022 Yahaira Bliss MD [address] [place] [address], [address], [facility]Israel 16:45:07 Sleep pattern disturba ore 26236116 Completed 202205/08/2024 Removal Reason: duplicat e Yahaira gee [facility] 17:36:20 Depressi ve disorder 45599915 Active 2022 Yahaira gee [facility] 5 17:33:28 Fibromya lgia 658771834 Active 2022 Yahaira gee, [facility] 5 17:33:51 Hypokale yun 27390042 Completed 202205/08/2024 Yahaira gee, [facility] 5 17:34:52 Hypothyr oidism 83037625 Active 2022 [facility] 17:34:38 Nausea 185519223 Completed 202205/08/2024 Yahaira Bliss MD [address] [place] [address], [address], [facility] 17:37:57 Hypergly cemia 82591763 Active 2022 [facility] 5 17:34:16 Pain of left shoulder joint 23302174210 122805 Completed 202205/08/2024 Yahaira gee [facility] 5 17:35:53 Neuropat hy 006656789 Active 2024 Yahaira gee [facility] 5 17:35:33 Obstruct arina sleep apnea syndrome 27221911 Active 2024 [facility] 5 17:35:39 Iliotibi al band friction syndrome of right knee 05113025643 9104 Active 2024 Yahaira gee [facility] 5 17:35:05 Acute gastroen teritis 21556931 Completed 202407/02/2024 Yahaira gee [facility] 14:31:28 Degenera tive rupture of medial meniscus of right knee 89446131318 136030 Active 2024 Yahaira gee [facility] 5 14:31:43 Derangem ent of medial meniscus 298145919 Active 2024 Yahaira gee [facility] 14:31:51 Arthriti s of right knee joint 47682731528 94086 Active 2024 Yahaira Bliss MD [address] [place] [address], [address], [facility] 16:44:04 Moderate major depressi on 692937 Active 2024 Yahaira Bliss MD [address] [place] [address], [address], [facility] 16:44:20 Anemia 133993213 Active 2024 Yahaira Bliss MD [address] [place] [address], [address], [facility] 10:30:12 Restless legs syndrome 98363900 Active 2024 Yahaira Bliss MD [address] [place] [address], [address], [facility] 5 10:31:05 Nicotine dependen ce 74496232 Active 2024 Yahaira Bliss MD [address] [place] [address], [address], [facility] 5 10:31:21 Fatigue 78930383 Active 2024 Yahaira Bliss MD [address] [place] [address], [address], [facility] 5 17:35:14 Nausea 998923391 Active 2024 Yahaira Bliss MD [address] [place] [address], [address], [facility] 5 17:37:57 Impingem ent syndrome of right shoulder region 41658446830 9102 Active 2024 Yaharia Bliss MD [address] [place] [address], [address], [facility] 5 09:52:30 Problem Notes None recorded. Procedures Surgical History Date Name Laterality Status Provider Name and Address Organization Details Recorded Time 01/30 Joint Inj Kenalog- Shoulder, Hip, Knee completed Kaden Plasencia MD [address] [place] [address], [address], [facility] 4 12:49:01 11/10 Back Surgery completed MATEO JEFFERSON [facility] 4 11:35:24 05/31 Colonoscopy completed ALEXANDRIA NELSON [facility] 4 18:28:17 05/31 esophagogastroduodenosco py completed ALEXANDRIA NELSON [facility] 4 18:29:50 01/03 Joint Inj Kenalog- Shoulder, Hip, Knee completed Kaden Plasencia MD [address] [place] [address], [address], [facility] 3 16:02:36 06/15 Most Recent Mammogram completed ALEXANDRIA NELSON [facility] L.LYajaira 3 13:35:08 arthroscopy of right knee joint completed Adelso Cannon [facility] LIsraelLYajaira 5 17:19:08 Knee Surgery completed Yahaira Baca [facility] L.LYajaira 5 16:45:27 Imaging Results None recorded. Procedure Notes None recorded. Medical Equipment None Reported. Allergies Allergen ID Allergen Name Allergen Category Reaction Reaction Severity Criticality Documentation Date Start Date Code Code System Note Provider Name and Address Organization Details Recorded Time 1162 morphine medicatio n itching Not available Not available 05/28/2022 7052 RxNorm TAHIR gee [facility] Nick 3 17:33:03 64661 propoxyph ivan hydrochlo ride medicatio n nausea Not available Not available 09/18/2022 51580 RxNorm React ion: Nause a, Vomit ing; Comme nt: Recor ded 04/16 12:05 PM by Scotty Epstein , Offic e Visit ; Promo gabby; Signi ficbrenton ce: *; ; Not Available [facility] 3 02:28:20 32612 morphine sulfate medicatio n rash Not available Not available 09/18/2022 73836 RxNorm React ion: Pruri tus, Rash; Comme nt: Recor ded 04/16 12:05 PM by Scotty Epstein Offic e Visit ; Promo gabby; Signbhaskar welsh ce: *; ; Not Available [facility] 3 02:28:21 Medications Name Sig Start [...] Not Available Not Available No t Available [place]-3 01/30 completed Not Available Not Available Not [...] Updated DateTime 5 154.94 cm 29.9 kg/m2 43949.5 9 g 98 % 96 /min 18 /min 97.2 [degF] 122/82 mm[Hg] Yahaira [facility] 5 16:26:42 Date Recorded Body height Body mass index (BMI) Body weight Body temperature Heart rate Oxygen saturation Systolic And Diastolic Provider Name and Address Organization Details Last Updated DateTime 5 154.94 cm 31 kg/m2 74813.1 5 g 98.8 [degF] 86 /min 97 % 160/86 mm[Hg] [facility] 5 17:16:45 Date Recorded Body height Oxygen saturation Respiratory rate Body temperature Heart rate Systolic And Diastolic Provider Name and Address Organization Details Last Updated DateTime 5 154.94 cm 96 % 20 /min 97.5 [degF] 92 /min 136/86 mm[Hg] Yahaira [facility] 5 17:03:04 Date Recorded Body height Body mass index (BMI) Body weight Body temperature Oxygen saturation Heart rate Systolic And Diastolic Provider Name and Address Organization Details Last Updated DateTime 5 154.94 cm 30.2 kg/m2 00444.7 8 g 97.4 [degF] 98 % 87 /min 120/68 mm[Hg] [facility] 5 17:09:58 Date Recorded Body height Body mass index (BMI) Body weight Respiratory rate Heart rate Oxygen saturation Body temperature Systolic And Diastolic Provider Name and Address Organization Details Last Updated DateTime 5 154.94 cm 30.2 kg/m2 26149.7 8 g 19 /min 84 /min 99 % 99.3 [degF] 140/60 mm[Hg] Marilia Cannon [facility] 5 18:14:03 Social History Question Answer Notes LastModified by Organizat ion Details LastModified Time Tobacco Smoking Status Current Every Day Smoker pt also vapdelroy JEFFERSON null, [facility] Nick 05/16/2023 11:49:39 Are You Blind Or Do You Have Difficulty Seeing? No Information not available 08/03/2022 What Is Your Level Of Caffeine Consumption? Moderate [email or web address] Information not available 05/09/2024 Are You Deaf Or Do You Have Serious Difficulty Hearing? No Information not available 08/03/2022 Which Illicit Or Recreational Drugs Have You Used? THC Gummy Information not available 08/20/2024 What Was The Date Of Your Most Recent Tobacco Screening? 01/01/2025 [email or web address] Information not available 01/01/2025 What Is Your Current Pack Years? 30ormorepack years [email or web address] Information not available 03/19/2024 What Is Your [...] Time pneumococcal, unspecified formulation 3 completed ALEXANDRIA NELSON [facility] 02/02/2023 15:53:06 Influenza, split virus, trivalent, preservative 2 completed ALEXANDRIA NELSON [facility] 02/02/2023 15:53:06 Influenza, split virus, trivalent, preservative 8 completed ALEXANDRIA NELSON [facility] 02/02/2023 15:53:06 pneumococcal polysaccharide PPV23 8 completed ALEXANDRIA NELSON [facility] 02/02/2023 15:53:06 Influenza, split virus, trivalent, preservative 6 completed ALEXANDRIA NELSON [facility] 02/02/2023 15:53:06 Influenza, split virus, trivalent, preservative 3 completed ALEXANDRIA NELSON [facility] 02/02/2023 15:53:06 Influenza, split virus, trivalent, preservative 5 completed ALEXANDRIA NELSON [facility] 02/02/2023 15:53:06 Influenza, split virus, trivalent, preservative 4 completed ALEXANDRIA NELSON null, [facility] 02/02/2023 15:53:06 Influenza, split virus, trivalent, preservative 3 completed ALEXANDRIA gee, [facility] 02/02/2023 15:53:06 COVID-19, mRNA, LNP-S, PF, 50 mcg/0.5 mL 3 completed EMELY PERRIN, [address], [address], [facility] 01/28/2023 14:52:30 RSV, recombinant, protein subunit RSVpreF, adjuvant reconstituted, 0.5 mL, PF 3 completed ALEXANDRIA gee, [facility] 02/02/2023 15:53:06 Influenza, high-dose, trivalent, PF 4 completed Not Available [facility] 01/01/2025 16:54:35 Influenza, split virus, quadrivalent, PF 3 completed EMELY PERRIN, [address], [address], [facility] 02/03/2023 14:14:02 COVID-19, mRNA, LNP-S, PF, 100 mcg/0.5mL dose or 50 mcg/0.25mL dose 1 completed EMELY PERRIN [address], [address], [facility] 01/28/2023 14:52:30 COVID-19, mRNA, LNP-S, PF, 100 mcg/0.5mL dose or 50 mcg/0.25mL dose 1 completed EMELY PERRIN [address], [address], [facility] 01/28/2023 14:52:30 COVID-19, mRNA, LNP-S, PF, 100 mcg/0.5mL dose or 50 mcg/0.25mL dose 2 completed EMELY PERRIN, [address], [address], [facility] 01/28/2023 14:52:30 COVID-19, mRNA, LNP-S, PF, 100 mcg/0.5mL dose or 50 mcg/0.25mL dose 1 completed EMELY PERRIN, [address], [address], [facility] 01/28/2023 14:52:30 COVID-19, mRNA, LNP-S, bivalent, PF, 50 mcg/0.5 mL or 25mcg/0.25 mL dose 2 completed EMELY PERRIN, [address], [address], [facility] 01/28/2023 14:52:30 Tdap 3 completed EMELY PERRIN, [address], [address], [facility] 01/28/2023 14:52:30 Influenza, split virus, quadrivalent, PF 1 completed EMELY PERRIN, [address], [address], [facility] 01/28/2023 14:52:30 Influenza, split virus, quadrivalent, PF 2 completed EMELY PERRIN, [address], [address], [facility] 01/28/2023 14:52:30 Past Encounters Encounter ID Performer Location Encounter Start Date Encounter Closed Date Diagnosis/Indication Diagnosis SNOMED-CT Code Diagnosis ICD10 Code Diagnosis IMO Codes Diagnosis Note [id number] SRUTHI PEREIRA PA-C [facility] ([facility]) [address] [place] [id number] 05/28/2022 17:00:25 05/28/2022 18:32:08 Cough 86285603 R05.9 covid negative. Likely viral or allergy in nature. [id number] CLARITA SANDOVAL [facility] ([facility]) [address] [place] [address] 06/02/2022 17:09:16 06/14/2022 08:41:17 Acute bacterial sinusitis 33057641 J01.90 Acute bron chitis with bronchospasm 93998264 J20.9 [id number] CLARITA SANDOVAL [employer]SC[employer]CHITECT [facility] ([facility]) [address] [place] [id number] 06/08/2022 16:43:09 06/14/2022 10:38:41 Acute bronchitis with bronchospasm 55110101 J20.9 significan tly improving. Congestion of nasal sinus 97184334 R09.81 [id number] CLARITA SANDOVAL [employer]SC[employer] ARCHITECT [facility] ([facility]) [address] [place] [id number] 07/05/2022 19:29:37 07/18/2022 08:22:51 Not up to date with immunizations 185671542 Z28.39 Will go to [facility] for booster this week. Cat bite - wound 2686301 04 W55.01XA Infection of skin and/or subcutaneous tissue 67912624 L08.9 [id number] Kaden Plasencia MD [facility] ([facility]) [address] [place] [id number] 08/03/2022 13:52:58 08/11/2022 09:14:26 Fibromyalgia 999596035 M79.7 Adult heal th examination 326736534 Z00.01 Screening for cardiovascular system disease 271475340 Z13.6 Screening for malignant neoplasm of colon 277433425 Z12.11 We discussed. She wants to consider it next appt. Screening for osteoporosis 813278443 Z13.820 Screening mammography 24 272443 Z12.31 Acute bron chitis with bronchospasm 21841016 J20.9 Depressive disorder 3548 9007 F32.A Chronic low back pain 27 4832532 M54.50 Hypothyroidism 09006818 E03.9 Hyperlipidemia 83633577 E78.5 Nicotine-f illed electronic cigarette user 105912913 Z72.89 [id number] PUSHPA MARTINEZ-C [facility] ([facility]) [address] [place] [id number] 08/19/2022 17:18:44 08/19/2022 18:07:27 Chronic back pain 678569895 G89.29 Patient had an appointmen t with a surgeon and was unable to follow through with surgery due to surgeon being in [place]. Patient would like to be referred to [facility] in [place] for re-evaluat ed. Will send ortho referral today. Pain of ri ght knee joint 9218499734 25797 M25.561 Discussed with patient that the knee [...] pain. Will call with ortho appointmen t. [id number] PUSHPA KLEIN [facility] ([facility]) [address] [place] [id number] 08/27/2022 15:59:50 09/07/2022 16:26:28 Pain of right knee joint 0345989814 94703 M25.561 Osteoarthr itis of right knee joint 4146988449 98541 M17.11 Low back p ain co-occurrent with neuralgia of right sciatic nerve 8871852169 19679 M54.41 Patient had an appointmen t with Dr. Hayes and Dr. Nash at [facility]. Was supposed to have injections , but cancelled appt. Will call and reschedule injection. [id number] Kaden Plasencia MD [facility] ([facility]) [address] [place] [address] [phone] 5 01/03/2023 14:40:36 01/03/2023 19:34:05 Hypothyroidism 40664933 E03.9 Hyperglycemia 80939745 R 73.9 Depressive disorder 3548 9007 F32.A Pain of le ft shoulder joint 6335119562 1679368 M25.512 Education about immunization 319660885 Z71.85 [id number] PUSHPA MUNOZ [facility] ([facility]) [address] [place] [address] [phone] 5 01/28/2023 14:02:23 01/31/2023 14:10:11 Adult health examination 940017746 Z00.00 Screening for malignant neoplasm of colon 838668442 Z12.11 Depressive disorder 3548 9007 F32.A Administra tion of influenza vaccine 71577868 Z23 [id number] Kaden Plasencia MD [facility] ([facility]) [address] [place] [address] [id number] 5 02/02/2023 15:04:00 02/02/2023 17:56:25 Burning sensation of skin 112305041 R20.8 Chronic low back pain 27 7472150 M54.50 [id number] PUSHPA MUNOZ [facility] ([facility]) [address] [place] [address] [id number] 5 02/22/2023 18:23:51 03/08/2023 10:54:24 Pain of right hip joint 4697791964 43911 M25.345 [id number] RYAN CONTEH LANDSCAPE ARCHITECT [facility] ([facility]) [address] [place] [address] [id number] 5 04/22/2023 16:48:22 04/22/2023 18:00:10 COVID-19 906402165 U07.1 Positive covid today. Discussed quarantine next 5 days, use of paxlovid, tylenol for fever control, rest, and push oral fluids. Stop the atorvastat in while on the paxlovid.I f you develop sob or are feeling worse, return for re-eval. [id number] ANGELY MARTINEZ [facility] ([facility]) [address] [place] [address] [id number] 5 05/02/2023 17:13:48 05/02/2023 18:04:32 Exposure to SARS-CoV-2 930235063 Z20.822 COVID negative. Dyspnea 439200432 R06.00 Will start albuterol MDI today PRN. Encouraged patient to continue Sudafed or Mucinex as needed. Recommend a 2 week follow up with PCP for re-check. If any chest pain or severe SOB occurs, should go to ED. Patient verbalizes understand ing. [id number] Kaden Plasencia MD [facility] ([facility]) [address] [place] [address] [id number] 5 05/16/2023 11:02:37 05/16/2023 17:32:50 Fibromyalgia 830712316 M79.7 Depressive disorder 3548 9007 F33.2 Hypothyroidism 08715965 E03.9 Hyperlipidemia 22848230 E78.5 Anxiety 70252979 F41.9 Low back pain 658353215 M54.50 Malaise and fatigue 2717 72094 R53.83 [id number] SRUTHI PEREIRA PA-C [facility] ([facility]) [address] [place] [address] [id number] 5 06/23/2023 18:25:16 06/24/2023 22:57:32 Neurogenic claudication 303567929 M48.062 Pt is stable today. no evidence of neuro compromise today. She has appt in <[address] and with neurosurge on next week. I reassured her we are on the right track and nothing different can be done today for her interminta nt numbness that she has had >1 yr. [id number] PUSHPA CARLIN [facility] ([facility]) [address] [place] [address] [id number] 5 08/17/2023 18:20:50 08/17/2023 18:56:57 Acute back pain with sciatica 603814430 M54.40 Apply a heating pad for 10 minutes every 2 hours while awake. Perform slow stretches 2 times a day.F/u with PCP in 4-5 days if symptoms persist or worsen. [id number] Kaden Plasencia MD [facility] ([facility]) [address] [place] [address] [phone] 5 01/31/2024 10:59:32 01/31/2024 12:49:05 Fibromyalgia 984549077 M79.7 Heartburn 84979489 R12 Hypothyroidism 36662655 E03.9 Hyperlipidemia 59060489 E78.5 Anxiety 72249261 F41.9 Hyperglycemia 62613314 R 73.9 Depressive disorder 3548 9007 F33.2 Restless l egs syndrome 97432545 G25.81 Pain of ri ght knee joint 8220230569 13674 M25.561 Pain of le ft shoulder joint 5647171610 7757987 M25.951 [id number] Yahaira Bliss MD [facility] ([facility]) [address] [place] [address] [id number] 5 03/19/2024 15:07:45 03/19/2024 16:30:27 Neuropathy 430483169 G62.9 Discussed neuropathy and the potential concerns for mets. This is most likely diagnosis for the patient's symptoms. Obstructiv e sleep apnea syndrome 53635348 G47.33 Patient does have sleep apnea but [...] to proceed with that if possible. Anxiety 05441688 F41.9 Depressive disorder 3548 9007 F33.2 Fibromyalgia 985366954 M 79.7 Hyperlipidemia 37726739 E78.5 Hypothyroidism 74263742 E03.9 Insomnia 644399828 G47.0 0 Acute maxi llary sinusitis 52223580 J01.00 Likely bacterial sinusitis based on exam and history. discussed supportive care including OTC meds and sinus rinses. we will start abx. [id number] Yahaira Bliss MD [facility] ([facility]) [address] [place] [address] [phone] 5 03/29/2024 18:53:46 04/04/2024 06:48:32 Iliotibial band friction syndrome of right knee 2547925172 25785 M76.31 Started at the patient does have a IT band syndrome. Discussed stretches and exercises with the patient and handout was provided. Will use diclofenac gel to help with discomfort . [id number] PUSHPA CARLIN [facility] ([facility]) [address] [place] [address] [phone] 5 05/01/2024 18:18:11 05/02/2024 08:17:37 [id number] Yahaira Bliss MD [facility] ([facility]) [address] [place] [address] [phone] 5 05/09/2024 17:01:01 05/09/2024 18:01:26 Acute gastroenteritis 70885926 K52.9 Will provide Zofran to control her nausea. This will likely continue to improve without further interventi on. Degenerati ve rupture of medial meniscus of right knee 7459576084 6056612 M23.303 The patient had been doing home exercises and the pain up by the hip has improved and now she is having persistent medial knee pain. Concerned about a degenerati ve rupture meniscus. Will obtain x-rays and if no fracture or other findings are noted then we will proceed with MRI. [id number] Yahaira Bliss MD [facility] ([facility]) [address] [place] [address] [id number] 5 07/04/2024 16:15:54 07/04/2024 16:56:00 Arthritis of right knee joint 2844237336 402391 M17.11 [id number] Will continue with pain management . Encouraged patient to proceed with surgery. Patient states that she has options to help with transporta tion. Depressive disorder 3548 9007 F33.2 Continue current medication s. Anxiety 61054522 F41.9 26908 We will add buspirone and see how she does with her anxiety with this medication . [id number] Yahaira Bliss MD [facility] ([facility]) [address] [place] [address] [id number] 5 08/20/2024 17:11:17 08/22/2024 11:21:23 Restless legs syndrome 12671013 G25.81 Will increase her ropinirole to 3 mg at bedtime. Degenerati ve rupture of medial meniscus of right knee 4764649905 9727145 M23.303 Patient intends to proceed with surgery. Anemia 588411070 D64.9 9382785 The patient does have mild anemia and this is a known issue for her and has been chronic in nature. Nicotine dependence 5629 4008 F17.200 694768691 Discussed smoking cessation with the patient and advice given. The patient is going to stop cigarettes completely and start weaning herself off of vaping. [id number] Yahaira Bliss MD [facility] ([facility]) [address] [place] [address] [id number] 5 12/17/2024 16:32:25 12/18/2024 10:05:51 Nausea 999199145 R11.0 - Discontinu e ineffectiv e antiemetic and consider alternativ es. - Monitor for medication correlatio n to guide future interventi ons. Postoperative pain 72939 9007 G89.18 - Evaluate pain medication options with preference for non-opioid management . - Support ongoing physical therapy to alleviate post-surgi dolores pain. [id number] Yahaira Bliss MD [facility] ([facility]) [address] [place] [address] [phone] 5 01/01/2025 16:54:17 01/01/2025 17:57:54 Fatigue 72059327 R53.83 96586069 - Conduct laboratory tests to evaluate anemia or other causes. - Contact Worker Lithography on dietary modificati ons for increased protein intake. - Review and adjust medication s if they contribute to symptoms. Nausea 963635158 R11.0 79804 - Use scopolamin e patches for symptomati c relief. - Review medication s to assess for contributo rs. - Switch ineffectiv e antiemetic agents as needed. Impingemen t syndrome of right shoulder region 8560281265 09364 M75.41 7897531 - Avoid frequent corticoste roid shots unless necessary. - Encourage home exercise guided by health profession als. We will send referral to home health as she is currently home bound. [id number] DAVI GOODWIN APRN [facility] ([facility]) [address] [place] [address] [phone] 5 01/06/2025 18:03:19 01/07/2025 17:00:05 Abrasion and/or friction burn of skin 580641787 T14.8XXA 112285 Health Concerns Section Related Observation LastModified by Organization Detai ls LastModified Time None Recorded Concern Status LastModified by Organization Details LastModified Time None Recorded Advance Directives Directive None Recorded Payers Insurance Date Sequence Insurance Name Policy Number Policy Workman Covered Member ID Workman Member ID Guarantor Name 12/14/2022 1 [place] [id number] Edna V Vazquez [id number] Edna V Vazquez 01/03/2025 1 [place] ([place]/A DVANTAGE - PPO) [id number] Edna V Vazquez [id number] Edna V Vazquez Notes Date Note [...] but still has issues. Yahaira Bliss MD [address] [place] [address], [phone], [facility] 07/08/2024 08:41:57 08/20/2024 text/html Pt states she had labs done on the at [facility] for pre-op, she states several [...] issues with restless leg. Yahaira Bliss MD [address] [place] [address], [phone], [facility] 08/23/2024 08:55:05 12/17/2024 text/html The patient [...] her appetite has declined. Yahaira Bliss MD [address] [place] [address], [phone], [facility] 12/18/2024 09:53:35 01/01/2025 text/html The patient [...] vaccination consideration was discussed. Yahaira Bliss MD [address] [place] [address], [phone], [facility] 01/02/2025 09:54:17 01/06/2025 text/html Skin LesionRepor gabby by PatientHPIFor location, patient reportsarm. For duration, patient [id number] days. For timing, patient reportsabrupt. For context, patient reportstrauma. For alleviating factors, patient reportsnone. For aggravating factors, patient reportsnone. For associated symptoms, patient reportsno fever,no nausea,no vomiting,no scabbing,no bruising, andno draining. For prior treatments, patient reportsnone.ROS as noted in the HPI Walk In-She was at [facility] last and cut her left forearm on a shelf. Pt. reports no redness, swelling or drainage. PCP-Dr.Crase DAVI GOODWIN, TELEPHONE INST[employer]ER [address] [place], [address], [facility] 01/06/2025 18:24:05 OBGyn Episode No OBEpisode recorded.
--- OUTSIDE RECORDS SUMMARY | 2025-01-22 18:27 | XMS_ITS | Continuity of Care Document ---
Author Organization [facility] - Nikolai [facility], LIsraelLIsraelCIsrael, [facility] ([facility]) Address [address] [place] [address] Care Team Providers Care Butt Trimmer Name Role Phone YAHAIRA BLISS Primary Care Provider [phone] Assessment Encounter Date Assessment Date Assessment LastModified [...] 4 mg disintegrat ing tablet 2024 025 [facility] [place], [address] [place], [address], 17:39:20 Patient TargetsNo targets recorded. Patient Instructions Encounter Date Encounter Id Patient Instructions Last Modified By Organization Details Last Modified Time 12/17/2024 [id number] - Continue takin g Zofran if needed [...] Address Organization Details Recorded Time Heartbur n 19671389 Active 2022 Yahaira gee [facility] 17:34:10 Hyperlip idemia 27330005 Active 2022 Yahaira gee [facility] Marcel[facility].L.CIsrael 17:34:26 Insomnia 152907174 Active 2022 Yahaira gee [facility] 17:35:14 Spinal stenosis 48175037 Active 2022 Yahaira gee [facility] 17:36:26 Anxiety 72861823 Active 2022 Yahaira Bliss MD [address] [place] [address], [phone] , [facility] Marcel[facility].L.CIsrael 16:45:07 Sleep pattern disturba mie 78104040 Completed 202205/08/2024 Removal Reason: duplicat e Yahaira gee [facility] 17:36:20 Depressi ve disorder 78772046 Active 2022 Yahaira gee [facility] 17:33:28 Fibromya lgia 571947606 Active 2022 Yahaira gee [facility] 17:33:51 Hypokale yun 00256940 Completed 202205/08/2024 Yahaira Keven marlen, [facility] 5 17:34:52 Hypothyr oidism 91786844 Active 2022 Yahaira Baca marlen [facility] 17:34:38 Nausea 491135736 Completed 202205/08/2024 Yahaira Bliss MD [address] [place] [address], [phone], [facility], Joseph.CIsrael 17:37:57 Hypergly cemia 39431591 Active 2022 Yahaira gee [facility] 17:34:16 Pain of left shoulder joint 81715183207 288152 Completed 202205/08/2024 Yahaira gee [facility] 17:35:53 Neuropat hy 049656344 Active 2024 Yahaira Baca marlen [facility] 17:35:33 Obstruct arina sleep apnea syndrome 61666668 Active 2024 Yahaira gee [facility] 17:35:39 Iliotibi al band friction syndrome of right knee 82804167894 9104 Active 2024 Yahaira gee [facility] 17:35:05 Acute gastroen teritis 74526707 Completed 202407/02/2024 Yahaira gee [facility] 14:31:28 Degenera tive rupture of medial meniscus of right knee 97729416936 414510 Active 2024 Yahaira gee [facility] 14:31:43 Derangem ent of medial meniscus 141392826 Active 2024 Yahairadavey Baca marlen [facility] 14:31:51 Arthriti s of right knee joint 72311226209 33499 Active 2024 Yahaira Bliss MD [address] [place] [address], 08179-[address] 5, [facility] 16:44:04 Moderate major depressi on Active 2024 Yahaira Bliss MD [address] [place] [address], [phone] 5, [facility] 16:44:20 Anemia 326215634 Active 2024 Yahaira Bliss MD [address] [place] [address], [phone] 5, [facility] 10:30:12 Restless legs syndrome 09874544 Active 2024 Yahaira Bliss MD [address] [place] [address], 47173-451 5, [facility] 10:31:05 Nicotine dependen ce 45082539 Active 2024 Yahaira Bliss MD [address] [place] [address], [phone] 5, [facility] 5 10:31:21 Fatigue 66899736 Active 2024 Yahaira Bliss MD [address] [place] [address] [phone] 5, [facility] 11/11/202 5 17:35:14 Nausea 362214582 Active 2024 Yahaira Bliss MD [address] [place] [address], [address] 5, [facility] 5 17:37:57 Impingem ent syndrome of right shoulder region 23195970172 9102 Active 2024 Yahaira Bliss MD [address] [place] [address], [phone] 5, [facility] 5 09:52:30 Problem Notes None recorded. Procedures Surgical History Date Name Laterality Status Provider Name and Address Organization Details Recorded Time 01/30 Joint Inj Kenalog- Shoulder, Hip, Knee completed Kaden Plasencia MD [address] [place] [address], [phone], [facility] 4 12:49:01 11/10 Back Surgery completed MATEO JEFFERSON [facility] 4 11:35:24 05/31 Colonoscopy completed [place] [facility] 4 18:28:17 05/31 esophagogastroduodenosco py completed [facility] 4 18:29:50 01/03 Joint Inj Kenalog- Shoulder, Hip, Knee completed Kaden Plasencia MD [address] [place] [address], [phone], [facility] 3 16:02:36 06/15 Most Recent Mammogram completed A[place]ANDRIA NELSON [facility] L.LIsraelCIsrael 3 13:35:08 arthroscopy of right knee joint completed Adelso Cannon [facility] 5 17:19:08 Knee Surgery completed Yahairadavey Baca [facility], LIsraelLYajaira 5 16:45:27 Imaging Results None recorded. Procedure Notes None recorded. Medical Equipment None Reported. Allergies Allergen ID Allergen Name Allergen Category Reaction Reaction Severity Criticality Documentation Date Start Date Code Code System Note Provider Name and Address Organization Details Recorded Time 1162 morphine medicatio n itching Not available Not available 05/28/2022 7052 RxNorm TAHIR gee [facility], Nick 3 17:33:03 19815 propoxyph ivan hydrochlo ride medicatio n nausea Not available Not available 09/18/2022 94795 RxNorm React ion: Nause a, Vomit ing; Comme nt: Recor ded 04/16 12:05 PM by Scotty Epstein , Offic e Visit ; Promo gabby; Signi blaise ce: *; ; Not Available [facility] 3 02:28:20 06340 morphine sulfate medicatio n rash Not available Not available 09/18/2022 08385 RxNorm React ion: Pruri tus, Rash; Comme nt: Recor ded 04/16 12:05 PM by Scotty Epstein , Offic e Visit ; Promo gabby; Luis welsh ce: *; ; Not Available [facility] 3 02:28:21 Medications Name Sig Start Date [...] Not Available Not Available No t Available Bloom[facility]-3 01/30 completed Not Available Not Available Not [...] [degF] 92 /min 136/86 mm[Hg] Yahaira Baca [facility], L[facility]Israel 5 17:03:04 Social History Question Answer Notes LastModified by Organizat ion Details LastModified Time Tobacco Smoking Status Current Every Day Smoker pt also vapes MATEO ZIMMERMANER null, [facility], [facility] 05/16/2023 11:49:39 Are You Blind Or Do You Have Difficulty Seeing? No Information not available 08/03/2022 What Is Your Level Of Caffeine Consumption? Moderate [email or web address] Information not available 05/09/2024 Are You Deaf Or Do You Have Serious Difficulty Hearing? No Information not available 08/03/2022 Which Illicit Or Recreational Drugs Have You Used? THC Gummy [email or web address] Information not available 08/20/2024 What Was The Date Of Your Most Recent Tobacco Screening? 01/01/2025 [email or web address] Information not available 01/01/2025 What Is Your Current Pack Years? 30ormorepack years Information not available 03/19/2024 What Is Your Relationship Status? Information not available 08/03/2022 At What Age Did You Start Smoking Tobacco? 16 Information not available 08/03/2022 Sex: Unknown Functional Status Question Answer Note LastModified by Organizat ion Details LastModified Time Do you use any illicit or recreational drugs? Yes [email or web address] Information not available 08/20/2024 What is your [...] Time pneumococcal, unspecified formulation 3 [facility] 02/02/2023 15:53:06 Influenza, split virus, trivalent, preservative 2 completed [facility] 02/02/2023 15:53:06 Influenza, split virus, trivalent, preservative 8 completed [facility] 02/02/2023 15:53:06 pneumococcal polysaccharide PPV23 8 completed [facility] 02/02/2023 15:53:06 Influenza, split virus, trivalent, preservative 6 completed ALEXANDRI[place] gee [facility] 02/02/2023 15:53:06 Influenza, split virus, trivalent, preservative 3 [facility] 02/02/2023 15:53:06 Influenza, split virus, trivalent, preservative 5 completed A[place]RI[place] gee [facility] 02/02/2023 15:53:06 Influenza, split virus, trivalent, preservative 10/10/201 4 completed ALEXANDRIA gee [facility] 02/02/2023 15:53:06 Influenza, split virus, trivalent, preservative 3 completed ALEXANDRIA gee, [facility] 02/02/2023 15:53:06 COVID-19, mRNA, LNP-S, PF, 50 mcg/0.5 mL 3 completed EMELY PERRIN, [address], [phone], [facility] 01/28/2023 14:52:30 RSV, recombinant, protein subunit RSVpreF, adjuvant reconstituted, 0.5 mL, PF 3 completed [facility] 02/02/2023 15:53:06 Influenza, high-dose, trivalent, PF 4 completed Not Available [facility] 01/01/2025 16:54:35 Influenza, split virus, quadrivalent, PF 3 completed EMELY PERRIN, [address], [address], [facility] 02/03/2023 14:14:02 COVID-19, mRNA, LNP-S, PF, 100 mcg/0.5mL dose or 50 mcg/0.25mL dose 1 completed EMELY PERRIN, [address], [address], [facility] 01/28/2023 14:52:30 COVID-19, mRNA, LNP-S, PF, 100 mcg/0.5mL dose or 50 mcg/0.25mL dose 1 completed EMELY PERRIN [address], [address], [facility] 01/28/2023 14:52:30 COVID-19, mRNA, LNP-S, PF, 100 mcg/0.5mL dose or 50 mcg/0.25mL dose 2 completed EMELY PERRIN, [address], [address], [facility] 01/28/2023 14:52:30 COVID-19, mRNA, LNP-S, PF, 100 mcg/0.5mL dose or 50 mcg/0.25mL dose 1 completed EMELY PERRIN, [address], [address], [facility] 01/28/2023 14:52:30 COVID-19, mRNA, LNP-S, bivalent, PF, 50 mcg/0.5 mL or 25mcg/0.25 mL dose 2 completed EMELY PERRIN, [address], [address], [facility] 01/28/2023 14:52:30 Tdap 3 completed EMELY PERRIN, [address], [address], [facility] 01/28/2023 14:52:30 Influenza, split virus, quadrivalent, PF 1 completed EMELY PERRIN, [address], [address], [facility] 01/28/2023 14:52:30 Influenza, split virus, quadrivalent, PF 2 caroline PERRIN, [address], [address], [facility] 01/28/2023 14:52:30 Past Encounters Encounter ID Performer Location Encounter Start Date Encounter Closed Date Diagnosis/Indication Diagnosis SNOMED-CT Code Diagnosis ICD10 Code Diagnosis IMO Codes Diagnosis Note [id number] Yahaira Bliss MD [facility] ([facility]) [address] [place] [address] 12/17/2024 16:32:25 12/18/2024 10:05:51 Nausea 594425292 R11.0 - Discontinu e ineffectiv e antiemetic and consider alternativ es. - Monitor for medication correlatio n to guide future interventi ons. Postoperative pain 05720 9007 G89.18 - Evaluate pain medication options [...] DVANTAGE - PPO) [id number] Edna V Vazquez [id number] Edna V Vazquez Notes Date Note [...] her appetite has declined. Yahaira Bliss MD [address] [place] [address], [address], [facility], LAgatha 12/18/2024 09:53:35 OBGyn Episode No OBEpisode recorded.
--- OUTSIDE RECORDS SUMMARY | 2025-01-22 18:27 | XMS_ITS | Encounter Summary ---
Author Organization [facility] Address [address] [place] [address] Care Team Providers Care Product Safety Technician Name Role Phone Unavailable Primary Care Provider Unavailabl e Encounter Details Date Type Department Care Team (Latest Contact Info) Description 03/08/2003 Outpatient Historical [facility] Oral and Maxillo Surgery[address] [place] [id number] Michael Gutierrez, DDS NO ADDRESS ON FILE UNSPEC DENTAL CARIES (Primary Dx) Social History Tobacco Use Types Packs/Day Years Used Date Smoking Tobacco: Never Assessed Comments Unknown Sex and Gender Information Value Date Recorded Sex Assigned at Not on file 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
--- OUTSIDE RECORDS SUMMARY | 2025-01-22 18:27 | XMS_ITS | Encounter Summary ---
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 Gender Identity Not on file Sexual Orientation Not on file documented as of this encounter Plan of Treatment Not on file documented as of this encounter Procedures Procedure Name Priority Date/Time Associated Diagnosis Comments CBC WITHOUT DIFFERENTIAL Routine 01/05/2006 6:30 AM MASON TENDER documented in this encounter Results * (ABNORMAL) CBC WITHOUT DIFFERENTIAL (01/05/2006 6:30 AM MASON TENDER) WBC 21.2(H) 4.5 - 11.0 K/ul INTERFACE [...] 0.2 K/ul INTERFACE SYSTEM 01/05/2006 6:30 AM MASON TENDER W Michelet Whitehead MD HEMATOLOGY ORDERABLES Final Result INTERFACE SYSTEM Refer to clinic/hospital department documented in this encounter Visit Diagnoses Diagnosis Uterovaginal prolapse, complete- Primary documented in this encounter
--- OUTSIDE RECORDS SUMMARY | 2025-01-22 18:27 | XMS_ITS | Clinical Summary ---
Author Organization [facility] Address [address] [place] [address] Phone Care Team Providers Care Gardener Name Role Phone Unavailable Primary Care Provider [...] tablet Take 25 mcg by mouth daily special investigator. 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 Gender Identity Not on file Sexual Orientation Not on file Last Filed Vital Signs Vital Sign Reading Time Taken Comments Blood Pressure 124/72 04/03/2019 8:13 AM FOOD PRODUCTION MACHINE OPERATOR Pulse 101 04/03/2019 8:13 AM FOOD PRODUCTION MACHINE OPERATOR Temperature 36.8 C (98.3 F) 06/15/2018 1:05 PM CDT Respiratory Rate 17 06/15/2018 2:22 PM CDT Oxygen Saturation 100% 06/15/2018 2:22 PM CDT Inhaled Oxygen Concentration - - Weight 76.2 kg (168 lb) 04/03/2019 8:13 AM FOOD PRODUCTION MACHINE OPERATOR Height 154.9 cm (5' 1 ) 04/03/2019 8:13 AM FOOD PRODUCTION MACHINE OPERATOR Body Mass Index 31.74 04/03/2019 8:13 AM FOOD PRODUCTION MACHINE OPERATOR Plan of Treatment Health Maintenance Due Date [...] - 1-dose 75+ series) 2033 Insurance [facility] RX [facility] [employer]
--- OUTSIDE RECORDS SUMMARY | 2025-01-22 18:27 | XMS_ITS | Clinical Summary ---
Author Organization [facility] Address [address] [place]agan: Epic Prelude ADT [place] [address] Care Team Providers Care Talent Acquisition Associate Name Role Phone Unavailable Primary Care [...] tablet Take 25 mcg by mouth daily inspector glass or mirror. 0 Active gabapentin (NEURONTIN) 300 mg capsule [...] needed. 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 AVG GLUCOSE, A1C 91 mg/dL 06/01/2024 2:59 PM CDT [facility] Blood Venipuncture / Unknown 06/01/2024 2:28 PM CDT 06/01/2024 2:30 PM CDT Narrative [facility] - 06/01/2024 2:59 PM CDT HGB A1C INTERPRETATION NORMAL: <5.7% PRE-DIABETES: 5.7 - 6.4% DIABETES: 6.5% OR GREATER us Danie Malik MD CHEMISTRY ORDERABLES Final Resu lt [facility] CLIA #[id number] [place] [address] from Last 3 Months or Most Recently Relevant to Health Maintenance Insurance [facility] MEDICARE HMO [facility] * Guarantor: EDNA BADILLO V Account Type Relation to Patient Date of Phone Billing Address Personal/Family [phone] [id number] RX [facility] [employer]
--- OUTSIDE RECORDS SUMMARY | 2025-01-22 18:27 | XMS_ITS | Continuity of Care Document ---
Author Organization VENKATESH Stephens [facility] Sandra, Nick, [facility] ([facility]) Address [address] [place] [address] Care Team Providers Care Power System Electrical Engineer Name Role Phone YAHAIRA BLISS Primary Care Provider [phone] Assessment Encounter Date Assessment Date Assessment LastModified [...] Lab CMP, serum or plasma 2024 025 [facility], [address] [place] [address], [address], 18:02:14 CBC 2024 025 [facility], [address], [address], 17:53:17 TSH, serum or plasma 2024 025 be[facility]ly [facility] ([facility]), [address] [place], [address], 17:49:18 vitamin B12, serum 2024 [email or web address] [facility], [address] [facility] [address], [address] [place], [address], 05:49:18 Referral home health referral 2024 [facility], [address] [place], [address], 16:35:12 Procedures None recorded. Surgeries None recorded. Imaging None recorded. Medication Orders scopolamine 1 mg over 3 days transdermal patch 2024 [facility], [place] [place], [address] [place], [address], 18:04:57 Patient TargetsNo targets recorded. Patient Instructions Encounter Date Encounter Id Patient Instructions Last Modified By Organization Details Last Modified Time 01/01/2025 [id number] - Get the flu vaccination today. - [...] x10 4.0-10 .5 high Not Available [facility] [address], [place], [address], 01/01/2025 17:53:16 01/02/2001/01/2025 CBC RBC 3.56 x10 3.50-5 .50 Not Available [facility] [address], [place], [address], 01/01/2025 17:53:16 01/02/20 25 01/01/2025 CBC HGB 11.0 g/dL 12.0-1 6.0 low Not Available [facility] [address], [place], [address], 01/01/2025 17:53:16 01/02/20 25 01/01/2025 CBC HCT 34.2 % 37.0-4 7.0 low Not Available [facility] [address], [place], [address], 01/01/2025 17:53:16 01/02/20 25 01/01/2025 CBC MCV 96.1 fL 80.0-9 9.9 Not Available [facility] [address], [place], [address], 01/01/2025 17:53:16 01/02/20 25 01/01/2025 CBC MCH 31.0 pg 27.0-3 2.0 Not Available [facility] [address], [place], [address], 01/01/2025 17:53:16 01/02/20 25 01/01/2025 CBC MCHC 32.3 g/dL 32.0-3 6.0 Not Available [facility] [address] [facility] [address] [facility], [place], [address], 01/01/2025 17:53:16 01/02/20 25 01/01/2025 CBC RDW 14.1 % 11.5-1 4.5 Not Available [facility] [address] [facility], [place], [address], 01/01/2025 17:53:16 01/02/20 25 01/01/2025 CBC plt 444.4 x10 140.0- 451.0 Not Available [facility] [address] [facility], [place], [address], 01/01/2025 17:53:16 01/02/20 25 01/01/2025 CBC lymphocytes % 27.1 % 20.0-5 0.0 Not Available [facility] [address] [place] [facility], [place], [address], 01/01/2025 17:53:16 01/02/20 25 01/01/2025 CBC granulcytes % 63.3 % 30.0-7 0.0 Not Available [facility] [address] [place] Michelle [facility] 1, [place], [address], 01/01/2025 17:53:16 01/02/20 25 01/01/2025 CBC monocytes % 8.2 % 2.0-16 .0 Not Available [facility] [address] [place] Michelle [facility], [place], [address], 01/01/2025 17:53:16 01/02/20 25 01/01/2025 CBC granulcytes# 6.7 x10 Not Camila ilable [facility] [address] [facility], [place], [address], 01/01/2025 17:53:16 01/02/20 25 01/01/2025 CBC lymphocytes # 2.9 x10 Not Available [facility] [address] [facility], [place], [address], 01/01/2025 17:53:16 01/02/20 25 01/01/2025 CBC monocytes # 0.9 x10 Not [facility] [address] [place] [facility], [place], [address], 01/01/2025 17:53:16 01/02/20 25 01/01/2025 CMP (FEMA LE) glucose 92.0 mg/dL 60.0-9 9.0 Not Available [facility] [address] [place] [facility], [place], [address], 01/01/2025 18:02:14 01/02/20 25 01/01/2025 CMP (FEMA LE) BUN (blood urea nitrogen) 12.0 mg/dL 10.0-2 6.0 Not Available [facility] [address] [place] [facility], [place], [address], 01/01/2025 18:02:14 01/02/20 25 01/01/2025 CMP (FEMA LE) creatinine (serum) 0.9 mg/dL 0.4-1. 5 Not Available [facility] [address] [place] [facility], [place], [address], 01/01/2025 18:02:14 01/02/20 25 01/01/2025 CMP (FEMA LE) BUN/creatini ne ratio 13.33 ratio Not Available [facility] [address] [place] [facility], [place], [address], 01/01/2025 18:02:14 01/02/20 01/01/2025 CMP (FEMA LE) eGFR calculated 66.6 Not Available [facility] [address] [facility], [place], [address], 01/01/2025 18:02:14 01/02/2001/01/2025 CMP (FEMA LE) total protein 7.3 g/dL 6.0-8. 5 Not Available [facility] [address] [place] [facility], [place], [address], 01/01/2025 18:02:14 01/02/2001/01/2025 CMP (FEMA LE) total bilirubin 0.4 mg/dL 0.2-1. 3 Not Available [facility] [address] [place] [facility], [place], [address], 01/01/2025 18:02:14 01/02/20 25 01/01/2025 CMP (FEMA LE) albumin 3.9 g/dL 3.5-5. 5 Not Available [facility] [address] [place] [facility], [place], [address], 01/01/2025 18:02:14 01/02/20 25 01/01/2025 CMP (FEMA LE) globulin 3.4 calc Not Available [facility] [address] [facility], [place], [address], 01/01/2025 18:02:14 01/02/20 25 01/01/2025 CMP (FEMA LE) AST (SGOT) 40.0 U/L 0.0-46 .0 Not Available [facility] [address] [place] Michelle [facility], [place], [address], 01/01/2025 18:02:14 01/02/20 25 01/01/2025 CMP (FEMA LE) altv (SGPT) 13.0 U/L 13.0-6 9.0 normal Not Available [facility] [address] [facility], [place], [address], 01/01/2025 18:02:14 01/02/20 25 01/01/2025 CMP (FEMA LE) A/G ratio 1.1 ratio Not Available [facility] [address] [place] [facility], [place], [address], 01/01/2025 18:02:14 01/02/20 25 01/01/2025 CMP (FEMA LE) ALP phos 118.0 U/L 30.0-1 40.0 normal Not Available [facility] [address] [place] [facility], [place], [address], 01/01/2025 18:02:14 01/02/20 25 01/01/2025 CMP (FEMA LE) calcium 8.7 mg/dL 8.4-10 .5 Not Available [facility] [address] [place] [facility], [place], [address], 01/01/2025 18:02:14 01/02/20 25 01/01/2025 CMP (FEMA LE) sodium 129.0 mmol/ L 136.0- 145.0 low Not Available [facility] [address] [facility] 1, [place], [address], 01/01/2025 18:02:14 01/02/20 25 01/01/2025 CMP (FEMA LE) potassium 4.4 mmol/ L 3.5-5. 1 Not Available [facility] [address] [place] [facility], [place], [address], 01/01/2025 18:02:14 01/02/20 25 01/01/2025 CMP (FEMA LE) chloride 92.0 mmol/ L 98.0-1 10.0 abnormal Not Available [facility] [address] [facility], [place], [address], 01/01/2025 18:02:14 01/02/20 25 01/01/2025 CMP (FEMA LE) C02 30.0 mmol/ L 22.0-3 1.0 Not Available [facility] [address] [place] [address], [place], [address], 01/01/2025 18:02:14 01/02/20 25 01/01/2025 CMP (FEMA LE) anion gap 7.0 calc Not Available [facility] [address] [facility] [address], [place], [address], 01/01/2025 18:02:14 01/02/2001/01/2025 CMP (FEMA LE) osmolality 266.6 calc Not Available [facility] [address] [facility] 1, [place], [address], 01/01/2025 18:02:14 01/02/2001/01/2025 TSH TSH 2.02 uIU/m L 0.49-3 .82 Not Available [facility] [address] [facility] 1, [place], [address], 01/01/2025 18:06:39 01/02/20 25 01/03/2025 VITAM IN [...] pg/mL will have sympt oms. Not Available [employer] [facility] [address], [place], [address], 01/03/2025 05:49:18 Result Notes None recorded. Problems Name Problem SNOMED Code Status Onset Date Resolution Date Notes Provider Name and Address Organization Details Recorded Time Heartbur n 20180024 Active 2022 Yahaira gee [facility] 17:34:10 Hyperlip idemia 88076461 Active 2022 Yahaira gee [facility] 17:34:26 Insomnia 310468371 Active 2022 Yahaira gee [facility] 17:35:14 Spinal stenosis 83248781 Active 2022 Yahaira gee [facility], TommieLIsraelCIsrael 17:36:26 Anxiety 37181693 Active 2022 Yahaira Bliss MD [address] [place] [address], [address] , [facility], L.[facility]CIsrael 16:45:07 Sleep pattern disturba nce 77355414 Completed 202205/08/2024 Removal Reason: duplicat e Yahaira gee [facility] 17:36:20 Depressi ve disorder 54601491 Active 2022 Yahaira gee [facility] 17:33:28 Fibromya lgia 077405187 Active 2022 Yahaira gee [facility] 17:33:51 Hypokale yun 10873952 Completed 202205/08/2024 Yahaira gee [facility] 17:34:52 Hypothyr oidism 51797732 Active 2022 Yahaira gee [facility] 17:34:38 Nausea 310894696 Completed 202205/08/2024 Yahaira Bliss MD [address] [place], [address], [facility] 17:37:57 Hypergly cemia 11726558 Active 2022 [facility] 17:34:16 Pain of left shoulder joint 49706420330 181046 Completed 202205/08/2024 Yahaira gee [facility] Marcelino.L.C. 17:35:53 Neuropat hy 539903050 Active 2024 [facility] 17:35:33 Obstruct arina sleep apnea syndrome 12641239 Active 2024 [facility] 17:35:39 Iliotibi al band friction syndrome of right knee 57894301518 9104 Active 2024 [facility] 17:35:05 Acute gastroen teritis 08980285 Completed 202407/02/2024 Yahaira gee [facility] 14:31:28 Degenera tive rupture of medial meniscus of right knee 11403385267 144656 Active 2024 Yahaira gee [facility] 14:31:43 Derangem ent of medial meniscus 446527825 Active 2024 Yahaira gee [facility] 14:31:51 Arthriti s of right knee joint 10773254259 22673 Active 2024 Yahaira lBiss MD [address] [place] [address], [address], [facility] 16:44:04 Moderate major depressi on 323261 Active 2024 Yahaira Bliss MD [address] [place] [address], [address] [place] [address] 5, [facility] 16:44:20 Anemia 829433076 Active 2024 Yahaira Bliss MD [address] [place] [address] 5, [facility] 10:30:12 Restless legs syndrome 16606436 Active 2024 Yahaira Bliss MD [address] [place] [address] 5, [facility] 10:31:05 Nicotine dependen ce 15746053 Active 2024 Yahaira Bliss MD [address] [place] [address] 5, [facility] 10:31:21 Fatigue 65594989 Active 2024 Yahaira Bliss MD [address] [place] [address] 5, [facility] 17:35:14 Nausea 614224278 Active 2024 Yahaira Bliss MD [address] [place] [address], [facility] 17:37:57 Impingem ent syndrome of right shoulder region 60997810701 9102 Active 2024 Yahaira Bliss MD [address] [place], [place] [address], [facility] 5 09:52:30 Problem Notes None recorded. Procedures Surgical History Date Name Laterality Status Provider Name and Address Organization Details Recorded Time 01/30 Joint Inj [place]- Shoulder, Hip, Knee completed Kaden Plasencia MD [address] [place], [address], [facility] 4 12:49:01 11/10 Back Surgery completed MATEO JEFFERSON [facility] 4 11:35:24 05/31 Colonoscopy completed ALEXANDRIA [facility] 4 18:28:17 05/31 esophagogastroduodenosco py completed [facility] 4 18:29:50 01/03 Joint Inj [place]- Shoulder, Hip, Knee completed Kaden Plasencia MD [address] [place], [address], [facility] 3 16:02:36 06/15 Most Recent Mammogram completed ALEXANDRIA NELSON [facility] 3 13:35:08 arthroscopy of right knee joint completed Adelso Cannon [facility] 5 17:19:08 Knee Surgery completed Yahaira Baca [facility] 5 16:45:27 Imaging Results None recorded. Procedure Notes None recorded. Medical Equipment None Reported. Allergies Allergen ID Allergen Name Allergen Category Reaction Reaction Severity Criticality Documentation Date Start Date Code Code System Note Provider Name and Address Organization Details Recorded Time 1162 morphine medicatio n itching Not available Not available 05/28/2022 7052 RxNorm VENKATESH Guadarrama [facility] 3 17:33:03 61837 propoxyph ivan hydrochlo ride medicatio n nausea Not available Not available 09/18/2022 75155 RxNorm React ion: Nause a, Vomit ing; Comme nt: Recor ded 04/16 12:05 PM by Scotty Epstein , Offic e Visit ; Promo gabby; Signi blaise ce: *; ; Not Available [facility] 3 02:28:20 38140 morphine sulfate medicatio n rash Not available Not available 09/18/2022 07192 RxNorm React ion: Pruri tus, Rash; Comme nt: Recor ded 04/16 12:05 PM by Scotty Epstein , Offic e Visit ; Promo gabby; Luis welsh ce: *; ; Not Available [facility] 3 02:28:21 Medications Name Sig [...] 01/03 completed vo JR/tn; 173; Recorded 04/09/19 1:30PM by Kay Molina LPN (Authori marco [...] Not Available Not Available No t Available [place]-3 01/30 completed Not Available Not Available Not [...] Updated DateTime 5 154.94 cm 30.2 kg/m2 15442.7 8 g 97.4 [degF] 98 % 87 /min 120/68 mm[Hg] [facility] 5 17:09:58 Social History Question Answer Notes LastModified by Organizat ion Details LastModified Time Tobacco Smoking Status Current Every Day Smoker pt also andree JEFFERSON [facility] 05/16/2023 11:49:39 Are You Blind Or Do You Have Difficulty Seeing? No Information not available 08/03/2022 What Is Your Level Of Caffeine Consumption? Moderate [email or web address] Information not available 05/09/2024 Are You Deaf Or Do You Have Serious Difficulty Hearing? No Information not available 08/03/2022 Which Illicit Or Recreational Drugs Have You Used? THC Gummy [email or web address] Information not available 08/20/2024 What Was The Date Of Your Most Recent Tobacco Screening? 01/01/2025 [email or web address] Information not available 01/01/2025 What Is Your Current Pack Years? 30ormorepack years [email or web address] Information not available 03/19/2024 What Is Your Relationship Status? Information not available 08/03/2022 At What Age Did You Start Smoking Tobacco? 16 Information not available 08/03/2022 Sex: Unknown Functional Status Question Answer Note LastModified by Organizat ion Details LastModified Time Do you use any illicit or recreational drugs? Yes [email or web address] Information not available 08/20/2024 What is your [...] Time pneumococcal, unspecified formulation 3 completed ALEXANDRIA LESLIE [facility] 02/02/2023 15:53:06 Influenza, split virus, trivalent, preservative 2 completed A[place]RIA LESLIE [facility] 02/02/2023 15:53:06 Influenza, split virus, trivalent, preservative 8 completed [facility] 02/02/2023 15:53:06 pneumococcal polysaccharide PPV23 8 completed [facility] 02/02/2023 15:53:06 Influenza, split virus, trivalent, preservative 6 completed [facility] 02/02/2023 15:53:06 Influenza, split virus, trivalent, preservative 3 completed [facility] 02/02/2023 15:53:06 Influenza, split virus, trivalent, preservative 5 completed [facility] 02/02/2023 15:53:06 Influenza, split virus, trivalent, preservative 4 completed [facility] 02/02/2023 15:53:06 Influenza, split virus, trivalent, preservative 3 completed [facility] 02/02/2023 15:53:06 COVID-19, mRNA, LNP-S, PF, 50 mcg/0.5 mL 3 completed EMELY PERRIN, [address], [address], [facility] 01/28/2023 14:52:30 RSV, recombinant, protein subunit RSVpreF, adjuvant reconstituted, 0.5 mL, PF 3 [facility] 02/02/2023 15:53:06 Influenza, high-dose, trivalent, PF 4 completed Not Available [facility] 01/01/2025 16:54:35 Influenza, split virus, quadrivalent, PF 3 completed EMELY PERRIN, [address], [address], [facility] 02/03/2023 14:14:02 COVID-19, mRNA, LNP-S, PF, 100 mcg/0.5mL dose or 50 mcg/0.25mL dose 1 completed EMELY PERRIN, [address], [address], [facility] 01/28/2023 14:52:30 COVID-19, mRNA, LNP-S, PF, 100 mcg/0.5mL dose or 50 mcg/0.25mL dose 1 completed EMELY PERRIN, [address], [address], [facility] 01/28/2023 14:52:30 COVID-19, mRNA, LNP-S, PF, 100 mcg/0.5mL dose or 50 mcg/0.25mL dose 2 completed EMELY PERRIN, [address], [address], [facility] 01/28/2023 14:52:30 COVID-19, mRNA, LNP-S, PF, 100 mcg/0.5mL dose or 50 mcg/0.25mL dose 1 completed EMELY PERRIN, [address], [address], [facility] 01/28/2023 14:52:30 COVID-19, mRNA, LNP-S, bivalent, PF, 50 mcg/0.5 mL or 25mcg/0.25 mL dose 2 completed EMELY PERRIN, [address], [address] [place] [address], [facility] 01/28/2023 14:52:30 Tdap 3 completed EMELY PERRIN, [address], [address], [facility] 01/28/2023 14:52:30 Influenza, split virus, quadrivalent, PF 1 completed EMELY PERRIN, [address], [address], [facility] 01/28/2023 14:52:30 Influenza, split virus, quadrivalent, PF 2 completed EMELY PERRIN, [address], [address], [facility] 01/28/2023 14:52:30 Past Encounters Encounter ID Performer Location Encounter Start Date Encounter Closed Date Diagnosis/Indication Diagnosis SNOMED-CT Code Diagnosis ICD10 Code Diagnosis IMO Codes Diagnosis Note [id number] Yahaira Bliss MD [facility] ([facility]) [address] [place] [address] 12/17/2024 16:32:25 12/18/2024 10:05:51 Nausea 040101736 R11.0 - Discontinu e ineffectiv e antiemetic and consider alternativ es. - Monitor for medication correlatio n to guide future interventi ons. Postoperative pain 05592 9007 G89.18 - Evaluate pain medication options with preference for non-opioid management . - Support ongoing physical therapy to alleviate post-surgi dolores pain. [id number] Yahaira Bliss MD [facility] ([facility]) [address] [place] [address] 01/01/2025 16:54:17 01/01/2025 17:57:54 Fatigue 13143623 R53.83 [id number] - Conduct laboratory tests to evaluate anemia or other causes. - Hotel Maid on dietary modificati ons for increased protein intake. - Review and adjust medication s if they contribute to symptoms. Nausea 070564465 R11.0 80068 - Use scopolamin e patches for symptomati c relief. - Review medication s to assess for contributo rs. - Switch ineffectiv e antiemetic agents as needed. Impingemen t syndrome of right shoulder region [id number] 95845 M75.41 7908768 - Avoid frequent corticoste roid shots unless [...] DVANTAGE - PPO) [id number] Edna V Vazquez [id number] Edna V Vazquez Notes Date Note [...] vaccination consideration was discussed. Yahaira Bliss MD [address] [place], [address], [facility], Nick 01/02/2025 09:54:17 OBGyn Episode No OBEpisode recorded.
--- OUTSIDE RECORDS SUMMARY | 2025-01-22 18:27 | XMS_ITS | Encounter Summary ---
Author Organization [facility] Address [address] [place] [address] Care Team Providers Care Life Insurance Agent Name Role Phone Unavailable Primary Care Provider Unavailabl e Encounter Details Date Type Department Care Team (Late st Contact Info) Description 01/22/2025 External Device Data ST[place] ABSTRACTION Provider, Abstract NO ADDRESS ON FILE Social History Tobacco Use Types Packs/Day Years Used Date Smoking Tobacco: Every Day Cigarettes 0.5 48.9 Started: 1978 Smokeless Tobacco: Never Comments:Down to [...] on file Legal 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:55 AM [employer]PERVIS[employer] Gender Identity Not on file Sexual Orientation Not on file documented as of this encounter Plan of Treatment Not on file documented as of this encounter Visit Diagnoses Not on filedocumented in this encounter
--- OUTSIDE RECORDS SUMMARY | 2025-01-22 18:27 | XMS_ITS | Encounter Summary ---
Author Organization [facility] Address [address] [place] [address] Care Team Providers Care Electroless Plater Name Role Phone Unavailable Primary Care Provider Unavailabl e Encounter Details Date Type Department Care Team (Latest Contact Info) Description 12/08/2005 Outpatient Historical [facility] Central Processing [address] 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
[2025-01-22 19:23] VITALS: BP 154/62; PULSE 66; O2SAT 99
--- NOTE | 2025-01-22 19:38 | W.ED.EXTPRO ---
HPI - Extremity Problem General: Chief complaint: Extremity Problem,Nontraumatic Stated complaint: Knee swelling , old fx Time Seen by Provider: 01/22/25 19:05 History of Present Illness: 64-year-old female presents to the emergency room complaining of right knee pain she was. Her follow-up with orthopedics today we did seen her about 10 days ago for similar complaint she did not make it to her follow-up appointment she is complaining of severe right knee pain. No recent trauma falls or other injury. Previous x-ray on January 11 was normal and there is no acute fracture or abnormality. Redness of breath or chest pain. Complains of focal pain to the knee joint itself. The wound is well-healed the healed there is no complaints of drainage from the wound. Associated symptoms: Deny chest pain, fever(s) or rash Related Data Home Medications ?Medication ?Instructions ?Recorded ?Confirmed modafinil 200 mg tablet (Provigil) 200 mg PO QAM 06/17/20 01/24/25 montelukast 10 mg tablet 10 mg PO DAILY 06/17/20 01/24/25 (Singulair) atorvastatin 40 mg tablet 40 mg PO BEDTIME PRN cholesterol 09/07/24 01/24/25 bupropion HCl 300 mg 24 hr tablet, 300 mg PO QAM 09/07/24 01/24/25 extended release (Wellbutrin XL) potassium chloride 20 mEq 20 meq PO DAILY 09/07/24 01/24/25 tablet,extended release buspirone 10 mg tablet 10 mg PO BID PRN Anxiety 11/15/24 01/24/25 celecoxib 200 mg capsule 200 mg PO BID PRN Pain 01/11/25 01/24/25 ondansetron 4 mg disintegrating 4 mg PO Q8H PRN Pain 01/11/25 01/24/25 tablet polyethylene glycol 3350 17 17 g PO DAILY PRN laxative effect 01/11/25 01/24/25 gram/dose oral powder (Miralax) scopolamine base 1 mg over 3 days 1 patch topical .Q72H PRN Nausea 01/11/25 01/24/25 transdermal patch Previous Rx's ?Medication ?Instructions ?Recorded pantoprazole 40 mg tablet,delayed 40 mg PO BID 30 days #60 tabs 10/10/23 release (Protonix) gabapentin 300 mg capsule 300 mg PO QID nerve pain #360 caps 01/03/24 levothyroxine 25 mcg tablet 25 mcg PO DAILY thyroid 09/14/24 replacement #90 tabs Knee Immobilizer #1 ea 09/20/24 Bone Growth Stimulator #1 ea 11/13/24 metoclopramide HCl 10 mg tablet 10 mg PO Q8H PRN nausea and 11/27/24 (Reglan) vomiting 30 days #90 tabs oxycodone-acetaminophen 7.5 mg-325 1 tab PO Q6H PRN pain 7 days #28 01/24/25 mg tablet (Percocet) tabs Allergies Allergy/AdvReac Type Severity Reaction Status Date / Time morphine Allergy Mild ADR-Itching Verified 01/24/25 07:43 Review of Systems Const: Denies: fever(s) or chills Card: Denies: chest pain Resp: Denies: dyspnea GI: Denies: abdominal pain : Denies: dysuria, urinary frequency or urinary urgency Musc: Denies: neck pain or back pain Skin/Breast: Denies: rash PFSH ED PFSH: Medical History GERD with esophagitis CKD stage 3a, GFR 45-59 ml/min Adult BMI 30+ JAMES (obstructive sleep apnea) Hypothyroidism Osteoarthritis Dyslipidemia Depression RLS (restless legs syndrome) Fibromyalgia Surgical History H/O knee surgery Right - lap. H/O: hysterectomy Partial Family History Father Diabetes Stroke Mother Heart disease Other CAD (coronary artery disease) Social History Smoking and tobacco/nicotine status: former use of tobacco/nicotine Alcohol intake: current Alcohol intake frequency: holidays/special occasions only Substance/Drug Use: never Physical Exam Const: GENERAL APPEARANCE: cooperative ORIENTATION/CONSCIOUSNESS: Yes awake, Yes oriented to person, Yes oriented to place and Yes oriented to time HENMT: COMMON NORMALS: normocephalic, atraumatic and hearing grossly normal bilaterally HEAD & SCALP: normocephalic and atraumatic Resp: COMMON NORMALS: normal respiratory effort, No retractions, No use of accessory muscles and clear to auscultation bilaterally AUSCULTATION: clear to auscultation bilaterally Cardio: COMMON NORMALS: regular rate, regular rhythm and No murmurs present (Cardio) RATE: regular rate RHYTHM: regular rhythm Extremity: COMMON NORMALS: normal to inspection, capillary refill normal, no clubbing, cyanosis or edema, no calf tenderness and no pedal edema OTHER: Examination of the knee scar is well-healed there is a small bit of eschar near the center no drainage no redness no erythema mildly tender to the touch. Negative Homans. No swelling in the calf. Neuro: SENSORIUM/ORIENTATION: Yes oriented to person, Yes oriented to place and Yes oriented to time Skin: COMMON NORMALS: no rashes or lesions noted GENERAL SKIN EXAM: no rashes or lesions noted Course Vital Signs: Vital signs: Vital Signs Temperature 98.3 F 01/22/25 18:18 Pulse Rate 66 01/22/25 19:23 Respiratory Rate 16 01/22/25 19:45 Blood Pressure 154/62 01/22/25 19:23 Pulse Oximetry 97 01/22/25 19:45 Oxygen Delivery Me thod Room Air 01/22/25 19:23 MDM - Extremity (Nontraumatic) Medical Decision Making Medical decision making Social determinants: Patient has difficulty with ambulation difficulty accessing health care because of her limited mobility. She does have family members that help but do not live with her. I reviewed the patient's medical record. I reviewed the patient's current home meds. Alternate historians: None Differential diagnosis: Chronic pain post fracture, displacement of fracture hardware Lab Review: None Imaging: X-ray of the knee does not show any significant change from previous x-ray hardware in the patella is in good position. Assessment of risk Level of risk: Low Hospitalization considerations: No indication for hospitalization at this time Reexamination: Improved after medication Assessment and plan: Patient reports improvement in her pain. When checked pharmacy records Dr. Wilkinson I had called in more narcotic pain medication first, took 2 hydrocodone to go home on discussed x-ray results with encouraged her to follow-up with Dr. Hayes as scheduled. Lab Data Radiology Impressions Knee X-Ray 01/22/25 19:39 IMPRESSION: No acute finding. All radiology interpretation(s) finalized by discharge Discharge Plan Discharge Patient Disposition: Home Clinical Impression: Complex regional pain syndrome of knee, Closed displaced transverse fracture of right patella with routine healing, subsequent encounter Condition: Stable Prescriptions: No Action modafinil [Provigil] 200 mg tablet 200 mg PO QAM montelukast [Singulair] 10 mg tablet 10 mg PO DAILY pantoprazole [Protonix] 40 mg tablet,delayed release (DR/EC) 40 mg PO BID 30 Days Qty: 60 11RF (DME) Knee Immobilizer See Rx Instructions .Route .MEDSUPPLY Qty: 1 0RF Rx Instructions: As directed metoclopramide HCl [Reglan] 10 mg tablet 10 mg PO Q8H PRN (Reason: nausea and vomiting) 30 Days Qty: 90 0RF oxycodone-acetaminophen [Percocet] 7.5-325 mg tablet 1 tab PO Q6H PRN (Reason: pain) 7 Days Qty: 28 0RF Rx Instructions: DOS 11/14/2024 gabapentin 300 mg capsule 300 mg PO QID Qty: 360 0RF levothyroxine 25 mcg tablet 25 mcg PO DAILY Qty: 90 0RF (DME) Bone Growth Stimulator See Rx Instructions .Route .MEDSUPPLY Qty: 1 0RF Rx Instructions: As directed atorvastatin 40 mg tablet 40 mg PO BEDTIME PRN (Reason: cholesterol) bupropion HCl [Wellbutrin XL] 300 mg tablet extended release 24 hr 300 mg PO QAM potassium chloride 20 mEq tablet extended release 20 meq PO DAILY buspirone 10 mg tablet 10 mg PO BID PRN (Reason: Anxiety) celecoxib 200 mg capsule 200 mg PO BID PRN (Reason: Pain) scopolamine base 1 mg over 3 days patch 3 day 1 patch topical .Q72H PRN (Reason: Nausea) polyethylene glycol 3350 [Miralax] 17 gram/dose powder 17 g PO DAILY PRN (Reason: laxative effect) ondansetron 4 mg tablet,disintegrating 4 mg PO Q8H PRN (Reason: Pain) Discharge Orders: Discharge ED (Routine); Ordered 01/22/25 Ordered By: Shivam Limon Referrals: Imtiaz Bliss MD [Primary Care Provider, Family Practice] Patient Instructions: Opioid Safety, Pain Management, Patient Portal & Yoko Instructions Activity Restrictions/Additional Instructions: Thank you for choosing [facility] for your healthcare needs today. It is very important that you follow up as instructed or that you return to the Emergency Department should you have concerns or if your condition changes or worsens in any way. Emergency department visits are focused on emergent conditions, in some cases you may require further evaluation on an outpatient basis. You are seen emergency room with complaints of right knee pain after patellar fracture and repair. Recommend you follow-up with Dr. Wilkinson for further recommendations. You are given pain medications to use overnight. Follow-up with Dr. Hayes for further pain medications tomorrow. (Please note that included in your discharge packet is information concerning opioid safety and pain management. This information is given to all patients were discharged from the ER regardless of their discharge diagnosis or the medicines they usually take or are prescribed.) Print Language: [place] Coding Level of Care Code ED Business Banking Manager for Elroy Yanez
--- NOTE | 2025-01-22 19:39 | XRR_ITS ---
PROCEDURE INFORMATION: Exam: XR Right Knee Exam date and time: 01/22/2025 7:42 PM Age: 64 years old Clinical indication: Pain; Right; Prior surgery; Surgery date: 1-6 months; Surgery type: RT knee TECHNIQUE: Imaging protocol: Radiologic exam of the right knee. Views: 3 views. COMPARISON: CR XR knee RT 3V* [id number] 01/11/2025 2:56 PM FINDINGS: Bones/joints: Diffusely decreased bone density. No acute fracture or dislocation. Metallic plate and screws transfixing a chronic patellar fracture, in stable alignment. Moderate osteoarthritis. No joint effusion. Soft tissues: Unremarkable. XR/XR knee RT 3V* [id number] IMPRESSION: No acute finding.
[2025-01-22 19:45] VITALS: RESP 16; O2SAT 97
[2025-01-22] MEDS: oxyCODONE-APAP 5-325 mg Tablet 1 TAB PO (19:45)
[2025-01-22] MEDS: HYDROcodone-acetaminophen 10-325 mg Tablet 2 TAB PO (21:25)
== END 2025-01-22 21:25 | disposition home or self-care (01) ==
PROVIDERS: Emergency Provider Family Medicine; PCP Family Medicine
DX: G90.521 Complex regional pain syndrome I of right lower limb (principal); S82.031D Displaced transverse fracture of right patella, subsequent encounter for closed fracture with routine healing; Z87.891 Personal history of nicotine dependence; E78.5 Hyperlipidemia, unspecified; X58.XXXD Exposure to other specified factors, subsequent encounter; N18.31 Chronic kidney disease, stage 3a
CPT/HCPCS: 73562; 99283; J9999

== ENCOUNTER → 2025-01-24 14:26 | Outpatient (BNVA) | payer MEDICARE, SELFPAY | PROVIDERS: PCP Family Medicine; Visit Provider Orthopaedic Surgery | DX: Z98.890 Other specified postprocedural states (principal); Z51.89 Encounter for other specified aftercare | CPT/HCPCS: 99024 ==

== ENCOUNTER → 2025-02-12 15:08 | Outpatient (BNVA) | payer MEDICARE, SELFPAY | PROVIDERS: PCP Family Medicine; Visit Provider Orthopaedic Surgery | DX: Z47.89 Encounter for other orthopedic aftercare (principal); S82.031D Displaced transverse fracture of right patella, subsequent encounter for closed fracture with routine healing; X58.XXXD Exposure to other specified factors, subsequent encounter | CPT/HCPCS: 73560; 73565; 99024 ==

== ENCOUNTER 2025-02-17 19:57 | Outpatient (CLI) | payer MEDICARE, SELFPAY | END 2025-02-17 19:58 | disposition home or self-care (01) | LOC: SLEEP 19:58 | PROVIDERS: PCP Family Medicine; Referring Provider Family Medicine; Visit Provider Internal Medicine Pulmonary Disease | DX: G47.33 Obstructive sleep apnea (adult) (pediatric) (principal) | CPT/HCPCS: 95811 ==